=== PATIENT | female | born 1930 | race Two or more races ===

== ENCOUNTER 2017-01-11 20:24 | Inpatient (IN) | payer MEDICARE, OTHER ==
[~2017-01-11] VITALS: Ht 147.3 cm; Wt 41.0 kg
[2017-01-11 20:00] VITALS: BP 134/72; PULSE 67; PULSE 98; RESP 16; TEMP 98.1; O2SAT 98
[2017-01-11] MEDS: ASPIRIN 81 MG CHEW TAB PO SCH (20:52)
[2017-01-11] MEDS: METOPROLOL TARTRATE 25 MG TAB PO SCH (21:00)
[2017-01-11] MEDS ORDERED: SODIUM CHLORIDE FLUSH PRN IV FLUSH (21:00)
[2017-01-11] MEDS ORDERED: diphenhydrAMINE HCL 25 MG CAP PO PRN (21:00)
[2017-01-11] MEDS ORDERED: SENNOSIDES 8.6 MG TAB PO PRN (21:00)
[2017-01-11] MEDS: NITROGLYCERIN 2% OINT 1 GM PACKET TOPICAL SCH (21:00)
[2017-01-11] MEDS: ENOXAPARIN SODIUM 40 MG/0.4 ML SYRINGE SQ SCH (21:00)
[2017-01-11] MEDS ORDERED: ONDANSETRON HCL 4 MG/2 ML VIAL IV PUSH PRN (21:00)
[2017-01-11] MEDS: ATORVASTATIN 40 MG TAB PO SCH (22:29)
[2017-01-11] MEDS: SODIUM CHLORIDE FLUSH BID IV FLUSH SCH (22:30)
[2017-01-11 23:00] VITALS: BP 137/75; PULSE 68; PULSE 84; RESP 20; TEMP 98; O2SAT 96
[2017-01-12] VITALS (13 sets, daily range): BP systolic 138–149; BP diastolic 70–76; PULSE 62–78; RESP 16–20; TEMP 98–98.6; O2SAT 93–97
[2017-01-12] MEDS: NITROGLYCERIN 2% OINT 1 GM PACKET TOPICAL SCH ×4 (03:00→22:27)
[2017-01-12 06:09] LABS: AUTOMATED NEUTROPHIL # 1.8 TH/MM3 (1.8-7.7); BASOPHIL % 1.1 % (0.0-2.0); EOSINOPHIL # 0.4 TH/MM3 (0-0.4); EOSINOPHIL % 8.8 % (0.0-4.0); HEMO FLAGS DIFF FINAL; LYMPH % 29.7 % (9.0-44.0); LYMPHOCYTE # 1.2 TH/MM3 (1.0-4.8); MEAN CELL VOLUME 84.1 FL (80.0-100.0); MEAN CORPUSCULAR HEMOGLOBIN 27.5 PG (27.0-34.0); MEAN CORPUSCULAR HGB CONC 32.7 % (32.0-36.0); MONO % 14.8 % (0.0-8.0); NEUT % 45.6 % (16.0-70.0); PLATELET COUNT 234 TH/MM3 (150-450); RED CELL DISTRIBUTION WIDTH 19.9 % (11.6-17.2)
[2017-01-12 06:17] LABS: POTASSIUM 4.3 MEQ/L (3.5-5.1)
[2017-01-12] MEDS: ASPIRIN 81 MG CHEW TAB PO SCH (09:09)
[2017-01-12] MEDS: METOPROLOL TARTRATE 25 MG TAB PO SCH ×2 (09:09→22:28)
[2017-01-12] MEDS: SODIUM CHLORIDE FLUSH BID IV FLUSH SCH ×2 (09:10→22:28)
[2017-01-12] MEDS ORDERED: SOD PHOSPHATE/SOD BIPHOSPHATE (ADULT) ENEMA 133ML RECTAL PRN (10:30)
[2017-01-12] MEDS ORDERED: BISACODYL 10 MG SUPP RECTAL PRN (10:30)
--- NOTE | 2017-01-12 10:51 | RADRPT ---
EXAM DATE/TIME: 01/12/2017 10:22 [place] COMPARISON: No previous studies available for comparison. INDICATIONS : Chest pain MEDICAL HISTORY : Cardiovascular disease. SURGICAL HISTORY : Fusion, cervical. ENCOUNTER: Initial ACUITY: 1 day PAIN SCORE: 0/10 LOCATION: chest FINDINGS: There are chronic interstitial changes throughout the pulmonary parenchyma. No focal or segmental pne umonia is seen. The heart is enlarged. The thoracic aorta is ectatic. The mediastinal contours are otherwise unremark able. The bony structures are intact. CONCLUSION: 1. COPD changes. 2. Cardiomegaly. Javier Posada MD on January 12, 2017 at 10:48 Board Certified Radiologist. This report was verified electronically.
--- NOTE | 2017-01-12 11:59 | MB ---
cc: DINESH MAYO,HEATHER VIZCAINO,MILEY HENRY,HARPER Anglin MD DATE OF CONSULTATION: 01/12/2017 REASON FOR CONSULTATION: Multivessel coronary artery disease and aortic stenosis. HISTORY Ms. Wells is a very pleasant 86 year-old female with a known history of coronary artery disease who has been followed by Dr. Henry. She underwent elective coronary angiography last week by Dr. Henry at [facility] for progressive symptoms of shortness of breath and chest pain which revealed multivessel coronary artery disease in the setting of aortic stenosis. She was subsequently admitted the next day to the hospital for presenting complaints of nausea and dizziness. At that point a surgical consultation was obtained from the cardiothoracic surgeon there in terms of further therapy regarding her presenting pathology. The patient and family wished to have her care done at [place] and she was subsequently transferred here yesterday to [facility] for further management. At the present time she is pain free, hemodynamically stable with no evidence of ongoing ischemia. PAST MEDICAL HISTORY 1. Significant for hypertension. 2. Hypothyroidism. 3. Asthma. 4. Coronary artery disease as described above. 5. Aortic stenosis - by verbal report. PAST SURGICAL HISTORY: 1. Remarkable for coronary angiography as described above. 2. EGD with polypectomy. ALLERGIES PENICILLIN. FAMILY HISTORY: Significant for hypertension with no evidence of premature coronary artery disease. SOCIAL HISTORY: Denies any history of smoking, alcohol use, or illicit drug use. REVIEW OF SYSTEMS: As above. All other parameters are negative. PHYSICAL EXAMINATION: Physical emanation today she is 45.5 kg, blood pressure is 145/74 with a heart rate of 71, respiratory rate is 20 and she is afebrile. HEENT: Normocephalic, atraumatic. Pupils are reactive. Extraocular muscles intact. No cervical lymphadenopathy, carotid bruits or JVD. Cardiovascular: Regular rate and rhythm. Normal S1-S2 without gallops or rubs. There is a 2/6 diastolic murmur at the right parasternal border. Abdomen: Soft, nontender, nondistended with normoactive bowel sounds. No hepatosplenomegaly. Bilateral femoral pulses intact with softly palpable pedal pulses. No cyanosis, edema, no venous varicosities. Neurological: Intact with no focal deficits. IMPRESSION 1. Multivessel coronary disease. 2. Aortic stenosis by report - questionable. 3. Dementia 4. Asthma. 5. Hypertension. 6. Hypothyroidism. PLAN The clinical echo and angiographic findings were discussed in detail with the patient, her daughter and her son-in-law. I have reviewed the coronary angiography films from [facility] with Dr. Parth Campbell. Per the report of the echocardiogram, however, it states that there is no aortic stenosis, so we will obtain an echocardiogram at [facility] to determine the exact pathology of the aortic valve. The report states that there is mild sclerosis with trileaflet aortic valve and no Doppler evidence of stenosis, however, that is not what was reported to me verbally and related to me as well by her physicians over there. Further therapy depending upon what the echocardiogram shows. If she actually does have severe aortic stenosis in the setting of LAD and circumflex disease that I see in the coronary angiography, then I think the best approach may be staged PCI to the coronary vessels with eventual TAVR to the aortic valve. I think open surgical therapy for AVR and coronary artery bypass surgery in the setting of moderate to severe left ventricle dysfunction, dementia, as well as other medical comorbidities will carry a significant operative and perioperative risk of morbidity & mortality in her case. Further therapy to determine depending upon the findings of the above testing. Thank you for allowing me to participate in the care of your patient. Miley COLEMAN /10:33 AM /11:34 AM ERICKA
--- NOTE | 2017-01-12 12:52 | MB ---
cc: LONA SALINAS DATE OF CONSULTATION: 01/12/2017. REASON FOR CONSULTATION: Chest pain / aortic stenosis / coronary artery disease. HISTORY OF PRESENT ILLNESS: 86-year-old female with a past medical history significant for hypertension, hypothyroidism, asthma, mild dementia and coronary artery disease who was transferred from an outside hospital for evaluation of multivessel coronary artery disease and evaluation of aortic stenosis. The patient reports that for the last couple of days she has been having weakness, nausea, fainting and occasional atypical chest pains. The daughter adds that before this admission she recently was evaluated for acute on chronic heart failure at [facility] where she was evaluated by cardiology. Left heart catheterization done at that time revealed multivessel coronary artery disease and there is a question of aortic stenosis of uncertain severity. Today on interview, she denies any chest pain, shortness of breath, palpitations or lightheadedness. No orthopnea, PND or dyspnea on exertion. No fevers, chills or rigors. No night sweats, weight loss or diaphoresis. No dysuria, frequency of urination, urinary retention. No melena. No hematochezia. No hematemesis. No night sweats. No weight loss. No difficulty swallowing. Review of systems negative except for the ones mentioned in the history of present illness. PAST MEDICAL HISTORY: 1. Coronary artery disease. 2. Hypertension. 3. Hypothyroidism. 4. Asthma. ALLERGIES: PENICILLIN. PAST SURGICAL HISTORY: 1. Left heart catheterization. 2. EGD with polypectomy. FAMILY HISTORY: Noncontributory. SOCIAL HISTORY: Denies illicit drug use, smoking or alcohol abuse. MEDICATIONS: 1. Aspirin 81 milligrams p.o. daily. 2. Lipitor 20 milligrams p.o. daily. 3. Lopressor 12.5 milligrams p.o. twice a day. PHYSICAL EXAMINATION: VITAL SIGNS: Temperature 97, respiratory rate 20, heart rate 64, blood pressure 138/76, 02 saturation 100% on room air. GENERAL: She is awake, alert and oriented times three in no acute distress. NECK: No jugular venous distention. No carotid bruits. HEART: Regular rate and rhythm. No gallops or rubs. She has a 2/6 systolic ejection murmur. LUNGS: Poor inspiratory effort with no wheezes, no rhonchi, no rales. ABDOMEN: Benign. Positive bowel sounds. The abdomen is soft, nontender and nondistended. EXTREMITIES: There is no cyanosis or edema and pulses throughout. DATA: CBC: Hemoglobin 10, hematocrit 32, platelet count 234,000. Electrolytes: Sodium 139, potassium 4.3, BUN 22, creatinine 0.98. IMAGING STUDIES: Chest x-ray: COPD changes with cardiomegaly. CARDIOLOGY STUDIES: There is an echocardiogram report in her chart, no images to review, that mentions that she has a mildly decreased left ventricular systolic function with an ejection fraction estimated to be 45%. There is some diffuse hypokinesis , some mild aortic annular calcification and mild pulmonary hypertension. There is a left heart catheterization that I reviewed yesterday with Dr. Diaz that reveals mainly two-vessel coronary artery disease with a focal eccentric lesion in the left circumflex and another 12 mm ectatic lesion in the proximal left anterior descending associated with calcification. ASSESSMENT AND PLAN: 86-year-old female with the above history and findings admitted for coronary artery disease and aortic stenosis evaluation. She remains afebrile and hemodynamically stable. She is chest pain-free and denies any cardiovascular complaints at the moment. Left heart catheterization has been reviewed. She does have multivessel coronary artery disease; however, the aortic valve still has a question of the severity of it. Thus, we will need to repeat the echocardiogram during this admission to further assess the severity of the aortic stenosis, and with that information we can discuss with family and the patient the different alternatives we can provide regarding her the process. If she has severe aortic stenosis on echo, it would be reasonable to consider TAVR, if not then will treat CAD with PCI and medical therapy. Recommendations: -Continue aggressive medical management for coronary artery disease and mild IV diuresis. -Avoid electrolyte abnormalities. -Continue telemetry monitoring. -Continue all other non-cardiac home medications. -ECHO today Thank you for the opportunity to participate in the care of this patient. Further management to be determined MD MAI Payton/ANDREAS /12:04 PM /12:35 PM ERICKA
--- NOTE | 2017-01-12 13:16 | ECHRPT ---
Indication: cardiomyopathy CONCLUSIONS Normal left ventricular size. Wall thickness is normal. The left ventricular systolic function is severely reduced with an estimated ejection fraction in th e range of 30-35%. There is diffuse global hypokinesis with distinct regional wall motion abnormalities. Mild mitral valve regurgitation. Mitral annular calcification is present. Aortic valve sclerosis is present. Trace aortic valve regurgitation. There is mild tricuspid valve regurgitation. The estimated pulmonary arterial pressure is 31.4 mmHg. BP: / HR: Rhythm: MEASUREMENTS (Male / Female) Normal Values Technical Quality: 2D ECHO LV Diastolic Diameter PLAX 4.8 cm 4.2 - 5.9 / 3.9 - 5.3 cm LV Systolic Diameter PLAX 4.2 cm IVS Diastolic Thickness 0.8 cm 0.6 - 1.0 / 0.6 - 0.9 cm LVPW Diastolic Thickness 0.7 cm 0.6 - 1.0 / 0.6 - 0.9 cm LV Relative Wall Thickness 0.3 RV Internal Dim ED PLAX 2.1 cm LA Systolic Diameter LX 3.7 cm 3.0 - 4.0 / 2.7 - 3.8 cm DOPPLER AV Peak Velocity 201.5 cm/s AV Peak Gradient 16.2 mmHg AV Mean Gradient 8.0 mmHg AV Velocity Time Integral 39.5 cm LVOT Peak Velocity 91.7 cm/s LVOT Peak Gradient 3.4 mmHg LVOT Velocity Time Integral 17.8 cm Mitral E Point Velocity 44.9 cm/s Mitral A Point Velocity 98.7 cm/s Mitral E to A Ratio 0.5 TR Peak Velocity 257.0 cm/s TR Peak Gradient 26.4 mmHg Right Atrial Pressure 5.0 mmHg Pulmonary Artery Systolic Pressu 31.4 mmHg Right Ventricular Systolic Press 31.4 mmHg FINDINGS LEFT VENTRICLE Normal left ventricular size. Wall thickness is normal. The left ventricular systolic function is severely reduced with an estimated ejection fraction in th e range of 30-35%. There is diffuse global hypokinesis with distinct regional wall motion abnormalities. RIGHT VENTRICLE Normal right ventricular size and systolic function. LEFT ATRIUM The left atrial size is normal. RIGHT ATRIUM The right atrial size is normal. ATRIAL SEPTUM Normal atrial septal thickness without atrial level shunting by limited color doppler interrogation. AORTA The aortic root and proximal ascending aorta are normal in size on limited imaging. MITRAL VALVE Mild mitral valve regurgitation. Mitral annular calcification is present. AORTIC VALVE Aortic valve sclerosis is present. Trace aortic valve regurgitation. TRICUSPID VALVE There is mild tricuspid valve regurgitation. The estimated pulmonary arterial pressure is 31.4 mmHg. PULMONARY VALVE No pulmonary valve regurgitation or stenosis. VESSELS The inferior vena cava is normal in size. PERICARDIUM No pericardial effusion. Parth Sotomayor MD (Electronically Signed) Final Date:12 January 2017 13:15
[2017-01-12] MEDS: RESP: ALBUTEROL 2.5 MG/IPRATROPIUM 0.5 MG NEB (SCH) NEB (14:31)
[2017-01-12] MEDS: ENOXAPARIN SODIUM 40 MG/0.4 ML SYRINGE SQ SCH (22:27)
[2017-01-12] MEDS: DOCUSATE SODIUM 100 MG CAP PO SCH (22:27)
[2017-01-12] MEDS: SENNOSIDES 8.6 MG TAB PO SCH (22:27)
[2017-01-12] MEDS: ATORVASTATIN 40 MG TAB PO SCH (22:28)
[2017-01-13] VITALS (14 sets, daily range): BP systolic 137–138; BP diastolic 63–82; PULSE 56–89; RESP 16–18; TEMP 97.6–98.5; O2SAT 95–98
[2017-01-13] MEDS: NITROGLYCERIN 2% OINT 1 GM PACKET TOPICAL SCH (03:12)
[2017-01-13] MEDS: RESP: ALBUTEROL 2.5 MG/IPRATROPIUM 0.5 MG NEB (SCH) NEB ×3 (07:42→21:02)
[2017-01-13] MEDS ORDERED: HEPARIN-NS/PF INJ 1,000 ML ONE ×2 (08:09→09:10)
[2017-01-13] MEDS ORDERED: MIDAZOLAM HCL 2 MG/2 ML VIAL ONE ×2 (08:09→09:35)
[2017-01-13] MEDS ORDERED: HEPARIN SODIUM - IV 10,000 UNITS/10 ML VIAL ONE (08:34)
[2017-01-13] MEDS ORDERED: NITROGLYCERIN INJ 5 ML ONE (08:34)
[2017-01-13] MEDS ORDERED: POLYETHYLENE GLYCOL 17 GM PKG PO SCH (09:00)
[2017-01-13] MEDS ORDERED: CLOPIDOGREL 300 MG TAB ONE (10:37)
[2017-01-13] MEDS ORDERED: SODIUM CHLOR 0.9% 1000 ML INJ 1,000 ML IV SCH (10:48)
--- NOTE | 2017-01-13 10:50 | CATHPROC ---
Pain Doctor HIS Report Study Information Study Number Admission Scheduled Start Study Start [id number] Jan 11 2017 8:24PM 01/13/2017 Jan 13 2017 8:01AM [facility] Catheterization Admit Source Facility Department Emergency department [facility] - Bad Cloth Checker Physician and Clinical Staff Initial Parth Moreno Paraeducator Celestina Mulligan,MARIA E ParaeducatorEloisa Sorensen,MARIA E Recorder Samir, Juan Ramon,RT(R) Suellen Rucker,AGUEDA TECH2 Procedures Performed Procedure Location (Site) Vessel Name Coronary Angiograms LCA Left Coronary Coronary Angiograms RCA Right Coronary Drug Eluting Inflatio CIRC Mid CIRC Drug Eluting Inflatio LAD Prox Left Coronary Impella Fem Art (left) Femoral Art PTCA LAD Prox Left Coronary Wire insertion Fem Art (right) Femoral Art Equipment Time Car Customizer Description Size Mfg Part Number Used/Scraped COPILOT VALVE, BLEEDBACK [id number] 09:43 [employer] Used CONTROL *[id number] PERCLOSE, PRO GLIDE CLOSER 10:29 [employer] FR 6 [id number] *[id number] Used DEVICE PERCLOSE, PRO GLIDE CLOSER 08:56 [employer] FR 6 93772 *[id number] Used DEVICE PERCLOSE, PRO GLIDE CLOSER 08:56 [employer] FR 6 23419 *[id number] Used DEVICE PERCLOSE, PRO GLIDE CLOSER 08:56 [employer] FR 6 53568 *[id number] Used DEVICE STENT, 2.75 X 18MM XIENCE [id number] 10:01 [employer] 2.75 X 18 Used ALPINE *[id number] STENT, 2.75 X 18MM XIENCE [id number] 10:16 [employer] 2.75 X 18 Used ALPINE *[id number] 09:24 [employer] WIRE, DOC EXTENSION 145CM 145CM 73267 *[id number] Used [id number] 09:03 [employer] WIRE, SPARTACORE 5*300CM 300CM Used *[id number] 09:05 ABIOMED PUMPSET, IMPELLA 2.5 2.5 489106 Used TRANSDUCER, TRUWAVE [id number] 08:39 GOODWIN RABAGO * Used W/STOCKCOCK *[id number] 09:42 [employer] BALLOON, 2.5 12MM EMERGE MR 2.5 12MM Used *[id number] CARDIOVASCULAR CATHETER, CORONARY CLASSIC [id number]-[id number] 09:36 Used SYSTEMS INC. 1.25MM *[id number] CARDIOVASCULAR WIRE, VIPER ADVANCE [facility]-[id number]- 09:22 Used SYSTEMS INC. CORONARY FLP *[id number] MPIS-502-10.0- INTRODUCER SET, 08:39 [employer]OOK INC. FR 5 SC-NT-U-SST Used MICROPUNCTURE, STIFFENED *7927175 534-645T *1586281 534-645T *5297019 534-521T *[id number] 504-658X *[id number] [id number] 08:39 [employer] IND[employer]RIES PACK, CCL CUSTOM * Used *[id number] [id number] 09:27 MEDTRONIC BALLOON, 1.5 X 6MM SPRINTER 6MM Used *[id number] BALLOON, 2.75 X 15MM NC [id number] 09:59 [employer]IC 15MM Used EUPHORA *0605613 [id number] 09:47 [employer]IC STENT, 2.75 18MM VAL 2.75 18MM Used *[id number] 08:38 [employer]TR[employer]IC/AVE EBU 3.5 Z2 GUIDE CATHETER FR 6 Used *[id number] [id number] 09:43 [employer] MEDICAL 30 DALJIT INDEFLATOR Used *4706937 [id number] 08:39 [employer] MEDICAL WIRE, 3MMJ .035 180CM 180CM Used *1765161 [id number] 08:39 NAMIC MANIFOLD, 4 PORT * Used *6966295 08:39 NYCOMED OMNIPAQUE, 350 MG, 150ML 150ML [id number] Used [id number] 08:39 [employer] BLANKET,WARM AIR CCL * Used *7104174 [id number] 08:40 TERUMO MEDICAL SHEATH, FR6 TERUMO (10CM) FR 6 Used *[id number] WIRE, RUNTHROUGH NS FLOPPY 25-1011 09:17 TERUMO MEDICAL 180CM Used .014 180CM *[id number] Equipment Model, Serial, Lot Number and Expiration Data Description Model Number Serial Number Lot Number Expiration Date BALLOON, 2.5 12MM EMERGE MR [id number] 07-19-2019 PERCLOSE, PRO GLIDE CLOSER [id number] 09-04-2018 DEVICE PERCLOSE, PRO GLIDE CLOSER [id number] 09-04-2018 DEVICE PERCLOSE, PRO GLIDE CLOSER [id number] 09-04-2018 DEVICE STENT, 2.75 18MM VAL [id number] 08-21-2018 STENT, 2.75 X 18MM XIENCE [id number] 04-08-2019 ALPINE STENT, 2.75 X 18MM XIENCE [id number] 03-03-2019 ALPINE WIRE, VIPER ADVANCE CORONARY [id number] 03-06-2018 History: Allergies Allergy Reaction Penicillins Anaphylaxis History: Risk Factors Family History of Hypertension Dyslipidemia Previous MT Previous Heart Failure Premature CAD Yes Yes No No No Prior Valve Prior PCI Prior CABG Surgery No No No Cerebrovascular Peripheral Artery Chronic Lung On Dialysis Diabetes Disease Disease Disease No No No Yes No History: Other Current Smoker No Labs Hgb (g/dl) Hct (%) WBC (l/cumm) Platelets (thousands) 11.60-17.00 35.00-51.00 4.00-11.00 150.00-450.00 10.5 32 4 234 Glucose (mg/dl) BUN (mg/dl) Creatinine (mg/dl) BUN:Creatinine (1:x) 74.00-106.00 7.00-18.00 0.50-1.30 10.00-20.00 85 22 0.9 24.4 Na (meq/l) K (meq/l) 136.00-145.00 3.50-5.10 139 4.3 CPK-MB (ng/ML) 0.50-3.60 Not Drawn Medication Medication Total Dose (Bolus/Oral) Medication Total Dosage/Unit 1% XYLOCAINE 20 mL FENTANYL 150 mcg HEPARIN 6000 units PLAVIX 600 mg VERSED 4 mg Medications (Bolus/Oral) Medication Time Given Dosage/Unit Administered By Reason VERSED 01/13/2017 8:37:54 AM 1 mg Celestina Mulligan Patient arrived on 1 mg VERSED given by Celestina Mulligan RN via Peripheral IV. Ordered by Parth Sotomayor. FENTANYL 01/13/2017 8:38:13 AM 25 mcg Celestina Mulligan Patient arrived on 25 mcg FENTANYL given by Celestina Mulligan, MARIA E via Peripheral IV. Ordered by Parth Spencer. 1% XYLOCAINE 01/13/2017 8:39:59 AM 10 mL Parth Sotomayor Patient arrived on 10 mL 1% XYLOCAINE given by Parth Sotomayor in Right Groin via Subcutaneous. Ord ered by Parth Sotomayor. 1% XYLOCAINE 01/13/2017 8:53:44 AM 10 mL Parth Sotomayor Patient arrived on 10 mL 1% XYLOCAINE given by Parth Sotomayor in Left Groin via Subcutaneous. Orde red by Parth Sotomayor. VERSED 01/13/2017 8:58:47 AM 1 mg Adamy, Celestina 1 mg VERSED given in lab by Celestina Mulligan RN via Peripheral IV. Ordered by Parth Sotomayor. FENTANYL 01/13/2017 8:59:37 AM 25 mcg Adamy, Celestina 25 mcg FENTANYL given in lab by Celestina Mulligan RN via Peripheral IV. Ordered by Parth Sotomayor. HEPARIN 01/13/2017 8:59:45 AM 4000 units Celestina Mulligan 4000 units HEPARIN given in lab by Celestina Mulligan RN via Peripheral IV. Ordered by Renetta Sotomayor o. HEPARIN 01/13/2017 9:12:11 AM 2000 units Ceelstina Mulligan 2000 units HEPARIN given in lab by Celestina Mulligan RN via Peripheral IV. Ordered by Renetta Sotomayor o. VERSED 01/13/2017 9:37:12 AM 1 mg Hesher, Eloisa 1 mg VERSED given in lab by Eloisa Thomas, MARIA E via Peripheral IV. Ordered by Parth Sotomayor. FENTANYL 01/13/2017 9:38:22 AM 25 mcg Hesher, Eloisa 25 mcg FENTANYL given in lab by Eloisa Thomas RN via Peripheral IV. Ordered by Parth Sotomayor. VERSED 01/13/2017 9:59:49 AM 1 mg Adamy, Celestina 1 mg VERSED given in lab by Celestina Mulligan RN via Peripheral IV. Ordered by Parth Sotomayor. FENTANYL 01/13/2017 10:00:05 AM 25 mcg Adamy, Celestina 25 mcg FENTANYL given in lab by Celestina Mulligan RN via Peripheral IV. Ordered by Parth Sotomayor. FENTANYL 01/13/2017 10:27:10 AM 50 mcg Celestina Mulligan 50 mcg FENTANYL given in lab by Celestina Mulligan RN via Peripheral IV. Ordered by Parth Sotomayor. PLAVIX 01/13/2017 10:35:27 AM 600 mg Celestina Mulligan 600 mg PLAVIX given in lab by Celestina Mulligan RN via Oral. Ordered by Parth Sotomayor. Medication (Drip) Medication Time Given Dosage/Unit Concentration/Unit Diluent (ml) Solution IV Solutions 01/13/2017 8:13:27 AM 0 mL (IV) 500 NaCl .9 Patient arrived on IV Solutions given by Parth Sotomayor in Right Antecubital via Peripheral IV. Pu mp/Drip Flow = 20 ml/hr using NaCl .9. Ordered by Parth Sotomayor. Initial Case Assessment Cardiovascular HR Rhythm NIBP Chest Pain 65 sr 144/76 0 Edema Present Skin color Skin None Normal Warm Dry Circulatory - Right Pulses Posterior Tibial Femoral 3 3 Scale (0,1,2,3,4,d) Circulatory - Left Pulses Posterior Tibial Femoral 3 3 Scale (0,1,2,3,4,d) Neurological State Oriented to time-place- Alert Moves all extremities person Respiration - General Respiration Rate SpO2 (%) O2 (lpm) (B/min) 18 99 0 Chronological Log Time Study Chronological Log 8:01:46 Patient arrived via Bed. 8:01:48 Patient Name, D.O.B, / Armband Verified By R.N. 8:01:49 Consent signed by the physician and the patient and verified by the Bad Cloth Checker staff. 8:01:51 Pre-op and post- op instructions given; patient acknowledges understanding of instructions . 8:06:20 Reference ECG taken Vitals capture started with the following parameters, Patient=Adult, Interval=5 min, Initial Ezmcnsuf=203 mmHg, 8:06:40 Deflation Rate=5 mmHg 8:06:50 Presedation assessment performed by Bad Cloth Checker RN. 8:06:54 Patient has been NPO for More than 6Hrs. 8:06:57 Skin Breakdown-none present per patient. 8:07:51 HR=63 bpm, WSHV=104/75 mmhg, SpO2=98.0 %, Resp=0 B/min, Brumfield=2 8:12:15 HR=64 bpm, JPTN=641/76 mmhg, SpO2=98.0 %, Resp=10 B/min, Brumfield=2 8:13:17 A # 20 IV was noted in the Antecubital (right). Grade = 0 Patient arrived on IV Solutions given by Parth Sotomayor in Right Antecubital via Peripheral I V. Pump/Drip Flow = 20 8:13:27 ml/hr using NaCl .9. Ordered by Parth Sotomayor. 8:14:21 History and physical on the chart or being dictated. Assessment: Initial Case, HR=65 BPM, Rhythm=sr, HJAF=224/76 mmhg, Chest Pain=0, Edema=None, [place] r=Normal, Skin = Warm, Dry Right Pulses: Post Tib=3, Femoral=3 8:14:25 Left Pulses: Post Tib=3, Femoral=3 Neurological: State=Alert, Ox3, ARECHIGA Respiration: Resp=18 B/min, SpO2=99 %, O2=0 lpm 8:15:56 Bilateral groins prepped with 2% chlorhexidine, and draped after a 3 minute waiting time. 8:17:14 HR=65 bpm, SBFX=008/75 mmhg, WdS1=503.0 %, Resp=10 B/min, Brumfield=2 8:22:17 HR=66 bpm, NLPK=388/75 mmhg, HqK7=296.0 %, Resp=14 B/min, Brumfield=2 8:24:14 Pressure channel 1 zeroed. 8:27:18 HR=62 bpm, MGBY=056/73 mmhg, JfK5=712.0 %, Resp=12 B/min, Brumfield=2 8:30:59 MD arrived. 8:31:19 Dr. Campbell informed patient recieved Lovenox last night. He wishes to proceed with case. 8:32:17 HR=64 bpm, WTOS=491/69 mmhg, IbJ0=716.0 %, Resp=13 B/min, Brumfield=2 Time Out. Correct patient, correct procedure, correct physician, power injector not loaded with contrast with surgical 8:37:08 team present. Time Out Concurred by MD and individual staff in procedure. Not loaded at this reina e. 8:37:16 HR=61 bpm, UZUC=618/73 mmhg, KfG5=270.0 %, Resp=12 B/min, Brumfield=2 8:37:34 Presedation re-assessment performed by Bad Cloth Checker RN. 8:37:35 Case Start 8:37:37 Verbal Stimulation=2 Physical Stimulation=2 Airway=2 Respiration=2 TOTAL=8. (0=absent, 1=fournier ited, 2=present) 8:37:54 Patient arrived on 1 mg VERSED given by Celestina Mulligan, MARIA E via Peripheral IV. Ordered by Co Parth Alejandre. 8:38:13 Patient arrived on 25 mcg FENTANYL given by Celestina Mulligan, MARIA E via Peripheral IV. Ordered b y Parth Sotomayor. Patient arrived on 10 mL 1% XYLOCAINE given by Parth Sotomayor in Right Groin via Subcutaneous . Ordered by 8:39:59 Parth Sotomayor. 8:40:12 Access site was Right Femoral Artery. A SHEATH, FR6 TERUMO (10CM) FR 6 was exchanged in the Fem Art (right). This was necessary in ord er to 8:40:19 accomodate a larger catheter. Recorded Pressure: FA, HR=61, Condition=Condition 1 8:41:12 (Femoral Artery) FA 166/63/99 8:41:36 An injection in the Fem Art (right) was made through the SHEATH, FR6 TERUMO (10CM) FR 6. A JR 4.0 INFINITI CATHETER FR 5 was advanced over a wire. OMNIPAQUE, 350 MG, 150ML 150ML was use d for 8:42:10 injections. 8:42:20 HR=68 bpm, CXBA=495/66 mmhg, RlG1=169.0 %, Resp=8 B/min, Brumfield=2 Recorded Pressure: Ao, HR=64, Condition=Condition 1 8:43:04 (Aorta) Ao 156/61/98 8:43:22 The RCA was injected and visualized at various angles. OMNIPAQUE, 350 MG, 150ML 150ML used. 8:44:34 Catheter was removed A EBU 3.5 Z2 GUIDE CATHETER FR 6 was advanced over a wire. OMNIPAQUE, 350 MG, 150ML 150ML was us ed for 8:44:58 injections. 8:46:16 The LCA was injected and visualized at various angles. OMNIPAQUE, 350 MG, 150ML 150ML used. 8:47:17 HR=60 bpm, NCMN=716/63 mmhg, SpO2=99.0 %, Resp=7 B/min, Brumfield=2 8:50:45 Catheter was removed A AL 1 INFINITI CATHETER FR 6 was advanced over a wire. OMNIPAQUE, 350 MG, 150ML 150ML was used for 8:50:47 injections. 8:52:18 HR=58 bpm, AWQE=699/72 mmhg, AzN9=142.0 %, Resp=13 B/min, Brumfield=2 8:53:40 Catheter was removed Patient arrived on 10 mL 1% XYLOCAINE given by Parth Sotomayor in Left Groin via Subcutaneous. Ordered by Ike 8:53:44 Parth Castillo. 8:56:18 A SHEATH, FR8.5 AMINA 11CM FR 8 was advanced into the Fem Art (left) using the Percutaneous technique. 8:57:19 HR=62 bpm, ASOS=914/69 mmhg, XrE7=211.0 %, Resp=9 B/min, Brumfield=2 8:58:47 1 mg VERSED given in lab by Celestina Mulligan, MARIA E via Peripheral IV. Ordered by Alvaro Sotomayor. 8:59:37 25 mcg FENTANYL given in lab by Celestina Mulligan, MARIA E via Peripheral IV. Ordered by Parth Sotomayor. 8:59:45 4000 units HEPARIN given in lab by Celestina Mulligan, MARIA E via Peripheral IV. Ordered by Parth Spencer. 9:00:22 Perclose Proglide closure devices being per inserted in left fem art. 9:02:18 HR=64 bpm, QLII=598/72 mmhg, SpO2=98.0 %, Resp=15 B/min, Brumfield=2 A sheath was exchanged in the Fem Art (left). This was necessary in order to accomodate a larger catheter. Impella 9:04:54 sheath exchanged 9:07:19 HR=58 bpm, FMCI=036/63 mmhg, SpO2=99.0 %, Resp=10 B/min, Brumfield=2 9:08:14 Activated Clotting Time Drawn A AL 1 INFINITI CATHETER FR 6 was advanced over a wire. OMNIPAQUE, 350 MG, 150ML 150ML was used for 9:10:13 injections. 9:11:58 ACT (Normal Range 90-180) = 244 9:12:11 2000 units HEPARIN given in lab by Celestina Mulligan, MARIA E via Peripheral IV. Ordered by Parth Spencer. 9:12:20 HR=60 bpm, AFUC=956/58 mmhg, SpO2=99.0 %, Resp=10 B/min, Brumfield=2 9:12:50 DEfib pads placed on patient. An PUMPSET, IMPELLA 2.5 2.5 was advanced into the left ventricle . Proper placement was confir med under 9:15:09 fluoroscopy and the catheter was sutured in place. 9:17:50 HR=58 bpm, GLLO=630/71 mmhg, OaA6=360.0 %, Resp=9 B/min, Brumfield=2 A EBU 3.5 Z2 GUIDE CATHETER FR 6 was advanced over a wire. OMNIPAQUE, 350 MG, 150ML 150ML was us ed for 9:18:49 injections. 9:22:18 HR=57 bpm, PKAW=796/73 mmhg, CrZ0=198.0 %, Resp=9 B/min, Brumfield=2 9:22:41 A WIRE, RUNTHROUGH NS FLOPPY .014 180CM 180CM was inserted via Fem Art (right). 9:24:53 Interventional wire has crossed the lesion 9:27:19 HR=54 bpm, JPSK=911/71 mmhg, HpN6=177.0 %, Resp=12 B/min, Brumfield=2 A BALLOON, 1.5 X 6MM SPRINTER 6MM was inserted over WIRE, RUNTHROUGH NS FLOPPY .014 180CM 180CM via the 9:27:19 Fem Art (right). 9:28:44 Wire removed 9:29:48 A WIRE, VIPER ADVANCE CORONARY was inserted via Fem Art (right). 9:29:58 Balloon Removed. 9:32:18 HR=65 bpm, GSZT=717/83 mmhg, ZpA1=866.0 %, Resp=12 B/min, Brumfield=2 9:36:14 An CATHETER, CORONARY CLASSIC 1.25MM catheter was inserted into the LAD Prox. 9:37:12 1 mg VERSED given in lab by Eloisa Thomas, RN via Peripheral IV. Ordered by Eddie Sotomayor. 9:37:21 HR=59 bpm, KNJR=885/79 mmhg, UuU5=215.0 %, Resp=17 B/min, Brumfield=2 9:37:44 1.25mm Classic coronary in use in Prox Lad. 9:38:22 25 mcg FENTANYL given in lab by Eloisa Thomas, MARIA E via Peripheral IV. Ordered by Parth Sotomayor. 9:40:40 CSI Catheter was removed 9:42:26 HR=66 bpm, PJDT=196/76 mmhg, FaC1=964.0 %, Resp=19 B/min, Brumfield=2 9:42:35 A BALLOON, 2.5 12MM EMERGE MR 2.5 12MM was inserted over WIRE, VIPER ADVANCE CORONARY via th e LAD Prox. A BALLOON, 2.5 12MM EMERGE MR 2.5 12MM over a WIRE, VIPER ADVANCE CORONARY in the LAD Prox was inflated 9:42:45 using a 30 DALJIT INDEFLATOR at ~DALJIT~ daljit for ~SECONDS~ sec. A BALLOON, 2.5 12MM EMERGE MR 2.5 12MM over a WIRE, VIPER ADVANCE CORONARY in the LAD Prox was inflated 9:43:53 using a 30 DALJIT INDEFLATOR at 5 daljit for 30 sec. 9:46:33 Balloon Removed. 9:47:17 HR=62 bpm, QMST=391/75 mmhg, SpO2=99.0 %, Resp=15 B/min, Brumfield=2 9:48:23 Activated Clotting Time Drawn A STENT, 2.75 18MM VAL 2.75 18MM was advanced through a EBU 3.5 Z2 GUIDE CATHETER FR 6 over a WIRE, 9:49:52 VIPER ADVANCE CORONARY. 9:50:55 Stent not deployed. Stent removed and intact. 9:52:17 A BALLOON, 1.5 X 6MM SPRINTER 6MM was inserted over WIRE, VIPER ADVANCE CORONARY via the LAD Prox. 9:52:20 HR=60 bpm, KEMU=183/71 mmhg, UnI0=377.0 %, Resp=11 B/min, Brumfield=2 9:54:12 The previous wire was exchanged for a WIRE, RUNTHROUGH NS FLOPPY .014 180CM 180CM. 9:54:19 Balloon Removed. 9:55:21 ACT (Normal Range 90-180) = 397 9:57:19 HR=62 bpm, UNFK=965/73 mmhg, KdM4=475.0 %, Resp=13 B/min, Brumfield=2 A BALLOON, 2.75 X 15MM NC EUPHORA 15MM was inserted over WIRE, RUNTHROUGH NS FLOPPY .014 180CM 9:57:54 180CM via the LAD Prox. A BALLOON, 2.75 X 15MM NC EUPHORA 15MM over a WIRE, RUNTHROUGH NS FLOPPY .014 180CM 180CM in th e LAD 9:58:47 Prox was inflated using a 30 DALJIT INDEFLATOR at 14 daljit for 24 sec. A BALLOON, 2.75 X 15MM NC EUPHORA 15MM over a WIRE, RUNTHROUGH NS FLOPPY .014 180CM 180CM in th e LAD 9:59:28 Prox was inflated using a 30 DALJIT INDEFLATOR at 14 daljit for 10 sec. 9:59:49 1 mg VERSED given in lab by Celestina Mulligan RN via Peripheral IV. Ordered by Alvaro Sotomayor. 10:00:05 25 mcg FENTANYL given in lab by Celestina Mulligan, MARIA E via Peripheral IV. Ordered by Parth Qureshi. A BALLOON, 2.75 X 15MM NC EUPHORA 15MM over a WIRE, RUNTHROUGH NS FLOPPY .014 180CM 180CM in th e LAD 10:00:23 Prox was inflated using a 30 DALJIT INDEFLATOR at 15 daljit for 12 sec. 10:01:12 Balloon Removed. A STENT, 2.75 X 18MM XIENCE ALPINE 2.75 X 18 was advanced through a EBU 3.5 Z2 GUIDE CATHETER F R 6 over a 10:01:40 WIRE, RUNTHROUGH NS FLOPPY .014 180CM 180CM. A STENT, 2.75 X 18MM XIENCE ALPINE 2.75 X 18 was deployed using a 30 DALJIT INDEFLATOR at 14 atmos pheres for 10::54 16 seconds in the LAD Prox. 10:02:25 HR=65 bpm, PYPQ=675/76 mmhg, GnD5=650.0 %, Resp=9 B/min, Brumfield=2 10:04:41 Delivery device removed 10:06:50 Wire removed from LAD and rerouted down Circ. 10:07:22 HR=60 bpm, HSYO=512/68 mmhg, SpO2=99.0 %, Resp=8 B/min, Brumfield=2 10:07:31 Interventional wire has crossed the lesion 10:07:53 A WIRE, VIPER ADVANCE CORONARY was inserted via Fem Art (right). 10:08:48 Interventional wire has crossed the lesion 10:08:50 Run through Wire removed 10:10:24 An CATHETER, CORONARY CLASSIC 1.25MM catheter was inserted into the CIRC Mid. 10:12:19 CSI catheter in use in Circ. 10:12:23 HR=63 bpm, EAQR=047/69 mmhg, NoB7=674.0 %, Resp=9 B/min, Brumfield=2 10:15:20 CSI catheter was removed. A STENT, 2.75 X 18MM XIENCE ALPINE 2.75 X 18 was advanced through a EBU 3.5 Z2 GUIDE CATHETER F R 6 over a 10:16:28 WIRE, VIPER ADVANCE CORONARY. 10:17:20 HR=60 bpm, AVDL=363/71 mmhg, SpO2=99.0 %, Resp=8 B/min, Brumfield=2 A STENT, 2.75 X 18MM XIENCE ALPINE 2.75 X 18 was deployed using a 30 DALJIT INDEFLATOR at 14 atmo spheres for 10:19:25 10 seconds in the CIRC Mid. 10:19:42 Delivery device removed 10:20:49 Wire removed 10:20:55 Catheter was removed 10:22:18 Impella Device removed.3 Perclose devices deployed left fem art. 10:22:23 HR=65 bpm, BZBL=295/57 mmhg, SpO2=99.0 %, Resp=8 B/min, Brumfield=2 10:27:10 50 mcg FENTANYL given in lab by Celestina Mulligan, MARIA E via Peripheral IV. Ordered by Parth Monge. 10:28:01 HR=68 bpm, UXZA=121/72 mmhg, EvI1=340.0 %, Resp=14 B/min, Brumfield=2 10:28:28 PERCLOSE, PRO GLIDE CLOSER DEVICE FR 6 placement in the Fem Art (right) 10:29:15 Case End 10:29:17 Sterile dressing applied to sites 10:29:20 No case complications noted. 10:29:23 Cine recording checked. 10:31:23 Bedside Report will be given. 10:31:25 Implantable Device card placed in patient's chart. 10:31:27 Contrast Scanned 10:32:27 HR=68 bpm, JXPA=843/81 mmhg, CuC0=747.0 %, Resp=18 B/min, Brumfield=2 10:35:27 600 mg PLAVIX given in lab by Celestina Mulligan, MARIA E via Oral. Ordered by Parth Sotomayor. 10:37:30 HR=60 bpm, DQNC=120/74 mmhg, IdP3=758.0 %, Resp=10 B/min, Brumfield=2 10:38:52 Vitals capture stopped. 10:47:33 Patient moved to [facility] End Study - Contrast Media Used In Study Contrast Total Opened (mL) Total Used (mL) Total Wasted (mL) Omnipaque 140 140 0 End Study - Maximum Contrast Load Max Contrast Load (mL) 225.0 End Study - Radiation Exposure Fluoro Time (minutes) 34.9 End Study - Patient Disposition Complications Transferred To Telemetry Bed
[2017-01-13] MEDS ORDERED: MISC INFORMATION XX ONE (11:00)
--- NOTE | 2017-01-13 11:13 | MA ---
cc: CELESTELONA Schmitt DATE OF 1930 DATE OF PROCEDURE January 13, 2017 PROCEDURE PERFORMED 1. Left heart catheterization. 2. Selective right and left coronary angiography. 3. Impella assist device insertion. 4. Impella assist device removal. 5. CSI atherectomy to proximal LAD and mid-left circumflex artery. 6. Successful PCI/NATTY to LAD and left circumflex artery. INDICATION Unstable angina/severe LV systolic dysfunction/high-risk PCI. PROCEDURE DESCRIPTION Consent signed. The patient was brought into the [facility] in fasting state. The right and left groins were prepped and draped in sterile fashion using 1% lidocaine for local anesthesia and a micropuncture kit. A 6-Togolese sheath was inserted into the right common femoral artery. The right common femoral artery angiography was performed to confirm position of the sheath. Then selective right and left coronary angiography was performed with a JR-4 and an EBU 3.5 guide. Angiogram was taken in multiple views. Angiography confirmed two-vessel coronary artery disease in the proximal LAD which is a lesion that is a high-risk lesion, very calcified with HERBERT III flow and a 15- mm length. Then there is another lesion in the mid-left circumflex artery which is focal calcification. Given the had severe LV systolic dysfunction, we placed an Impella assist device to the left groin for acute and chronic systolic heart failure. For this 1% lidocaine and a micropuncture kit was used to access the left common femoral artery and this was performed through the micropuncture sheath. Then an 8-Togolese sheath was placed, then the vessel was pre-closed. Heparin was given for IV anticoagulation and Impella assist device was placed in the left groin. This was followed by insertion of the Impella assist device over a wire to the left ventricle, fluoroscopy guided. After positioning, the Impella was turned on with adequate hemodynamics. This was followed by the [facility] portion of the operation. For this we engaged the left main with an EBU 3.5 guide. A Viper wire was used to wire the LAD which was anchored distally. This was followed by insertion and atherectomy with a CIS device in the proximal LAD with two passes on this area. This was followed by predilation with a 2.5/12 balloon and a 2.75/12 balloon with adequate expansion of the vessel. Then we inset it under fluoroscopy a 2.75/18 drug-eluting stent which was postdilated with a stent balloon to high atmospheres. Final angiographic views revealed good stent position and expansion with HERBERT-3 flow. Then after finishing with the LAD we went to intervene in the left circumflex artery. For this the Viper wire was used to wire the left circumflex artery which was anchored distally in the OM. Then the we inserted the [facility] SI device and did two passes through the midportion of the left circumflex artery and this was followed by direct stenting with a 2.75/18 drug-eluting stent. Final angiographic views revealed good stent apposition and expansion with HERBERT-3 flow. After intervention part of the procedure was finished, we proceeded with removal of the Impella device without any complications. The left groin was Perclosed and the right groin also was Perclosed. The patient was loaded with aspirin and Plavix after the procedure. The patient tolerated the procedure well without complications. Estimated blood loss less than 50 cc. Total contrast used 150 cc. CONCLUSION 1. Successful PCI to proximal LAD and mid-left circumflex artery in the setting of unstable angina. 2. Severe LV systolic dysfunction. 3. Severely calcified coronary arteries. RECOMMENDATIONS 1. The patient will go to [facility] for post-cath care. 2. She will continue dual antiplatelet agent with aspirin and Plavix as well as aggressive medical management for coronary artery disease with beta-blockers, statins, GENEVIEVE inhibitors and long-acting nitrates as tolerated. 3. After bedrest the patient should be able to get out of bed with incentive spirometry. MD MAI Payton/BARRY /10:38 AM /10:52 AM ERICKA
[2017-01-13] MEDS ORDERED: IOHEXOL 350 MG/ML 100 ML BTL (for Cath Lab) OTHER ONE (11:26)
[2017-01-13] MEDS ORDERED: IOHEXOL 350 MG/ML 50 ML BTL (for Cath Lab) OTHER ONE (11:26)
--- NOTE | 2017-01-13 12:28 | EKG ---
Date Performed: 01/12/2017 Time Performed: 05:28:34 PTAGE: 86 years EKG: Sinus rhythm Left bundle branch block Abnormal ECG NO PREVIOUS TRACING DOCTOR: Jos Shrestha Interpretating Date/Time 01/13/2017 12:26:49
[2017-01-13] MEDS ORDERED: CLOPIDOGREL 300 MG TAB PO ONE (12:30)
--- NOTE | 2017-01-13 16:39 | PD.CAR.PN ---
CVT Progress Note Subjective/Hospital Course: 86-year-old female with a past medical history significant for hypertension, hypothyroidism, asthma, mild dementia and coronary artery disease who was transferred from an outside hospital for evaluation of multivessel coronary artery disease and evaluation of aortic stenosis. The patient reports that for the last couple of days she has been having weakness, nausea, fainting and occasional atypical chest pains. The daughter adds that before this admission she recently was evaluated for acute on chronic heart failure at [facility] where she was evaluated by cardiology. Left heart catheterization done at that time revealed multivessel coronary artery disease and there is a question of aortic stenosis of uncertain severity. There is an echocardiogram report in her chart, no images to review, that mentions that she has a mildly decreased left ventricular systolic function with an ejection fraction estimated to be 45%. There is some diffuse hypokinesis, some mild aortic annular calcification and mild pulmonary hypertension. left heart catheterization from [facility] was reviewed by Dr Diaz and Dr Campbell revealing two-vessel coronary artery disease with a focal eccentric lesion in the left circumflex and another 12 mm ectatic lesion in the proximal left anterior descending associated with calcification. repeat ECHO : Normal left ventricular size. The left ventricular systolic function is severely reduced with an estimated ejection fraction in the range of 30-35%. There is diffuse global hypokinesis with distinct regional wall motion abnormalities. Mild mitral valve regurgitation. Mitral annular calcification is present. Aortic valve sclerosis is present. Trace aortic valve regurgitation. There is mild tricuspid valve regurgitation. AORTIC VALVE Aortic valve sclerosis is present. Trace aortic valve regurgitation. Procedure: 01/13 1. Successful PCI to proximal LAD and mid-left circumflex artery in the setting of unstable angina, Severe LV systolic dysfunction, Severely calcified coronary arteries. 01/13 pt doing well l continue dual antiplatelet agent with aspirin and Plavix as well as aggressive medical management for coronary artery disease with beta-blockers, statins, GENEVIEVE inhibitors and long-acting nitrates as tolerated. After bedrest the patient should be able to get out of bed with incentive spirometry. Objective: Vital Signs Date Time Temp Pulse Resp B/P (MAP) Pulse Ox O2 Delivery O2 Flow Rate FiO2 01/13/17 13:33 96 01/13/17 03:19 98.4 56 16 138/63 (88) 96 01/13/17 03:00 59 01/13/17 02:13 96 21 01/13/17 02:00 58 01/13/17 01:00 56 01/13/17 00:47 97.6 65 16 137/82 (100) 95 01/13/17 00:00 60 01/12/17 23:00 62 01/12/17 22:00 64 01/12/17 21:00 70 01/12/17 20:30 98.1 78 16 142/70 (94) 97 01/12/17 20:00 74 01/12/17 19:00 69 Result Diagram: 01/12/1713 01/12/17512 Telemetry: NSR (1) Hypothyroidism Plan: resume home meds (2) Coronary artery disease Plan: ASA, stain BB, Plavix (3) Hyperlipemia Plan: statin (4) Hypertension Plan: controlled (5) Mild dementia (6) s/p PCI LAD/ Circ Plan: EF 35% start genevieve when BP tolerates Emilie Molina Jan 13, 2017 16:39
[2017-01-13] MEDS ORDERED: PRAV40TA2 PO (16:56)
[2017-01-13] MEDS ORDERED: LISI10TA3 PO (16:56)
[2017-01-13] MEDS ORDERED: FERR325T8 PO (16:56)
[2017-01-13] MEDS ORDERED: SYNT25TA PO (16:56)
[2017-01-13] MEDS: ACETAMINOPHEN 325 MG TAB PO PRN ×2 (17:15→22:22)
[2017-01-13] MEDS: METOPROLOL TARTRATE 25 MG TAB PO SCH (19:55)
[2017-01-13] MEDS: SENNOSIDES 8.6 MG TAB PO SCH (19:56)
[2017-01-13] MEDS: ATORVASTATIN 40 MG TAB PO SCH (19:56)
[2017-01-13] MEDS: SODIUM CHLORIDE FLUSH BID IV FLUSH SCH (19:56)
[2017-01-13] MEDS: DOCUSATE SODIUM 100 MG CAP PO SCH (19:57)
[2017-01-13] MEDS ORDERED: ATORVASTATIN 20 MG TAB PO SCH (21:00)
[2017-01-14] VITALS (14 sets, daily range): BP systolic 108–161; BP diastolic 55–70; PULSE 60–86; RESP 18–19; TEMP 97.9–98.5; O2SAT 96–99
[2017-01-14 05:47] LABS: HDL CHOLESTEROL 81.6 MG/DL (40.0-60.0); INDIRECT BILIRUBIN 0.4 MG/DL (0.0-0.8); TOTAL BILIRUBIN ADULT 0.6 MG/DL (0.2-1.0)
[2017-01-14] MEDS: ACETAMINOPHEN 325 MG TAB PO PRN ×2 (06:10→12:52)
--- NOTE | 2017-01-14 07:51 | PD.CARD.PN ---
Subjective Subjective Remarks no CV complaints no overnight events Objective Medications Current Medications Medications (Trade) Dose Ordered Sig/Kristine Route Start Time Stop Time Status Last Admin (Lopressor) 12.5 mg BID PO 01/11/17 21:00 01/13/17 19:55 (Lipitor) 40 mg HS PO 01/11/17 21:00 01/13/17 19:56 (Benadryl) 25 mg HS PRN PO 01/11/17 21:00 (Tylenol) 650 mg Q6H PRN PO 01/11/17 21:00 01/14/17 06:10 (Zofran Inj) 4 mg Q6H PRN IV PUSH 01/11/17 21:00 (Senokot) 17.2 mg BID PRN PO 01/11/17 21:00 (NS Flush) 2 ml BID IV FLUSH 01/11/17 21:00 01/13/17 19:56 (NS Flush) 2 ml UNSCH PRN IV FLUSH 01/11/17 21:00 (Duoneb Neb) 1 ampule Q6HR WHILE AWAKE NEB NEB 01/12/17 14:00 01/14/17 13:59 01/13/17 21:02 (Colace) 100 mg BID PO 01/12/17 21:00 01/13/17 19:57 (Milk Of Magnesia Liq) 30 ml DAILY PO 01/13/17 09:00 (Dulcolax Supp) 10 mg UNSCH PRN RECTAL 01/12/17 10:30 (Miralax) 17 gm DAILY PO 01/13/17 09:00 (Senokot) 8.6 mg HS PO 01/12/17 21:00 01/13/17 19:56 (Fleets Enema (Adult)) 133 ml UNSCH PRN RECTAL 01/12/17 10:30 (Aspirin Chew) 81 mg DAILY PO 01/14/17 09:00 (Plavix) 75 mg DAILY PO 01/14/17 09:00 Vital Signs / I&O Vital Signs Date Time Temp Pulse Resp B/P (MAP) Pulse Ox O2 Delivery O2 Flow Rate FiO2 01/14/17 07:45 19 01/14/17 06:00 64 01/14/17 05:00 62 01/14/17 04:02 98.2 60 18 161/68 (99) 96 01/14/17 04:02 60 01/14/17 02:00 61 01/14/17 01:03 62 01/14/17 00:00 61 01/14/17 00:00 98.5 61 18 108/55 (72) 96 01/13/17 23:00 59 01/13/17 22:00 60 01/13/17 21:03 98 01/13/17 21:00 61 01/13/17 20:00 98.5 89 18 137/74 (95) 96 01/13/17 20:00 89 01/13/17 19:00 89 01/13/17 13:33 96 I/O 01/13/17 01/13/17 01/13/17 01/14/17 01/14/17 01/14/17 07:00 15:00 23:00 07:00 15:00 23:00 Intake Total 240 ml 1240 ml 420 ml Output Total 900 ml 700 ml Balance 240 ml 340 ml -280 ml Intake Oral 240 ml 240 ml 420 ml IV Total 0 ml 1000 ml Output Urine Total 900 ml 700 ml # Voids 2 # Bowel Movements 0 0 Physical Exam GENERAL: Well-nourished, well-developed patient. SKIN: Warm and dry. HEAD: Normocephalic. EYES: No scleral icterus. No injection or drainage. NECK: Supple, trachea midline. No JVD or lymphadenopathy. CARDIOVASCULAR: Regular rate and rhythm without murmurs, gallops, or rubs. RESPIRATORY: Breath sounds equal bilaterally. No accessory muscle use. GASTROINTESTINAL: Abdomen soft, non-tender, nondistended. EXTREMITIES: No cyanosis, or edema. NEUROLOGICAL: Awake, alert, and oriented x 3. Non-focal. Laboratory Laboratory Tests Test 01/14/17 04:58 Total Bilirubin 0.6 MG/DL Direct Bilirubin 0.2 MG/DL Indirect Bilirubin 0.4 MG/DL Aspartate Amino Transf (AST/SGOT) 55 U/L Alanine Aminotransferase (ALT/SGPT) 25 U/L Alkaline Phosphatase 75 U/L Total Protein 6.4 GM/DL Albumin 3.1 GM/DL Triglycerides Level 67 MG/DL Cholesterol Level 163 MG/DL LDL Cholesterol 68 MG/DL HDL Cholesterol 81.6 MG/DL Cholesterol/HDL Ratio 1.99 RATIO Imaging Last Impressions Chest X-Ray 01/12/17 4277 Signed Impressions: Service Date/Time: Thursday, January 12, 2017 10:22 - CONCLUSION: 1. COPD changes. 2. Cardiomegaly. Javier Posada MD Assessment and Plan Problem List: (1) s/p PCI LAD/ Circ Plan: no overnight events no CV complaints ambulating without difficulty Recommendations: Cont DAPT with ASA and Plavix Cont BB, ACEi, statins Encourage ambulation and incentive spirometry stable to be d/c home today (2) Coronary artery disease ICD Codes: I25.10 - Atherosclerotic heart disease of [place] coronary artery without angina pectoris (3) Hypothyroidism ICD Codes: E03.9 - Hypothyroidism, unspecified (4) Hyperlipemia ICD Codes: E78.5 - Hyperlipidemia, unspecified (5) Hypertension ICD Codes: I10 - Essential (primary) hypertension (6) Mild dementia ICD Codes: F03.90 - Unspecified dementia without behavioral disturbance Parth Sotomayor MD Jan 14, 2017 07:51
[2017-01-14] MEDS: RESP: ALBUTEROL 2.5 MG/IPRATROPIUM 0.5 MG NEB (SCH) NEB (08:02)
[2017-01-14] MEDS ORDERED: ASPIRIN 81 MG CHEW TAB PO SCH (09:00)
[2017-01-14] MEDS ORDERED: CLOPIDOGREL 75 MG TAB PO SCH (09:00)
[2017-01-14] MEDS: MAGNESIUM HYDROXIDE SUSP 30 ML CUP PO SCH ×2 (09:00→09:14)
[2017-01-14] MEDS: DOCUSATE SODIUM 100 MG CAP PO SCH (09:14)
[2017-01-14] MEDS: METOPROLOL TARTRATE 25 MG TAB PO SCH (09:14)
[2017-01-14] MEDS: SODIUM CHLORIDE FLUSH BID IV FLUSH SCH (09:19)
[2017-01-14] MEDS ORDERED: ASPI81CH25 PO (12:01)
[2017-01-14] MEDS ORDERED: PLAV75TA29 PO (12:01)
[2017-01-14] MEDS ORDERED: DOCU1CAP39 PO (12:01)
[2017-01-14] MEDS ORDERED: METO25TA3 PO (12:17)
--- NOTE | 2017-01-14 12:18 | HHI.DS ---
Discharge Summary Admission Date Jan 11, 2017 at 20:24 Discharge Date: Jan 14, 2017 Admitting Diagnosis chest pain , CAD (1) Coronary artery disease Diagnosis: Principal ICD Codes: I25.10 - Atherosclerotic heart disease of [place] coronary artery without angina pectoris (2) Hyperlipemia Diagnosis: Principal ICD Codes: E78.5 - Hyperlipidemia, unspecified (3) Hypothyroidism Diagnosis: Principal ICD Codes: E03.9 - Hypothyroidism, unspecified (4) Hypertension Diagnosis: Principal ICD Codes: I10 - Essential (primary) hypertension (5) Mild dementia Diagnosis: Principal ICD Codes: F03.90 - Unspecified dementia without behavioral disturbance (6) s/p PCI LAD/ Circ Diagnosis: Secondary Procedures . Impella assist device insertion. . Impella assist device removal. PCI atherectomy to proximal LAD and mid-left circumflex artery. Successful PCI/NATTY to LAD and left circumflex artery. Brief History 6-year-old female with a past medical history significant for hypertension, hypothyroidism, asthma, mild dementia and coronary artery disease who was transferred from an outside hospital for evaluation of multivessel coronary artery disease and evaluation of aortic stenosis. The patient reports that for the last couple of days she has been having weakness, nausea, fainting and occasional atypical chest pains. The daughter adds that before this admission she recently was evaluated for acute on chronic heart failure at [facility] where she was evaluated by cardiology. Left heart catheterization done at that time revealed multivessel coronary artery disease and there is a question of aortic stenosis of uncertain severity. There is an echocardiogram report in her chart, no images to review, that mentions that she has a mildly decreased left ventricular systolic function with an ejection fraction estimated to be 45%. There is some diffuse hypokinesis, some mild aortic annular calcification and mild pulmonary hypertension. left heart catheterization from [facility] was reviewed by Dr Diaz and Dr Campbell revealing two-vessel coronary artery disease with a focal eccentric lesion in the left circumflex and another 12 mm ectatic lesion in the proximal left anterior descending associated with calcification. repeat ECHO : Normal left ventricular size. The left ventricular systolic function is severely reduced with an estimated ejection fraction in the range of 30-35%. There is diffuse global hypokinesis with distinct regional wall motion abnormalities. Mild mitral valve regurgitation. Mitral annular calcification is present. Aortic valve sclerosis is present. Trace aortic valve regurgitation. There is mild tricuspid valve regurgitation. AORTIC VALVE Aortic valve sclerosis is present. CBC/BMP: 01/12/17 0513 01/12/17 0513 Significant Findings Laboratory Tests Test 01/12/17 05:13 01/14/17 04:58 Red Blood Count 3.80 MIL/MM3 (4.00-5.30) Hemoglobin 10.5 GM/DL (11.6-15.3) Hematocrit 32.0 % (35.0-46.0) Red Cell Distribution Width 19.9 % (11.6-17.2) Monocytes (%) (Auto) 14.8 % (0.0-8.0) Eosinophils (%) (Auto) 8.8 % (0.0-4.0) Blood Urea Nitrogen 22 MG/DL (7-18) Estimat Glomerular Filtration Rate 54 ML/MIN (>89) Aspartate Amino Transf (AST/SGOT) 55 U/L (15-37) Albumin 3.1 GM/DL (3.4-5.0) HDL Cholesterol 81.6 MG/DL (40.0-60.0) Imaging Last Impressions Chest X-Ray 01/12/17 0953 Signed Impressions: Service Date/Time: Thursday, January 12, 2017 10:22 - CONCLUSION: 1. COPD changes. 2. Cardiomegaly. Javier Posada MD PE at Discharge GENERAL: SKIN: Warm and dry. HEAD: Normocephalic. EYES: No scleral icterus. No injection or drainage. NECK: Supple, trachea midline. No JVD or lymphadenopathy. CARDIOVASCULAR: Regular rate and rhythm without murmurs, gallops, or rubs. dressing in tact both groins, ecchymosis right groin, no hematoma RESPIRATORY: Breath sounds equal bilaterally. No accessory muscle use. GASTROINTESTINAL: Abdomen soft, non-tender, nondistended. MUSCULOSKELETAL: No cyanosis, or edema. BACK: Nontender without obvious deformity. No CVA tenderness. Hospital Course Procedure: 01/13 1. Successful PCI to proximal LAD and mid-left circumflex artery in the setting of unstable angina, Severe LV systolic dysfunction, Severely calcified coronary arteries. 01/13 pt doing well l continue dual antiplatelet agent with aspirin and Plavix as well as aggressive medical management for coronary artery disease with beta-blockers, statins, RENALDO inhibitors and long-acting nitrates as tolerated. After bedrest the patient should be able to get out of bed with incentive spirometry. 01/14. pt doing well, dressing to both groins resume Renaldo inhibitor on ASA, plavix and statin will need to follow up with Dr Campbell in 2 weeks, then f/u with PCP in 2 weeks Pt Condition on Discharge: Good Discharge Disposition: Discharge Home Discharge Instructions DIET: Follow Instructions for: Heart Healthy Diet Activities you can perform: Shower Only-No Bath Activities to avoid: Strenuous Activity, Driving Additional Activity Instructio: no lifting > 8 lbs or gallon of milk no driving x 1 one week no straining on commode Follow up Referrals: Cardiology - 2 Weeks with Parth Sotomayor MD PCP Follow-up - [address] Ramila Wilkinson New Medications: Aspirin (Aspirin Low Strength) 81 Mg Chew 81 MG PO DAILY for Blood Clot Prevention, #30 EA 3 Refills Clopidogrel (Plavix) 75 Mg Tab 75 MG PO DAILY for Blood Clot Prevention, #30 TAB 3 Refills Docusate Sodium (Dok) 100 Mg Cap 100 MG PO daily for Constipation, #14 CAP Continued Medications: Ferrous Sulfate (Ferrous Sulfate) 325 Mg (65 Mg Iron) Tablet 325 MG PO BIDPC for Nutritional Supplement, #60 TAB 0 Refills Levothyroxine (Synthroid) 25 Mcg Tab 0.25 MCG PO DAILY for Thyroid, #30 TAB 0 Refills Lisinopril (Lisinopril) 10 Mg Tab 10 MG PO DAILY, #30 TAB 0 Refills Pravastatin (Pravastatin) 40 Mg Tab 40 MG PO HS for Cholesterol Management, #30 TAB 0 Refills Emilie Molina Jan 14, 2017 12:18
== END 2017-01-14 14:47 | disposition home or self-care (01) | DRG 215 ==
LOC: HCVI 20:24 → HCPC 01-12 15:00
PROVIDERS: ADMIT Thoracic Surgery (Cardiothoracic Vascular Surgery); ATTEND Thoracic Surgery (Cardiothoracic Vascular Surgery)
PROC: 02HA3RJ Insertion of Short-term External Heart Assist System into Heart, Intraoperative, Percutaneous Approach (ICD-10-PCS; 2017-01-13)
PROC: X2C0361 Extirpation of Matter from Coronary Artery, One Artery using Orbital Atherectomy Technology, Percutaneous Approach, New Technology Group 1 (ICD-10-PCS; 2017-01-13)
PROC: 5A0221D Assistance with Cardiac Output using Impeller Pump, Continuous (ICD-10-PCS; 2017-01-13)
PROC: 4A023N7 Measurement of Cardiac Sampling and Pressure, Left Heart, Percutaneous Approach (ICD-10-PCS; 2017-01-13)
PROC: B2111ZZ Fluoroscopy of Multiple Coronary Arteries using Low Osmolar Contrast (ICD-10-PCS; 2017-01-13)
PROC: B41F1ZZ Fluoroscopy of Right Lower Extremity Arteries using Low Osmolar Contrast (ICD-10-PCS; 2017-01-13)
PROC: 027135Z Dilation of Coronary Artery, Two Arteries with Two Drug-eluting Intraluminal Devices, Percutaneous Approach (ICD-10-PCS; principal; 2017-01-13 08:00)
DX: I25.110 Atherosclerotic heart disease of native coronary artery with unstable angina pectoris (principal); I50.23 Acute on chronic systolic (congestive) heart failure; I11.0 Hypertensive heart disease with heart failure; J45.909 Unspecified asthma, uncomplicated; E03.9 Hypothyroidism, unspecified; F03.90 Unspecified dementia, unspecified severity, without behavioral disturbance, psychotic disturbance, mood disturbance, and anxiety; I08.3 Combined rheumatic disorders of mitral, aortic and tricuspid valves; E78.5 Hyperlipidemia, unspecified
CPT/HCPCS: 33990; 71010; 80048; 80061; 80076; 85002; 85025; 92933; 92934; 93005; 93306; 93454; 94640; 94664; 94667; 94668; C1714; C1725; C1760; C1769; C1874; C1887; C1893; G0269; J1644; J1650; J2250; J3010; Q9967

== ENCOUNTER → 2017-06-04 | Day surgery (SDC) | payer MEDICARE, OTHER ==
[~2017-06-04] MED LIST: ADVA45AE INH; ALBUAER3; ASPI81CH25 PO; DOCU1CAP39 PO; FERR325T18 PO; ISOS30TA3 PO; LISI10TA3 PO; METO25TA3 PO; MONT4CHW4 CHEW; PLAV75TA29 PO; PRAV40TA2 PO; SYNT25TA PO
== END | disposition home or self-care (01) ==
LOC: HDOC 11:54 → HDIC 11:55
PROVIDERS: ATTEND Internal Medicine Cardiovascular Disease
DX: I25.5 Ischemic cardiomyopathy (principal)

== ENCOUNTER 2017-06-11 11:34 | Day surgery (SDC) | payer MEDICARE, OTHER ==
[~2017-06-11] VITALS: Ht 147.3 cm; Wt 46.8 kg
[~2017-06-11 11:34] MED LIST changes: -ADVA45AE INH; -ALBUAER3; -ISOS30TA3 PO; -MONT4CHW4 CHEW
[2017-06-11] MEDS ORDERED: POVIDONE IODINE 5% (ANTISEPSIS KIT) 4 APPLICATIONS EACH NARE SCH (12:00)
[2017-06-11] MEDS ORDERED: MUPIROCIN 2% OINT 1 APPLIC/GM SYR NASAL SCH (12:00)
[2017-06-11] MEDS ORDERED: NS 1000 ML IV SCH (12:00)
[2017-06-11] MEDS ORDERED: NO Heparin, Lovenox, Coumadin at least 12 hours prior to procedure. PRN (12:00)
[2017-06-11] MEDS ORDERED: VANCOMYCIN 1000 MG/NS 250 ML IV SCH ×2 (12:00)
[2017-06-11] MEDS ORDERED: CHLORHEXIDINE GLUCONATE 2 % 1 PACK (2 CLOTHS) TOPICAL SCH (12:00)
[2017-06-11 12:49] VITALS: BP 172/88; PULSE 61; RESP 16; TEMP 97.7; O2SAT 100
[2017-06-11] MEDS ORDERED: ISOS30TA3 PO (12:58)
[2017-06-11] MEDS ORDERED: ALBUAER3 (12:58)
[2017-06-11] MEDS ORDERED: ADVA45AE INH (12:58)
[2017-06-11] MEDS ORDERED: MONT4CHW4 CHEW (12:58)
[2017-06-11 13:18] LABS: AUTOMATED NEUTROPHIL # 1.7 TH/MM3 (1.8-7.7); BASOPHIL % 1.5 % (0.0-2.0); EOSINOPHIL # 0.2 TH/MM3 (0-0.4); EOSINOPHIL % 7.1 % (0.0-4.0); HEMATOCRIT 35.8 % (35.0-46.0); HEMOGLOBIN 12.2 GM/DL (11.6-15.3); LYMPH % 27.7 % (9.0-44.0); LYMPHOCYTE # 0.9 TH/MM3 (1.0-4.8); MEAN CELL VOLUME 90.7 FL (80.0-100.0); MEAN CORPUSCULAR HEMOGLOBIN 30.8 PG (27.0-34.0); MEAN PLATELET VOLUME 8.9 FL (7.0-11.0); MONO % 13.2 % (0.0-8.0); MONOCYTE # 0.4 TH/MM3 (0-0.9); NEUT % 50.5 % (16.0-70.0); PLATELET COUNT 312 TH/MM3 (150-450); RED BLOOD COUNT 3.95 MIL/MM3 (4.00-5.30); RED CELL DISTRIBUTION WIDTH 15.7 % (11.6-17.2); WHITE BLOOD COUNT 3.3 TH/MM3 (4.0-11.0)
[2017-06-11 13:31] LABS: PROTHROMBIN TIME - PATIENT 9.9 SEC (9.8-11.6)
[2017-06-11 13:38] LABS: BICARBONATE 27.2 MEQ/L (21.0-32.0); CALCIUM 9.3 MG/DL (8.5-10.1); CREATININE 0.89 MG/DL (0.50-1.00)
[2017-06-11] MEDS ORDERED: LIDOCAINE HCL 2% 50 ML VIAL ONE (13:53)
[2017-06-11] MEDS ORDERED: traMADol HCL 50 MG TAB PO PRN (15:45)
--- NOTE | 2017-06-11 15:48 | CATHPROC ---
[facility] HIS Report Study Information Study Number Admission Scheduled Start Study Start [id number] Jun 11 2017 11:34AM 06/11/2017 Jun 11 2017 1:50PM [place] Service Cardiac Pacer/ICD Admit Source Facility Department Other [facility] - Health Data Analyst Physician and Clinical Staff Initial Chacne Alexander Sash Assembler Cata Ortiz,RT(R) TECH2 Other Anesthesia, WEB MARKETING ANALYST Recorder Francisco Javier RN, Jeremías Mcintyre,RT(R) Procedures Performed Procedure Location (Site) Vessel Name Lead Insertion Venogram Coronary Sinus Other Venogram Subclav. Vein (Lft Subclavian Vein Equipment Time Tetryl Dissolver Operator Description Size Mfg Part Number Used/Scraped [id number] 14:49 [employer] WIRE, ASAHI PROWATER 180CM 180CM Used *[id number] 15:07 BIOTRONIK DEFIBRILLATOR, ILIVIA 7 HF-T QP [id number] Used 14:32 BIOTRONIK LEAD, PLEXA PRO-MRI SD 65/18 [id number] Used 15:22 BIOTRONIK LEAD, SENTUS OTW QP S-85/49 [id number] Used 14:57 BIOTRONIK LEAD, SOLIA 60 53 PRO MRI * [id number] Used TP-1103 13:59 MEDLINE INDUSTRIES SUTURE, STRIP PLUS 1/2" * Used *[id number] 13:59 MEDLINE PACER ADHESIVE, MASTISOL 2/3CC 2/3CC 0523-48 Used 13:59 MEDLINE PACER [place], LIMB * 2530 *[id number] Used [id number] 13:59 MEDLINE PACER PACK, PACER CUSTOM * Used *[id number] 13:59 MEDLINE PACER PEN, SKIN DUAL W/ RULER * Used *[id number] 14:38 [employer] WIRE, 3MMJ .035 180CM 180CM Used *[id number] 14:00 [employer] PACER SAFE SHEATH, FR7, 13CM FR 7 [id number] Used 14:00 [employer] PACER SAFE SHEATH, FR8, 13CM FR 8 [id number] Used 14:00 [employer]ICAL PACER SAFE SHEATH, FR9, 13CM FR 9 CLS-1009 Used 14:18 Needle Sponge Count 2 22 Used 14:18 Needle Sponge Count 25 1 Used 14:18 Needle Sponge Count 5 5 Used 14:48 NYCOMED OMNIPAQUE, 350 MG, 50ML 50ML [id number] Used 14:48 NYCOMED OMNIPAQUE, 350 MG, 50ML 50ML [id number] Used [id number] *[id number] SUTURE, 3-0 VICRYL [SH] ([id number]) SUTURE, 3-0 VICRYL [SH] ([id number]) SUTURE, 4-0 MONOCRYL [PS2] (Y496G) [id number] 13:59 [employer],WARM AIR CCL * Used *[id number] [facility] PAD, ELECTROSURGICAL 13:59 * [id number] *[id number] Used SURGICAL GROUNDING ORANGE [id number] 13:59 [employer] VANDA. / * Used *47193 Equipment Model, Serial, Lot Number and Expiration Data Description Model Number Serial Number Lot Number Expiration Date LEAD, PLEXA PRO-MRI SD 6518 [id number] 03-06-2019 LEAD, SENTUS OTW QP S-85/49 091749 [id number] 08-04-2017 LEAD, SOLYARI 60 53 PRO MRI [id number] 05-07-2019 History: Allergies Allergy Reaction Penicillins Anaphylaxis Labs Hgb (g/dl) Hct (%) WBC (l/cumm) 11.60-17.00 35.00-51.00 4.00-11.00 12.2 35.8 3.3 BUN (mg/dl) Creatinine (mg/dl) BUN:Creatinine (1:x) 7.00-18.00 0.50-1.30 10.00-20.00 16 0.9 17.8 Na (meq/l) K (meq/l) 136.00-145.00 3.50-5.10 141 4 INR (PTT:PT) 0.90-1.10 1 CPK-MB (ng/ML) 0.50-3.60 Not Drawn Medication Medication Total Dose (Bolus/Oral) Medication Total Dosage/Unit 2% XYLOCAINE 20 mL Medications (Bolus/Oral) Medication Time Given Dosage/Unit Administered By Reason 2% XYLOCAINE 06/11/2017 2:24:22 PM 20 mL Chance Leo 20 mL 2% XYLOCAINE given in lab by Chance Leo in Left shoulder via Subcutaneous. Ordered by Chance Leo. Medication (Drip) Medication Time Given Dosage/Unit Concentration/Unit Diluent (ml) Solution VANCOMYCIN DRIP 06/11/2017 1:50:50 PM 1 g 1 g VANCOMYCIN DRIP given in lab by Anesthesia, WEB MARKETING ANALYST via Peripheral IV. Ordered by Chance Leo. VANCOMYCIN DRIP 06/11/2017 3:29:06 PM 1 g 1 g VANCOMYCIN DRIP given in lab by Anesthesia, WEB MARKETING ANALYST via Peripheral IV. Ordered by Chance Leo. Initial Case Assessment Cardiovascular HR Rhythm NIBP Chest Pain 62 SR 176/81 0 Edema Present Skin color Skin None Normal Warm Dry Chronological Log Time Study Chronological Log 13:44:00 Consent signed by the physician and the patient and verified by the Health Data Analyst staff. 13:44:00 Patient arrived via Bed. 13:44:30 Patient Name, D.O.B, / Armband Verified By R.N. 13:44:50 Anesthesia at bedside. Assumes care of patient. SEE RECORDS FOR ALL MEDS AND VITALS DURING PROCEDURE 13:50:50 1 g VANCOMYCIN DRIP given in lab by Anesthesia, WEB MARKETING ANALYST via Peripheral IV. Ordered by Jessica Leo. 14:00:02 Reference ECG taken 14:04:03 Patient has been NPO for More than 6Hrs. 14:04:04 Skin Breakdown- NONE PER PATIENT 14:04:57 Patient Warmer Placed on the Table. 14:04:59 Disposable Defibrillator Pads Placed On Patient. 14:05:00 Brennon Prominences Protected 14:05:00 IV Warmer Connected To Patient. 14:05:01 A # 20 IV was noted in the Forearm (left). Grade = 0 14:05:15 A # 20 IV was noted in the Antecubital (right). Grade = 0 14:08:36 History and physical on the chart or being dictated. Assessment: Initial Case, HR=62 BPM, Rhythm=SR, JBCB=123/81 mmhg, Chest Pain=0, Edema=None, Col or=Normal, 14:08:37 Skin = Warm, Dry 14:14:04 Table restraints applied according to hospital policy 14:14:10 Left Upper Chest Prepped Times Two. 14:15:40 paged 14:15:53 MD responded 14:16:08 2% CHLORHEXIDINE GLUCONATE WASH AND NASAL SWIPE DONE PRIOR TO PROCEDURE. 14:16:10 Bovie ground pad applied to: RIGHT THIGH First Sponge And Instrument Count Done by Jeremías Parish, RT(R). 14:17:14 Hypo's: 5, Sponges: 25, Bovie/scratch: 2 Sutures: 6, Blades: 2, Instruments: 26, Syveck Patches: 0 VERIFIED BY CATA Veliz Time Out. Correct patient, procedure, procedure equipment, site and side verified with physicia n present. Time 14:22:02 concurred by MD, individual staff and WEB MARKETING ANALYST. Time Out #2 - Consents verified, patient in correct position, all results are labled and displa yed, safety precautions 14:22:04 taken, antibiotics administered. Time out concurred by MD, individual staff and WEB MARKETING ANALYST in procedu re 14:22:12 Case Start 14:23:41 The Subclav. Vein (Lft was manually injected with 20 cc's of contrast. OMNIPAQUE, 350 MG, 5 0ML 50ML used. 14:24:22 20 mL 2% XYLOCAINE given in lab by Chance Leo in Left shoulder via Subcutaneous. Ordered by Chance Leo. 14:24:34 Surgical Incision Made. 14:25:34 A pocket was created at the L Upper Chest. 14:26:21 Two sponges put into the surgical pocket. 14:27:01 Vascular access was obtained in the Subclav. Vein (Lft. 14:28:59 Vascular access was obtained in the Subclav. Vein (Lft. 14:31:25 A SAFE SHEATH, FR8, 13CM FR 8 was advanced into the Subclav. Vein (Lft using the Modified S eldinger technique. 14:31:50 A LEAD, PLEXA PRO-MRI SD 65/18 was inserted and positioned in the RV. 14:34:24 Lead placement verified under fluoroscopy 14:34:32 The RV lead impedance and threshold being tested. 14:35:58 8fr SHEATH REMOVED 14:36:26 The RV lead was sutured to the fascia. 14:39:40 A SAFE SHEATH, FR9, 13CM FR 9 was advanced into the Fem Vein (right) using the Modified Lulu juan antonio technique. 14:41:10 CS CATHETER INSERTED OVER WIRE 14:44:10 WIRE REMOVED 14:46:22 The Coronary Sinus was manually injected with 20 cc's of contrast. 14:47:38 PROWATER Wire inserted 14:49:41 A LEAD, SENTUS OTW QP S-85/49 was inserted and positioned in the CS/LV. 14:50:47 The CS/LV lead impedance and threshold is being tested. 14:51:32 WIRE REMOVED 14:55:15 CS SHEATH REMOVED 14:59:05 The CS/LV lead was sutured to the fascia. 15:00:40 A SAFE SHEATH, FR7, 13CM FR 7 was advanced into the Subclav. Vein (Lft using the Modified S eldinger technique. 15:02:41 A LEAD, SOLIA 60 53 PRO MRI * was inserted and positioned in the RA. 15:04:14 The Atrial lead impedance and threshold is being tested. 15:06:58 SHEATH REMOVED 15:08:44 sponges removed from the surgical pocket. 15:09:35 The Atrial lead was sutured to the fascia. 15:11:12 A DEFIBRILLATOR, ILIVIA 7 HF-T QP was connected and placed in the pocket. Second Sponge And Instrument Count Done by Chance Leo. 15:15:47 Hypo's: 5hypo's, Sponges:25 sponges, Bovie/scratch:1 bovie/scratch1 Sutures: 7, Blades: 2 15:17:28 A TWO Joul DFT was performed. 15:19:22 The DFT was Done at 20 Joules, 35 Ohms lead impedance and 3.8 ms charge time. 15:21:36 A DEFIBRILLATOR, ILIVIA 7 HF-T QP was connected and placed in the pocket. 15:29:06 1 g VANCOMYCIN DRIP given in lab by Anesthesia, WEB MARKETING ANALYST via Peripheral IV. Ordered by Jessica Leo. 15:31:39 The pocket was closed. 15:32:37 Implant Procedure was performed. 15:32:47 A Bivent ICD Implant . (Dual) The Final Sponge And Instrument Count Done by Chance Leo. 15:33:49 Hypo's:5 hypo's, Sponges:25 sponges, Bovie/scratch:1 bovie/scratch 1 Sutures: 7, Blades:2, Instruments: 27 15:34:45 Case End 15:35:18 Steri-strips and a sterile dressing and a pressure dressing applied to site. 15:35:48 A sling was placed on the affected arm. 15:36:38 DOCU called. Spoke to Jennifer SANDERSON 15:37:32 No case complications noted. 15:37:44 Implantable Device card placed in patient's chart. 15:38:14 Bedside Report will be given. 15:39:39 Defibrillator and ground pads removed. Skin intact. 15:48:19 Patient moved to stretcher End Study - Contrast Media Used In Study Contrast Total Opened (mL) Total Used (mL) Total Wasted (mL) Omnipaque 100 30 70 End Study - Maximum Contrast Load Max Contrast Load (mL) 231.1 End Study - Radiation Exposure Fluoro Time (minutes) 9.2 End Study - Patient Disposition Complications Transferred To Telemetry Bed
[2017-06-11] MEDS ORDERED: DO NOT ADM ANY ANTICOAGULANT DRUGS PRN (16:00)
[2017-06-11] MEDS ORDERED: MORPHINE SULFATE 4 MG/ML INJ ONE (16:05)
--- NOTE | 2017-06-11 16:15 | MP ---
cc: Chance Leo MD, Vincent G DO DATE OF OPERATION: 06/11/2017 PROCEDURE: Dual-chamber biventricular automated implantable cardioverter defibrillator (AICD) implantation via the left subclavian vein. INDICATIONS: Severe ischemic cardiomyopathy, primary prevention of sudden cardiac . OPERATIVE NOTE: The patient was brought to the operating suite in a fasting state after having signed informed consent. The left upper chest was prepped and draped as per policy and anesthetized with 1% lidocaine. A transverse incision was made inferior to the left clavicle and using blunt dissection, a subcutaneous pocket was formed down to the pectoralis fascia. After administration of dye through a left arm peripheral IV, central venous access was obtained 3 times without difficulty using modified Seldinger technique. Over the most lateral guidewire, an 8-Greek sheath was placed, and through this sheath a ventricular active fixation lead was introduced and its tip positioned in the right ventricular apex where good current of injury, stimulation threshold (0.6 volts) and sensitivity (8.8 millivolts) were demonstrated. This lead was secured into place using 2-0 silk ties onto the pectoralis fascia. Over the medial guidewire, a 9-Greek sheath was placed, and through this sheath a coronary sinus guiding catheter was introduced. We were able to locate the coronary sinus ostium without difficulty. Using a 0.014 [place] guidewire, a lateral branch was selected and a coronary sinus lead introduced with its tip positioned in this region. In this area, good stimulation threshold (1.0 volts) and sensitivity (12.7 millivolts) were demonstrated. This lead was secured into placed using 2-0 silk ties down to the pectoralis fascia. Over the remaining guidewire, a 7-Greek sheath was placed, and through this sheath an atrial active fixation lead was introduced and its tip positioned in the right atrial appendage where a good current of injury, stimulation threshold (0.7 volts) and sensitivity (3.1 millivolts) were demonstrated. This lead was secured into place using 2-0 silk ties down to the pectoralis fascia. The leads were then connected to the AICD generator, which is a Biotronik Ilivia device. The leads and the generator were placed into the subcutaneous pocket, which was partially closed using 3-0 Vicryl interrupted stitches to close the deepest subcutaneous layer. Testing of the device was then performed. Ventricular fibrillation was induced. The patient was successfully rescued with a 20 joule shock after a charge time of 3.8 seconds at a shock impedance of 43 ohms. The pocket was further closed using another layer of 3-0 Vicryl interrupted stitches to close the subcutaneous tissue and then 4-0 Monocryl running stitch to close the subcuticular tissue. Overlapping Steri-Strips and a dressing were applied. There were no apparent immediate complications. A portable chest x-ray is pending at the time of this dictation. CONCLUSIONS: 1. Successful dual-chamber biventricular automated implantable cardioverter defibrillator implantation via the left subclavian vein using a Y[employer] Ilivia AICD generator. 2. Status post automated implantable cardioverter defibrillator defibrillation threshold testing. MD ALEX Beckman/GRACE , 03:36 PM , 04:14 PM ERICKA
[2017-06-11] MEDS ORDERED: PILL SPLITTER OTHER PRN (17:00)
[2017-06-11] MEDS: HYDROmorphone HCL PF 2 MG/ML VIAL IV PRN ×3 (17:00→20:22)
--- NOTE | 2017-06-11 18:25 | RADRPT ---
EXAM DATE/TIME: 06/11/2017 17:37 [place] COMPARISON: CHEST SINGLE AP, January 12, 2017, 10:22. INDICATIONS : Status post pacemaker placement. MEDICAL HISTORY : Cardiovascular disease. SURGICAL HISTORY : None. ENCOUNTER: Subsequent ACUITY: 1 day PAIN SCORE: Non-responsive. LOCATION: chest FINDINGS: A single view of the chest demonstrates the lungs to be symmetrically aerated without evidence of mas s, infiltrate or effusion. No evidence of pneumothorax. The cardiomediastinal contours are unremark able. Osseous structures are intact. Cardiac pacer leads in place, both projected over the right ve ntricle the CONCLUSION: No evidence of pneumothorax status post pacemaker placement. Richmond Reyes MD on June 11, 2017 at 18:23 Board Certified Radiologist. This report was verified electronically.
[2017-06-11 18:47] VITALS: BP 144/86; PULSE 82; RESP 16; TEMP 97.5; O2SAT 100
[2017-06-11] MEDS: FERROUS SULFATE 325 MG (65 MG ELEMENTAL IRON) TAB PO SCH (18:58)
[2017-06-11 20:00] VITALS: BP 147/79; PULSE 84; PULSE 86; RESP 18; TEMP 98.2; O2SAT 99
[2017-06-11] MEDS: ONDANSETRON HCL 4 MG/2 ML VIAL IV PUSH PRN (20:11)
[2017-06-11] MEDS: METOPROLOL TARTRATE 25 MG TAB PO SCH (20:11)
[2017-06-11] MEDS: PRAVASTATIN SOD 40 MG TAB PO SCH (20:12)
[2017-06-11] MEDS: DOCUSATE SODIUM 100 MG CAP PO SCH (20:12)
[2017-06-11] MEDS ORDERED: PT:ADVAIR HFA INH SCH (21:00)
[2017-06-11] MEDS ORDERED: NON-FORMULARY DRUG (Fluticasone-Salmeterol 12 GM Inh (Advair Hfa 12 GM Inh) 2 PUFF) INH SCH ×2 (21:00)
[2017-06-11] MEDS: MONTELUKAST SODIUM 4 MG CHEWABLE TAB CHEW SCH (21:22)
[2017-06-11 22:00] VITALS: PULSE 86
[2017-06-11 23:00] VITALS: PULSE 86
[2017-06-12] VITALS (26 sets, daily range): BP systolic 135–170; BP diastolic 73–88; PULSE 60–98; RESP 16–18; TEMP 98.2–98.6; O2SAT 94–100
[2017-06-12] MEDS: HYDROmorphone HCL PF 2 MG/ML VIAL IV PRN (00:16)
[2017-06-12] MEDS ORDERED: VANCOMYCIN INJ 1,000 MG in SODIUM CHLOR 0.9% 250 ML INJ 250 ML IV ONE (03:45)
[2017-06-12] MEDS: LEVOTHYROXINE SODIUM 25 MCG TAB PO SCH (04:22)
[2017-06-12] MEDS: ONDANSETRON HCL 4 MG/2 ML VIAL IV PUSH PRN (05:12)
[2017-06-12] MEDS: LISINOPRIL 10 MG TAB PO SCH (10:29)
[2017-06-12] MEDS: DOCUSATE SODIUM 100 MG CAP PO SCH ×2 (10:30→20:15)
[2017-06-12] MEDS: METOPROLOL TARTRATE 25 MG TAB PO SCH ×2 (10:30→20:15)
[2017-06-12] MEDS: ISOSORBIDE MONONITRATE 30 MG CR TAB (IMDUR) PO SCH (10:30)
[2017-06-12] MEDS: FERROUS SULFATE 325 MG (65 MG ELEMENTAL IRON) TAB PO SCH ×2 (10:30→17:44)
[2017-06-12] MEDS: CLOPIDOGREL 75 MG TAB PO SCH (11:58)
--- NOTE | 2017-06-12 13:08 | PD.CONS ---
HPI Service [place] [facility] Consult Requested By Dr. Leo. Reason for Consult Medical management Primary Care Physician Ramila Wilkinson MD Diagnoses: History of Present Illness This is a 86-year-old female with past medical history of coronary artery disease status post arthrectomy and NATTY, severe ischemic cardiomyopathy, hyperlipidemia, hypothyroidism, and asthma who presented for AICD placement to prevent sudden cardiac . Patient seen after the procedure. She stated that she felt sore at the site but otherwise she had no complaints. She denies any chest pain, shortness of breathing, palpitation, lightheadedness dizziness. She is very anxious to go home. Her nurse was at the bedside during the interview he stated that patient will have repositioning of a lead today. Otherwise all other review of system review negative. Past Family Social History Allergies: Coded Allergies: Penicillins (Verified Allergy, Severe, Anaphylaxis, 01/11/17) Past Medical History Coronary artery disease, hypertension, hyperlipidemia, hypothyroidism, asthma, severe ischemic cardiomyopathy Past Surgical History In January 2017 patient had PCI arthrectomy of the proximal LAD and mid left circumflex artery also NATTY to LAD and left circumflex artery. EGD with polypectomy. Reported Medications Reported Meds & Active Scripts Active Metoprolol Tartrate 25 Mg Tab 12.5 Mg PO BID Dok (Docusate Sodium) 100 Mg Cap 100 Mg PO DAILY Plavix (Clopidogrel Bisulfate) 75 Mg Tab 75 Mg PO DAILY Reported Montelukast (Montelukast Sodium) 4 Mg Chew 4 Mg CHEW HS Isosorbide Mononitrate ER (Isosorbide Mononitrate) 30 Mg Clare 30 Mg PO DAILY Proair Hfa (Albuterol Sulfate) 90 Mcg Hfa.aer.ad Advair Hfa 12 GM Inh (Fluticasone-Salmeterol 12 GM Inh) 45-21 Mcg/Act Aer 2 Puff INH BID Lisinopril 10 Mg Tab 10 Mg PO DAILY Ferrous Sulfate 325 Mg (65 Mg Iron) Tablet 325 Mg PO BIDPC Pravastatin 40 Mg Tab 40 Mg PO HS Synthroid (Levothyroxine Sodium) 25 Mcg Tab 0.25 Mcg PO DAILY Active Ordered Medications Current Medications Miscellaneous Information NO Heparin, Loven... UNSCH PRN .XX Pre Pacemaker/ICD ; Start 06/11/17 at 12:00; Stop 06/15/17 at 11:59 Sodium Chloride 1,000 ml @ 30 mls/hr Q24H IV Last administered on 06/12/17at 12: 30; Start 06/11/17 at 12:00 Vancomycin HCl 1000 mg/Sodium Chloride 250 ml @ 250 mls/hr MULTI OPERATION MACHINE OPERATOR IV Last administered on 06/11/17at 13:50; Start 06/11/17 at 12:00; Stop 06/14/17 at 11:59 Povidone Iodine (Betadine 5% Antisepsis Kit) 2 applic MULTI OPERATION MACHINE OPERATOR EACH NARE ; Start 06/11/17 at 12:00; Stop 06/14/17 at 11:59 Mupirocin (Bactroban Nasal 2% Oint) 1 applic MULTI OPERATION MACHINE OPERATOR NASAL ; Start 06/11/17 at 12:00; Stop 06/14/17 at 11:59 Chlorhexidine Gluconate (Chlorhexidine 2% Cloth) 3 pack MULTI OPERATION MACHINE OPERATOR TOPICAL ; Start 06/11/17 at 12:00; Stop 06/14/17 at 11:59 Fentanyl Citrate (fentaNYL INJ) 100 mcg STK-MED ONCE .ROUTE ; Start 06/11/17 at 13:46; Stop 06/11/17 at 13:47; Status DC Lidocaine HCl (Xylocaine 2% Inj) 50 ml STK-MED ONCE .ROUTE ; Start 06/11/17 at 13 :53; Stop 06/11/17 at 13:54; Status DC Clopidogrel Bisulfate (Plavix) 75 mg DAILY PO Last administered on 06/12/17at 11: 58; Start 06/12/17 at 09:00 Docusate Sodium (Colace) 100 mg BID PO Last administered on 06/11/17at 20:12; Start 06/11/17 at 21:00 Ferrous Sulfate (Ferrous Sulfate) 325 mg BIDPC PO ; Start 06/11/17 at 18:00 Isosorbide Mononitrate (Imdur) 30 mg DAILY PO Last administered on 06/12/17at 10: 30; Start 06/12/17 at 09:00 Levothyroxine Sodium (Synthroid) 0.25 mcg DAILY@0600 PO Last administered on 06/12/17at 04:22; Start 06/12/17 at 06:00 Lisinopril (Prinivil) 10 mg DAILY PO Last administered on 06/12/17at 10:29; Start 06/12/17 at 09:00 Metoprolol Tartrate (Lopressor) 12.5 mg BID PO Last administered on 06/12/17at 10 :30; Start 06/11/17 at 21:00 Montelukast Sodium (Singulair Chew) 4 mg HS CHEW Last administered on 06/11/17at 21:22; Start 06/11/17 at 21:00 Pravastatin Sodium (Pravachol) 40 mg HS PO Last administered on 06/11/17at 20:12 ; Start 06/11/17 at 21:00 Non-Formulary Medication 2 puff BID INH ; Start 06/11/17 at 21:00; Status UNV Vancomycin HCl 1000 mg/Sodium Chloride 250 ml @ 250 mls/hr ONCE ONCE IV Last administered on 06/12/17at 04:03; Start 06/12/17 at 03:45; Stop 06/12/17 at 04:44; Status DC Tramadol HCl (Ultram) 50 mg Q6HR PRN PO PAIN SCALE 4 TO 10 Last administered on 06/12/17at 06:03; Start 06/11/17 at 15:45 Morphine Sulfate (Morphine Inj) 4 mg STK-MED ONCE .ROUTE Last administered on at 16:05; Start 06/11/17 at 16:05; Stop 06/11/17 at 16:06; Status DC Miscellaneous Information ALL NURSING DEPARTME... UNSCH PRN .XX SEE LABEL COMMENTS; Start 06/11/17 at 16:00; Stop 06/12/17 at 15:59 Hydromorphone HCl (Dilaudid Pf Inj) 0.5 mg Q10M PRN IV SEE LABEL COMMENTS Last administered on 06/12/17at 00:16; Start 06/11/17 at 17:00; Stop 06/12/17 at 00:16; Status DC Miscellaneous (Pill Splitter) 1 ea UNSCH PRN OTHER SEE LABEL COMMENTS; Start at 17:00 Non-Formulary Medication 2 puff BID INH ; Start 06/11/17 at 21:00; Stop 06/11/17 at 21:00; Status DC Patient Own Medication PT OWN MED: ADV... BID INH ; Start 06/11/17 at 21:00; Status Future Hold Ondansetron HCl (Zofran Inj) 4 mg Q4H PRN IV PUSH NAUSEA Last administered on at 05:12; Start 06/11/17 at 20:00 Family History Reviewed past family history noncontributory. Social History Denies tobacco, alcohol, illicit drug use. Physical Exam Vital Signs Vital Signs Date Time Temp Pulse Resp B/P (MAP) Pulse Ox O2 Delivery O2 Flow Rate FiO2 06/12/17 12:34 65 06/12/17 12:04 98.4 61 18 140/80 (100) 99 06/12/17 11:00 80 06/12/17 10:00 68 06/12/17 09:00 74 06/12/17 08:12 100 Nasal Cannula 2.00 06/12/17 08:12 98.4 75 16 159/79 (105) 100 06/12/17 08:00 74 06/12/17 07:22 80 06/12/17 06:00 92 06/12/17 05:00 78 06/12/17 04:00 Room Air 06/12/17 04:00 75 06/12/17 04:00 98.2 79 18 135/73 (93) 100 06/12/17 03:00 80 06/12/17 02:00 78 06/12/17 01:00 78 06/12/17 00:00 74 06/12/17 00:00 98.3 79 18 137/80 (99) 100 06/12/17 00:00 Room Air 06/11/17 23:00 86 06/11/17 22:00 86 06/11/17 20:00 86 06/11/17 20:00 Room Air 06/11/17 20:00 98.2 84 18 147/79 (101) 99 06/11/17 19:03 20 06/11/17 18:47 97.5 82 16 144/86 (105) 100 06/11/17 15:55 98 Room Air Physical Exam GENERAL: This is a well-nourished, well-developed patient, in no apparent distress. SKIN: Bandages in place on chest. HEAD: Atraumatic. Normocephalic. No temporal or scalp tenderness. EYES: Pupils equal round and reactive. Extraocular motions intact. No scleral icterus. No injection or drainage. ENT: Nose without bleeding, purulent drainage or septal hematoma. Throat without erythema, tonsillar hypertrophy or exudate. Uvula midline. Airway patent. NECK: Trachea midline. No JVD or lymphadenopathy. Supple, nontender, no meningeal signs. CARDIOVASCULAR: Regular rate and rhythm without murmurs, gallops, or rubs. RESPIRATORY: Clear to auscultation. Breath sounds equal bilaterally. No wheezes , rales, or rhonchi. GASTROINTESTINAL: Abdomen soft, non-tender, nondistended. No hepato-splenomegaly , or palpable masses. No guarding. MUSCULOSKELETAL: Extremities without clubbing, cyanosis, or edema. No joint tenderness, effusion, or edema noted. No calf tenderness. Negative Homans sign bilaterally. Left arm in sling. NEUROLOGICAL: Awake and alert. Cranial nerves II through XII intact. Motor and sensory grossly within normal limits. Five out of 5 muscle strength in all muscle groups. Normal speech. Result Diagram: 06/11/17 1230 06/11/17 1230 Imaging Last Impressions Chest X-Ray 06/11/17 1543 Signed Impressions: Service Date/Time: Sunday, June 11, 2017 17:37 - CONCLUSION: No evidence of pneumothorax status post pacemaker placement. Richmond Reyes MD Assessment and Plan Assessment and Plan This is a 86-year-old female with severe ischemic cardiomyopathy here for AICD placement to prevent sudden cardiac Severe ischemic cardiomyopathy -Status post AICD placement on 06/11/2017. Patient will need a lead reposition today. -Being managed by Dr. Tovar. -Continue with home medication. Coronary artery disease status post stent placement, hypertension, hyperlipidemia, asthma, hypothyroidism, GERD -Home medication already resumed. DVT prophylaxis -Held secondary to procedure. Discussed Condition With Patient and her nurse. Juliana Pond MD Jun 12, 2017 13:08
[2017-06-12] MEDS: VANCOMYCIN HCL 1000 MG VIAL ONE ×2 (13:23→13:33)
[2017-06-12] MEDS: SODIUM CHLOR 0.9% 250 ML INJ 250 ML ONE ×2 (13:24→13:33)
[2017-06-12] MEDS ORDERED: LIDOCAINE HCL 2% 50 ML VIAL ONE (13:29)
--- NOTE | 2017-06-12 15:15 | CATHPROC ---
Patient Name: KAVEH NEGRON Study #: [id number] Initial MD: Chance Leo Date of : 1930 Study Date: 06/12/2017 Cardiac Catheterization Report 06/12/2017 3:15:16 PM Financial #: [id number] 1 of 9 Patient Name: KAVEH NEGRON Study #: [id number] Initial MD: Chance Leo Date of : 1930 Study Date: 06/12/2017 Entire Case Report Patient Information Patient Name KAVEH NEGRON Date of 1930 Age 86 years Financial # [id number] Gender F AlternateID Lab Number 6 Room Number 248 Height (in) 58.0 Height (cm) 147.3 BSA 1.39 Weight (lbs) 105.2 Weight (kg) 47.8 Patient Address/Phone Number Home Address [facility] Home Phone Number [facility] [phone] Study Information Study Number Admission Scheduled Start Study Start [id number] Jun 11 2017 11:34AM 06/12/2017 Jun 12 2017 12:46PM [facility] Elect[facility]iology Study Admit Source Facility Department Other [facility] - Assistant District Attorney Physician and Clinical Staff Initial Chance Alexander Diesel Inspector Eloisa Prajapati,RT(R) Other Anesthesia, BERRY GROWER Recorder Venita Valencia,RN Scrub Jeremías Parish,RT(R) Procedures Performed Procedure Location (Site) Vessel Name Lead Insertion Venogram Coronary Sinus Other Wire insertion Coronary Sinus Other Wire insertion Subclav. Vein (Lft Subclavian Vein 06/12/2017 3:15:16 PM Financial #: [id number] 2 of 9 Patient Name: KAVEH NEGRON Study #: [id number] Initial MD: Chance Leo Date of : 1930 Study Date: 06/12/2017 Equipment Time School Based Therapist Description Size Mfg Part Number Used/Scraped [id number] 14:15 [employer] WIRE, ASAHI PROWATER 180CM 180CM Used *[id number] 14:12 [employer] WIRE, IRON MAN 190CM 190CM Used *[id number] LEAD, SENTUS PRO-MRI OTW QP 14:32 BIOTRONIK * [id number] Used [id number] 13:36 MEDLINE INDUSTRIES SUTURE, STRIP PLUS 1/2" * Used *[id number] 13:36 MEDLINE PACER ADHESIVE, MASTISOL 2/3CC 2/3CC 0523-48 Used 13:36 MEDLINE PACER [place], LIMB * 2530 *[id number] Used [id number] 13:36 MEDLINE PACER PACK, PACER CUSTOM * Used *[id number] 13:36 MEDLINE PACER PEN, SKIN DUAL W/ RULER * Used *[id number] 14:23 [employer] WIRE, 3MMJ .035 180CM 180CM Used *[id number] 14:23 [employer] PACER SAFE SHEATH, FR9, 13CM FR 9 [id number] Used 13:37 Needle Sponge Count 2 2 Used 13:37 Needle Sponge Count 2 22 Used 13:37 Needle Sponge Count 20 200 Used 14:59 Needle Sponge Count 3 3 Used 14:27 [employer]COMED OMNIPAQUE, 300 MG, 50ML 50ML [id number] Used [id number] *[id number] SUTURE, 3-0 VICRYL [SH] ([id number]) SUTURE, 3-0 VICRYL [SH] ([id number]) SUTURE, 4-0 MONOCRYL [PS2] (Y496G) [id number] 13:36 [employer],WARM AIR CCL * Used *[id number] [facility] PAD, ELECTROSURGICAL 13:36 * E7507 *[id number] Used SURGICAL GROUNDING ORANGE 9666-5427 13:36 [employer]. / * Used *54649 Equipment Model, Serial, Lot Number and Expiration Data Description Model Number Serial Number Lot Number Expiration Date LEAD, SENTUS PRO-MRI OTW QP [id number] 03-06-2019 L-49 06/12/2017 3:15:16 PM Financial #: [id number] 3 of 9 Patient Name: KAVEH NEGRON Study #: [id number] Initial MD: Chance Leo Date of : 1930 Study Date: 06/12/2017 Insurance Information Insurance Payor Medicare Third Constitution Party Third Constitution Party Number MEDICARE A B MCRAB History: Allergies Allergy Reaction Penicillins Anaphylaxis Labs Hgb (g/dl) Hct (%) RBC (MIL/MM3) WBC (l/cumm) Platelets (thousands) 11.60-17.00 35.00-51.00 4.00-5.90 4.00-11.00 150.00-450.00 12.0 35 3.9 3.3 312 Glucose (mg/dl) BUN (mg/dl) Creatinine (mg/dl) BUN:Creatinine (1:x) 74.00-106.00 7.00-18.00 0.50-1.30 10.00-20.00 77 16 0.8 20 Na (meq/l) K (meq/l) 136.00-145.00 3.50-5.10 141 4 INR (PTT:PT) 0.90-1.10 1 Medication Medication Total Dose (Bolus/Oral) Medication Total Dosage/Unit 2% XYLOCAINE 50 mL Medications (Bolus/Oral) Medication Time Given Dosage/Unit Administered By Reason 2% XYLOCAINE 06/12/2017 1:54:01 PM 50 mL Anesthesia, BERRY GROWER 50 mL 2% XYLOCAINE given in lab by Anesthesia, BERRY GROWER via Subcutaneous. Ordered by Chance Leo. Medication (Drip) Medication Time Given Dosage/Unit Concentration/Unit Diluent (ml) Solution VANCOMYCIN DRIP 06/12/2017 1:33:20 PM 1 g 1 g VANCOMYCIN DRIP given in lab by Anesthesia, BERRY GROWER in Right Antecubital via Peripheral IV. Ordered by Chance Leo. Reason: As per physicians verbal order. 06/12/2017 3:15:16 PM Financial #: [id number] 4 of 9 Patient Name: KAVEH NEGRON Study #: [id number] Initial MD: Chance Leo Date of : 1930 Study Date: 06/12/2017 Initial Case Assessment Cardiovascular HR Rhythm NIBP Chest Pain 71 sr 140/65 0 Edema Present Skin color Skin None Normal Warm Dry Circulatory - Right Pulses Radial 1 Scale (0,1,2,3,4,d) Circulatory - Left Pulses Radial 1 Scale (0,1,2,3,4,d) Circulatory - Lower Extremities Color Lower Right Color Lower Left Normal Normal Neurological State Alert Moves all extremities Respiration - General Respiration Rate SpO2 (%) O2 (lpm) (B/min) 18 100 8 06/12/2017 3:15:16 PM Financial #: [id number] 5 of 9 Patient Name: KAVEH NEGRON Study #: [id number] Initial MD: Chance Leo Date of : 1930 Study Date: 06/12/2017 Final Case Assessment Cardiovascular HR Rhythm NIBP Chest Pain 69 vp lab 129/64 0 Edema Present Skin color Skin None Normal Warm Dry Circulatory - Right Pulses Radial 1 Scale (0,1,2,3,4,d) Circulatory - Left Pulses Radial 1 Scale (0,1,2,3,4,d) Circulatory - Lower Extremities Color Lower Right Color Lower Left Normal Normal Neurological State Lethargic Moves all extremities Respiration - General Respiration Rate SpO2 (%) O2 (lpm) (B/min) 16 100 6 Chronological Log Time Study Chronological Log 13:10:50 Patient arrived via Bed. 13:10:54 Anesthesia at bedside. Assumes care of patient. [facility] 13:11:00 Patient Name, D.O.B, / Armband Verified By R.N. 13:11:01 Consent signed by the physician and the patient and verified by the Assistant District Attorney staff. 13:11:02 Pre-op and post- op instructions given; patient acknowledges understanding of instructions. 13:11:03 Verbal Stimulation=2 Physical Stimulation=2 Airway=2 Respiration=2 TOTAL=8. (0=absent, 1=li mited, 2=present) 13:11:21 Patient has been NPO for More than 6Hrs. 13:11:23 Skin Breakdown- 13:11:24 Patient Warmer Placed on the Table. 06/12/2017 3:15:16 PM Financial #: [id number] 6 of 9 Patient Name: KAVEH NEGRON Study #: [id number] Initial MD: Chance Leo Date of : 1930 Study Date: 06/12/2017 13:11:25 Disposable Defibrillator Pads Placed On Patient. 13:11:26 Brennon Prominences Protected 13:11:28 A # 20 IV was noted in the Antecubital (left). Grade = 0 0.9ns kvo 13:11:28 A # 20 IV was noted in the Antecubital (right). Grade = 0 13:11:29 History and physical on the chart. 1 g VANCOMYCIN DRIP given in lab by Anesthesia, BERRY GROWER in Right Antecubital via Peripheral IV. Or dered by Ahmet 13:33:20 Chance. Reason: As per physicians verbal order. Assessment: Initial Case, HR=71 BPM, Rhythm=sr, HHKE=636/65 mmhg, Chest Pain=0, Edema=None, Col or=Normal, Skin = Warm, Dry Right Pulses: Radial=1 Left Pulses: Radial=1 13:35:42 Lower Right Extremities: Color=Normal Lower Left Extremities: Color=Normal Neurological: State=Alert, ARECHIGA Respiration: Resp=18 B/min, IwO0=482 %, O2=8 lpm 13:36:47 Table restraints applied according to hospital policy 13:36:53 Left Upper Chest Prepped Times Two. First Sponge And Instrument Count Done by Jeremías Parish, RT(R). 13:37:03 Hypo's: 2, Sponges: 20, Bovie/scratch: 2 Sutures: 5, Blades: 1, Instruments: 26, Syveck Patches: ~SYVECK PATCH~ 13:41:09 MD paged 13:42:56 MD responded 13:50:28 MD arrived. 13:51:55 Reference ECG taken Time Out. Correct patient, procedure, procedure equipment, site and side verified with physicia n present. Time 13:53:00 concurred by MD, individual staff and BERRY GROWER. Time Out #2 - Consents verified, patient in correct position, all results are labled and displa yed, safety precautions 13:53:36 taken, antibiotics administered. Time out concurred by MD, individual staff and BERRY GROWER in procedu re 13:53:50 Case Start 13:54:01 50 mL 2% XYLOCAINE given in lab by Anesthesia, BERRY GROWER via Subcutaneous. Ordered by Sharee Leo. 13:54:59 Surgical Incision Made. 13:56:10 A pocket was created at the L Upper Chest. 13:58:22 A device was explanted. 14:12:00 A WIRE, IRON MAN 190CM 190CM was inserted via Subclav. Vein (Lft.) to cs lead 14:14:46 The previous wire was exchanged for a WIRE, ASAHI PROWATER 180CM 180CM. 14:18:39 Prowater out. 14:18:44 CS lead out 14:22:18 A WIRE, 3MMJ .035 180CM 180CM was inserted via Subclav. Vein (Lft. 14:22:27 Vascular access was obtained in the Subclav. Vein (Lft. 14:23:30 A SAFE SHEATH, FR9, 13CM FR 9 was advanced into the Subclav. Vein (Lft using the Modified S eldinger technique. 14:26:56 The Coronary Sinus was manually injected with 7 cc's of contrast. OMNIPAQUE, 300 MG, 50ML 5 0ML used. 14:28:30 A WIRE, ASAHI PROWATER 180CM 180CM was inserted via Coronary Sinus. 14:31:55 A LEAD, SENTUS PRO-MRI OTW QP L-85/49 * was inserted and positioned in the CS/LV. 06/12/2017 3:15:16 PM Financial #: [id number] Patient Name: KAVEH NEGRON Study #: [id number] Initial MD: Chance Leo Date of : 1930 Study Date: 06/12/2017 14:35:16 Lead placement verified under fluoroscopy 14:35:19 The CS/LV lead impedance and threshold is being tested. 14:43:15 Prowater out 14:46:22 The CS/LV lead was sutured to the fascia. Second Sponge And Instrument Count Done by Jeremías Parish RT(R). 14:58:24 Hypo's: 3, Sponges: 20, Bovie/scratch: 2 Sutures: 5, Blades: 1, Instruments: 26, Syveck Patches: ~SYVECK PATCH~ 15:10:14 The pocket was closed. Final Sponge And Instrument Count Done by Jeremías Parish RT(R). 15:11:22 Hypo's: 3, Sponges: 20, Bovie/scratch: 2 Sutures: 5, Blades: 1, Instruments: 26, Syveck Patches: ~SYVECK PATCH~ 15:11:43 Steri-strips and a sterile dressing applied to site. 15:11:48 Case End Assessment: Final Case, HR=69 BPM, Rhythm=vp lab, OSGE=990/64 mmhg, Chest Pain=0, Edema=None, [place] r=Normal, Skin = Warm, Dry Right Pulses: Radial=1 Left Pulses: Radial=1 15:12:01 Lower Right Extremities: Color=Normal Lower Left Extremities: Color=Normal Neurological: State=Lethargic, ARECHIGA Respiration: Resp=16 B/min, UsX6=734 %, O2=6 lpm 15:14:04 CICU called. Spoke to Pt's nurse 15:14:15 Bedside Report will be given. 15:14:16 Implantable Device card placed in patient's chart. 15:14:19 Defibrillator and ground pads removed. Skin intact. 15:20:53 A sling was placed on the affected arm. 15:24:24 Patient moved to stretcher End Study - Contrast Media Used In Study Contrast Total Opened (mL) Total Used (mL) Total Wasted (mL) Omnipaque 50 10 40 End Study - Maximum Contrast Load Max Contrast Load (mL) 298.9 End Study - Radiation Exposure Fluoro Time (minutes) 16.0 06/12/2017 3:15:16 PM Financial #: [id number] 8 of 9 Patient Name: KAVEH NEGRON Study #: [id number] Initial MD: Chance Leo Date of : 1930 Study Date: 06/12/2017 End Study - Patient Disposition Complications Transferred To Interventional Outcome No Telemetry Bed successful 06/12/2017 3:15:16 PM Financial #: [id number]
--- NOTE | 2017-06-12 15:22 | MP ---
cc: Chance Leo MD DATE OF OPERATION: 06/11/2017 PROCEDURE: Explantation of recently placed coronary sinus lead, placement of a new coronary sinus lead via the left subclavian vein. OPERATIVE NOTE: The patient was brought to the operating suite in the fasting state after having signed informed consent. Fluoroscopy shows the coronary sinus lead placed yesterday retracted, but still in the coronary sinus branch into which it was placed. However, all attempts to try to advance the lead further down the coronary sinus branch were unsuccessful. We finally lost access to the coronary sinus with the lead. The lead was removed and pressure held at the venotomy site. Central venous access was obtained via the left subclavian vein without difficulty using modified Seldinger technique. A 9 Kosovan sheath was placed and through this sheath a coronary sinus guiding catheter was introduced. We located the coronary sinus ostium without difficulty. A [employer] guidewire was used to gain access into a lateral branch. A new coronary sinus lead with an L-shaped tip was introduced and its positioned as far distally as possible. R-waves measured 21.1 millivolts with a stimulation threshold of 1.4 volts. The coronary sinus lead was reconnected to the Biot[employer]ik AICD generator. The generator and the leads were placed back into the subcutaneous pocket which was closed using 3-0 Vicryl interrupted stitches in 2 layers to close the subcutaneous tissue and then 4-0 Monocryl running stitch to close the subcuticular tissue. Overlapping steri-strips and a dressing were applied. There were no apparent immediate complications. The portable chest x-ray is pending at the time of this dictation. CONCLUSIONS: 1. Status post explantation of recently placed coronary sinus lead. 2. Placement of a new coronary sinus lead via the left subclavian vein. Chance Leo MD GHKeshia/SHANNON , 03:14 PM , 03:21 PM
--- NOTE | 2017-06-12 16:07 | RADRPT ---
EXAM DATE/TIME: 06/12/2017 15:44 [place] COMPARISON: CHEST SINGLE AP, June 11, 2017, 17:37. INDICATIONS : Evaluate for pneumothorax post pacemaker insertion MEDICAL HISTORY : Cardiovascular disease. SURGICAL HISTORY : None. ENCOUNTER: Subsequent ACUITY: 2 days PAIN SCORE: 0/10 LOCATION: chest FINDINGS: A single view of the chest demonstrates the lungs to be symmetrically aerated without evidence of mas s, infiltrate or effusion. The cardiomediastinal contours are unremarkable. Osseous structures are intact. Left pacemaker in place. No evidence of pneumothorax. No significant changes compared to the prior study. CONCLUSION: No evidence of pneumothorax. Stable examination the chest. Chris Rosenbaum MD on June 12, 2017 at 16:05 Board Certified Radiologist. This report was verified electronically.
[2017-06-12] MEDS: MONTELUKAST SODIUM 4 MG CHEWABLE TAB CHEW SCH (20:15)
[2017-06-12] MEDS: PRAVASTATIN SOD 40 MG TAB PO SCH (20:15)
[2017-06-12] MEDS: traMADol HCL 50 MG TAB PO PRN (20:15)
--- NOTE | 2017-06-12 21:48 | EKG ---
Date Performed: 06/11/2017 Time Performed: 12:56:16 PTAGE: 86 years EKG: Sinus rhythm Left axis deviation Left bundle branch block Abnormal ECG PREVIOUS TRACING : 01/12/2017 05.28 No significant change from previous tracing noted. DOCTOR: Chance Leo Interpretating Date/Time 06/12/2017 21:46:08
[2017-06-13] VITALS (12 sets, daily range): BP systolic 118–163; BP diastolic 60–82; PULSE 78–124; RESP 20; TEMP 97.5–98.2; O2SAT 95–97
[2017-06-13] MEDS ORDERED: VANCOMYCIN INJ 1,000 MG in SODIUM CHLOR 0.9% 250 ML INJ 250 ML IV ONE (03:30)
[2017-06-13] MEDS: LEVOTHYROXINE SODIUM 25 MCG TAB PO SCH (05:14)
--- NOTE | 2017-06-13 08:24 | PD.CARD.PN ---
Subjective Subjective Remarks Denies dyspnea, CP, incisional pain, dizziness. Slept well. Objective Medications Item Value Date Time Clopidogrel 75 mg 06/12/17 0900 Bisulfate DAILY/PO 06/12/17 1158 (Plavix) Isosorbide 30 mg 06/12/17 0900 Mononitrate DAILY/PO 06/12/17 1030 (Imdur) Lisinopril 10 mg 06/12/17 0900 (Prinivil) DAILY/PO 06/12/17 1029 Metoprolol 12.5 mg 06/11/17 2100 Tartrate BID/PO 06/12/172014 (Lopressor) Pravastatin Sodium 40 mg 06/11/17 2100 (Pravachol) HS/PO 06/12/172014 Current Medications Medications (Trade) Dose Ordered Sig/Kristine Route Start Time Stop Time Status Last Admin Miscellaneous Information NO Heparin, Loven... UNSCH PRN .XX 06/11/17 12:00 06/15/17 11:59 Sodium Chloride 1,000 ml @ 30 mls/hr Q24H IV 06/11/17 12:00 06/12/17 12:30 (Betadine 5% Antisepsis Kit) 2 applic CUSTOM SEAMSTRESS EACH NARE 06/11/17 12:00 06/14/17 11:59 (Bactroban Nasal 2% Oint) 1 applic CUSTOM SEAMSTRESS NASAL 06/11/17 12:00 06/14/17 11:59 (Chlorhexidine 2% Cloth) 3 pack CUSTOM SEAMSTRESS TOPICAL 06/11/17 12:00 06/14/17 11:59 (Plavix) 75 mg DAILY PO 06/12/17 09:00 06/12/17 11:58 (Colace) 100 mg BID PO 06/11/17 21:00 06/11/17 20:12 (Ferrous Sulfate) 325 mg BIDPC PO 06/11/17 18:00 06/12/17 17:44 (Imdur) 30 mg DAILY PO 06/12/17 09:00 06/12/17 10:30 (Synthroid) 0.25 mcg DAILY@0600 PO 06/12/17 06:00 06/13/17 05:14 (Prinivil) 10 mg DAILY PO 06/12/17 09:00 06/12/17 10:29 (Lopressor) 12.5 mg BID PO 06/11/17:00 06/12/17 20:15 (Singulair Chew) 4 mg HS CHEW 06/11/17 21:00 06/12/17 20:15 (Pravachol) 40 mg HS PO 06/11/17 21:00 06/12/17 20:15 (Pill Splitter) 1 ea UNSCH PRN OTHER 06/11/17 17:00 Patient Own Medication PT OWN MED: ADV... BID INH 06/11/17 21:00 Future Hold (Zofran Inj) 4 mg Q4H PRN IV PUSH 06/11/17 20:00 06/12/17 05:12 (Ultram) 50 mg Q6HR PRN PO 06/12/17 15:30 06/12/17 20:15 Vital Signs / I&O Vital Signs Date Time Temp Pulse Resp B/P (MAP) Pulse Ox O2 Delivery O2 Flow Rate FiO2 06/13/17 07:15 80 06/13/17 07:15 97 Room Air 06/13/17 07:15 98.2 80 20 118/78 (91) 97 06/13/17 06:12 82 06/13/17 05:07 79 06/13/17 04:28 84 06/13/17 04:22 98.1 78 118/60 (79) 95 06/13/17 03:08 81 06/13/17 02:00 80 06/13/17 01:00 84 06/13/17 00:00 97.5 92 163/82 (109) 97 06/13/17 00:00 124 06/12/17 23:00 88 06/12/17 22:00 90 06/12/17 21:00 98 06/12/17 20:00 98.3 96 170/88 (115) 94 06/12/17 20:00 94 06/12/17 20:00 Nasal Cannula 2.00 06/12/17 19:00 97 06/12/17 18:17 89 06/12/17 17:00 82 06/12/17 16:00 70 06/12/17 15:45 98.6 71 16 150/77 (101) 96 06/12/17 15:43 67 06/12/17 13:00 68 06/12/17 12:34 65 06/12/17 12:04 98.4 61 18 140/80 (100) 99 06/12/17 11:00 80 06/12/17 10:00 68 06/12/17 09:00 74 I/O 06/12/17 06/12/17 06/12/17 06/13/17 06/13/17 06/13/17 07:00 15:00 23:00 07:00 15:00 23:00 Intake Total 450 ml 250 ml 440 ml 480 ml Output Total 400 ml 250 ml Balance 450 ml 250 ml 40 ml 230 ml Intake Oral 200 ml 240 ml 480 ml IV Total 250 ml 250 ml 200 ml Output Urine Total 400 ml 250 ml # Voids 2 Physical Exam GENERAL: Well developed, thin. No acute distress. HEENT: Jugular venous pressure is normal. CHEST: Lungs clear to auscultation bilaterally. Unlabored respiratory effort. CARDIAC: Regular rate and rhythm without S3, S4, or murmur. ABDOMEN: Soft, nontender, no hepatosplenomegaly. Bowel sounds present. EXTREMITIES: No clubbing, cyanosis, or edema. ICD site clean, dry, intact, no hematoma. Mild tenderness. Imaging Last 24 hours Impressions Chest X-Ray 06/12/17 1518 Signed Impressions: Service Date/Time: June 15:44 - CONCLUSION: No evidence of pneumothorax. Stable examination the chest. Chris Rosenbaum MD Assessment and Plan Problem List: (1) S/P implantation of automatic cardioverter/defibrillator (AICD) ICD Codes: Z95.810 - Presence of automatic (implantable) cardiac defibrillator Status: Acute Plan: Stable s/p placement of biventricular ICD 06/11/17, placement of new coronary sinus lead yesterday. Re-interrogation of device this morning shows stable, good pacing/defibrillatory parameters. ICD site OK. Post op chest x- ray without pneumothorax. To discharge today on same home medication, including metoprolol, Lisinopril. To add Levaquin 500 mg qd for 7 days. One week f/u. (2) Coronary artery disease ICD Codes: I25.10 - Atherosclerotic heart disease of [place] coronary artery without angina pectoris Status: Chronic Plan: Stable. No angina symptoms. Continue Plavix, aspirin. (3) Hypertension ICD Codes: I10 - Essential (primary) hypertension Status: Chronic Plan: Fluctuating BP's, normal this morning. Monitor as outpatient. Code Status full code Discussed Condition With patient Problem Qualifiers (1) Coronary artery disease: Qualified Codes: I25.10 - Atherosclerotic heart disease of [place] coronary artery without angina pectoris (2) Hypertension: Qualified Codes: I10 - Essential (primary) hypertension Chance Leo MD Jun 13, 2017 08:24
[2017-06-13] MEDS ORDERED: LEVA500T33 PO (08:28)
[2017-06-13] MEDS ORDERED: ASPI81TA23 PO (08:28)
[2017-06-13] MEDS: ISOSORBIDE MONONITRATE 30 MG CR TAB (IMDUR) PO SCH (08:34)
[2017-06-13] MEDS: FERROUS SULFATE 325 MG (65 MG ELEMENTAL IRON) TAB PO SCH (08:34)
[2017-06-13] MEDS: METOPROLOL TARTRATE 25 MG TAB PO SCH (08:34)
[2017-06-13] MEDS: CLOPIDOGREL 75 MG TAB PO SCH (08:34)
[2017-06-13] MEDS: LISINOPRIL 10 MG TAB PO SCH (08:34)
[2017-06-13] MEDS: DOCUSATE SODIUM 100 MG CAP PO SCH (08:34)
[2017-06-13] MEDS: traMADol HCL 50 MG TAB PO PRN (08:35)
[2017-06-13] MEDS ORDERED: ASPIRIN EC 81 MG TABEC PO SCH (09:00)
--- NOTE | 2017-06-13 09:17 | HHI.PR ---
Subjective Remarks Follow-up for AICD placement Patient no complaints. Her son is at the bedside during the interview. Only complaint from nurse was last night patient was confused. She is not confused at the moment. She does have difficulty with her memory. Otherwise she answer questions appropriately. She said that she is wants to go home now. Objective Vitals Vital Signs Date Time Temp Pulse Resp B/P (MAP) Pulse Ox O2 Delivery O2 Flow Rate FiO2 06/13/17 07:15 80 06/13/17 07:15 97 Room Air 06/13/17 07:15 98.2 80 20 118/78 (91) 97 06/13/17 06:12 82 06/13/17 05:07 79 06/13/17 04:28 84 06/13/17 04:22 98.1 78 118/60 (79) 95 06/13/17 03:08 81 06/13/17 02:00 80 06/13/17 01:00 84 06/13/17 00:00 97.5 92 163/82 (109) 97 06/13/17 00:00 124 06/12/17 23:00 88 06/12/17 22:00 90 06/12/17 21:00 98 06/12/17 20:00 98.3 96 170/88 (115) 94 06/12/17 20:00 94 06/12/17 20:00 Nasal Cannula 2.00 06/12/17 19:00 97 06/12/17 18:17 89 06/12/17 17:00 82 06/12/17 16:00 70 06/12/17 15:45 98.6 71 16 150/77 (101) 96 06/12/17 15:43 67 06/12/17 13:00 68 06/12/17 12:34 65 06/12/17 12:04 98.4 61 18 140/80 (100) 99 06/12/17 11:00 80 06/12/17 10:00 68 I/O 06/12/17 06/12/17 06/12/17 06/13/17 06/13/17 06/13/17 07:00 15:00 23:00 07:00 15:00 23:00 Intake Total 450 ml 250 ml 440 ml 480 ml Output Total 400 ml 250 ml Balance 450 ml 250 ml 40 ml 230 ml Intake Oral 200 ml 240 ml 480 ml IV Total 250 ml 250 ml 200 ml Output Urine Total 400 ml 250 ml # Voids 2 Result Diagram: 06/11/17 1230 06/11/17 1230 Objective Remarks GENERAL: in NAD SKIN: Bandages in place on chest. HEAD: Normocephalic. EYES: No scleral icterus. No injection or drainage. NECK: Supple, trachea midline. No JVD or lymphadenopathy. CARDIOVASCULAR: Regular rate and rhythm without murmurs, gallops, or rubs. RESPIRATORY: Breath sounds equal bilaterally. No accessory muscle use. GASTROINTESTINAL: Abdomen soft, non-tender, nondistended. Medications and IVs Current Medications Miscellaneous Information NO Heparin, Loven... UNSCH PRN .XX Pre Pacemaker/ICD ; Start 06/11/17 at 12:00; Stop 06/13/17 at 11:53; Status DC Sodium Chloride 1,000 ml @ 30 mls/hr Q24H IV Last administered on 06/12/17at 12: 30; Start 06/11/17 at 12:00; Stop 06/13/17 at 11:53; Status DC Vancomycin HCl 1000 mg/Sodium Chloride 250 ml @ 250 mls/hr MANUAL WRITER IV Last administered on 06/11/17at 13:50; Start 06/11/17 at 12:00; Stop 06/12/17 at 16:08; Status DC Povidone Iodine (Betadine 5% Antisepsis Kit) 2 applic MANUAL WRITER EACH NARE ; Start 06/11/17 at 12:00; Stop 06/13/17 at 11:53; Status DC Mupirocin (Bactroban Nasal 2% Oint) 1 applic MANUAL WRITER NASAL ; Start 06/11/17 at 12:00; Stop 06/13/17 at 11:53; Status DC Chlorhexidine Gluconate (Chlorhexidine 2% Cloth) 3 pack MANUAL WRITER TOPICAL ; Start 06/11/17 at 12:00; Stop 06/13/17 at 11:53; Status DC Fentanyl Citrate (fentaNYL INJ) 100 mcg STK-MED ONCE .ROUTE ; Start 06/11/17 at 13:46; Stop 06/11/17 at 13:47; Status DC Lidocaine HCl (Xylocaine 2% Inj) 50 ml STK-MED ONCE .ROUTE ; Start 06/11/17 at 13 :53; Stop 06/11/17 at 13:54; Status DC Clopidogrel Bisulfate (Plavix) 75 mg DAILY PO Last administered on 06/13/17 08: 34; Start 06/12/17 at 09:00; Stop 06/13/17 at 11:53; Status DC Docusate Sodium (Colace) 100 mg BID PO Last administered on 06/13/17at 08:34; Start 06/11/17 at 21:00; Stop 06/13/17 at 11:53; Status DC Ferrous Sulfate (Ferrous Sulfate) 325 mg BIDPC PO Last administered on at 08:34; Start 06/11/17 at 18:00; Stop 06/13/17 at 11:53; Status DC Isosorbide Mononitrate (Imdur) 30 mg DAILY PO Last administered on 06/13/17 08: 34; Start 06/12/17 at 09:00; Stop 06/13/17 at 11:53; Status DC Levothyroxine Sodium (Synthroid) 0.25 mcg DAILY@0600 PO Last administered on 06/13/17at 05:14; Start 06/12/17 at 06:00; Stop 06/13/17 at 11:53; Status DC Lisinopril (Prinivil) 10 mg DAILY PO Last administered on 06/13/17 08:34; Start 06/12/17 at 09:00; Stop 06/13/17 at 11:53; Status DC Metoprolol Tartrate (Lopressor) 12.5 mg BID PO Last administered on 06/13/17 08 :34; Start 06/11/17 at 21:00; Stop 06/13/17 at 11:53; Status DC Montelukast Sodium (Singulair Chew) 4 mg HS CHEW Last administered on 06/12/17 20:15; Start 06/11/17 at 21:00; Stop 06/13/17 at 11:53; Status DC Pravastatin Sodium (Pravachol) 40 mg HS PO Last administered on 06/12/17at 20:15 ; Start 06/11/17 at 21:00; Stop 06/13/17 at 11:53; Status DC Non-Formulary Medication 2 puff BID INH ; Start 06/11/17 at 21:00; Status UNV Vancomycin HCl 1000 mg/Sodium Chloride 250 ml @ 250 mls/hr ONCE ONCE IV Last administered on 06/12/17at 04:03; Start 06/12/17 at 03:45; Stop 06/12/17 at 04:44; Status DC Tramadol HCl (Ultram) 50 mg Q6HR PRN PO PAIN SCALE 4 TO 10 Last administered on 06/12/17at 06:03; Start 06/11/17 at 15:45; Stop 06/12/17 at 16:09; Status DC Morphine Sulfate (Morphine Inj) 4 mg STK-MED ONCE .ROUTE Last administered on at 16:05; Start 06/11/17 at 16:05; Stop 06/11/17 at 16:06; Status DC Miscellaneous Information ALL NURSING DEPARTME... UNSCH PRN .XX SEE LABEL COMMENTS; Start 06/11/17 at 16:00; Stop 06/12/17 at 15:59; Status DC Hydromorphone HCl (Dilaudid Pf Inj) 0.5 mg Q10M PRN IV SEE LABEL COMMENTS Last administered on 06/12/17at 00:16; Start 06/11/17 at 17:00; Stop 06/12/17 at 00:16; Status DC Miscellaneous (Pill Splitter) 1 ea UNSCH PRN OTHER SEE LABEL COMMENTS; Start at 17:00; Stop 06/13/17 at 11:53; Status DC Non-Formulary Medication 2 puff BID INH ; Start 06/11/17 at 21:00; Stop 06/11/17 at 21:00; Status DC Patient Own Medication PT OWN MED: ADV... BID INH ; Start 06/11/17 at 21:00; Stop 06/13/17 at 11:53; Status DC Ondansetron HCl (Zofran Inj) 4 mg Q4H PRN IV PUSH NAUSEA Last administered on at 05:12; Start 06/11/17 at 20:00; Stop 06/13/17 at 11:53; Status DC Vancomycin HCl (Vancomycin Inj) 1,000 mg STK-MED ONCE .ROUTE Last administered on 06/12/17at 13:33; Start 06/12/17 at 13:23; Stop 06/12/17 at 13:24; Status DC Sodium Chloride 250 ml @ As Directed STK-MED ONCE .ROUTE Last administered on 06/12/17 13:33; Start 06/12/17 at 13:24; Stop 06/12/17 at 13:25; Status DC Lidocaine HCl (Xylocaine 2% Inj) 50 ml STK-MED ONCE .ROUTE Last administered on 06/12/17at 13:29; Start 06/12/17 at 13:29; Stop 06/12/17 at 13:30; Status DC Vancomycin HCl 1000 mg/Sodium Chloride 250 ml @ 0 mls/hr ONCE ONCE IV Last administered on 06/13/17at 05:14; Start 06/13/17 at 03:30; Stop 06/13/17 at 03:31; Status DC Tramadol HCl (Ultram) 50 mg Q6HR PRN PO PAIN SCALE 4 TO 10 Last administered on 06/13/17 08:35; Start 06/12/17 at 15:30; Stop 06/13/17 at 11:53; Status DC Aspirin (Ecotrin Ec) 81 mg DAILY PO Last administered on 06/13/17 08:35; Start 06/13/17 at 09:00; Stop 06/13/17 at 11:53; Status DC A/P Assessment and Plan This is a 86-year-old female with severe ischemic cardiomyopathy here for AICD placement to prevent sudden cardiac Severe ischemic cardiomyopathy -Status post AICD placement on 06/11/2017. Patient will need a lead reposition today. -Being managed by Dr. Tovar. -Continue with home medication. Brief moment of confusion at night -This may be secondary to anesthesia or an underlying dementia. She is not confused at the moment and is at her baseline. She does have a memory problem which can be worked up as outpatient. Coronary artery disease status post stent placement, hypertension, hyperlipidemia, asthma, hypothyroidism, GERD -Continue with home medication. DVT prophylaxis -Held secondary to procedure. Discharge Planning Patient is medically clear for discharge. Juliana Pond MD Jun 13, 2017 09:17
== END 2017-06-13 11:52 | disposition home or self-care (01) ==
LOC: HDIC 11:34 → HDOC 11:34 → HCIS 18:26 → HDIC 18:26 → HDOC 06-13 11:52
PROVIDERS: ATTEND Internal Medicine Cardiovascular Disease
DX: I11.0 Hypertensive heart disease with heart failure (principal); I50.9 Heart failure, unspecified; I25.10 Atherosclerotic heart disease of native coronary artery without angina pectoris; I25.5 Ischemic cardiomyopathy; I44.7 Left bundle-branch block, unspecified; E78.5 Hyperlipidemia, unspecified; J45.909 Unspecified asthma, uncomplicated; E03.9 Hypothyroidism, unspecified
CPT/HCPCS: 00530; 33225; 33249; 71045; 80048; 85025; 85610; 85730; 93005; 93641; C1769; C1882; C1895; C1898; C1900; J1170; J2270; J2405; J3010; J3370; J7030; J7050

== ENCOUNTER 2017-08-19 20:13 | Inpatient (IN) | payer MEDICARE, OTHER ==
[2017-08-19] MEDS: FUROSEMIDE 20 MG/2 ML VIAL IV PUSH SCH (18:00)
[~2017-08-19 20:13] MED LIST changes: +ADVA45AE INH; +ALBUAER3; +AMLO5TAB2 PO; -ASPI81CH25 PO; +ASPI81TA23 PO; +BISACODYL 10 MG SUPP RECTAL PRN; +HEPARIN SODIUM - SQ 10,000 UNITS/ML VIAL SQ SCH; +ISOS30TA3 PO; +LACTULOSE SYRUP 20 GM/30 ML CUP PO PRN; +LEVA500T33 PO; +MAGNESIUM HYDROXIDE SUSP 30 ML CUP PO PRN; +MONT4CHW4 CHEW; +NALOXONE HCL 0.4 MG/ML AMP IV PUSH PRN; +ONDANSETRON ODT 4 MG TAB PO PRN; +SENNOSIDES 8.6 MG TAB PO PRN; +SODIUM CHLORIDE 0.9% FLUSH 10 ML FLUSH IV FLUSH PRN
[2017-08-19 20:25] VITALS: BP 147/96; PULSE 89; RESP 18; TEMP 97.8; O2SAT 98
[2017-08-19 20:46] VITALS: PULSE 88
[2017-08-19 21:00] VITALS: PULSE 86
[2017-08-19] MEDS: SODIUM CHLORIDE 0.9% FLUSH 10 ML FLUSH IV FLUSH SCH (21:00)
[2017-08-19 22:00] VITALS: PULSE 84
[2017-08-19] MEDS: HEPARIN SODIUM - SQ 10,000 UNITS/ML VIAL SQ SCH (22:13)
[2017-08-19] MEDS: DOCUSATE SODIUM 50 MG/SENNA 8.6 MG TAB PO SCH (22:13)
[2017-08-19 22:41] LABS: TROPONIN I 0.51 NG/ML (0.02-0.05)
[2017-08-19 23:00] VITALS: PULSE 77
[2017-08-19] MEDS ORDERED: RESP: ALBUTEROL 2.5 MG/IPRATROPIUM 0.5 MG NEB (PRN) NEB (23:00)
--- NOTE | 2017-08-19 23:06 | HHI.HP ---
[facility] Service [facility] Primary Care Physician Unknown Admission Diagnosis decompensated CHF/ elevated troponin. Diagnoses: (1) decompensated chf Diagnosis: Principal (2) Elevated troponin Diagnosis: Principal Chief Complaint: sob Travel History International Travel<30 Days: No Contact w/Intl Traveler <30 Da: No Traveled to Known Affected Are: No History of Present Illness patient is a 86 y/o female with history of CAD, COPD, hypertension. hypothyroidism who presented to ER with sob. she's not a good historian but she says that her sob started about ten days ago. she's had some on and off dry cough. she denies any chest pain, PND or orthopnea. she doesn't report any recent weight gain.she had cardiac cath and PCI last February. she was pain free at the time of my evaluation. Review of Systems Constitutional: DENIES: Fever, Weight loss, Chills, Night Sweats Eyes: DENIES: Blurred vision, Diplopia, Vision loss, Double Vision Ears, nose, mouth, throat: DENIES: Tinnitus, Vertigo, Throat pain, Epistaxis Respiratory: COMPLAINS OF: Shortness of breath Cardiovascular: COMPLAINS OF: Dyspnea on Exertion Gastrointestinal: DENIES: Abdominal pain, Black stools, Bloody stools, Constipation, Diarrhea, Nausea, Vomiting, Difficulty Swallowing, Anorexia Genitourinary: DENIES: Urinary frequency, Urgency, Hematuria, Dysuria Musculoskeletal: DENIES: Joint pain, Muscle aches, Stiffness, Joint Swelling Integumentary: DENIES: Rash Neurologic: DENIES: Abnormal gait, Headache, Localized weakness, Paresthesias, Seizures, Speech Problems, Tremor, Poor Balance Psychiatric: DENIES: Anxiety, Confusion, Mood changes, Depression, Hallucinations, Agitation, Suicidal Ideation, Homicidal Ideation, Delusions Past Family Social History Past Medical History CAD/ COPD/hypertension/ dyslipidemia. Past Surgical History cardiac cath/PCI/ pacemaker placement. Reported Medications Aspirin EC (Aspirin) 81 Mg Tabdr 81 Mg PO DAILY 30 Days Metoprolol Tartrate 25 Mg Tab 12.5 Mg PO BID Dok (Docusate Sodium) 100 Mg Cap 100 Mg PO DAILY Plavix (Clopidogrel Bisulfate) 75 Mg Tab 75 Mg PO DAILY Reported Amlodipine (Amlodipine Besylate) 5 Mg Tab 5 Mg PO DAILY Montelukast (Montelukast Sodium) 4 Mg Chew 4 Mg CHEW HS Isosorbide Mononitrate ER (Isosorbide Mononitrate) 30 Mg Clare 30 Mg PO DAILY Proair Hfa (Albuterol Sulfate) 90 Mcg Hfa.aer.ad Advair Hfa 12 GM Inh (Fluticasone-Salmeterol 12 GM Inh) 45-21 Mcg/Act Aer 2 Puff INH BID Lisinopril 10 Mg Tab 10 Mg PO DAILY Ferrous Sulfate 325 Mg (65 Mg Iron) Tablet 325 Mg PO BIDPC Pravastatin 40 Mg Tab 40 Mg PO HS Synthroid (Levothyroxine Sodium) 25 Mcg Tab 0.25 Mcg PO DAILY Allergies: Coded Allergies: Penicillins (Verified Allergy, Severe, Anaphylaxis, 08/19/17) Active Ordered Medications Inpatient Medications Acetaminophen (Tylenol) 650 mg Q4H PRN PO TEMP > 100.4; Start 08/19/17 at 17:15 Bisacodyl (Dulcolax Supp) 10 mg DAILY PRN RECTAL SEVERE CONSITIPATION; Start at 17:15 Furosemide (Lasix Inj) 20 mg BID@09,18 IV PUSH ; Start 08/19/17 at 18:00 Heparin Sodium (Porcine) (Heparin Inj) 5,000 units Q8H SQ Last administered on 08/19/17at 22:13; Start 08/19/17 at 22:00 Lactulose (Lactulose Liq) 30 ml DAILY PRN PO SEVERE CONSITIPATION; Start at 17:15 Magnesium Hydroxide (Milk Of Magnesia Liq) 30 ml Q12H PRN PO Mild constipation ; Start 08/19/17 at 17:15 Naloxone HCl (Narcan Inj) 0.4 mg UNSCH PRN IV PUSH SEE LABEL COMMENTS; Start at 17:15 Ondansetron HCl (Zofran Odt) 4 mg Q6H PRN PO NAUSEA OR VOMITING; Start at 18:00 Potassium Chloride (KCl) 20 meq DAILY PO ; Start 08/20/17 at 09:00 Senna/Docusate Sodium (Charisse-Colace) 1 tab BID PO Last administered on at 22:13; Start 08/19/17 at 21:00 Sennosides (Senokot) 17.2 mg Q12H PRN PO Moderate constipation; Start 08/19/17 at 17:15 Sodium Chloride (NS Flush) 2 ml BID IV FLUSH Last administered on 08/19/17at 21: 00; Start 08/19/17 at 21:00 Social History lives with her . no smoking or drinking. Physical Exam Vital Signs Vital Signs Date Time Temp Pulse Resp B/P (MAP) Pulse Ox O2 Delivery O2 Flow Rate FiO2 08/19/17 20:25 97.8 89 18 147/96 (113 98 Physical Exam GENERAL: elderly female, in no apparent distress. SKIN: No rashes, ecchymoses or lesions. Cool and dry. HEAD: Atraumatic. Normocephalic. No temporal or scalp tenderness. EYES: Pupils equal round and reactive. Extraocular motions intact. No scleral icterus. No injection or drainage. ENT: Nose without bleeding, purulent drainage or septal hematoma. Throat without erythema, tonsillar hypertrophy or exudate. Uvula midline. Airway patent. NECK: Trachea midline. No JVD or lymphadenopathy. Supple, nontender, no meningeal signs. CARDIOVASCULAR: Regular rate and rhythm without murmurs, gallops, or rubs. RESPIRATORY:basal crackles. GASTROINTESTINAL: Abdomen soft, non-tender, nondistended. No hepato-splenomegaly , or palpable masses. No guarding. MUSCULOSKELETAL: Extremities without clubbing, cyanosis, or edema. No joint tenderness, effusion, or edema noted. No calf tenderness. Negative Homans sign bilaterally. NEUROLOGICAL: Awake and alert. Cranial nerves II through XII intact. Motor and sensory grossly within normal limits. Five out of 5 muscle strength in all muscle groups. Normal speech. Laboratory Laboratory Tests Test 08/19/17 21:53 Total Creatine Kinase 63 Troponin I 0.51 Imaging EKG; pacer rhythm Caprini VTE Risk Assessment Caprini VTE Risk Assessment: Mod/High Risk (score >= 2) Caprini Risk Assessment Model Point Value = 1 Point Value = 2 Point Value = 3 Point Value = 5 Age 41-60 Minor surgery BMI > 25 kg/m2 Swollen legs Varicose veins or History of unexplained or recurrent spontaneous Oral contraceptives or hormone replacement Sepsis (< 1 month) Serious lung disease, including pneumonia (< 1 month) Abnormal pulmonary function Acute myocardial infarction Congestive heart failure (< 1 month) History of inflammatory bowel disease Medical patient at bed rest Age 61-74 Arthroscopic surgery Major open surgery (> 45 min) Laparoscopic surgery (> 45 min) Malignancy Confined to bed (> 72 hours) Immobilizing plaster cast Central venous access Age >= 75 History of VTE Family history of VTE Factor V Leiden Prothrombin [id number] Lupus anticoagulant Anticardiolipin antibodies Elevated serum homocysteine Heparin-induced thrombocytopenia Other congenital or acquired thrombophilia Stroke (< 1 month) Elective arthroplasty Hip, pelvis, or leg fracture Acute spinal cord injury (< 1 month) Prophylaxis Regimen Total Risk Factor Score Risk Level Prophylaxis Regimen 0-1 Low Early ambulation 2 Moderate Order ONE of the following: *Sequential Compression Device (SCD) *Heparin 5000 units SQ BID 3-4 Higher Order ONE of the following medications: *Heparin 5000 units SQ TID *Enoxaparin/Lovenox 40 mg SQ daily (WT < 150 kg, CrCl > 30 mL/min) *Enoxaparin/Lovenox 30 mg SQ daily (WT < 150 kg, CrCl > 10-29 mL/min) *Enoxaparin/Lovenox 30 mg SQ BID (WT < 150 kg, CrCl > 30 mL/min) AND/OR *Sequential Compression Device (SCD) 5 or more Highest Order ONE of the following medications: *Heparin 5000 units SQ TID (Preferred with Epidurals) *Enoxaparin/Lovenox 40 mg SQ daily (WT < 150 kg, CrCl > 30 mL/min) *Enoxaparin/Lovenox 30 mg SQ daily (WT < 150 kg, CrCl > 10-29 mL/min) *Enoxaparin/Lovenox 30 mg SQ BID (WT < 150 kg, CrCl > 30 mL/min) AND *Sequential Compression Device (SCD) Assessment and Plan Assessment and Plan A/P - acute on chronic systolic CHF continue with IV diuretics- monitor I/O and renal function -elevated troponin with history of CAD / PCI last February resume aspirin, plavix,BB, imdur and statin- will trend the cardiac enzymes- cardiology consulted -COPD resume advair- neb treatment as needed. -hypertension; resume home meds- hold lisinopril due to mildly elevated creatinine -hypothyroidism; resume synthroid -anemia- chronic- continue ferrous sulfate- will monitor -DVT prophylaxis with subq Heparin Discussed Condition With the patient and RN. Physician Certification 2 Midnight Certification Type: Admission for Inpatient Services Order for Inpatient Services The services are ordered in accordance with Medicare regulations or non- Medicare payer requirements, as applicable. In the case of services not specified as inpatient-only, they are appropriately provided as inpatient services in accordance with the 2-midnight benchmark. Estimated LOS (days): 2 days is the estimated time the patient will need to remain in the hospital, assuming treatment plan goals are met and no additional complications. Post-Hospital Plan: Not yet determined Doris Thomas MD August 19, 2017 23:06
[2017-08-19] MEDS ORDERED: PILL SPLITTER OTHER PRN (23:15)
[2017-08-19 23:28] VITALS: BP 149/91; PULSE 88; RESP 18; TEMP 97.5; O2SAT 98
[2017-08-20] VITALS (30 sets, daily range): BP systolic 115–153; BP diastolic 71–96; PULSE 72–100; RESP 16–18; TEMP 97.4–97.8; O2SAT 95–99
[2017-08-20] MEDS: LEVOTHYROXINE SODIUM 25 MCG TAB PO SCH (05:52)
[2017-08-20] MEDS: HEPARIN SODIUM - SQ 10,000 UNITS/ML VIAL SQ SCH ×3 (05:52→21:44)
[2017-08-20] MEDS ORDERED: LEVOTHYROXINE SODIUM 25 MCG TAB PO SCH (06:00)
[2017-08-20 06:33] LABS: AUTOMATED NEUTROPHIL # 2.5 TH/MM3 (1.8-7.7); BASOPHIL # 0.1 TH/MM3 (0-0.2); BASOPHIL % 1.4 % (0.0-2.0); EOSINOPHIL # 0.1 TH/MM3 (0-0.4); HEMATOCRIT 31.2 % (35.0-46.0); HEMOGLOBIN 10.4 GM/DL (11.6-15.3); LYMPH % 21.7 % (9.0-44.0); LYMPHOCYTE # 0.9 TH/MM3 (1.0-4.8); MEAN CELL VOLUME 95.6 FL (80.0-100.0); MEAN CORPUSCULAR HGB CONC 33.5 % (32.0-36.0); MEAN PLATELET VOLUME 8.9 FL (7.0-11.0); MONO % 12.8 % (0.0-8.0); MONOCYTE # 0.5 TH/MM3 (0-0.9); NEUT % 62.1 % (16.0-70.0); PLATELET COUNT 231 TH/MM3 (150-450); RED BLOOD COUNT 3.26 MIL/MM3 (4.00-5.30)
[2017-08-20 06:59] LABS: BICARBONATE 18.2 MEQ/L (21.0-32.0); CALCIUM 8.6 MG/DL (8.5-10.1); CREATININE 1.14 MG/DL (0.50-1.00)
[2017-08-20 07:03] LABS: TROPONIN I 0.52 NG/ML (0.02-0.05)
[2017-08-20] MEDS ORDERED: [UNRECOGNIZED DRUG - OTHER] INH SCH (09:00)
[2017-08-20] MEDS: DOCUSATE SODIUM 50 MG/SENNA 8.6 MG TAB PO SCH ×2 (09:00→21:44)
[2017-08-20] MEDS ORDERED: NON-FORMULARY DRUG (Fluticasone-Salmeterol 12 GM Inh (Advair Hfa 12 GM Inh) 2 PUFF) INH SCH (09:00)
[2017-08-20] MEDS: POTASSIUM CHLORIDE 20 MEQ CONTROLLED RELEASE TAB PO SCH (09:00)
[2017-08-20] MEDS: SODIUM CHLORIDE 0.9% FLUSH 10 ML FLUSH IV FLUSH SCH ×2 (09:24→21:44)
[2017-08-20] MEDS: ASPIRIN EC 81 MG TABEC PO SCH (09:25)
[2017-08-20] MEDS: ISOSORBIDE MONONITRATE 30 MG CR TAB (IMDUR) PO SCH (09:25)
[2017-08-20] MEDS: amLODIPine BESYLATE 5 MG TAB PO SCH (09:25)
[2017-08-20] MEDS: FUROSEMIDE 20 MG/2 ML VIAL IV PUSH SCH ×2 (09:26→18:24)
[2017-08-20] MEDS: CLOPIDOGREL 75 MG TAB PO SCH (09:26)
[2017-08-20] MEDS: FERROUS SULFATE 325 MG (65 MG ELEMENTAL IRON) TAB PO SCH ×2 (09:26→18:24)
[2017-08-20] MEDS: METOPROLOL TARTRATE 25 MG TAB PO SCH ×2 (09:26→21:44)
[2017-08-20] MEDS ORDERED: FUROSEMIDE 20 MG/2 ML VIAL IV PUSH ONE (11:00)
--- NOTE | 2017-08-20 11:41 | MB ---
cc: Kwame Villalba DO DATE: 08/20/2017 REASON FOR CONSULTATION: Elevated troponin, shortness of breath. HISTORY OF PRESENT ILLNESS: Afia Wells is a pleasant 86-year-old female, whom I see in the office and presented to [facility] on 08/19/2017 due to shortness of breath. Apparently, her shortness of breath started around 10 days ago and has been getting somewhat worse. She has had trouble lying flat as she gets more short of breath. She has a nonproductive cough with her shortness of breath. She does not believe that she is taking in more salt than she should. She denies any chest pain during the episodes. PAST MEDICAL HISTORY: 1. Coronary artery disease. 2. Chronic obstructive pulmonary disease. 3. Hypertension. 4. Dyslipidemia. 5. Ischemic cardiomyopathy with an ejection fraction of 30-35%. PAST SURGICAL HISTORY: 1. Biotronik Ilivia Bi-V ICD placed (06/11/2017). 2. Cardiac catheterization (01/13/2017) with CSI atherectomy of the LAD and drug-eluting stent (2.75 x 18), CSI left circumflex and drug-eluting stent (2.75 x 18). ALLERGIES: PENICILLIN. MEDICATIONS: 1. Albuterol rescue inhaler as needed. 2. Iron 325 mg b.i.d. 3. Plavix 75 mg daily. 4. Pravastatin 40 mg every night. 5. Imdur 30 mg daily. 6. Metoprolol tartrate 12.5 mg b.i.d. 7. Norvasc 5 mg daily. 8. Lisinopril 10 mg daily. 9. Aspirin 81 mg daily. 10. Advair 2 puffs b.i.d. 11. Singulair 4 mg every night. 12. Synthroid 0.25 mcg daily. FAMILY HISTORY: Denies premature coronary artery disease or sudden cardiac within the family. SOCIAL HISTORY: Denies tobacco, alcohol or drug abuse. REVIEW OF SYSTEMS: Fourteen systems were reviewed including osteopathic pertinent positives and negatives as above, otherwise negative. PHYSICAL EXAMINATION: VITAL SIGNS: Temperature 97.8, heart rate 90, blood pressure 148/96, respirations 16, pulse oximetry 99% on room air. GENERAL: The patient appears well in no acute distress. Alert, awake and oriented x 3. HEENT: Extraocular muscles intact. Mucous membranes moist. NECK: Supple with mild JVD at 45 degrees. Carotid bruits are brisk in nature. HEART: Regular rate and rhythm. Positive first and second heart sounds with a 1/6 crescendo/decrescendo murmur to the right sternal border. LUNGS: Decreased breath sounds at the bilateral bases with rales noted. ABDOMEN: Soft, nontender, nondistended. No organomegaly noted. EXTREMITIES: Show trace edema bilaterally. NEUROLOGIC: No focal deficits. SKIN: Warm, dry and intact. OSTEOPATHIC: No kyphoscoliosis, lordosis or paraspinal tender points. LABORATORY DATA: Hemoglobin 10.4, hematocrit 31.2, platelets 231. Potassium 4.2, creatinine 1.5 decreasing to 1.14. Troponin 0.43 increasing to 0.52. BMP 4610. Electrocardiogram (08/20/2017 at 0228) biventricular pacing. IMPRESSIONS: 1. Shortness of breath, which appears to be acute exacerbation of her systolic heart failure. 2. Ischemic cardiomyopathy, status post biventricular ICD (06/11/2017). 3. Coronary artery disease with a history of PCI as above (01/13/2017). 4. Elevated troponin, most likely type 2 in nature due to heart failure. RECOMMENDATIONS: 1. Ms. Wells presented with shortness of breath and no chest pain and this is most likely due to her acute exacerbation of her systolic heart failure. 2. In looking over her previous weight, her weight appears to be up at least a couple of kilograms since her previous hospitalization and this most likely represents water weight. She also appears clinically to be in heart failure. 3. We will plan on diuresing her and giving her an extra Lasix dose IV this morning. 4. I believe her troponin is most likely type 2 in nature due to the overall stress of her acute heart failure. I did discuss with her consideration of ischemic evaluation as she did undergo complex PCI in 01/2017. We will plan on keeping her n.p.o. after midnight and possible stress test in the morning. 5. I did try to reach out to her daughter to discuss the case further, but there was no answer, so I will attempt to reach her later today. 6. She should continue on aspirin and Plavix therapy for her previous PCI. 7. Further recommendations will be made based on the hospital course. Thank you for allowing me to see Afia Wells. If there are any questions, please do not hesitate to call. Kwame Villalba DO VGP/SHANNON , 11:00 AM , 11:41 AM
--- NOTE | 2017-08-20 18:24 | HHI.PR ---
Subjective Remarks Patient resting in bed complained of discomfort and pain all over especially in the back, dry throat denied fever but does have cough with short of breath I discussed with the patient and her who eventually both adamant that they have been using lots of salt in the food Objective Vitals Vital Signs Date Time Temp Pulse Resp B/P (MAP) Pulse Ox O2 Delivery O2 Flow Rate FiO2 08/20/17 18:00 86 08/20/17 17:00 86 08/20/17 16:00 94 08/20/17 15:00 81 08/20/17 15:00 97.8 82 16 134/93 (107) 98 08/20/17 14:00 86 08/20/17 13:00 78 08/20/17 12:00 88 08/20/17 11:47 97.6 92 18 138/94 (109) 97 08/20/17 11:06 95 21 08/20/17 11:00 99 08/20/17 10:00 100 08/20/17 09:00 98 08/20/17 08:00 90 08/20/17 07:55 97.8 90 16 148/96 (113) 99 08/20/17 07:00 84 08/20/17 06:00 80 08/20/17 05:00 92 08/20/17 04:34 21 08/20/17 04:00 90 08/20/17 03:31 97.6 87 16 153/94 (113) 97 08/20/17 03:00 78 08/20/17 02:00 72 08/20/17 01:00 74 08/20/17 00:00 84 08/19/17 23:28 97.5 88 18 149/91 (110) 98 08/19/17 23:00 77 08/19/17 22:00 84 08/19/17 21:00 86 08/19/17 20:46 88 08/19/17 20:25 97.8 89 18 147/96 (113) 98 I/O 08/19/17 08/19/17 08/19/17 08/20/17 08/20/17 08/20/17 06:59 14:59 22:59 06:59 14:59 22:59 Intake Total 360 ml 720 ml Output Total 800 ml 300 ml Balance -440 ml 420 ml Intake Oral 360 ml 720 ml Output Urine Total 800 ml 300 ml # Voids 3 Result Diagram: 08/20/17 0506 08/20/17 0506 Objective Remarks GENERAL: Well nourished/well developed patient in no apparent distress CARDIOVASCULAR: Regular rate and rhythm 2 out of 6 systolic murmur RESPIRATORY: Bibasilar crackles. GASTROINTESTINAL: Abdomen soft, non-tender, nondistended. Normal active bowel sounds MUSCULOSKELETAL: Extremities without clubbing, cyanosis, trace edema NEURO: Alert & Oriented x4 to person, place, time, and situation. Moves all ext x4 A/P Problem List: (1) decompensated chf (2) Elevated troponin ICD Code: R74.8 - Abnormal levels of other serum enzymes Assessment and Plan 08/20 continue current care with diuresing monitor BMP and BNP, I spent over 20 minutes consulting patient with the help of her about the importance of avoiding salt totally in diet A/P - acute on chronic systolic CHF continue with IV diuretics- monitor I/O and renal function -elevated troponin with history of CAD / PCI last February resume aspirin, plavix,BB, imdur and statin- will trend the cardiac enzymes- cardiology consulted -COPD resume advair- neb treatment as needed. -hypertension; resume home meds- hold lisinopril due to mildly elevated creatinine -hypothyroidism; resume synthroid -anemia- chronic- continue ferrous sulfate- will monitor -DVT prophylaxis with subq Heparin Debbie Capps MD August 20, 2017 18:24
[2017-08-20] MEDS: PRAVASTATIN SOD 40 MG TAB PO SCH (21:44)
--- NOTE | 2017-08-20 22:21 | EKG ---
Date Performed: 08/20/2017 Time Performed: 02:28:36 PTAGE: 86 years EKG: Ventricular pacing Pacemaker rhythm - no further analysis Abnormal ECG PREVIOUS TRACING : 08/19/2017 20.39 Since the previous tracing, no significant change noted DOCTOR: Shimon Vega Interpretating Date/Time 08/20/2017 22:19:43
--- NOTE | 2017-08-20 22:26 | EKG ---
Date Performed: 08/19/2017 Time Performed: 20:39:10 PTAGE: 86 years EKG: Ventricular pacing Pacemaker rhythm - no further analysis Abnormal ECG PREVIOUS TRACING : 06/11/2017 12.56 Since the previous tracing, no significant change noted DOCTOR: Shimon Vega Interpretating Date/Time 08/20/2017 22:25:15
[2017-08-21] VITALS (20 sets, daily range): BP systolic 113–139; BP diastolic 69–82; PULSE 72–102; RESP 16–18; TEMP 97.7–98; O2SAT 95–98
[2017-08-21] MEDS: LEVOTHYROXINE SODIUM 25 MCG TAB PO SCH (05:13)
[2017-08-21] MEDS: HEPARIN SODIUM - SQ 10,000 UNITS/ML VIAL SQ SCH ×3 (05:13→20:40)
[2017-08-21] MEDS: SODIUM CHLORIDE 0.9% FLUSH 10 ML FLUSH IV FLUSH SCH ×2 (08:56→20:41)
[2017-08-21] MEDS: POTASSIUM CHLORIDE 20 MEQ CONTROLLED RELEASE TAB PO SCH (08:57)
[2017-08-21] MEDS: CLOPIDOGREL 75 MG TAB PO SCH (08:57)
[2017-08-21] MEDS: amLODIPine BESYLATE 5 MG TAB PO SCH (08:57)
[2017-08-21] MEDS: FERROUS SULFATE 325 MG (65 MG ELEMENTAL IRON) TAB PO SCH ×2 (08:58→18:10)
[2017-08-21] MEDS: METOPROLOL TARTRATE 25 MG TAB PO SCH ×2 (08:58→20:40)
[2017-08-21] MEDS: ASPIRIN EC 81 MG TABEC PO SCH (08:58)
[2017-08-21] MEDS: FUROSEMIDE 20 MG/2 ML VIAL IV PUSH SCH ×2 (08:58→18:10)
[2017-08-21] MEDS: ISOSORBIDE MONONITRATE 30 MG CR TAB (IMDUR) PO SCH (08:58)
[2017-08-21] MEDS: DOCUSATE SODIUM 50 MG/SENNA 8.6 MG TAB PO SCH ×2 (08:58→20:40)
--- NOTE | 2017-08-21 12:32 | PD.CARD.PN ---
Subjective Subjective Remarks No events overnight Feeling better overall Objective Medications Current Medications Medications (Trade) Dose Ordered Sig/Kristine Route Start Time Stop Time Status Last Admin (NS Flush) 2 ml UNSCH PRN IV FLUSH 08/19/17 17:15 (NS Flush) 2 ml BID IV FLUSH 08/19/17 21:00 08/21/17 08:56 (Tylenol) 650 mg Q4H PRN PO 08/19/17 17:15 (Zofran Odt) 4 mg Q6H PRN PO 08/19/17 18:00 (Narcan Inj) 0.4 mg UNSCH PRN IV PUSH 08/19/17 17:15 (Charisse-Colace) 1 tab BID PO 08/19/17 21:00 08/21/17 08:58 (Milk Of Magnesia Liq) 30 ml Q12H PRN PO 08/19/17 17:15 (Senokot) 17.2 mg Q12H PRN PO 08/19/17 17:15 (Dulcolax Supp) 10 mg DAILY PRN RECTAL 08/19/17 17:15 (Lactulose Liq) 30 ml DAILY PRN PO 08/19/17 17:15 (Lasix Inj) 20 mg BID@18 IV PUSH 08/19/17 18:00 08/21/17 08:58 (KCl) 20 meq DAILY PO 08/20/17 09:00 08/21/17 08:57 (Heparin Inj) 5,000 units Q8H SQ 08/19/17 22:00 08/21/17 05:13 (Plavix) 75 mg DAILY PO 08/20/17 09:00 08/21/17 08:57 (Ferrous Sulfate) 325 mg BIDPC PO 08/20/17 09:00 08/21/17 08:58 (Pravachol) 40 mg HS PO 08/20/17 21:00 08/20/17 21:44 (Norvasc) 5 mg DAILY PO 08/20/17 09:00 08/21/17 08:57 (Ecotrin Ec) 81 mg DAILY PO 08/20/17 09:00 08/21/17 08:58 (Imdur) 30 mg DAILY PO 08/20/17 09:00 08/21/17 08:58 (Lopressor) 12.5 mg BID PO 08/20/17 09:00 08/21/17 08:58 (Pill Splitter) 1 ea UNSCH PRN OTHER 08/19/17 23:15 (Duoneb Neb) 1 ampule Q4HR NEB PRN NEB 08/19/17 23:00 08/20/17 11:05 Patient Own Medication PT OWN MED: ADVAIR ... BID INH 08/20/17 09:00 Future Hold (Synthroid) 25 mcg DAILY@0600 PO 08/20/17 06:00 08/21/17 05:13 Vital Signs / I&O Vital Signs Date Time Temp Pulse Resp B/P (MAP) Pulse Ox O2 Delivery O2 Flow Rate FiO2 08/21/17 11:00 98.0 78 16 121/81 (94) 98 08/21/17 07:15 97.8 82 16 139/82 (101) 95 08/21/17 07:00 102 08/21/17 06:15 90 08/21/17 05:00 72 08/21/17 04:00 78 08/21/17 03:05 97.7 80 16 123/82 (96) 97 08/21/17 03:00 75 08/21/17 02:00 86 08/21/17 01:00 78 08/21/17 00:00 82 08/20/17 23:31 97.8 81 16 115/71 (86) 99 08/20/17 23:00 72 08/20/17 22:00 100 08/20/17 21:00 92 08/20/17 20:00 82 08/20/17 19:05 97.4 89 18 122/81 (95) 99 08/20/17 19:00 93 08/20/17 18:00 86 08/20/17 17:00 86 08/20/17 16:00 94 08/20/17 15:00 81 08/20/17 15:00 97.8 82 16 134/93 (107) 98 08/20/17 14:00 86 08/20/17 13:00 78 I/O 08/20/17 08/20/17 08/20/17 08/21/17 08/21/17 08/21/17 07:00 15:00 23:00 07:00 15:00 23:00 Intake Total 360 ml 720 ml 240 ml Output Total 800 ml 300 ml 400 ml Balance -440 ml 420 ml -160 ml Intake Oral 360 ml 720 ml 240 ml Output Urine Total 800 ml 300 ml 400 ml # Voids 3 2 Physical Exam GENERAL: NAD, AAOx3 SKIN: Warm and dry. HEAD: Atraumatic. Normocephalic. EYES: Pupils equal and round. No scleral icterus. No injection or drainage. ENT: No nasal bleeding or discharge. Mucous membranes pink and moist. NECK: Trachea midline. Minimal JVD CARDIOVASCULAR: Regular rate and rhythm. RESPIRATORY: No accessory muscle use. Decreased breath sounds GASTROINTESTINAL: Abdomen soft, non-tender, nondistended. Hepatic and splenic margins not palpable. MUSCULOSKELETAL: Extremities without clubbing, cyanosis, or edema. No obvious deformities. NEUROLOGICAL: Awake and alert. No obvious cranial nerve deficits. Motor grossly within normal limits. Five out of 5 muscle strength in the arms and legs. Normal speech. PSYCHIATRIC: Appropriate mood and affect; insight and judgment normal. Assessment and Plan Problem List: (1) decompensated chf (2) Elevated troponin ICD Codes: R74.8 - Abnormal levels of other serum enzymes (3) Hypertension ICD Codes: I10 - Essential (primary) hypertension Status: Chronic (4) Coronary artery disease ICD Codes: I25.10 - Atherosclerotic heart disease of [place] coronary artery without angina pectoris Status: Chronic (5) S/P implantation of automatic cardioverter/defibrillator (AICD) ICD Codes: Z95.810 - Presence of automatic (implantable) cardiac defibrillator Status: Acute Assessment and Plan 1) Acute CHF Better compensated Still needs diuresed Weight somewhat down 2) Minimally elevated trop Most likely Type 2 Plan for stress test today due to high risk PCI previously 3) CAD ASA/Plavix 4) If stress test positive in moderate or large area, then cath tomorrow If stress test negative, then will assess CHF status and possible discharge tomorrow Kwame Villalba DO August 21, 2017 12:32
[2017-08-21] MEDS ORDERED: REGADENOSON INJ 0.4 MG/5 ML SYR ONE (13:46)
--- NOTE | 2017-08-21 15:17 | RADRPT ---
EXAM DATE/TIME: 08/21/2017 13:42 [facility] COMPARISON: No previous studies available for comparison. INDICATIONS : Elevated troponins with ischemic cardiomyopathy. Coronary artery disease. Congestive heart failure. DOSE: 25.8 mCi Tc99m Myoview at stress. 8.4 mCi Tc99m Myoview at rest. 0.4 mg Lexiscan STRESS SYMPTOMS: None. EJECTION FRACTION: 20% MEDICAL HISTORY : Hypertension. Chronic obstructive pulmonary disease. SURGICAL HISTORY : Pacemaker. Defibrillator. ENCOUNTER: Initial ACUITY: 1 day PAIN SCALE: 0/10 LOCATION: chest TECHNIQUE: The patient underwent pharmacologic stress with infusion of prescribed dose. Continuous ECG tracing was monitored during stress. Gated SPECT imaging was performed after stress and conventional SPECT i maging was performed at rest. The examination was performed on a SPECT/CT scanner, both attenuation and non-corrected datasets were reviewed. FINDINGS: DISTRIBUTION: The maximum perfused segment at stress is in the inferior wall. PERFUSION STUDY: There appears to be essentially absent perfusion involving the anterior apical wall on the right and stress images with no significant redistribution. There is some diminished uptake along the septal wa ll which appears to be fixed. GATED STUDY: Severe global hypokinesis. The apical wall appears to be akinetic. CONCLUSION: 1. No definite ischemic myocardial changes are demonstrated. 2. Prominent fixed defect involving the anteroapical wall suggestive of an old transmural infarction. 3. Severe global hypokinesis of the left ventricle. The apex is akinetic. RISK CATEGORY: Low to intermediate Chris Rosenbaum MD on August 21, 2017 at 15:13 Board Certified Radiologist. This report was verified electronically.
[2017-08-21] MEDS: ACETAMINOPHEN 325 MG TAB PO PRN ×2 (15:51→20:41)
--- NOTE | 2017-08-21 18:18 | HHI.PR ---
Subjective Remarks Resting in bed comfortably today Going for a stress test later Objective Vitals Vital Signs Date Time Temp Pulse Resp B/P (MAP) Pulse Ox O2 Delivery O2 Flow Rate FiO2 08/21/17 17:00 18 08/21/17 16:00 92 08/21/17 15:30 102 08/21/17 15:15 98.0 95 18 136/76 (96) 95 08/21/17 11:00 82 08/21/17 11:00 98.0 78 16 121/81 (94) 98 08/21/17 10:00 84 08/21/17 09:00 86 08/21/17 08:00 94 08/21/17 07:15 97.8 82 16 139/82 (101) 95 08/21/17 07:00 102 08/21/17 06:15 90 08/21/17 05:00 72 08/21/17 04:00 78 08/21/17 03:05 97.7 80 16 123/82 (96) 97 08/21/17 03:00 75 08/21/17 02:00 86 08/21/17 01:00 78 08/21/17 00:00 82 08/20/17 23:31 97.8 81 16 115/71 (86) 99 08/20/17 23:00 72 08/20/17 22:00 100 08/20/17 21:00 92 08/20/17 20:00 82 08/20/17 19:05 97.4 89 18 122/81 (95) 99 08/20/17 19:00 93 I/O 08/20/17 08/20/17 08/20/17 08/21/17 08/21/17 08/21/17 07:00 15:00 23:00 07:00 15:00 23:00 Intake Total 360 ml 720 ml 240 ml 600 ml Output Total 800 ml 300 ml 400 ml 1600 ml Balance -440 ml 420 ml -160 ml -1000 ml Intake Oral 360 ml 720 ml 240 ml 600 ml Output Urine Total 800 ml 300 ml 400 ml 1600 ml # Voids 3 2 Result Diagram: 08/20/17 0506 08/20/17 0506 Objective Remarks GENERAL: Well nourished/well developed patient in no apparent distress CARDIOVASCULAR: Regular rate and rhythm 2 out of 6 systolic murmur RESPIRATORY: Bibasilar crackles. GASTROINTESTINAL: Abdomen soft, non-tender, nondistended. Normal active bowel sounds MUSCULOSKELETAL: Extremities without clubbing, cyanosis, trace edema NEURO: Alert & Oriented x4 to person, place, time, and situation. Moves all ext x4 A/P Problem List: (1) decompensated chf (2) Elevated troponin ICD Code: R74.8 - Abnormal levels of other serum enzymes Assessment and Plan 08/20 continue current care with diuresing monitor BMP and BNP, I spent over 20 minutes consulting patient with the help of her about the importance of avoiding salt totally in diet 08/21: Going for stress test later ordered by cardiology, continue diuresing, appreciate cardiology follow-up, continue monitoring clinical improvement, BMP and BNP A/P - acute on chronic systolic CHF continue with IV diuretics- monitor I/O and renal function -elevated troponin with history of CAD / PCI last February resume aspirin, plavix,BB, imdur and statin- will trend the cardiac enzymes- cardiology consulted -COPD resume advair- neb treatment as needed. -hypertension; resume home meds- hold lisinopril due to mildly elevated creatinine -hypothyroidism; resume synthroid -anemia- chronic- continue ferrous sulfate- will monitor -DVT prophylaxis with subq Heparin Debbie Capps MD August 21, 2017 18:18
[2017-08-21] MEDS: PRAVASTATIN SOD 40 MG TAB PO SCH (20:41)
[2017-08-22] VITALS (22 sets, daily range): BP systolic 100–130; BP diastolic 64–77; PULSE 72–88; RESP 16–18; TEMP 97.6–98.1; O2SAT 95–98
[2017-08-22] MEDS: HEPARIN SODIUM - SQ 10,000 UNITS/ML VIAL SQ SCH ×3 (06:00→21:26)
[2017-08-22] MEDS: LEVOTHYROXINE SODIUM 25 MCG TAB PO SCH (06:00)
[2017-08-22 07:19] LABS: AUTOMATED NEUTROPHIL # 1.4 TH/MM3 (1.8-7.7); BASOPHIL # 0.1 TH/MM3 (0-0.2); EOSINOPHIL # 0.4 TH/MM3 (0-0.4); EOSINOPHIL % 10.4 % (0.0-4.0); HEMATOCRIT 32.8 % (35.0-46.0); HEMOGLOBIN 10.9 GM/DL (11.6-15.3); LYMPH % 27.6 % (9.0-44.0); LYMPHOCYTE # 0.9 TH/MM3 (1.0-4.8); MEAN CELL VOLUME 95.9 FL (80.0-100.0); MEAN CORPUSCULAR HEMOGLOBIN 31.8 PG (27.0-34.0); MEAN CORPUSCULAR HGB CONC 33.1 % (32.0-36.0); MEAN PLATELET VOLUME 8.6 FL (7.0-11.0); MONO % 17.5 % (0.0-8.0); MONOCYTE # 0.6 TH/MM3 (0-0.9); NEUT % 42.5 % (16.0-70.0); PLATELET COUNT 239 TH/MM3 (150-450); RED BLOOD COUNT 3.42 MIL/MM3 (4.00-5.30); RED CELL DISTRIBUTION WIDTH 15.1 % (11.6-17.2); WHITE BLOOD COUNT 3.4 TH/MM3 (4.0-11.0)
[2017-08-22 07:47] LABS: BICARBONATE 24.9 MEQ/L (21.0-32.0); CALCIUM 8.4 MG/DL (8.5-10.1); CREATININE 1.02 MG/DL (0.50-1.00); MAGNESIUM 1.9 MG/DL (1.5-2.5); PHOSPHORUS 3.9 MG/DL (2.5-4.9)
[2017-08-22] MEDS: ISOSORBIDE MONONITRATE 30 MG CR TAB (IMDUR) PO SCH (08:17)
[2017-08-22] MEDS: ASPIRIN EC 81 MG TABEC PO SCH (08:17)
[2017-08-22] MEDS: METOPROLOL TARTRATE 25 MG TAB PO SCH ×2 (08:17→21:25)
[2017-08-22] MEDS: CLOPIDOGREL 75 MG TAB PO SCH (08:17)
[2017-08-22] MEDS: FERROUS SULFATE 325 MG (65 MG ELEMENTAL IRON) TAB PO SCH ×2 (08:18→16:53)
[2017-08-22] MEDS: amLODIPine BESYLATE 5 MG TAB PO SCH (08:18)
[2017-08-22] MEDS: POTASSIUM CHLORIDE 20 MEQ CONTROLLED RELEASE TAB PO SCH (08:18)
[2017-08-22] MEDS: FUROSEMIDE 20 MG/2 ML VIAL IV PUSH SCH (08:18)
[2017-08-22] MEDS: SODIUM CHLORIDE 0.9% FLUSH 10 ML FLUSH IV FLUSH SCH ×2 (08:18→21:25)
[2017-08-22] MEDS: DOCUSATE SODIUM 50 MG/SENNA 8.6 MG TAB PO SCH ×2 (08:18→21:25)
--- NOTE | 2017-08-22 12:07 | HHI.PR ---
Subjective Remarks Patient stated she is feeling better Discussed with the daughter, again advised patient and educated about no salt diet Objective Vitals Vital Signs Date Time Temp Pulse Resp B/P (MAP) Pulse Ox O2 Delivery O2 Flow Rate FiO2 08/22/17 12:01 97.6 76 16 100/69 (79) 98 08/22/17 11:45 76 08/22/17 08:15 98.1 79 16 120/74 (89) 98 08/22/17 08:00 84 08/22/17 04:00 98.1 75 16 127/75 (92) 96 08/22/17 04:00 84 08/22/17 00:00 76 08/22/17 00:00 97.7 84 16 101/64 (76) 95 08/21/17 20:00 97.9 81 16 113/69 (84) 96 08/21/17 20:00 87 08/21/17 18:00 84 08/21/17 17:00 18 08/21/17 17:00 84 08/21/17 16:00 92 08/21/17 15:30 102 08/21/17 15:15 98.0 95 18 136/76 (96) 95 I/O 08/21/17 08/21/17 08/21/17 08/22/17 08/22/17 08/22/17 07:00 15:00 23:00 07:00 15:00 23:00 Intake Total 240 ml 600 ml 480 ml Output Total 400 ml 1600 ml 700 ml Balance -160 ml -1000 ml -220 ml Intake Oral 240 ml 600 ml 480 ml Output Urine Total 400 ml 1600 ml 700 ml # Voids 2 # Bowel Movements 0 Result Diagram: 08/22/17 0614 08/22/17 0614 Objective Remarks GENERAL: Well nourished/well developed patient in no apparent distress CARDIOVASCULAR: Regular rate and rhythm 2 out of 6 systolic murmur RESPIRATORY: Bibasilar crackles. GASTROINTESTINAL: Abdomen soft, non-tender, nondistended. Normal active bowel sounds MUSCULOSKELETAL: Extremities without clubbing, cyanosis, trace edema NEURO: Alert & Oriented x4 to person, place, time, and situation. Moves all ext x4 A/P Problem List: (1) decompensated chf (2) Elevated troponin ICD Code: R74.8 - Abnormal levels of other serum enzymes Assessment and Plan 08/20 continue current care with diuresing monitor BMP and BNP, I spent over 20 minutes consulting patient with the help of her about the importance of avoiding salt totally in diet 08/21: Going for stress test later ordered by cardiology, continue diuresing, appreciate cardiology follow-up, continue monitoring clinical improvement, BMP and BNP 08/22: Continue diuresing, stress test negative, discussed with patient and daughter, I increased Lasix to 40 twice daily IV, monitor weight and ANMOL A/P - acute on chronic systolic CHF continue with IV diuretics- monitor I/O and renal function -elevated troponin with history of CAD / PCI last February resume aspirin, plavix,BB, imdur and statin- will trend the cardiac enzymes- cardiology consulted -COPD resume advair- neb treatment as needed. -hypertension; resume home meds- hold lisinopril due to mildly elevated creatinine -hypothyroidism; resume synthroid -anemia- chronic- continue ferrous sulfate- will monitor -DVT prophylaxis with subq Heparin Debbie Capps MD August 22, 2017 12:07
[2017-08-22] MEDS: FUROSEMIDE 40 MG/4 ML VIAL IV PUSH SCH (16:53)
--- NOTE | 2017-08-22 18:43 | PD.CARD.PN ---
Subjective Subjective Remarks No events overnight Feeling better overall, breathing better Objective Medications Current Medications Medications (Trade) Dose Ordered Sig/Kristine Route Start Time Stop Time Status Last Admin (NS Flush) 2 ml UNSCH PRN IV FLUSH 08/19/17 17:15 (NS Flush) 2 ml BID IV FLUSH 08/19/17 21:00 08/22/17 08:18 (Tylenol) 650 mg Q4H PRN PO 08/19/17 17:15 08/21/17 20:41 (Zofran Odt) 4 mg Q6H PRN PO 08/19/17 18:00 (Narcan Inj) 0.4 mg UNSCH PRN IV PUSH 08/19/17 17:15 (Charisse-Colace) 1 tab BID PO 08/19/17 21:00 08/22/17 08:18 (Milk Of Magnesia Liq) 30 ml Q12H PRN PO 08/19/17 17:15 (Senokot) 17.2 mg Q12H PRN PO 08/19/17 17:15 (Dulcolax Supp) 10 mg DAILY PRN RECTAL 08/19/17 17:15 (Lactulose Liq) 30 ml DAILY PRN PO 08/19/17 17:15 (KCl) 20 meq DAILY PO 08/20/17 09:00 08/22/17 08:18 (Heparin Inj) 5,000 units Q8H SQ 08/19/17 22:00 08/22/17 13:04 (Plavix) 75 mg DAILY PO 08/20/17 09:00 08/22/17 08:17 (Ferrous Sulfate) 325 mg BIDPC PO 08/20/17 09:00 08/22/17 16:53 (Pravachol) 40 mg HS PO 08/20/17 21:00 08/21/17 20:41 (Norvasc) 5 mg DAILY PO 08/20/17 09:00 08/22/17 08:18 (Ecotrin Ec) 81 mg DAILY PO 08/20/17 09:00 08/22/17 08:17 (Imdur) 30 mg DAILY PO 08/20/17 09:00 08/22/17 08:17 (Lopressor) 12.5 mg BID PO 08/20/17 09:00 08/22/17 08:17 (Pill Splitter) 1 ea UNSCH PRN OTHER 5/15/18 23:15 (Duoneb Neb) 1 ampule Q4HR NEB PRN NEB 08/19/17 23:00 08/20/17 11:05 Patient Own Medication PT OWN MED: ADVAIR ... BID INH 08/20/17 09:00 Future Hold (Synthroid) 25 mcg DAILY@0600 PO 08/20/17 06:00 08/22/17 06:00 (Lasix Inj) 40 mg BID@0900,1800 IV PUSH 08/22/17 18:00 08/22/17 16:53 Vital Signs / I&O Vital Signs Date Time Temp Pulse Resp B/P (MAP) Pulse Ox O2 Delivery O2 Flow Rate FiO2 08/22/17 17:04 98 21 08/22/17 16:17 97.9 84 16 117/72 (87) 98 08/22/17 16:00 79 08/22/17 15:00 82 08/22/17 14:00 88 08/22/17 13:00 84 08/22/17 12:01 97.6 76 16 100/69 (79) 98 08/22/17 12:00 72 08/22/17 11:45 76 08/22/17 11:00 82 08/22/17 10:00 82 08/22/17 09:00 78 08/22/17 08:15 98.1 79 16 120/74 (89) 98 08/22/17 08:00 84 08/22/17 07:00 78 08/22/17 04:00 98.1 75 16 127/75 (92) 96 08/22/17 04:00 84 08/22/17 00:00 76 08/22/17 00:00 97.7 84 16 101/64 (76) 95 08/21/17 20:00 97.9 81 16 113/69 (84) 96 08/21/17 20:00 87 I/O 08/21/17 08/21/17 08/21/17 08/22/17 08/22/17 08/22/17 07:00 15:00 23:00 07:00 15:00 23:00 Intake Total 240 ml 600 ml 480 ml 600 ml Output Total 400 ml 1600 ml 700 ml 1400 ml Balance -160 ml -1000 ml -220 ml -800 ml Intake Oral 240 ml 600 ml 480 ml 600 ml Output Urine Total 400 ml 1600 ml 700 ml 1400 ml # Voids 2 4 # Bowel Movements 0 1 Physical Exam GENERAL: NAD, AAOx3 SKIN: Warm and dry. HEAD: Atraumatic. Normocephalic. EYES: Pupils equal and round. No scleral icterus. No injection or drainage. ENT: No nasal bleeding or discharge. Mucous membranes pink and moist. NECK: Trachea midline. Minimal JVD CARDIOVASCULAR: Regular rate and rhythm. RESPIRATORY: No accessory muscle use. Clear to auscultation GASTROINTESTINAL: Abdomen soft, non-tender, nondistended. Hepatic and splenic margins not palpable. MUSCULOSKELETAL: Extremities without clubbing, cyanosis, or edema. No obvious deformities. NEUROLOGICAL: Awake and alert. No obvious cranial nerve deficits. Motor grossly within normal limits. Five out of 5 muscle strength in the arms and legs. Normal speech. PSYCHIATRIC: Appropriate mood and affect; insight and judgment normal. Laboratory Laboratory Tests Test 08/22/17 06:14 White Blood Count 3.4 TH/MM3 Red Blood Count 3.42 MIL/MM3 Hemoglobin 10.9 GM/DL Hematocrit 32.8 % Mean Corpuscular Volume 95.9 FL Mean Corpuscular Hemoglobin 31.8 PG Mean Corpuscular Hemoglobin Concent 33.1 % Red Cell Distribution Width 15.1 % Platelet Count 239 TH/MM3 Mean Platelet Volume 8.6 FL Neutrophils (%) (Auto) 42.5 % Lymphocytes (%) (Auto) 27.6 % Monocytes (%) (Auto) 17.5 % Eosinophils (%) (Auto) 10.4 % Basophils (%) (Auto) 2.0 % Neutrophils # (Auto) 1.4 TH/MM3 Lymphocytes # (Auto) 0.9 TH/MM3 Monocytes # (Auto) 0.6 TH/MM3 Eosinophils # (Auto) 0.4 TH/MM3 Basophils # (Auto) 0.1 TH/MM3 CBC Comment DIFF FINAL Differential Comment Blood Urea Nitrogen 16 MG/DL Creatinine 1.02 MG/DL Random Glucose 80 MG/DL Calcium Level 8.4 MG/DL Phosphorus Level 3.9 MG/DL Magnesium Level 1.9 MG/DL Sodium Level 143 MEQ/L Potassium Level 4.1 MEQ/L Chloride Level 108 MEQ/L Carbon Dioxide Level 24.9 MEQ/L Anion Gap 10 MEQ/L Estimat Glomerular Filtration Rate 51 ML/MIN B-Type Natriuretic Peptide 3745 PG/ML Assessment and Plan Problem List: (1) decompensated chf (2) Elevated troponin ICD Codes: R74.8 - Abnormal levels of other serum enzymes (3) Hypertension ICD Codes: I10 - Essential (primary) hypertension Status: Chronic (4) Coronary artery disease ICD Codes: I25.10 - Atherosclerotic heart disease of [place] coronary artery without angina pectoris Status: Chronic (5) S/P implantation of automatic cardioverter/defibrillator (AICD) ICD Codes: Z95.810 - Presence of automatic (implantable) cardiac defibrillator Status: Acute Assessment and Plan 1) Acute CHF Appear compensated Con't to watch weight at home Low salt diet, will try Mrs. Dash 2) Minimally elevated trop Stress negative for ischemia 3) CAD ASA/Plavix 4) Discharge planning Kwame Villalba DO August 22, 2017 18:43
[2017-08-22] MEDS: PRAVASTATIN SOD 40 MG TAB PO SCH (21:25)
[2017-08-23] VITALS (25 sets, daily range): BP systolic 110–128; BP diastolic 68–81; PULSE 76–102; RESP 16–20; TEMP 97.8–98.2; O2SAT 95–99
[2017-08-23] MEDS: HEPARIN SODIUM - SQ 10,000 UNITS/ML VIAL SQ SCH ×3 (06:07→20:29)
[2017-08-23] MEDS: LEVOTHYROXINE SODIUM 25 MCG TAB PO SCH (06:07)
[2017-08-23] MEDS: ISOSORBIDE MONONITRATE 30 MG CR TAB (IMDUR) PO SCH (08:40)
[2017-08-23] MEDS: METOPROLOL TARTRATE 25 MG TAB PO SCH ×2 (08:40→20:30)
[2017-08-23] MEDS: POTASSIUM CHLORIDE 20 MEQ CONTROLLED RELEASE TAB PO SCH (08:41)
[2017-08-23] MEDS: FERROUS SULFATE 325 MG (65 MG ELEMENTAL IRON) TAB PO SCH ×2 (08:42→18:01)
[2017-08-23] MEDS: CLOPIDOGREL 75 MG TAB PO SCH (08:42)
[2017-08-23] MEDS: amLODIPine BESYLATE 5 MG TAB PO SCH (08:42)
[2017-08-23] MEDS: DOCUSATE SODIUM 50 MG/SENNA 8.6 MG TAB PO SCH ×2 (08:42→20:29)
[2017-08-23] MEDS: SODIUM CHLORIDE 0.9% FLUSH 10 ML FLUSH IV FLUSH SCH ×2 (08:43→20:35)
[2017-08-23] MEDS: ASPIRIN EC 81 MG TABEC PO SCH (08:43)
[2017-08-23] MEDS: FUROSEMIDE 40 MG/4 ML VIAL IV PUSH SCH ×2 (08:45→18:02)
--- NOTE | 2017-08-23 11:24 | PD.CARD.PN ---
Subjective Subjective Remarks No events overnight Feeling better overall, breathing better Objective Medications Current Medications Medications (Trade) Dose Ordered Sig/Kristine Route Start Time Stop Time Status Last Admin (NS Flush) 2 ml UNSCH PRN IV FLUSH 08/19/17 17:15 (NS Flush) 2 ml BID IV FLUSH 08/19/17 21:00 08/23/17 08:43 (Tylenol) 650 mg Q4H PRN PO 08/19/17 17:15 08/21/17 20:41 (Zofran Odt) 4 mg Q6H PRN PO 08/19/17 18:00 (Narcan Inj) 0.4 mg UNSCH PRN IV PUSH 08/19/17 17:15 (Charisse-Colace) 1 tab BID PO 08/19/17 21:00 08/23/17 08:42 (Milk Of Magnesia Liq) 30 ml Q12H PRN PO 08/19/17 17:15 (Senokot) 17.2 mg Q12H PRN PO 08/19/17 17:15 (Dulcolax Supp) 10 mg DAILY PRN RECTAL 08/19/17 17:15 (Lactulose Liq) 30 ml DAILY PRN PO 08/19/17 17:15 (KCl) 20 meq DAILY PO 08/20/17 09:00 08/23/17 08:41 (Heparin Inj) 5,000 units Q8H SQ 08/19/17 22:00 08/23/17 06:07 (Plavix) 75 mg DAILY PO 08/20/17 09:00 08/23/17 08:42 (Ferrous Sulfate) 325 mg BIDPC PO 08/20/17 09:00 08/23/17 08:42 (Pravachol) 40 mg HS PO 08/20/17 21:00 08/22/17 21:25 (Norvasc) 5 mg DAILY PO 08/20/17 09:00 08/23/17 08:42 (Ecotrin Ec) 81 mg DAILY PO 08/20/17 09:00 08/23/17 08:43 (Imdur) 30 mg DAILY PO 08/20/17 09:00 08/23/17 08:40 (Lopressor) 12.5 mg BID PO 08/20/17 09:00 08/23/17 08:40 (Pill Splitter) 1 ea UNSCH PRN OTHER 5/15/18 23:15 (Duoneb Neb) 1 ampule Q4HR NEB PRN NEB 08/19/17 23:00 08/20/17 11:05 Patient Own Medication PT OWN MED: ADVAIR ... BID INH 08/20/17 09:00 Future Hold (Synthroid) 25 mcg DAILY@0600 PO 08/20/17 06:00 08/23/17 06:07 (Lasix Inj) 40 mg BID@0900,1800 IV PUSH 08/22/17 18:00 08/23/17 08:45 Vital Signs / I&O Vital Signs Date Time Temp Pulse Resp B/P (MAP) Pulse Ox O2 Delivery O2 Flow Rate FiO2 08/23/17 11:00 83 08/23/17 11:00 98.0 83 18 128/76 (93) 97 08/23/17 10:00 88 08/23/17 09:00 85 08/23/17 08:00 86 08/23/17 07:00 98.0 98 20 122/81 (95) 99 08/23/17 07:00 98 08/23/17 07:00 Room Air 08/23/17 05:40 81 08/23/17 05:00 86 08/23/17 04:00 Room Air 08/23/17 04:00 76 08/23/17 04:00 98.2 84 18 121/76 (91) 97 08/23/17 03:00 80 08/23/17 02:00 80 08/23/17 01:00 78 08/23/17 00:00 84 08/23/17 00:00 Room Air 08/23/17 00:00 97.8 82 18 122/68 (86) 97 08/22/17 23:00 82 08/22/17 22:00 86 08/22/17 21:00 84 08/22/17 20:00 81 08/22/17 20:00 Room Air 08/22/17 20:00 97.9 83 18 130/77 (94) 98 08/22/17 19:00 88 08/22/17 17:04 98 21 08/22/17 16:17 97.9 84 16 117/72 (87) 98 08/22/17 16:00 79 08/22/17 15:00 82 08/22/17 14:00 88 08/22/17 13:00 84 08/22/17 12:01 97.6 76 16 100/69 (79) 98 08/22/17 12:00 72 08/22/17 11:45 76 I/O 08/22/17 08/22/17 08/22/17 08/23/17 08/23/17 08/23/17 07:00 15:00 23:00 07:00 15:00 23:00 Intake Total 480 ml 600 ml 240 ml Output Total 700 ml 1400 ml 900 ml Balance -220 ml -800 ml -660 ml Intake Oral 480 ml 600 ml 240 ml Output Urine Total 700 ml 1400 ml 900 ml # Voids 4 # Bowel Movements 0 1 Physical Exam GENERAL: NAD, AAOx3 SKIN: Warm and dry. HEAD: Atraumatic. Normocephalic. EYES: Pupils equal and round. No scleral icterus. No injection or drainage. ENT: No nasal bleeding or discharge. Mucous membranes pink and moist. NECK: Trachea midline. No JVD CARDIOVASCULAR: Regular rate and rhythm. RESPIRATORY: No accessory muscle use. Clear to auscultation GASTROINTESTINAL: Abdomen soft, non-tender, nondistended. Hepatic and splenic margins not palpable. MUSCULOSKELETAL: Extremities without clubbing, cyanosis, or edema. No obvious deformities. NEUROLOGICAL: Awake and alert. No obvious cranial nerve deficits. Motor grossly within normal limits. Five out of 5 muscle strength in the arms and legs. Normal speech. PSYCHIATRIC: Appropriate mood and affect; insight and judgment normal. Assessment and Plan Problem List: (1) decompensated chf (2) Elevated troponin ICD Codes: R74.8 - Abnormal levels of other serum enzymes (3) Hypertension ICD Codes: I10 - Essential (primary) hypertension Status: Chronic (4) Coronary artery disease ICD Codes: I25.10 - Atherosclerotic heart disease of [place] coronary artery without angina pectoris Status: Chronic (5) S/P implantation of automatic cardioverter/defibrillator (AICD) ICD Codes: Z95.810 - Presence of automatic (implantable) cardiac defibrillator Status: Acute Assessment and Plan 1) Acute CHF Appears compensated Con't to watch weight at home Low salt diet, will try Mrs. Shipman Apparently she's been loading her food with salt at her assisted living 2) Minimally elevated trop Stress negative for ischemia 3) CAD ASA/Plavix 4) Cardiovascularly stable for discharge Send home on Lasix PO 40mg daily Discussed with daughter and patient about watching her weights to know her fluid status Kwame Villalba DO August 23, 2017 11:24
--- NOTE | 2017-08-23 15:28 | HHI.PR ---
Subjective Remarks Doing well and diuresing well Put out 2300 cc last shift Breathing better today We will continue another day of diuresing hopefully discharge tomorrow Objective Vitals Vital Signs Date Time Temp Pulse Resp B/P (MAP) Pulse Ox O2 Delivery O2 Flow Rate FiO2 08/23/17 13:00 86 08/23/17 12:00 92 08/23/17 11:00 83 08/23/17 11:00 98.0 83 18 128/76 (93) 97 08/23/17 10:00 88 08/23/17 09:00 85 08/23/17 08:00 86 08/23/17 07:00 98.0 98 20 122/81 (95) 99 08/23/17 07:00 98 08/23/17 07:00 Room Air 08/23/17 05:40 81 08/23/17 05:00 86 08/23/17 04:00 Room Air 08/23/17 04:00 76 08/23/17 04:00 98.2 84 18 121/76 (91) 97 08/23/17 03:00 80 08/23/17 02:00 80 08/23/17 01:00 78 08/23/17 00:00 84 08/23/17 00:00 Room Air 08/23/17 00:00 97.8 82 18 122/68 (86) 97 08/22/17 23:00 82 08/22/17 22:00 86 08/22/17 21:00 84 08/22/17 20:00 81 08/22/17 20:00 Room Air 08/22/17 20:00 97.9 83 18 130/77 (94) 98 08/22/17 19:00 88 08/22/17 17:04 98 21 08/22/17 16:17 97.9 84 16 117/72 (87) 98 08/22/17 16:00 79 I/O 08/22/17 08/22/17 08/22/17 08/23/17 08/23/17 08/23/17 07:00 15:00 23:00 07:00 15:00 23:00 Intake Total 480 ml 600 ml 240 ml Output Total 700 ml 1400 ml 900 ml Balance -220 ml -800 ml -660 ml Intake Oral 480 ml 600 ml 240 ml Output Urine Total 700 ml 1400 ml 900 ml # Voids 4 # Bowel Movements 0 1 Result Diagram: 08/22/17 0614 08/22/17 0614 Objective Remarks GENERAL: Well nourished/well developed patient in no apparent distress CARDIOVASCULAR: Regular rate and rhythm 2 out of 6 systolic murmur RESPIRATORY: Bibasilar crackles. GASTROINTESTINAL: Abdomen soft, non-tender, nondistended. Normal active bowel sounds MUSCULOSKELETAL: Extremities without clubbing, cyanosis, trace edema NEURO: Alert & Oriented x4 to person, place, time, and situation. Moves all ext x4 A/P Problem List: (1) decompensated chf (2) Elevated troponin ICD Code: R74.8 - Abnormal levels of other serum enzymes Assessment and Plan 08/20 continue current care with diuresing monitor BMP and BNP, I spent over 20 minutes consulting patient with the help of her about the importance of avoiding salt totally in diet 08/21: Going for stress test later ordered by cardiology, continue diuresing, appreciate cardiology follow-up, continue monitoring clinical improvement, BMP and BNP 08/22: Continue diuresing, stress test negative, discussed with patient and daughter, I increased Lasix to 40 twice daily IV, monitor weight and ANMOL 08/23: Continue diuresing for another day stress test negative, patient put out 2300 cc last shift, repeat BMP and BNP in a.m. A/P - acute on chronic systolic CHF continue with IV diuretics- monitor I/O and renal function -elevated troponin with history of CAD / PCI last February resume aspirin, plavix,BB, imdur and statin- will trend the cardiac enzymes- cardiology consulted -COPD resume advair- neb treatment as needed. -hypertension; resume home meds- hold lisinopril due to mildly elevated creatinine -hypothyroidism; resume synthroid -anemia- chronic- continue ferrous sulfate- will monitor -DVT prophylaxis with subq Heparin Discharge Planning Within 1-2 days if continue to improve on diuresis Debbie Capps MD August 23, 2017 15:28
[2017-08-23] MEDS: PRAVASTATIN SOD 40 MG TAB PO SCH (20:28)
[2017-08-24] VITALS (15 sets, daily range): BP systolic 90–111; BP diastolic 64–68; PULSE 72–89; RESP 14–16; TEMP 98.1–98.6; O2SAT 95–98
[2017-08-24] MEDS: LEVOTHYROXINE SODIUM 25 MCG TAB PO SCH (05:23)
[2017-08-24] MEDS: HEPARIN SODIUM - SQ 10,000 UNITS/ML VIAL SQ SCH (05:25)
[2017-08-24 08:31] LABS: BICARBONATE 25.3 MEQ/L (21.0-32.0); CALCIUM 9.2 MG/DL (8.5-10.1); CREATININE 1.45 MG/DL (0.50-1.00); MAGNESIUM 1.9 MG/DL (1.5-2.5)
[2017-08-24 08:32] LABS: PHOSPHORUS 4.6 MG/DL (2.5-4.9)
[2017-08-24] MEDS: amLODIPine BESYLATE 5 MG TAB PO SCH (09:17)
[2017-08-24] MEDS: FERROUS SULFATE 325 MG (65 MG ELEMENTAL IRON) TAB PO SCH (09:17)
[2017-08-24] MEDS: ASPIRIN EC 81 MG TABEC PO SCH (09:17)
[2017-08-24] MEDS: CLOPIDOGREL 75 MG TAB PO SCH (09:18)
[2017-08-24] MEDS: POTASSIUM CHLORIDE 20 MEQ CONTROLLED RELEASE TAB PO SCH (09:18)
[2017-08-24] MEDS: DOCUSATE SODIUM 50 MG/SENNA 8.6 MG TAB PO SCH (09:18)
[2017-08-24] MEDS: METOPROLOL TARTRATE 25 MG TAB PO SCH (09:19)
[2017-08-24] MEDS: ISOSORBIDE MONONITRATE 30 MG CR TAB (IMDUR) PO SCH (09:19)
[2017-08-24] MEDS: SODIUM CHLORIDE 0.9% FLUSH 10 ML FLUSH IV FLUSH SCH (09:19)
[2017-08-24] MEDS: FUROSEMIDE 40 MG/4 ML VIAL IV PUSH SCH (09:28)
[2017-08-24] MEDS ORDERED: FURO1TAB60 PO (11:05)
--- NOTE | 2017-08-24 11:21 | HHI.FF ---
Face to Face Verification Diagnosis: (1) decompensated chf (2) DIONICIO (acute kidney injury) (3) Elevated troponin (4) Hypertension (5) Coronary artery disease Physical Therapy Order: Evaluate and Treat Occupational Therapy Order: Evaluate and Treat Home Health Nursing Order: Medical education CHF education Nursing assessment with vital signs I have seen patient Afia Wells on 08/24/17. My clinical findings support the need for the requested home health care services because: Med compliance is questionable Limited ability to care for self I certify that my clinical findings support that this patient is homebound because: Unsafe to leave home unassisted Poor cardiac reserve Debbie Capps MD August 24, 2017 11:21
--- NOTE | 2017-08-24 11:57 | PD.CARD.PN ---
Subjective Subjective Remarks No events overnight Feeling better overall, breathing better Objective Medications Current Medications Medications (Trade) Dose Ordered Sig/Kristine Route Start Time Stop Time Status Last Admin (NS Flush) 2 ml UNSCH PRN IV FLUSH 08/19/17 17:15 (NS Flush) 2 ml BID IV FLUSH 08/19/17 21:00 08/24/17 09:19 (Tylenol) 650 mg Q4H PRN PO 08/19/17 17:15 08/21/17 20:41 (Zofran Odt) 4 mg Q6H PRN PO 08/19/17 18:00 (Narcan Inj) 0.4 mg UNSCH PRN IV PUSH 08/19/17 17:15 (Charisse-Colace) 1 tab BID PO 08/19/17 21:00 08/24/17 09:18 (Milk Of Magnesia Liq) 30 ml Q12H PRN PO 08/19/17 17:15 (Senokot) 17.2 mg Q12H PRN PO 08/19/17 17:15 (Dulcolax Supp) 10 mg DAILY PRN RECTAL 08/19/17 17:15 (Lactulose Liq) 30 ml DAILY PRN PO 08/19/17 17:15 (KCl) 20 meq DAILY PO 08/20/17 09:00 08/24/17 09:18 (Heparin Inj) 5,000 units Q8H SQ 08/19/17 22:00 08/24/17 05:25 (Plavix) 75 mg DAILY PO 08/20/17 09:00 08/24/17 09:18 (Ferrous Sulfate) 325 mg BIDPC PO 08/20/17 09:00 08/24/17 09:17 (Pravachol) 40 mg HS PO 08/20/17 21:00 08/23/17 20:28 (Norvasc) 5 mg DAILY PO 08/20/17 09:00 08/24/17 09:17 (Ecotrin Ec) 81 mg DAILY PO 08/20/17 09:00 08/24/17 09:17 (Imdur) 30 mg DAILY PO 08/20/17 09:00 08/24/17 09:19 (Lopressor) 12.5 mg BID PO 08/20/17 09:00 08/24/17 09:19 (Pill Splitter) 1 ea UNSCH PRN OTHER 5/15/18 23:15 (Duoneb Neb) 1 ampule Q4HR NEB PRN NEB 08/19/17 23:00 08/20/17 11:05 Patient Own Medication PT OWN MED: ADVAIR ... BID INH 08/20/17 09:00 Future Hold (Synthroid) 25 mcg DAILY@0600 PO 08/20/17 06:00 08/24/17 05:23 Vital Signs / I&O Vital Signs Date Time Temp Pulse Resp B/P (MAP) Pulse Ox O2 Delivery O2 Flow Rate FiO2 08/24/17 10:00 89 08/24/17 09:00 85 08/24/17 08:00 83 08/24/17 08:00 98 Room Air 08/24/17 08:00 98.6 83 14 111/68 (82) 98 08/24/17 07:00 84 08/24/17 06:00 87 08/24/17 05:00 82 08/24/17 04:00 76 08/24/17 03:40 98.1 83 15 110/68 (82) 96 08/24/17 03:00 84 08/24/17 03:00 83 08/24/17 02:00 76 08/24/17 01:00 78 08/24/17 00:00 78 08/23/17 23:01 98.2 93 120/76 (91) 96 08/23/17 23:00 81 08/23/17 23:00 102 08/23/17 22:00 80 08/23/17 21:00 80 08/23/17 20:00 95 Room Air 08/23/17 20:00 86 08/23/17 20:00 98.0 85 16 110/68 (82) 95 08/23/17 19:00 83 08/23/17 18:00 92 08/23/17 17:00 89 08/23/17 16:00 84 08/23/17 15:00 86 08/23/17 15:00 97.9 86 20 121/80 (94) 97 08/23/17 14:00 83 08/23/17 13:00 86 08/23/17 12:00 92 I/O 08/23/17 08/23/17 08/23/17 08/24/17 08/24/17 08/24/17 07:00 15:00 23:00 07:00 15:00 23:00 Intake Total 240 ml 600 ml 480 ml Output Total 900 ml 600 ml 800 ml Balance -660 ml 0 ml -320 ml Intake Oral 240 ml 600 ml 480 ml Output Urine Total 900 ml 600 ml 800 ml # Voids 3 # Bowel Movements 1 1 Physical Exam GENERAL: NAD, AAOx3 SKIN: Warm and dry. HEAD: Atraumatic. Normocephalic. EYES: Pupils equal and round. No scleral icterus. No injection or drainage. ENT: No nasal bleeding or discharge. Mucous membranes pink and moist. NECK: Trachea midline. No JVD CARDIOVASCULAR: Regular rate and rhythm. RESPIRATORY: No accessory muscle use. Clear to auscultation GASTROINTESTINAL: Abdomen soft, non-tender, nondistended. Hepatic and splenic margins not palpable. MUSCULOSKELETAL: Extremities without clubbing, cyanosis, or edema. No obvious deformities. NEUROLOGICAL: Awake and alert. No obvious cranial nerve deficits. Motor grossly within normal limits. Five out of 5 muscle strength in the arms and legs. Normal speech. PSYCHIATRIC: Appropriate mood and affect; insight and judgment normal. Laboratory Laboratory Tests Test 08/23/17 17:52 08/24/17 06:03 B-Type Natriuretic Peptide 2026 PG/ML 1239 PG/ML Blood Urea Nitrogen 26 MG/DL Creatinine 1.45 MG/DL Random Glucose 79 MG/DL Calcium Level 9.2 MG/DL Phosphorus Level 4.6 MG/DL Magnesium Level 1.9 MG/DL Sodium Level 138 MEQ/L Potassium Level 4.2 MEQ/L Chloride Level 102 MEQ/L Carbon Dioxide Level 25.3 MEQ/L Anion Gap 11 MEQ/L Estimat Glomerular Filtration Rate 34 ML/MIN Assessment and Plan Problem List: (1) decompensated chf (2) Elevated troponin ICD Codes: R74.8 - Abnormal levels of other serum enzymes (3) Hypertension ICD Codes: I10 - Essential (primary) hypertension Status: Chronic (4) Coronary artery disease ICD Codes: I25.10 - Atherosclerotic heart disease of [place] coronary artery without angina pectoris Status: Chronic (5) S/P implantation of automatic cardioverter/defibrillator (AICD) ICD Codes: Z95.810 - Presence of automatic (implantable) cardiac defibrillator Status: Acute Assessment and Plan 1) Acute CHF Appears compensated Over diuresed, plan to skip Lasix tomorrow Con't to watch weight at home Low salt diet, will try Mrs. Shipman Apparently she's been loading her food with salt at her assisted living 2) Minimally elevated trop Stress negative for ischemia 3) CAD ASA/Plavix 4) Cardiovascularly stable for discharge Send home on Lasix PO 40mg daily Discussed with daughter and patient about watching her weights to know her fluid status Kwame Villalba DO August 24, 2017 11:57
--- NOTE | 2017-08-24 18:09 | HHI.DS ---
Discharge Summary Admission Date August 19, 2017 at 20:23 Discharge Date: August 24, 2017 Admitting Diagnosis decompensated CHF/ elevated troponin. (1) decompensated chf Diagnosis: Principal (2) Elevated troponin ICD Code: R74.8 - Abnormal levels of other serum enzymes Diagnosis: Principal (3) Hypertension ICD Code: I10 - Essential (primary) hypertension Status: Chronic (4) DIONICIO (acute kidney injury) ICD Code: N17.9 - Acute kidney failure, unspecified (5) Coronary artery disease ICD Code: I25.10 - Atherosclerotic heart disease of [place] coronary artery without angina pectoris Status: Chronic (6) s/p PCI LAD/ Circ Procedures None Brief History - From Admission patient is a 86 y/o female with history of CAD, COPD, hypertension. hypothyroidism who presented to ER with sob. she's not a good historian but she says that her sob started about ten days ago. she's had some on and off dry cough. she denies any chest pain, PND or orthopnea. she doesn't report any recent weight gain.she had cardiac cath and PCI last February. she was pain free at the time of my evaluation. CBC/BMP: 08/22/17 0614 08/24/17 0603 Significant Findings Laboratory Tests Test 08/22/17 06:14 08/23/17 17:52 08/24/17 06:03 White Blood Count 3.4 TH/MM3 (4.0-11.0) Red Blood Count 3.42 MIL/MM3 (4.00-5.30) Hemoglobin 10.9 GM/DL (11.6-15.3) Hematocrit 32.8 % (35.0-46.0) Monocytes (%) (Auto) 17.5 % (0.0-8.0) Eosinophils (%) (Auto) 10.4 % (0.0-4.0) Neutrophils # (Auto) 1.4 TH/MM3 (1.8-7.7) Lymphocytes # (Auto) 0.9 TH/MM3 (1.0-4.8) Creatinine 1.02 MG/DL (0.50-1.00) 1.45 MG/DL (0.50-1.00) Calcium Level 8.4 MG/DL (8.5-10.1) Chloride Level 108 MEQ/L (98-107) Estimat Glomerular Filtration Rate 51 ML/MIN (>89) 34 ML/MIN (>89) B-Type Natriuretic Peptide 3745 PG/ML (0-100) 2026 PG/ML (0-100) 1239 PG/ML (0-100) Blood Urea Nitrogen 26 MG/DL (7-18) PE at Discharge GENERAL: Well nourished/well developed patient in no apparent distress CARDIOVASCULAR: Regular rate and rhythm 2 out of 6 systolic murmur RESPIRATORY: Bibasilar crackles. GASTROINTESTINAL: Abdomen soft, non-tender, nondistended. Normal active bowel sounds MUSCULOSKELETAL: Extremities without clubbing, cyanosis, trace edema NEURO: Alert & Oriented x4 to person, place, time, and situation. Moves all ext x4 Hospital Course 86 years old female admitted with decompensated acute congestive heart failure which is acute on chronic systolic elevated troponin and COPD, patient placed on IV diuretic, CHF education, monitor ANMOL and renal function, cardiology consulted, we held her lisinopril due to increased creatinine, patient has a history of coronary artery disease and PCI last February. Patient diuresed well, on day of discharge creatinine started to slightly increased I advised patient to skip Lasix tomorrow and resume it on Friday, extensive CHF and low-salt diet education provided by me. We will repeat BMP in 2-3 days and forward to PCP and cardiology. [id number] encounter performed with the patient on discharge day, as well as physical exam, summary of hospitalization course and postdischarge plan has been D/W the patient. D/W nurse D/W case picker. Discharge medications reviewed and printed and signed, post discharge follow up visit with PCP and other specialist as well as Brief hospital course and discharge summary has been placed. Pt Condition on Discharge: Fair Discharge Disposition: Disch w/ Home Health Serv Discharge Time: > 30 minutes Discharge Instructions DIET: Follow Instructions for: Heart Healthy Diet, Diabetic Diet Activities you can perform: See Additionl Instruction Other Activity Instructions: per PT Follow up Referrals: Cardiology - 1 Week with Kwame Villalba DO New Orders: BASIC METABOLIC PROF - 2-3 Days New Medications: Furosemide (Lasix) 40 Mg Tab 40 MG PO DAILY for chf, #30 TAB 0 Refills Continued Medications: Albuterol Sulfate (Proair Hfa) 90 Mcg Hfa.aer.ad Amlodipine (Amlodipine) 5 Mg Tab 5 MG PO DAILY for Blood Pressure Management, #30 TAB [address] (Aspirin EC) 81 Mg Tabdr 81 MG PO DAILY for CLOT PREVENTION for 30 Days, #30 TAB 11 Refills Clopidogrel (Plavix) 75 Mg Tab 75 MG PO DAILY for Blood Clot Prevention, #30 TAB 3 Refills Docusate Sodium (Dok) 100 Mg Cap 100 MG PO daily for Constipation, #14 CAP Ferrous Sulfate (Ferrous Sulfate) 325 Mg (65 Mg Iron) Tablet 325 MG PO BIDPC for Nutritional Supplement, #60 TAB 0 Refills Fluticasone-Salmeterol 12 GM Inh (Advair Hfa 12 GM Inh) 45-21 Mcg/Act Aer 2 PUFF INH BID, #1 INHALER 0 Refills Isosorbide Mononitrate ER (Isosorbide Mononitrate ER) 30 Mg Clare 30 MG PO DAILY for Prevent Chest Pain, #30 TAB 0 Refills Levothyroxine (Synthroid) 25 Mcg Tab 0.25 MCG PO DAILY for Thyroid, #30 TAB 0 Refills Metoprolol Tartrate (Metoprolol Tartrate) 25 Mg Tab 12.5 MG PO BID for Blood Pressure Management, #60 TAB 3 Refills Montelukast (Montelukast) 4 Mg Chew 4 MG CHEW HS, #30 TAB 0 Refills Pravastatin (Pravastatin) 40 Mg Tab 40 MG PO HS for Cholesterol Management, #30 TAB 0 Refills Debbie Capps MD August 24, 2017 18:08
== END 2017-08-24 15:00 | disposition home health service (06) | DRG 292 ==
LOC: NEDDLT 20:13 → HCIS 20:23
PROVIDERS: ADMIT Hospitalist; ATTEND Hospitalist
DX: I11.0 Hypertensive heart disease with heart failure (principal); N17.9 Acute kidney failure, unspecified; I50.23 Acute on chronic systolic (congestive) heart failure; J44.9 Chronic obstructive pulmonary disease, unspecified; D64.9 Anemia, unspecified; I25.10 Atherosclerotic heart disease of native coronary artery without angina pectoris; E03.9 Hypothyroidism, unspecified; E78.5 Hyperlipidemia, unspecified; Z95.5 Presence of coronary angioplasty implant and graft; Z95.0 Presence of cardiac pacemaker; Z79.82 Long term (current) use of aspirin; Z79.02 Long term (current) use of antithrombotics/antiplatelets; Z88.0 Allergy status to penicillin
CPT/HCPCS: 71045; 78452; 80048; 80053; 81001; 82550; 83735; 83880; 84100; 84484; 85025; 85610; 85730; 93005; 93017; 94664; 96372; 96374; A9502; J1630; J1644; J1940; J2785

== ENCOUNTER 2017-09-03 07:12 | Inpatient (IN) | payer MEDICARE, OTHER ==
[~2017-09-03] VITALS: Ht 157.5 cm; Wt 44.5 kg
[2017-09-03] VITALS (10 sets, daily range): BP systolic 98–112; BP diastolic 57–66; PULSE 80–87; RESP 17–20; TEMP 97.7–98.1; O2SAT 97–100
[~2017-09-03 07:12] MED LIST changes: -BISACODYL 10 MG SUPP RECTAL PRN; +FURO1TAB60 PO; -HEPARIN SODIUM - SQ 10,000 UNITS/ML VIAL SQ SCH; -LACTULOSE SYRUP 20 GM/30 ML CUP PO PRN; -LEVA500T33 PO; -MAGNESIUM HYDROXIDE SUSP 30 ML CUP PO PRN; -NALOXONE HCL 0.4 MG/ML AMP IV PUSH PRN; -ONDANSETRON ODT 4 MG TAB PO PRN; -SENNOSIDES 8.6 MG TAB PO PRN; -SODIUM CHLORIDE 0.9% FLUSH 10 ML FLUSH IV FLUSH PRN
[2017-09-03] MEDS ORDERED: SODIUM CHLORIDE 0.9% FLUSH 10 ML FLUSH IV FLUSH PRN ×2 (07:30→11:30)
--- NOTE | 2017-09-03 07:47 | PD ---
HPI Chief Complaint: GI Complaint Time Seen by Provider: 07:21 Travel History International Travel<30 days: No Contact w/Intl Traveler<30days: No Traveled to known affect area: No History of Present Illness HPI Patient is a 86 year old female with history of CAD, COPD, hypertension, hypothyroidism, diverticular disease who presents to the ER for evaluation of rectal bleeding. Patient reports that she noticed dark red blood early yesterday evening. Reports that she had "alot of clots" in her rectum. Patient does take a baby aspirin as well as plavix. Reports that she has had rectal bleeding in the past - reports "no one every told me why I had rectal bleeding. " Patient does endorse that she has been having some abdominal pain, reports that abdominal pain is located to her left lower abdomen. Patient with no chest pain or shortness of breath, patient denies any weakness. Patient with no other complaints at this time. Patient does not know who her GI doctor is. PFSH Past Medical History Arthritis: Yes (mild) Asthma: Yes Anxiety: Yes Depression: Yes Heart Rhythm Problems: No Cancer: No Cardiovascular Problems: Yes High Cholesterol: Yes Chest Pain: No Congestive Heart Failure: Yes COPD: No Cerebrovascular Accident: Yes (TIA (2012)) Dementia: Yes Diabetes: No Endocrine: Yes Gastrointestinal Disorders: Yes GERD: No Genitourinary: No Headaches: Yes Hiatal Hernia: Yes Hypertension: Yes Immune Disorder: No Implanted Vascular Access Dvce: Yes Musculoskeletal: Yes Neurologic: Yes Reproductive: No Respiratory: Yes Migraines: No Seizures: No Sleep Apnea: No Thyroid Disease: Yes (HYPO) Ulcer: No ?: Not Past Surgical History Abdominal Surgery: No AICD: Yes Arteriovenous Shunt: No Cardiac Surgery: Yes (AICD/pacer, stent (2018)) Ear Surgery: No Endocrine Surgery: No Eye Surgery: No Genitourinary Surgery: No Gynecologic Surgery: No Insulin Pump: No Joint Replacement: No Neurologic Surgery: No Oral Surgery: No Pacemaker: Yes Thoracic Surgery: No Other Surgery: Yes (AICD/pacer, neck) Social History Alcohol Use: No Tobacco Use: No Substance Use: No Allergies-Medications (Allergen,Severity, Reaction): Coded Allergies: Penicillins (Verified Allergy, Severe, Anaphylaxis, 09/03/17) Reported Meds & Prescriptions Reported Meds & Active Scripts Active Lasix (Furosemide) 40 Mg Tab 40 Mg PO DAILY Aspirin EC (Aspirin) 81 Mg Tabdr 81 Mg PO DAILY 30 Days Metoprolol Tartrate 25 Mg Tab 12.5 Mg PO BID Dok (Docusate Sodium) 100 Mg Cap 100 Mg PO DAILY Plavix (Clopidogrel Bisulfate) 75 Mg Tab 75 Mg PO DAILY Reported Amlodipine (Amlodipine Besylate) 5 Mg Tab 5 Mg PO DAILY Montelukast (Montelukast Sodium) 4 Mg Chew 4 Mg CHEW HS Isosorbide Mononitrate ER (Isosorbide Mononitrate) 30 Mg Clare 30 Mg PO DAILY Proair Hfa (Albuterol Sulfate) 90 Mcg Hfa.aer.ad Advair Hfa 12 GM Inh (Fluticasone-Salmeterol 12 GM Inh) 45-21 Mcg/Act Aer 2 Puff INH BID Lisinopril 10 Mg Tab 10 Mg PO DAILY Ferrous Sulfate 325 Mg (65 Mg Iron) Tablet 325 Mg PO BIDPC Pravastatin 40 Mg Tab 40 Mg PO HS Synthroid (Levothyroxine Sodium) 25 Mcg Tab 0.25 Mcg PO DAILY Review of Systems General / Constitutional: No: Fever Eyes: No: Visual changes HENT: No: Headaches Cardiovascular: No: Chest Pain or Discomfort Respiratory: No: Shortness of Breath Gastrointestinal: Positive: Abdominal Pain, Hematochezia, No: Nausea, Vomiting Genitourinary: No: Dysuria Musculoskeletal: No: Pain Skin: No Rash Neurologic: No: Weakness Psychiatric: No: Depression Endocrine: No: Polydipsia Hematologic/Lymphatic: No: Easy Bruising Physical Exam Narrative GENERAL: Moderate distress SKIN: Focused skin assessment warm/dry. HEAD: Atraumatic. Normocephalic. EYES: Pupils equal and round. No scleral icterus. No injection or drainage. ENT: No nasal bleeding or discharge. Mucous membranes pink and moist. NECK: Trachea midline. No JVD. CARDIOVASCULAR: Regular rate and rhythm. No murmur appreciated. RESPIRATORY: No accessory muscle use. Clear to auscultation. Breath sounds equal bilaterally. GASTROINTESTINAL: Abdomen soft, patient with tenderness to left lower quadrant with no rebound or guarding, nondistended. Hepatic and splenic margins not palpable. Rectal exam: ruchi melana MUSCULOSKELETAL: No obvious deformities. No clubbing. No cyanosis. No edema. NEUROLOGICAL: Awake and alert. No obvious cranial nerve deficits. Motor grossly within normal limits. Normal speech. PSYCHIATRIC: Appropriate mood and affect; insight and judgment normal. Data Data Last Documented VS Vital Signs Date Time Temp Pulse Resp B/P (MAP) Pulse Ox O2 Delivery O2 Flow Rate FiO2 09/03/17 07:58 83 18 103/57 (72) 100 Room Air 09/03/17 07:16 98.1 Orders Orders Complete Blood Count With Diff (09/03/17 07:28) Comprehensive Metabolic Panel (09/03/17 07:28) Lipase (09/03/17 07:28) Prothrombin Time / Inr (Pt) (09/03/17 07:28) Act Partial Throm Time (Ptt) (09/03/17 07:28) Urinalysis - C+S If Indicated (09/03/17 07:28) Ct Abd/Pel W/O Iv Contrast (09/03/17 07:28) Iv Access Insert/Monitor (09/03/17 07:28) Ecg Monitoring (09/03/17 07:28) Oximetry (09/03/17 07:28) NPO (09/03/17 07:28) Sodium Chloride 0.9% Flush (Ns Flush) (09/03/17 07:30) Type And Screen (09/03/17 07:28) Labs Laboratory Tests Test 09/03/17 07:15 09/03/17 07:45 White Blood Count 3.8 TH/MM3 Red Blood Count 2.73 MIL/MM3 Hemoglobin 8.7 GM/DL Hematocrit 26.2 % Mean Corpuscular Volume 95.9 FL Mean Corpuscular Hemoglobin 31.8 PG Mean Corpuscular Hemoglobin Concent 33.1 % Red Cell Distribution Width 14.4 % Platelet Count 210 TH/MM3 Mean Platelet Volume 8.7 FL Neutrophils (%) (Auto) 58.5 % Lymphocytes (%) (Auto) 14.8 % Monocytes (%) (Auto) 15.4 % Eosinophils (%) (Auto) 9.2 % Basophils (%) (Auto) 2.1 % Neutrophils # (Auto) 2.2 TH/MM3 Lymphocytes # (Auto) 0.6 TH/MM3 Monocytes # (Auto) 0.6 TH/MM3 Eosinophils # (Auto) 0.4 TH/MM3 Basophils # (Auto) 0.1 TH/MM3 CBC Comment DIFF FINAL Differential Comment Prothrombin Time 10.0 SEC Prothromb Time International Ratio 1.0 RATIO Activated Partial Thromboplast Time 23.1 SEC Blood Urea Nitrogen 41 MG/DL Creatinine 1.28 MG/DL Random Glucose 85 MG/DL Total Protein 6.0 GM/DL Albumin 2.9 GM/DL Calcium Level 8.2 MG/DL Alkaline Phosphatase 75 U/L Aspartate Amino Transf (AST/SGOT) 19 U/L Alanine Aminotransferase (ALT/SGPT) 14 U/L Total Bilirubin 0.2 MG/DL Sodium Level 142 MEQ/L Potassium Level 5.2 MEQ/L Chloride Level 109 MEQ/L Carbon Dioxide Level 22.8 MEQ/L Anion Gap 10 MEQ/L Estimat Glomerular Filtration Rate 40 ML/MIN Lipase 567 U/L Urine Color LIGHT-YELLOW Urine Turbidity CLEAR Urine pH 6.0 Urine Specific [place] 1.008 Urine Protein NEG mg/dL Urine Glucose (UA) NEG mg/dL Urine Ketones NEG mg/dL Urine Occult Blood NEG Urine Nitrite NEG Urine Bilirubin NEG Urine Urobilinogen LESS THAN 2.0 MG/DL Urine Leukocyte Esterase NEG Urine Squamous Epithelial Cells 1 /hpf Urine Transitional Epithelial Cells <1 /hpf Microscopic Urinalysis Comment CATH-CULT NOT IND MDM Medical Decision Making Medical Screen Exam Complete: Yes Emergency Medical Condition: Yes Medical Record Reviewed: Yes Interpretation(s) Vital Signs Date Time Temp Pulse Resp B/P (MAP) Pulse Ox O2 Delivery O2 Flow Rate FiO2 09/03/17 07:21 20 09/03/17 07:16 98.1 85 20 107/61 (76) 98 Differential Diagnosis diverticulitis, colitis, gastroenteritis, anemia, electrolyte abnormality, mesenteric ischemia Narrative Course 86 year old female who presents to the ER with complaints of melena. Vital Signs Date Time Temp Pulse Resp B/P (MAP) Pulse Ox O2 Delivery O2 Flow Rate FiO2 09/03/17 07:21 20 09/03/17 07:16 98.1 85 20 107/61 (76) 98 VSS Patient with ruchi melena on exam, patient has been typed and screened, she does have tenderness to left lower abdomen - ct of abdomen and pelvis ordered without contrast. During the course of the patients emergency department visit, the patients history, examination, and differential diagnosis were reviewed with the patient. The patient was placed on a oil and gas drafter with oximetry and frequent blood pressure monitoring. The patient had an IV access obtained and blood work sent for analysis. The patients laboratory studies were reviewed and remarkable for CBC & BMP Diagram 09/03/17 07:15 Total Protein 6.0 L, Albumin 2.9 L, Calcium Level 8.2 L, Alkaline Phosphatase 75 , Aspartate Amino Transf (AST/SGOT) 19, Alanine Aminotransferase (ALT/SGPT) 14, Total Bilirubin 0.2 Radiology studies were reviewed and remarkable for Last Impressions Abdomen/Pelvis CT 09/03/17 4166 Signed Impressions: CONCLUSION: 1. Multifocal diverticuli sigmoid colon without diverticulitis, likely source of the bleeding 2. Perirectal tissues appear intact 3. Cardiomegaly with trace pericardial effusion and pacer 4. Large bilateral renal cysts. Patient's hemoglobin is 8.7, hemoglobin from August 22, 2017 was 10.9, this is a significant drop in hemoglobin, patient has been typed and screened. Patient CT the abdomen and pelvis shows multiple sigmoid diverticuli which is likely the source of her bleeding, there is no diverticulitis. Patient will require admission to the hospital at this time. Case reviewed with Dr. Ferguson who accepts pt to service Diagnosis Primary Impression: GI bleeding Qualified Codes: K92.1 - Melena Admitting Information Admitting Physician Requests: Admit Celestina Griffith DO September 03, 2017 07:47
[2017-09-03 08:23] LABS: AUTOMATED NEUTROPHIL # 2.2 TH/MM3 (1.8-7.7); BASOPHIL # 0.1 TH/MM3 (0-0.2); BASOPHIL % 2.1 % (0.0-2.0); EOSINOPHIL # 0.4 TH/MM3 (0-0.4); EOSINOPHIL % 9.2 % (0.0-4.0); HEMATOCRIT 26.2 % (35.0-46.0); HEMOGLOBIN 8.7 GM/DL (11.6-15.3); LYMPH % 14.8 % (9.0-44.0); LYMPHOCYTE # 0.6 TH/MM3 (1.0-4.8); MEAN CELL VOLUME 95.9 FL (80.0-100.0); MEAN CORPUSCULAR HEMOGLOBIN 31.8 PG (27.0-34.0); MEAN CORPUSCULAR HGB CONC 33.1 % (32.0-36.0); MEAN PLATELET VOLUME 8.7 FL (7.0-11.0); MONO % 15.4 % (0.0-8.0); MONOCYTE # 0.6 TH/MM3 (0-0.9); NEUT % 58.5 % (16.0-70.0); PLATELET COUNT 210 TH/MM3 (150-450); RED BLOOD COUNT 2.73 MIL/MM3 (4.00-5.30); RED CELL DISTRIBUTION WIDTH 14.4 % (11.6-17.2); WHITE BLOOD COUNT 3.8 TH/MM3 (4.0-11.0)
[2017-09-03 08:27] LABS: BILIRUBIN, URINE NEG (NEG); BLOOD, URINE NEG (NEG); GLUCOSE,URINE NEG (NEG); KETONE, URINE NEG (NEG); NITRITE,URINE NEG (NEG); SQUAMOUS EPITHELIAL CELL URINE 1 /hpf (0-5); TRANSITIONAL EPI CELLS, URINE <1 /hpf; URINE COLOR LIGHT-YELLOW (YELLW/STRAW); URINE LEUKOCYTE ESTERASE NEG (NEG)
--- NOTE | 2017-09-03 08:38 | RADRPT ---
EXAM DATE: 09/03/2017 8:24 AM EDT AGE/SEX: 86 years / Female INDICATIONS: Abdominal pain and rectal bleeding for one day. CLINICAL DATA: This is the patient's initial encounter. Patient reports that signs and symptoms have been present for 1 day and indicates a pain score of 1/10. MEDICAL/SURGICAL HISTORY: Hiatal hernia. Gastroesophageal reflux disease. Hypertension. Dive rticulosis, coronary artery disease, COPD, congestive heart failure, Defibrillator. Pacemaker. Cor onary artery stent. RADIATION DOSE: 4.51 CTDI (mGy) COMPARISON: No prior [facility] exams available for comparison. TECHNIQUE: Multiple contiguous axial images were obtained through the abdomen. Images were obtained using multiple row detector helical technique. Using dose reduction techniques, radiation dose was ke pt as low as reasonably achievable to obtain optimal diagnostic quality images. FINDINGS: The lower lungs are clear. Artifact present from pacer. Cardiomegaly with a small pericardial effusio n. Liver and gallbladder unremarkable Spleen and pancreas appear normal Large 7.2 cm left renal cyst. Multiple cyst right kidney measuring 6 cm. Extensive vascular calcifications are evident. There are no inflammatory changes evident There is no free air In the pelvis there are diverticuli in the sigmoid colon without obvious diverticulitis or abscess. T he perirectal tissues appear normal. Review of bone windows reveals only degenerative changes in the lower lumbar spine. CONCLUSION: 1. Multifocal diverticuli sigmoid colon without diverticulitis, likely source of the bleeding 2. Perirectal tissues appear intact 3. Cardiomegaly with trace pericardial effusion and pacer 4. Large bilateral renal cysts. Electronically signed by: Gael Posada MD 09/03/2017 8:36 AM EDT
[2017-09-03 08:44] LABS: ALBUMIN 2.9 GM/DL (3.4-5.0); AST (GOT) 19 U/L (15-37); BICARBONATE 22.8 MEQ/L (21.0-32.0); BLOOD UREA NITROGEN 41 MG/DL (7-18); CALCIUM 8.2 MG/DL (8.5-10.1); CHLORIDE 109 MEQ/L (98-107); CREATININE 1.28 MG/DL (0.50-1.00); GLOMERULAR FILTRATION RATE 40 ML/MIN (>89); GLUCOSE,RANDOM 85 MG/DL (74-106); SODIUM (NA) 142 MEQ/L (136-145)
[2017-09-03 08:48] LABS: ALKALINE PHOSPHATASE 75 U/L (45-117); ALT (GPT) 14 U/L (10-53); TOTAL BILIRUBIN ADULT 0.2 MG/DL (0.2-1.0)
[2017-09-03] MEDS ORDERED: NALOXONE HCL 0.4 MG/ML AMP IV PUSH PRN (11:30)
[2017-09-03] MEDS ORDERED: ONDANSETRON ODT 4 MG TAB PO PRN (11:30)
[2017-09-03 12:13] LABS: HEMATOCRIT 25.3 % (35.0-46.0); HEMOGLOBIN 8.5 GM/DL (11.6-15.3)
[2017-09-03] MEDS: SODIUM CHLOR 0.45% 1000 ML INJ 1,000 ML IV SCH (12:19)
--- NOTE | 2017-09-03 13:56 | PD.CONS ---
HPI History of Present Illness This is a 86 year old F with PMH significant for CHF with defibrillator, ischemic cardiomyopathy, CAD S/P cardiac stent x 2, COPD, HTN, hypothyroidism, anemia, multiple GI bleeds possibly secondary to diverticular bleeding, gastric ulcer who presented to the ER earlier today with complaints of rectal bleeding. Pt reports bleeding began yesterday morning and she has had approximately six episodes. Per at bedside, the first episode was black and subsequent episodes have been red blood. Pt had a similar episode of rectal bleeding a month ago but states it resolved on its own and she did not seek medical care at that time. Pt reports history of GI bleeding in the past and was told it was probably secondary to her diverticulosis. Last episode at [facility]. Pt reports EGD at that time revealed gastric ulcer and colonoscopy had findings of polyps. She denies any associated abdominal pain. Complaining of intermittent nausea and vomiting but states this is chronic for her and dependent on foods she eats. Also has acid reflux, takes Omeprazole daily with some relief. Denies any recent unintentional weight loss. Denies family history significant for colon cancer. Denies NSAIDs and smoking. Reports alcohol use, vague about how much, according to daughter at bedside has a glass of wine multiple times a week to sleep but patient states less than one a week. Of note, on Plavix and ASA. (Ely Lawson) PFSH Past Medical History CHF with defibrillator Ischemic cardiomyopathy CAD S/P cardiac stent x 2 COPD HTN Hypothyroidism Anemia- takes iron supplements Multiple GI bleeds possibly secondary to diverticular bleeding Gastric ulcer Diverticulosis Past Surgical History Defibrillator Cardiac stent x 2 Colonoscopy EGD (Ely Lawson) Coded Allergies: Penicillins (Verified Allergy, Severe, Anaphylaxis, 09/03/17) Social History ETOH- vague about how much Denies nicotine use (Ely Lawson) Review of Systems Gastrointestinal: COMPLAINS OF: Black stools, Bloody stools, Diarrhea, Nausea, Vomiting, Heartburn, DENIES: Abdominal pain, Constipation, Difficulty Swallowing , Odynophagia, Swelling of Abdomen, Hematemesis (Ely Lawson) GI Exam Vitals I&O Vital Signs Date Time Temp Pulse Resp B/P (MAP) Pulse Ox O2 Delivery O2 Flow Rate FiO2 09/03/17 12:19 81 18 105/61 (76) 98 Room Air 09/03/17 11:01 80 20 112/63 (79) 99 Room Air 09/03/17 09:41 86 18 98/57 (71) 98 Room Air 09/03/17 07:58 83 18 103/57 (72) 100 Room Air 09/03/17 07:21 20 09/03/17 07:16 98.1 85 20 107/61 (76) 98 Imaging Last Impressions Abdomen/Pelvis CT 09/03/17 0728 Signed Impressions: CONCLUSION: 1. Multifocal diverticuli sigmoid colon without diverticulitis, likely source of the bleeding 2. Perirectal tissues appear intact 3. Cardiomegaly with trace pericardial effusion and pacer 4. Large bilateral renal cysts. Laboratory Test 09/03/17 07:15 09/03/17 07:45 09/03/17 11:40 White Blood Count 3.8 TH/MM3 Red Blood Count 2.73 MIL/MM3 Hemoglobin 8.7 GM/DL 8.5 GM/DL Hematocrit 26.2 % 25.3 % Mean Corpuscular Volume 95.9 FL Mean Corpuscular Hemoglobin 31.8 PG Mean Corpuscular Hemoglobin Concent 33.1 % Red Cell Distribution Width 14.4 % Platelet Count 210 TH/MM3 Mean Platelet Volume 8.7 FL Neutrophils (%) (Auto) 58.5 % Lymphocytes (%) (Auto) 14.8 % Monocytes (%) (Auto) 15.4 % Eosinophils (%) (Auto) 9.2 % Basophils (%) (Auto) 2.1 % Neutrophils # (Auto) 2.2 TH/MM3 Lymphocytes # (Auto) 0.6 TH/MM3 Monocytes # (Auto) 0.6 TH/MM3 Eosinophils # (Auto) 0.4 TH/MM3 Basophils # (Auto) 0.1 TH/MM3 CBC Comment DIFF FINAL Differential Comment Prothrombin Time 10.0 SEC Prothromb Time International Ratio 1.0 RATIO Activated Partial Thromboplast Time 23.1 SEC Blood Urea Nitrogen 41 MG/DL Creatinine 1.28 MG/DL Random Glucose 85 MG/DL Total Protein 6.0 GM/DL Albumin 2.9 GM/DL Calcium Level 8.2 MG/DL Alkaline Phosphatase 75 U/L Aspartate Amino Transf (AST/SGOT) 19 U/L Alanine Aminotransferase (ALT/SGPT) 14 U/L Total Bilirubin 0.2 MG/DL Sodium Level 142 MEQ/L Potassium Level 5.2 MEQ/L Chloride Level 109 MEQ/L Carbon Dioxide Level 22.8 MEQ/L Anion Gap 10 MEQ/L Estimat Glomerular Filtration Rate 40 ML/MIN Lipase 567 U/L Urine Color LIGHT-YELLOW Urine Turbidity CLEAR Urine pH 6.0 Urine Specific [place] 1.008 Urine Protein NEG mg/dL Urine Glucose (UA) NEG mg/dL Urine Ketones NEG mg/dL Urine Occult Blood NEG Urine Nitrite NEG Urine Bilirubin NEG Urine Urobilinogen LESS THAN 2.0 MG/DL Urine Leukocyte Esterase NEG Urine Squamous Epithelial Cells 1 /hpf Urine Transitional Epithelial Cells <1 /hpf Microscopic Urinalysis Comment CATH-CULT NOT IND Physical Examination HEENT: Normocephalic; atraumatic CHEST: Even/unlabored CARDIAC: RRR ABDOMEN: Soft, nondistended, nontender; bowel sounds active EXTREMITIES: No clubbing, cyanosis, or edema. SKIN: Normal; no rash; no jaundice. [employer]: Alert and oriented times three. (Ely Lawson) Assessment and Plan Plan Assessment: - BRBPR Initially reports of black stool and then started to have red blood per rectum, began yesterday morning, approx 6 episodes. History of GIB in the past, has been told probably secondary to diverticulosis. Last EGD and colonoscopy approx a year ago at [facility], reports gastric ulcer, diverticulosis and polyps. H/H currently 8.5/25.3 - history of CHARLI but hgb was 10.9 on 08/22 during previous hospitalization Complaining of: chronic intermittent nausea and vomiting states dependent of diet, acid reflux and heartburn takes Omeprazole daily. Denies: Abdominal pain, unintentional weight loss, family history significant for colon cancer (+) ETOH- vague about how much Denies smoking On Plavix and ASA CT abdomen and pelvis WO IV contrast (09/03) --> Multifocal diverticuli sigmoid colon without diverticulitis, likely source of the bleeding. Perirectal tissues appear intact. Cardiomegaly with trace pericardial effusion and pacer Large bilateral renal cysts. Plan: EGD and colonoscopy tomorrow Obtain consent Clear liquids today GoLytely prep NPO after MN Serial H/H Protonix C Diff stool Hold Plavix Further recommendations based on results of above Pt has been seen and examined by myself and Dr. Finney and this note is written on his behalf (Ely Lawson) Physician Comments Seen and examined with JAROD, transfuse as needed. Hold Plavix for now. IV protonix, egd/colonoscopy planned. Discussed with pt. and family. Thank you (Lorrie Finney MD) Ely Lawson September 03, 2017 13:56 Lorrie Finney MD September 03, 2017 16:41
[2017-09-03] MEDS: PANTOPRAZOLE SODIUM 40 MG VIAL IV PUSH SCH (14:23)
[2017-09-03 14:26] LABS: HEMATOCRIT 23.9 % (35.0-46.0); HEMOGLOBIN 8.2 GM/DL (11.6-15.3); MEAN CELL VOLUME 95.9 FL (80.0-100.0); MEAN CORPUSCULAR HGB CONC 34.4 % (32.0-36.0); MEAN PLATELET VOLUME 8.3 FL (7.0-11.0); PLATELET COUNT 209 TH/MM3 (150-450); RED CELL DISTRIBUTION WIDTH 14.3 % (11.6-17.2); WHITE BLOOD COUNT 3.8 TH/MM3 (4.0-11.0)
[2017-09-03] MEDS ORDERED: PEG (High)/E-LYTE SOLN 4000 ML BTL PO ONE (16:00)
--- NOTE | 2017-09-03 18:39 | HHI.HP ---
HPI Service [facility] Primary Care Physician Unknown Admission Diagnosis GI Bleed Diagnoses: Chief Complaint: Rectal bleeding Travel History International Travel<30 Days: No Contact w/Intl Traveler <30 Da: No Traveled to Known Affected Are: No History of Present Illness This is an 86-year-old female with history of CAD, COPD, hypertension, hypothyroidism and diverticular disease who presented to the ER for evaluation of rectal bleeding. The patient at the moment of my interview states that she does not remember why she came to the hospital, although she could tell me that she felt sick and then she was brought to the hospital. As per ED documentation the patient told them that she noticed dark red blood early yesterday evening. Reported as a lot of clots in her rectum. The patient takes baby aspirin and Plavix as well at home. As per ED report the patient has had rectal bleeding in the past but she does not know why she has a rectal bleeding. The patient denies currently abdominal pain, nausea vomiting. The patient states that she feels very hungry and would like to eat. Patient denies chest pain or shortness of breath. Review of Systems As per HPI, other systems reviewed by me and negative. Past Family Social History Past Medical History CHF with defibrillator Ischemic cardiomyopathy CAD S/P cardiac stent x 2 COPD HTN Hypothyroidism Anemia- takes iron supplements Multiple GI bleeds possibly secondary to diverticular bleeding Gastric ulcer Diverticulosis Past Surgical History Defibrillator Cardiac stent x 2 Colonoscopy EGD Reported Medications Reported Meds & Active Scripts Active Lasix (Furosemide) 40 Mg Tab 40 Mg PO DAILY Aspirin EC (Aspirin) 81 Mg Tabdr 81 Mg PO DAILY 30 Days Metoprolol Tartrate 25 Mg Tab 12.5 Mg PO BID Dok (Docusate Sodium) 100 Mg Cap 100 Mg PO DAILY Plavix (Clopidogrel Bisulfate) 75 Mg Tab 75 Mg PO DAILY Reported Amlodipine (Amlodipine Besylate) 5 Mg Tab 5 Mg PO DAILY Montelukast (Montelukast Sodium) 4 Mg Chew 4 Mg CHEW HS Isosorbide Mononitrate ER (Isosorbide Mononitrate) 30 Mg Clare 30 Mg PO DAILY Proair Hfa (Albuterol Sulfate) 90 Mcg Hfa.aer.ad Advair Hfa 12 GM Inh (Fluticasone-Salmeterol 12 GM Inh) 45-21 Mcg/Act Aer 2 Puff INH BID Lisinopril 10 Mg Tab 10 Mg PO DAILY Ferrous Sulfate 325 Mg (65 Mg Iron) Tablet 325 Mg PO BIDPC Pravastatin 40 Mg Tab 40 Mg PO HS Synthroid (Levothyroxine Sodium) 25 Mcg Tab 0.25 Mcg PO DAILY Allergies: Coded Allergies: Penicillins (Verified Allergy, Severe, Anaphylaxis, 09/03/17) Active Ordered Medications Current Medications Medications (Trade) Dose Ordered Sig/Kristine Route Start Time Stop Time Status Last Admin Sodium Chloride 1,000 ml @ 75 mls/hr [id number] IV 09/03/17 11:25 09/03/17 12:19 (NS Flush) 2 ml UNSCH PRN IV FLUSH 09/03/17 11:30 (NS Flush) 2 ml BID IV FLUSH 09/03/17 21:00 (Tylenol) 650 mg Q4H PRN PO 09/03/17 11:30 (Zofran Odt) 4 mg Q6H PRN PO 09/03/17 11:30 (Narcan Inj) 0.4 mg UNSCH PRN IV PUSH 09/03/17 11:30 (Protonix Inj) 40 mg Q12H IV PUSH 09/03/17 14:00 09/03/17 14:23 Family History Patient states her father had asthma. Mother had diabetes mellitus. Social History The patient states that she rarely drinks alcohol. Denies smoking. The patient is and lives with her . Physical Exam Vital Signs Vital Signs Date Time Temp Pulse Resp B/P (MAP) Pulse Ox O2 Delivery O2 Flow Rate FiO2 09/03/17 16:11 97.9 82 17 112/66 (81) 97 09/03/17 15:48 78 18 112/61 (78) 98 09/03/17 12:19 81 18 105/61 (76) 98 Room Air 09/03/17 11:01 80 20 112/63 (79) 99 Room Air 09/03/17 09:41 86 18 98/57 (71) 98 Room Air 09/03/17 07:58 83 18 103/57 (72) 100 Room Air 09/03/17 07:21 20 09/03/17 07:16 98.1 85 20 107/61 (67) 98 Physical Exam GENERAL: This is a thin, well-developed patient, in no apparent distress. SKIN: No rashes, ecchymoses or lesions. Cool and dry. HEAD: Atraumatic. Normocephalic. No temporal or scalp tenderness. EYES: Pupils equal round and reactive. Extraocular motions intact. No scleral icterus. No injection or drainage. ENT: Nose without bleeding, purulent drainage or septal hematoma. Throat without erythema, tonsillar hypertrophy or exudate. Uvula midline. Airway patent. NECK: Trachea midline. No JVD or lymphadenopathy. Supple, nontender, no meningeal signs. CARDIOVASCULAR: There is a systolic and diastolic murmur with an S3. RESPIRATORY: Clear to auscultation. Breath sounds equal bilaterally. No wheezes , rales, or rhonchi. GASTROINTESTINAL: Abdomen soft, non-tender, nondistended. No hepato-splenomegaly , or palpable masses. No guarding. MUSCULOSKELETAL: Extremities without clubbing, cyanosis, or edema. No joint tenderness, effusion, or edema noted. No calf tenderness. Negative Homans sign bilaterally. NEUROLOGICAL: Awake and alert. Cranial nerves II through XII intact. Motor and sensory grossly within normal limits. Five out of 5 muscle strength in all muscle groups. Normal speech. Laboratory Laboratory Tests Test 09/03/17 07:15 09/03/17 07:45 09/03/17 11:40 09/03/17 14:11 White Blood Count 3.8 3.8 Red Blood Count 2.73 2.50 Hemoglobin 8.7 8.5 8.2 Hematocrit 26.2 25.3 23.9 Mean Corpuscular Volume 95.9 95.9 Mean Corpuscular Hemoglobin 31.8 33.0 Mean Corpuscular Hemoglobin Concent 33.1 34.4 Red Cell Distribution Width 14.4 14.3 Platelet Count 210 209 Mean Platelet Volume 8.7 8.3 Neutrophils (%) (Auto) 58.5 Lymphocytes (%) (Auto) 14.8 Monocytes (%) (Auto) 15.4 Eosinophils (%) (Auto) 9.2 Basophils (%) (Auto) 2.1 Neutrophils # (Auto) 2.2 Lymphocytes # (Auto) 0.6 Monocytes # (Auto) 0.6 Eosinophils # (Auto) 0.4 Basophils # (Auto) 0.1 CBC Comment DIFF FINAL Differential Comment Prothrombin Time 10.0 Prothromb Time International Ratio 1.0 Activated Partial Thromboplast Time 23.1 Blood Urea Nitrogen 41 Creatinine 1.28 Random Glucose 85 Total Protein 6.0 Albumin 2.9 Calcium Level 8.2 Alkaline Phosphatase 75 Aspartate Amino Transf (AST/SGOT) 19 Alanine Aminotransferase (ALT/SGPT) 14 Total Bilirubin 0.2 Sodium Level 142 Potassium Level 5.2 Chloride Level 109 Carbon Dioxide Level 22.8 Anion Gap 10 Estimat Glomerular Filtration Rate 40 Lipase 567 Urine Color LIGHT-YELLOW Urine Turbidity CLEAR Urine pH 6.0 Urine Specific [place] 1.008 Urine Protein NEG Urine Glucose (UA) NEG Urine Ketones NEG Urine Occult Blood NEG Urine Nitrite NEG Urine Bilirubin NEG Urine Urobilinogen LESS THAN 2.0 Urine Leukocyte Esterase NEG Urine Squamous Epithelial Cells 1 Urine Transitional Epithelial Cells <1 Microscopic Urinalysis Comment CATH-CULT NOT IND Result Diagram: 09/03/17 1411 09/03/17 0715 Imaging Last Impressions Abdomen/Pelvis CT 09/03/17 0728 Signed Impressions: CONCLUSION: 1. Multifocal diverticuli sigmoid colon without diverticulitis, likely source of the bleeding 2. Perirectal tissues appear intact 3. Cardiomegaly with trace pericardial effusion and pacer 4. Large bilateral renal cysts. Caprini VTE Risk Assessment Caprini VTE Risk Assessment: Mod/High Risk (score >= 2) VTE Pharm Contraindication: Active bleeding Caprini Risk Assessment Model Point Value = 1 Point Value = 2 Point Value = 3 Point Value = 5 Age 41-60 Minor surgery BMI > 25 kg/m2 Swollen legs Varicose veins or History of unexplained or recurrent spontaneous Oral contraceptives or hormone replacement Sepsis (< 1 month) Serious lung disease, including pneumonia (< 1 month) Abnormal pulmonary function Acute myocardial infarction Congestive heart failure (< 1 month) History of inflammatory bowel disease Medical patient at bed rest Age 61-74 Arthroscopic surgery Major open surgery (> 45 min) Laparoscopic surgery (> 45 min) Malignancy Confined to bed (> 72 hours) Immobilizing plaster cast Central venous access Age >= 75 History of VTE Family history of VTE Factor V Leiden Prothrombin [id number] Lupus anticoagulant Anticardiolipin antibodies Elevated serum homocysteine Heparin-induced thrombocytopenia Other congenital or acquired thrombophilia Stroke (< 1 month) Elective arthroplasty Hip, pelvis, or leg fracture Acute spinal cord injury (< 1 month) Prophylaxis Regimen Total Risk Factor Score Risk Level Prophylaxis Regimen 0-1 Low Early ambulation 2 Moderate Order ONE of the following: *Sequential Compression Device (SCD) *Heparin 5000 units SQ BID 3-4 Higher Order ONE of the following medications: *Heparin 5000 units SQ TID *Enoxaparin/Lovenox 40 mg SQ daily (WT < 150 kg, CrCl > 30 mL/min) *Enoxaparin/Lovenox 30 mg SQ daily (WT < 150 kg, CrCl > 10-29 mL/min) *Enoxaparin/Lovenox 30 mg SQ BID (WT < 150 kg, CrCl > 30 mL/min) AND/OR *Sequential Compression Device (SCD) 5 or more Highest Order ONE of the following medications: *Heparin 5000 units SQ TID (Preferred with Epidurals) *Enoxaparin/Lovenox 40 mg SQ daily (WT < 150 kg, CrCl > 30 mL/min) *Enoxaparin/Lovenox 30 mg SQ daily (WT < 150 kg, CrCl > 10-29 mL/min) *Enoxaparin/Lovenox 30 mg SQ BID (WT < 150 kg, CrCl > 30 mL/min) AND *Sequential Compression Device (SCD) Assessment and Plan Problem List: (1) GI bleeding ICD Code: K92.2 - Gastrointestinal hemorrhage, unspecified Status: Acute Plan: Admit to the medical floor. The patient presented with melena. Consult GI. Start Protonix drip. Clear liquid diet. (2) DIONICIO (acute kidney injury) ICD Code: N17.9 - Acute kidney failure, unspecified Plan: Creatinine elevated at 1.28. Suspect acute kidney injury is due to prerenal azotemia secondary to dehydration due to GI bleeding. I will place on gentle IV fluids and monitor BUN and creatinine, monitor strict I's and O's. Avoid nephrotoxins. We will hold diuretics. (3) Hypertension ICD Code: I10 - Essential (primary) hypertension Status: Chronic Plan: Blood pressure seems to be stable. Given active GI bleeding I will hold all antihypertensive medications. I will place the patient on clonidine as needed. (4) Coronary artery disease ICD Code: I25.10 - Atherosclerotic heart disease of [place] coronary artery without angina pectoris Status: Chronic Plan: Seems to be stable. Hold aspirin and Plavix. (5) Mild dementia ICD Code: F03.90 - Unspecified dementia without behavioral disturbance Status: Chronic Plan: Patient is not on any medications for dementia. (6) Hypothyroidism ICD Code: E03.9 - Hypothyroidism, unspecified Plan: Continue levothyroxine. (7) Hyperlipemia ICD Code: E78.5 - Hyperlipidemia, unspecified Plan: Continue statin. (8) s/p PCI LAD/ Circ Status: Chronic Plan: As above, hold aspirin and Plavix due to active GI bleeding. Assessment and Plan GI prophylaxis Code Status Full code Discussed Condition With Discussed with ED physician, RN. Physician Certification 2 Midnight Certification Type: Admission for Inpatient Services Order for Inpatient Services The services are ordered in accordance with Medicare regulations or non- Medicare payer requirements, as applicable. In the case of services not specified as inpatient-only, they are appropriately provided as inpatient services in accordance with the 2-midnight benchmark. Estimated LOS (days): 2 days is the estimated time the patient will need to remain in the hospital, assuming treatment plan goals are met and no additional complications. Post-Hospital Plan: Not yet determined Problem Qualifiers (1) GI bleeding: Qualified Codes: K92.1 - Melena (2) Hypertension: Qualified Codes: I10 - Essential (primary) hypertension (3) Coronary artery disease: Qualified Codes: I25.10 - Atherosclerotic heart disease of [place] coronary artery without angina pectoris (4) Hyperlipemia: Qualified Codes: E78.5 - Hyperlipidemia, unspecified Imer Carlson MD September 03, 2017 18:39
[2017-09-03] MEDS ORDERED: MAGNESIUM CITRATE SOLN 300 ML BTL PO ONE ×2 (20:15→22:00)
[2017-09-03 20:35] LABS: HEMATOCRIT 22.4 % (35.0-46.0); HEMOGLOBIN 7.4 GM/DL (11.6-15.3)
[2017-09-03] MEDS: SODIUM CHLORIDE 0.9% FLUSH 10 ML FLUSH IV FLUSH SCH (21:00)
[2017-09-03] MEDS: MONTELUKAST SODIUM 4 MG CHEWABLE TAB CHEW SCH (21:47)
[2017-09-03] MEDS: PRAVASTATIN SOD 40 MG TAB PO SCH (21:47)
[2017-09-03] MEDS: BUDESONIDE-FORMOTEROL 80/4.5 MCG INHALER INH SCH (21:47)
[2017-09-04] VITALS (10 sets, daily range): BP systolic 103–131; BP diastolic 59–81; PULSE 85–133; RESP 16–18; TEMP 97.5–98.7; O2SAT 94–99
[2017-09-04] MEDS ORDERED: LACTATED RINGER'S 1000 ML IV PRN (01:15)
[2017-09-04] MEDS ORDERED: CHLORHEXIDINE GLUCONATE 2 % 1 PACK (2 CLOTHS) TOPICAL PRN (01:15)
[2017-09-04] MEDS ORDERED: SODIUM CHLORID 0.9% 500 ML IV PRN (01:15)
[2017-09-04] MEDS ORDERED: POVIDONE IODINE 5% (ANTISEPSIS KIT) 4 APPLICATIONS EACH NARE PRN (01:15)
[2017-09-04] MEDS: SODIUM CHLOR 0.45% 1000 ML INJ 1,000 ML IV SCH (01:49)
[2017-09-04] MEDS: PANTOPRAZOLE SODIUM 40 MG VIAL IV PUSH SCH ×2 (02:00→14:00)
[2017-09-04 03:46] LABS: HEMATOCRIT 22.3 % (35.0-46.0); HEMOGLOBIN 7.5 GM/DL (11.6-15.3)
[2017-09-04] MEDS: LEVOTHYROXINE SODIUM 25 MCG TAB PO SCH (05:21)
--- NOTE | 2017-09-04 10:33 | HHI.PR ---
Subjective Remarks No overnight events, no further bleeding. Denies abdominal pain, nausea or vomiting. Has not eaten since this morning. Hemoglobin dropped from 8.7 serially down to 7.5. Denies shortness of breath but feels tired Objective Vitals Vital Signs Date Time Temp Pulse Resp B/P (MAP) Pulse Ox O2 Delivery O2 Flow Rate FiO2 09/04/17 08:02 98.0 85 18 120/59 (79) 98 09/04/17 05:20 97.7 96 16 103/59 (74) 98 09/04/17 03:55 90 09/04/17 00:00 Room Air 09/04/17 00:00 97.5 88 18 115/65 (82) 97 09/03/17 23:35 87 09/03/17 20:00 Room Air 09/03/17 20:00 97.7 84 18 112/58 (76) 98 09/03/17 19:56 82 09/03/17 16:11 97.9 82 17 112/66 (81) 97 09/03/17 15:48 78 18 112/61 (78) 98 09/03/17 12:19 81 18 105/61 (76) 98 Room Air 09/03/17 11:01 80 20 112/63 (79) 99 Room Air I/O 09/03/17 09/03/17 09/03/17 09/04/17 09/04/17 09/04/17 07:00 15:00 23:00 07:00 15:00 23:00 Intake Total 1000 ml Balance 1000 ml Intake Oral 0 ml IV Total 1000 ml # Voids 5 # Bowel Movements 5 Result Diagram: 09/04/17 0237 09/03/17 0715 Objective Remarks Not in distress, appears weak. PERRL, pale conjunctivae Clear to auscultation and symmetric bilaterally, normal respiratory effort. Normal bowel sounds, soft, non-tender, nondistended, no guarding. Extremities without clubbing, cyanosis, or edema. AAO x3, no cranial nerve deficits, moves all 4 extremities, no focal neurologic deficits Normal mood, appropriate affect No rash of generalized distribution. Skin is warm and dry. A/P Problem List: (1) GI bleeding ICD Code: K92.2 - Gastrointestinal hemorrhage, unspecified Status: Acute (2) DIONICIO (acute kidney injury) ICD Code: N17.9 - Acute kidney failure, unspecified (3) Hypertension ICD Code: I10 - Essential (primary) hypertension Status: Chronic (4) Coronary artery disease ICD Code: I25.10 - Atherosclerotic heart disease of [place] coronary artery without angina pectoris Status: Chronic (5) Mild dementia ICD Code: F03.90 - Unspecified dementia without behavioral disturbance Status: Chronic (6) Hypothyroidism ICD Code: E03.9 - Hypothyroidism, unspecified (7) Hyperlipemia ICD Code: E78.5 - Hyperlipidemia, unspecified (8) s/p PCI LAD/ Circ Status: Chronic Assessment and Plan This is an 86-year-old female presenting with melena Acute GI bleeding, likely upper-patient presented with melena, continue Protonix drip, for EGD and colonoscopy today. Hemoglobin dropped yearly from 8.7-7.5. It was 12 in July, transfuse 2 units of packed red blood cells. Clear liquid diet after endoscopy and colonoscopy. Acute renal failure-creatinine 1.28, likely prerenal because of GI bleeding, continue IVF, transfuse 2 units, hold diuretics, recheck BMP tomorrow Hypertension-antihypertensives on hold because of GI bleeding, monitor, clonidine as needed Coronary artery disease-stable, hold aspirin and Plavix because of GI bleeding Mild dementia-restart home medications Hypothyroidism-continue levothyroxine DVT prophylaxis: Pharmacological prophylaxis contraindicated because of GI bleeding Discussed with patient's daughter Angelia. Problem Qualifiers (1) GI bleeding: Qualified Codes: K92.1 - Melena (2) Hypertension: Qualified Codes: I10 - Essential (primary) hypertension (3) Coronary artery disease: Qualified Codes: I25.10 - Atherosclerotic heart disease of [place] coronary artery without angina pectoris (4) Hyperlipemia: Qualified Codes: E78.5 - Hyperlipidemia, unspecified Lorri Walton MD September 04, 2017 10:33
[2017-09-04 11:04] LABS: HEMOGLOBIN 8.4 GM/DL (11.6-15.3)
[2017-09-04] MEDS ORDERED: PHENYLEPH/NS 1000 MCG/10 ML SYR IV ONE (12:00)
[2017-09-04] MEDS ORDERED: LIDOCAINE HCL 1% PF 5 ML SYRINGE OTHER ONE (12:00)
[2017-09-04] MEDS ORDERED: PROPOFOL 200 MG/20 ML AMP IV ONE (12:00)
[2017-09-04] MEDS ORDERED: SODIUM CHLOR 0.9% 250 ML INJ 250 ML IV ONE (12:15)
[2017-09-04] MEDS: BUDESONIDE-FORMOTEROL 80/4.5 MCG INHALER INH SCH ×2 (12:45→22:58)
[2017-09-04] MEDS: SODIUM CHLORIDE 0.9% FLUSH 10 ML FLUSH IV FLUSH SCH ×2 (12:45→22:57)
[2017-09-04] MEDS: SODIUM CHLOR 0.9% 1000 ML INJ 1,000 ML IV SCH (13:20)
--- NOTE | 2017-09-04 14:31 | GIPROC ---
[facility] [address] [facility]. [facility], [address] EGD PROCEDURE REPORT EXAM DATE: 09/04/2017 PATIENT NAME: Afia Wells MR #: [id number] BIRTHDATE: 1930 ATTENDING: Lorrie Finney MD ORDER #: [id number] EDITOR MAGAZINE: Madelyn Griffiths STATUS: inpatient INDICATIONS: The patient is a 86 yr old female here for an EGD due to hematochezia PROCEDURE PERFORMED: EGD, diagnostic MEDICATIONS: None and Per Anesthesia. TOPICAL ANESTHETIC: CONSENT: The patient understands the risks and benefits of the procedure and understands that these risks include, but are not limited to: sedation, allergic reaction, infection, perforation and/or bleeding. Alternative means of evaluation and treatment include, among others: physical exam, x-rays, and/or surgical intervention. The patient elects to proceed with this endoscopic procedure. medical equipment was checked for proper function. Hand hygiene and appropriate measures for infection prevention was taken. After the risks, benefits and alternatives of the procedure were thoroughly explained, Informed consent was verified, confirmed and timeout was successfully executed by the treatment team. The patient was anesthetized with topical anesthesia and the EC-[id number] (Pedi C) endoscope was introduced through the mouth and advanced to the second portion of the duodenum. Retroflexed views revealed a hiatal hernia The gastroscope was then slowly withdrawn and removed. ESOPHAGUS: The mucosa of the esophagus appeared normal. STOMACH: There was mild gastritis in the gastric antrum. DUODENUM: Moderate duodenal inflammation was found in the bulb and second portion of the duodenum. ADVERSE EVENTS: There were no complications. IMPRESSIONS: 1. The esophagus appeared normal 2. There was mild gastritis in the gastric antrum 3. Duodenal inflammation was found in the bulb and second portion of the duodenum 4. Retroflexed views revealed a hiatal hernia RECOMMENDATIONS: 1. Anti-reflux regimen 2. Continue PPI 3. Avoid NSAIDS PATIENT CONDITION: stable DISPOSITION: Inpatient REPEAT EXAM: Return 3 years EGD Lorrie Finney MD eSigned: Lorrie Finney MD 09/04/2017 2:30 PM cc: PATIENT NAME: Afia Wells MR#: [id number]
--- NOTE | 2017-09-04 14:41 | GIPROC ---
[facility] [address] [facility]. [facility], [address] COLONOSCOPY PROCEDURE REPORT EXAM DATE: 09/04/2017 PATIENT NAME: Afia Wells MR #: [id number] BIRTHDATE: 1930 ENDOSCOPIST: Lorrie Finney MD ORDER #: [id number] AFFILIATE MARKETING SPECIALIST: Madelyn Griffiths STATUS: inpatient INDICATIONS: The patient is a 86 yr old female here for a colonoscopy due to hematochezia PROCEDURE PERFORMED: Colonoscopy, diagnostic MEDICATIONS: None and Per Anesthesia. PREP QUALITY: inadequate PREP TYPE:GoLytely ESTIMATED BLOOD LOSS: None CONSENT: The patient understands the risks and benefits of the procedure and understands that these risks include, but are not limited to: sedation, allergic reaction, infection, perforation and/or bleeding. Alternative means of evaluation and treatment include, among others: physical exam, x-rays, and/or surgical intervention. The patient elects to proceed with this endoscopic procedure. medical equipment was checked for proper function. Hand hygiene and appropriate measures for infection prevention was taken. After the risks, benefits and alternatives of the procedure were thoroughly explained, Informed consent was verified, confirmed and timeout was successfully executed by the treatment team. A digital exam revealed external hemorrhoids The Pentax [id number] endoscope was introduced through the anus and advanced to the cecum, which was identified by both the appendix and ileocecal valve. The instrument was then slowly withdrawn as the colon was fully examined. COLON FINDINGS: Severe diverticulosis was noted in the sigmoid colon. No bleeding was noted from the diverticulosis. Very poor prep throughout, no colitis seen. Retroflexed views revealed internal hemorrhoids and Retroflexed views revealed small internal hemorrhoids The scope was then completely withdrawn from the patient and the procedure terminated. PROCEDURE WITHDRAWAL TIME:10minutes ADVERSE EVENTS: There were no complications. IMPRESSIONS: 1. Severe diverticulosis was noted in the sigmoid colon 2. Very poor prep throughout, no colitis seen 3. Retroflexed views revealed internal hemorrhoids 4. Retroflexed views revealed small internal hemorrhoids 5. Revealed external hemorrhoids RECOMMENDATIONS: 1. Benefiber 2 tsp daily 2. Continue surveillance 3. Yearly hemoccult 4. High fiber diet 5. No seeds, nuts and popcorn in diet RECALL: Return 1 month Colonoscopy Lorrie Finney MD eSigned: Lorrie Finney MD 09/04/2017 2:41 PM cc:
--- NOTE | 2017-09-04 14:53 | EKG ---
Date Performed: 09/03/2017 Time Performed: 21:09:39 PTAGE: 86 years EKG: SINUS TACHYCARDIA WITH OCCASIONAL SUPRAVENTRICULAR PREMATURE COMPLEXES MARKED LEFT AXIS DEV IATION LEFT BUNDLE BRANCH BLOCK Prolonged QT interval ABNORMAL ECG PREVIOUS TRACING : 08/20/2017 02.28 DOCTOR: Conor Ojeda Interpretating Date/Time 09/04/2017 14:48:32
[2017-09-04 18:34] LABS: HEMATOCRIT 27.3 % (35.0-46.0); MEAN CELL VOLUME 95.5 FL (80.0-100.0); MEAN CORPUSCULAR HEMOGLOBIN 31.4 PG (27.0-34.0); MEAN CORPUSCULAR HGB CONC 32.9 % (32.0-36.0); MEAN PLATELET VOLUME 8.8 FL (7.0-11.0); PLATELET COUNT 279 TH/MM3 (150-450); RED BLOOD COUNT 2.86 MIL/MM3 (4.00-5.30); RED CELL DISTRIBUTION WIDTH 14.5 % (11.6-17.2); WHITE BLOOD COUNT 4.7 TH/MM3 (4.0-11.0)
[2017-09-04 18:44] LABS: BICARBONATE 21.4 MEQ/L (21.0-32.0); CALCIUM 8.7 MG/DL (8.5-10.1); CREATININE 1.13 MG/DL (0.50-1.00)
[2017-09-04] MEDS ORDERED: ALPRAZolam 0.25 MG TAB PO SCH (22:00)
[2017-09-04] MEDS: metroNIDAZOLE 500 MG TAB PO SCH (22:56)
[2017-09-04] MEDS: ACETAMINOPHEN 325 MG TAB PO PRN (22:56)
[2017-09-04] MEDS: MONTELUKAST SODIUM 4 MG CHEWABLE TAB CHEW SCH (22:57)
[2017-09-04] MEDS: PRAVASTATIN SOD 40 MG TAB PO SCH (22:57)
[2017-09-04] MEDS: ALPRAZolam 0.25 MG TAB PO PRN (22:57)
[2017-09-05] VITALS (10 sets, daily range): BP systolic 92–113; BP diastolic 51–78; PULSE 90–115; RESP 17–18; TEMP 97.2–98.5; O2SAT 97–100
[2017-09-05] MEDS: SODIUM CHLOR 0.9% 1000 ML INJ 1,000 ML IV SCH ×2 (01:20→08:56)
[2017-09-05] MEDS: PANTOPRAZOLE SODIUM 40 MG VIAL IV PUSH SCH ×2 (02:46→12:51)
[2017-09-05] MEDS: LEVOTHYROXINE SODIUM 25 MCG TAB PO SCH (05:43)
[2017-09-05] MEDS: metroNIDAZOLE 500 MG TAB PO SCH ×3 (05:43→20:20)
[2017-09-05 07:27] LABS: AUTOMATED NEUTROPHIL # 5.6 TH/MM3 (1.8-7.7); BASOPHIL # 0.1 TH/MM3 (0-0.2); BASOPHIL % 0.9 % (0.0-2.0); EOSINOPHIL # 0.3 TH/MM3 (0-0.4); EOSINOPHIL % 3.8 % (0.0-4.0); HEMOGLOBIN 7.4 GM/DL (11.6-15.3); LYMPH % 10.5 % (9.0-44.0); LYMPHOCYTE # 0.8 TH/MM3 (1.0-4.8); MEAN CELL VOLUME 95.1 FL (80.0-100.0); MEAN CORPUSCULAR HEMOGLOBIN 31.9 PG (27.0-34.0); MEAN CORPUSCULAR HGB CONC 33.6 % (32.0-36.0); MEAN PLATELET VOLUME 8.5 FL (7.0-11.0); MONO % 11.6 % (0.0-8.0); MONOCYTE # 0.9 TH/MM3 (0-0.9); NEUT % 73.2 % (16.0-70.0); PLATELET COUNT 204 TH/MM3 (150-450); RED BLOOD COUNT 2.31 MIL/MM3 (4.00-5.30); RED CELL DISTRIBUTION WIDTH 14.1 % (11.6-17.2); WHITE BLOOD COUNT 7.7 TH/MM3 (4.0-11.0)
[2017-09-05 08:39] LABS: CALCIUM 7.8 MG/DL (8.5-10.1); CREATININE 1.01 MG/DL (0.50-1.00)
[2017-09-05] MEDS: SODIUM CHLORIDE 0.9% FLUSH 10 ML FLUSH IV FLUSH SCH ×2 (08:56→20:21)
[2017-09-05] MEDS: BUDESONIDE-FORMOTEROL 80/4.5 MCG INHALER INH SCH ×2 (08:56→20:21)
--- NOTE | 2017-09-05 11:57 | HHI.GIFU ---
Subjective Remarks Pt resting in bed Family at bedside RN at bedside starting IV for blood transfusion She denies any BM since colonoscopy Denies abdominal pain (Ely Lawson) Objective Vitals I&O Vital Signs Date Time Temp Pulse Resp B/P (MAP) Pulse Ox O2 Delivery O2 Flow Rate FiO2 09/05/17 11:41 21 09/05/17 10:49 97.6 110 18 112/69 98 09/05/17 10:21 97.5 101 18 105/56 99 09/05/17 08:00 Room Air 09/05/17 08:00 97.4 90 18 94/51 (65) 97 09/05/17 04:00 97.8 94 17 92/54 (67) 100 09/05/17 00:00 98.0 115 17 112/59 (76) 99 09/04/17 20:00 98.7 113 18 120/81 (94) 94 09/04/17 20:00 Room Air 09/04/17 19:02 97 21 09/04/17 16:02 98.0 118 16 131/71 (91) 97 09/04/17 15:00 85 22 124/53 (76) 100 09/04/17 14:41 80 20 105/50 (68) 98 09/04/17 12:02 97.9 87 17 117/62 (80) 99 I/O 09/04/17 09/04/17 09/04/17 09/05/17 09/05/17 09/05/17 07:00 15:00 23:00 07:00 15:00 23:00 Intake Total 1000 ml 200 ml 890 ml 450 ml 10 ml Output Total 1200 ml 450 ml Balance 1000 ml 200 ml -310 ml 0 ml 10 ml Intake Oral 0 ml 840 ml 450 ml IV Total 1000 ml 200 ml 50 ml Blood Product IV Normal Saline Flush 10 ml Output Urine Total 1200 ml 450 ml # Voids 5 5 # Bowel Movements 5 1 1 Laboratory Laboratory Tests Test 09/04/17 17:45 09/05/17 06:48 White Blood Count 4.7 7.7 Red Blood Count 2.86 2.31 Hemoglobin 9.0 7.4 Hematocrit 27.3 22.0 Mean Corpuscular Volume 95.5 95.1 Mean Corpuscular Hemoglobin 31.4 31.9 Mean Corpuscular Hemoglobin Concent 32.9 33.6 Red Cell Distribution Width 14.5 14.1 Platelet Count 279 204 Mean Platelet Volume 8.8 8.5 Blood Urea Nitrogen 25 22 Creatinine 1.13 1.01 Random Glucose 101 94 Calcium Level 8.7 7.8 Sodium Level 144 143 Potassium Level 4.5 4.4 Chloride Level 111 112 Carbon Dioxide Level 21.4 21.0 Anion Gap 12 10 Estimat Glomerular Filtration Rate 46 52 Lipase 253 Neutrophils (%) (Auto) 73.2 Lymphocytes (%) (Auto) 10.5 Monocytes (%) (Auto) 11.6 Eosinophils (%) (Auto) 3.8 Basophils (%) (Auto) 0.9 Neutrophils # (Auto) 5.6 Lymphocytes # (Auto) 0.8 Monocytes # (Auto) 0.9 Eosinophils # (Auto) 0.3 Basophils # (Auto) 0.1 CBC Comment DIFF FINAL Differential Comment Imaging Last Impressions Abdomen/Pelvis CT 09/03/17 9274 Signed Impressions: CONCLUSION: 1. Multifocal diverticuli sigmoid colon without diverticulitis, likely source of the bleeding 2. Perirectal tissues appear intact 3. Cardiomegaly with trace pericardial effusion and pacer 4. Large bilateral renal cysts. Physical Exam HEENT: Normocephalic; atraumatic CHEST: Even/unlabored CARDIAC: RRR ABDOMEN: Soft, nondistended, nontender; bowel sounds active EXTREMITIES: No clubbing, cyanosis, or edema. SKIN: Normal; no rash; no jaundice. EPIDEMIOLOGY INTERN: Alert, answers questions appropriately (Ely Lawson) Assessment and Plan Plan Assessment: - BRBPR Initially reports of black stool and then started to have red blood per rectum, began yesterday morning, approx 6 episodes. History of GIB in the past, has been told probably secondary to diverticulosis. Last EGD and colonoscopy approx a year ago at [facility], reports gastric ulcer, diverticulosis and polyps. H/H currently 8.5/25.3 - history of CHARLI but hgb was 10.9 on 08/22 during previous hospitalization Complaining of: chronic intermittent nausea and vomiting states dependent of diet, acid reflux and heartburn takes Omeprazole daily. Denies: Abdominal pain, unintentional weight loss, family history significant for colon cancer (+) ETOH- vague about how much Denies smoking On Plavix and ASA CT abdomen and pelvis WO IV contrast (09/03) --> Multifocal diverticuli sigmoid colon without diverticulitis, likely source of the bleeding. Perirectal tissues appear intact. Cardiomegaly with trace pericardial effusion and pacer Large bilateral renal cysts. - C diff toxin positive- Epid negative- pts recently treated for C. Diff , she does not think she has personal history of this. EGD--> The esophagus appeared normal. There was mild gastritis in the gastric antrum. Duodenal inflammation was found in the bulb and second portion of the duodenum. Hiatal hernia Colonoscopy --> Severe diverticulosis was noted in the sigmoid colon Very poor prep throughout, no colitis seen. Internal hemorrhoids and external hemorrhoids (09/05) Hgb improving since admission with no blood transfusion, dropped back to baseline on admission at 7.4 today. 2 U PRBCs ordered. Pt denies BM since colonoscopy yesterday. Plan: Vanco and Flagyl EGD biopsy pending Protonix Monitor H/H Notify GI if active bleeding Consider CT angio with embolization for possible diverticular bleed Hold Plavix Further recommendations based on clinical course Pt has been seen and examined by myself and Dr. Green and this note is written on his behalf (Ely Lawson) Physician Comments Agree with above assessment and plan. Monitor for active bleeding. Will follow up with you. (Joann Green MD) Ely Lawson Sep 05, 2017 11:57 Joann Green MD Sep 05, 2017 15:05
[2017-09-05] MEDS: VANCOMYCIN 500 MG VIAL (FOR ORAL USE ONLY) PO SCH ×3 (12:51→20:20)
--- NOTE | 2017-09-05 17:06 | HHI.PR ---
Subjective Remarks 86-year-old female with history of dementia who presented with GI bleeding. She is somewhat confused today about why her put her in the hospital without consulting the family, but she is suffering with dementia and I believe she has her story wrong. She cannot recall that she had a colonoscopy yesterday. Objective Vitals Vital Signs Date Time Temp Pulse Resp B/P (MAP) Pulse Ox O2 Delivery O2 Flow Rate FiO2 09/05/17 15:46 98.1 106 18 107/72 98 09/05/17 15:21 97.2 102 18 106/61 98 09/05/17 12:00 98.4 103 18 105/65 (78) 98 09/05/17 11:41 21 09/05/17 10:49 97.6 110 18 112/69 98 09/05/17 10:21 97.5 101 18 105/56 99 09/05/17 08:00 Room Air 09/05/17 08:00 113 09/05/17 08:00 97.4 90 18 94/51 (65) 97 09/05/17 04:00 97.8 94 17 92/54 (67) 100 09/05/17 00:00 98.0 115 17 112/59 (76) 99 09/04/17 20:00 98.7 113 18 120/81 (94) 94 09/04/17 20:00 Room Air 09/04/17 19:02 97 21 I/O 09/04/17 09/04/17 09/04/17 09/05/17 09/05/17 09/05/17 06:59 14:59 22:59 06:59 14:59 22:59 Intake Total 1000 ml 200 ml 890 ml 450 ml 410 ml Output Total 1200 ml 450 ml Balance 1000 ml 200 ml -310 ml 0 ml 410 ml Intake Oral 0 ml 840 ml 450 ml IV Total 1000 ml 200 ml 50 ml Packed Cells 400 ml Blood Product IV Normal Saline Flush 10 ml Output Urine Total 1200 ml 450 ml # Voids 5 5 # Bowel Movements 5 1 1 Result Diagram: 09/05/17 0648 09/05/17 0648 Objective Remarks GENERAL: Well-nourished, well-developed patient. Thin, dementia. SKIN: Warm and dry. HEAD: Normocephalic. EYES: No scleral icterus. No injection or drainage. NECK: Supple, trachea midline. No JVD or lymphadenopathy. CARDIOVASCULAR: Regular rate and rhythm without murmurs, gallops, or rubs. RESPIRATORY: Breath sounds equal bilaterally. No accessory muscle use. GASTROINTESTINAL: Abdomen soft, non-tender, nondistended. EXTREMITIES: No cyanosis, or edema. NEUROLOGICAL: Awake, alert, and oriented x 1. Non-focal. Dementia. A/P Problem List: (1) GI bleeding ICD Code: K92.2 - Gastrointestinal hemorrhage, unspecified Status: Acute (2) DIONICIO (acute kidney injury) ICD Code: N17.9 - Acute kidney failure, unspecified (3) Hypertension ICD Code: I10 - Essential (primary) hypertension Status: Chronic (4) Coronary artery disease ICD Code: I25.10 - Atherosclerotic heart disease of [place] coronary artery without angina pectoris Status: Chronic (5) Mild dementia ICD Code: F03.90 - Unspecified dementia without behavioral disturbance Status: Chronic (6) Hypothyroidism ICD Code: E03.9 - Hypothyroidism, unspecified (7) Hyperlipemia ICD Code: E78.5 - Hyperlipidemia, unspecified (8) s/p PCI LAD/ Circ Status: Chronic Assessment and Plan 86-year-old female who presented with melena GI bleed, anemia Patient received 2 units of packed red blood cells which brought her from 7.4 to 9.0, blood dropped again to 7.4 requiring transfusion of 2 additional units EGD shows mild gastritis with duodenal inflammation Colonoscopy shows diverticulosis without evidence for gastritis (poor prep) Recheck CBC in a.m. to follow hemoglobin level h/o HTN Continue home meds Clonidine prn Moderate dementia Home meds resumed Hypothyroidism Continue Synthroid at home dose DVT prophylaxis SCDs (no anticoagulants due to recurrent GI bleed) Problem Qualifiers (1) GI bleeding: Qualified Codes: K92.1 - Melena (2) Hypertension: Qualified Codes: I10 - Essential (primary) hypertension (3) Coronary artery disease: Qualified Codes: I25.10 - Atherosclerotic heart disease of [place] coronary artery without angina pectoris (4) Hyperlipemia: Qualified Codes: E78.5 - Hyperlipidemia, unspecified Demar Reyes MD Sep 05, 2017 17:06
[2017-09-05] MEDS: PRAVASTATIN SOD 40 MG TAB PO SCH (20:20)
[2017-09-05] MEDS: MONTELUKAST SODIUM 4 MG CHEWABLE TAB CHEW SCH (20:20)
[2017-09-06] VITALS (8 sets, daily range): BP systolic 118–136; BP diastolic 72–91; PULSE 86–107; RESP 16–18; TEMP 97.3–97.9; O2SAT 97–99
[2017-09-06] MEDS: PANTOPRAZOLE SODIUM 40 MG VIAL IV PUSH SCH ×2 (02:00→13:04)
[2017-09-06] MEDS: SODIUM CHLOR 0.9% 1000 ML INJ 1,000 ML IV SCH ×2 (03:14→17:13)
[2017-09-06] MEDS: metroNIDAZOLE 500 MG TAB PO SCH ×3 (06:18→21:57)
[2017-09-06] MEDS: ACETAMINOPHEN 325 MG TAB PO PRN ×2 (06:18→21:58)
[2017-09-06] MEDS: LEVOTHYROXINE SODIUM 25 MCG TAB PO SCH (06:18)
[2017-09-06 06:51] LABS: AUTOMATED NEUTROPHIL # 5.2 TH/MM3 (1.8-7.7); BASOPHIL # 0.1 TH/MM3 (0-0.2); BASOPHIL % 1.2 % (0.0-2.0); EOSINOPHIL # 0.2 TH/MM3 (0-0.4); HEMOGLOBIN 10.6 GM/DL (11.6-15.3); LYMPH % 12.6 % (9.0-44.0); LYMPHOCYTE # 0.9 TH/MM3 (1.0-4.8); MEAN CELL VOLUME 91.9 FL (80.0-100.0); MEAN CORPUSCULAR HEMOGLOBIN 31.5 PG (27.0-34.0); MEAN CORPUSCULAR HGB CONC 34.2 % (32.0-36.0); MEAN PLATELET VOLUME 8.7 FL (7.0-11.0); MONO % 12.3 % (0.0-8.0); MONOCYTE # 0.9 TH/MM3 (0-0.9); NEUT % 70.9 % (16.0-70.0); PLATELET COUNT 198 TH/MM3 (150-450); RED BLOOD COUNT 3.38 MIL/MM3 (4.00-5.30); RED CELL DISTRIBUTION WIDTH 15.5 % (11.6-17.2); WHITE BLOOD COUNT 7.3 TH/MM3 (4.0-11.0)
[2017-09-06 07:10] LABS: BICARBONATE 19.3 MEQ/L (21.0-32.0); CALCIUM 7.9 MG/DL (8.5-10.1); CREATININE 1.15 MG/DL (0.50-1.00)
[2017-09-06] MEDS: SODIUM CHLORIDE 0.9% FLUSH 10 ML FLUSH IV FLUSH SCH ×2 (07:52→21:00)
[2017-09-06] MEDS: BUDESONIDE-FORMOTEROL 80/4.5 MCG INHALER INH SCH ×2 (07:57→21:58)
[2017-09-06] MEDS: VANCOMYCIN 500 MG VIAL (FOR ORAL USE ONLY) PO SCH ×4 (08:03→21:58)
--- NOTE | 2017-09-06 12:16 | HHI.GIFU ---
Subjective Remarks Pt resting in bed, in no apparent distress Discussed with RN, pt has had no BM today or over night Pt denies any GI complaints at this time Discussed with Dr. Reyes, possible DC today if repeat H/H in afternoon is stable (Ely Lawson) Objective Vitals I&O Vital Signs Date Time Temp Pulse Resp B/P (MAP) Pulse Ox O2 Delivery O2 Flow Rate FiO2 09/06/17 08:00 86 09/06/17 08:00 97.3 107 16 136/91 (106) 97 09/06/17 07:30 Room Air 09/06/17 04:00 97.6 100 18 136/87 (103) 98 09/06/17 04:00 95 09/06/17 00:00 101 09/06/17 00:00 97.3 100 18 132/87 (102) 97 09/05/17 20:00 Room Air 09/05/17 20:00 98.5 104 18 113/78 (90) 98 09/05/17 20:00 105 09/05/17 17:31 21 09/05/17 16:00 98.0 104 18 112/69 (83) 97 09/05/17 15:46 98.1 106 18 107/72 98 09/05/17 15:21 97.2 102 18 106/61 98 I/O 09/05/17 09/05/17 09/05/17 09/06/17 09/06/17 09/06/17 07:00 15:00 23:00 07:00 15:00 23:00 Intake Total 450 ml 410 ml 880 ml 1640 ml Output Total 450 ml 600 ml Balance 0 ml 410 ml 880 ml 1040 ml Intake Oral 450 ml 480 ml 640 ml IV Total 1000 ml Packed Cells 400 ml 400 ml Blood Product IV Normal Saline Flush 10 ml Output Urine Total 450 ml 600 ml # Voids 2 # Bowel Movements 1 Laboratory Laboratory Tests Test 09/06/17 06:08 White Blood Count 7.3 Red Blood Count 3.38 Hemoglobin 10.6 Hematocrit 31.0 Mean Corpuscular Volume 91.9 Mean Corpuscular Hemoglobin 31.5 Mean Corpuscular Hemoglobin Concent 34.2 Red Cell Distribution Width 15.5 Platelet Count 198 Mean Platelet Volume 8.7 Neutrophils (%) (Auto) 70.9 Lymphocytes (%) (Auto) 12.6 Monocytes (%) (Auto) 12.3 Eosinophils (%) (Auto) 3.0 Basophils (%) (Auto) 1.2 Neutrophils # (Auto) 5.2 Lymphocytes # (Auto) 0.9 Monocytes # (Auto) 0.9 Eosinophils # (Auto) 0.2 Basophils # (Auto) 0.1 CBC Comment DIFF FINAL Differential Comment Blood Urea Nitrogen 17 Creatinine 1.15 Random Glucose 108 Calcium Level 7.9 Sodium Level 145 Potassium Level 4.3 Chloride Level 115 Carbon Dioxide Level 19.3 Anion Gap 11 Estimat Glomerular Filtration Rate 45 Imaging Last Impressions Abdomen/Pelvis CT 09/03/17 0770 Signed Impressions: CONCLUSION: 1. Multifocal diverticuli sigmoid colon without diverticulitis, likely source of the bleeding 2. Perirectal tissues appear intact 3. Cardiomegaly with trace pericardial effusion and pacer 4. Large bilateral renal cysts. Physical Exam HEENT: Normocephalic; atraumatic CHEST: Even/unlabored CARDIAC: RRR ABDOMEN: Soft, nondistended, nontender; bowel sounds active EXTREMITIES: No clubbing, cyanosis, or edema. SKIN: Normal; no rash; no jaundice. CLINICAL OB: Alert, answers questions appropriately (Ely Lawson) Assessment and Plan Plan Assessment: - BRBPR Initially reports of black stool and then started to have red blood per rectum, began yesterday morning, approx 6 episodes. History of GIB in the past, has been told probably secondary to diverticulosis. Last EGD and colonoscopy approx a year ago at [facility], reports gastric ulcer, diverticulosis and polyps. H/H currently 8.5/25.3 - history of CHARLI but hgb was 10.9 on 08/22 during previous hospitalization Complaining of: chronic intermittent nausea and vomiting states dependent of diet, acid reflux and heartburn takes Omeprazole daily. Denies: Abdominal pain, unintentional weight loss, family history significant for colon cancer (+) ETOH- vague about how much Denies smoking On Plavix and ASA CT abdomen and pelvis WO IV contrast (09/03) --> Multifocal diverticuli sigmoid colon without diverticulitis, likely source of the bleeding. Perirectal tissues appear intact. Cardiomegaly with trace pericardial effusion and pacer Large bilateral renal cysts. - C diff toxin positive- Epid negative- pts recently treated for C. Diff , she does not think she has personal history of this. EGD--> The esophagus appeared normal. There was mild gastritis in the gastric antrum. Duodenal inflammation was found in the bulb and second portion of the duodenum. Hiatal hernia Colonoscopy --> Severe diverticulosis was noted in the sigmoid colon Very poor prep throughout, no colitis seen. Internal hemorrhoids and external hemorrhoids (09/05) Hgb improving since admission with no blood transfusion, dropped back to baseline on admission at 7.4 today. 2 U PRBCs ordered. Pt denies BM since colonoscopy yesterday. (09/06) Pt with no BMs today or overnight, Hgb improved S/P 2 U PRBCs. No continued reports of bleeding, our service will sign off. Continue treatment for C. Diff x 10 days total. Plan: Vanco and Flagyl EGD biopsy pending Protonix GI will sign off, please reconsult as needed Have pt follow up with GI after DC Pt has been seen and examined by myself and Dr. Green and this note is written on his behalf (Ely Lawson) Physician Comments As above, no active bleeding for the last 48 hours, please notify us if abnormalities seen in the pathology. Will follow up with you as needed. (Joann Green MD) Ely Lawson Sep 06, 2017 12:15 Joann Green MD Sep 06, 2017 16:53
--- NOTE | 2017-09-06 17:41 | HHI.PR ---
Subjective Remarks 86-year-old female with dementia who came in with GI bleeding. She required transfusions while she was here. Most recent transfusion was yesterday hemoglobin appears stable today. Patient expresses no complaints today. Objective Vitals Vital Signs Date Time Temp Pulse Resp B/P (MAP) Pulse Ox O2 Delivery O2 Flow Rate FiO2 09/06/17 16:00 100 09/06/17 12:00 95 09/06/17 12:00 97.6 97 16 125/80 (95) 99 09/06/17 08:00 86 09/06/17 08:00 97.3 107 16 136/91 (106) 97 09/06/17 07:30 Room Air 09/06/17 04:00 97.6 100 18 136/87 (103) 98 09/06/17 04:00 95 09/06/17 00:00 101 09/06/17 00:00 97.3 100 18 132/87 (102) 97 09/05/17 20:00 Room Air 09/05/17 20:00 98.5 104 18 113/78 (90) 98 09/05/17 20:00 105 I/O 09/05/17 09/05/17 09/05/17 09/06/17 09/06/17 09/06/17 07:00 15:00 23:00 07:00 15:00 23:00 Intake Total 450 ml 410 ml 880 ml 1640 ml Output Total 450 ml 600 ml Balance 0 ml 410 ml 880 ml 1040 ml Intake Oral 450 ml 480 ml 640 ml IV Total 1000 ml Packed Cells 400 ml 400 ml Blood Product IV Normal Saline Flush 10 ml Output Urine Total 450 ml 600 ml # Voids 2 # Bowel Movements 1 Result Diagram: 09/06/17 0608 09/06/17 0608 Objective Remarks GENERAL: Well-nourished, well-developed patient. Thin, dementia. SKIN: Warm and dry. HEAD: Normocephalic. EYES: No scleral icterus. No injection or drainage. NECK: Supple, trachea midline. No JVD or lymphadenopathy. CARDIOVASCULAR: Regular rate and rhythm without murmurs, gallops, or rubs. RESPIRATORY: Breath sounds equal bilaterally. No accessory muscle use. GASTROINTESTINAL: Abdomen soft, non-tender, nondistended. EXTREMITIES: No cyanosis, or edema. NEUROLOGICAL: Awake, alert, and oriented x 1. Non-focal. Dementia. A/P Problem List: (1) GI bleeding ICD Code: K92.2 - Gastrointestinal hemorrhage, unspecified Status: Acute (2) DIONICIO (acute kidney injury) ICD Code: N17.9 - Acute kidney failure, unspecified (3) Hypertension ICD Code: I10 - Essential (primary) hypertension Status: Chronic (4) Coronary artery disease ICD Code: I25.10 - Atherosclerotic heart disease of [place] coronary artery without angina pectoris Status: Chronic (5) Mild dementia ICD Code: F03.90 - Unspecified dementia without behavioral disturbance Status: Chronic (6) Hypothyroidism ICD Code: E03.9 - Hypothyroidism, unspecified (7) Hyperlipemia ICD Code: E78.5 - Hyperlipidemia, unspecified (8) s/p PCI LAD/ Circ Status: Chronic Assessment and Plan 86-year-old female who presented with melena GI bleed, anemia Patient received 2 units of packed red blood cells which brought her from 7.4 to 9.0, blood dropped again to 7.4 requiring transfusion of 2 additional units Hemoglobin level this morning is 10.6 EGD shows mild gastritis with duodenal inflammation Colonoscopy shows diverticulosis without evidence for gastritis (poor prep) If hemoglobin remains stable she is ready for discharge, GI signed off today Follow H&H in the a.m. h/o HTN Continue home meds Clonidine prn Moderate dementia Continue home meds Hypothyroidism Continue Synthroid at home dose DVT prophylaxis SCDs (no anticoagulants due to recurrent GI bleed) Discharge planning Patient has been cleared for discharge from GI standpoint if hemoglobin remains stable in the a.m. Uncertain if patient is going home or to [facility] Problem Qualifiers (1) GI bleeding: Qualified Codes: K92.1 - Melena (2) Hypertension: Qualified Codes: I10 - Essential (primary) hypertension (3) Coronary artery disease: Qualified Codes: I25.10 - Atherosclerotic heart disease of [place] coronary artery without angina pectoris (4) Hyperlipemia: Qualified Codes: E78.5 - Hyperlipidemia, unspecified Demar Reyes MD Sep 06, 2017 17:41
[2017-09-06] MEDS: PRAVASTATIN SOD 40 MG TAB PO SCH (21:57)
[2017-09-06] MEDS: MONTELUKAST SODIUM 4 MG CHEWABLE TAB CHEW SCH (21:57)
[2017-09-06] MEDS: ALPRAZolam 0.25 MG TAB PO PRN (21:57)
[2017-09-07] VITALS (9 sets, daily range): BP systolic 131–138; BP diastolic 80–95; PULSE 84–119; RESP 18; TEMP 97.2–97.7; O2SAT 94–98
[2017-09-07] MEDS: PANTOPRAZOLE SODIUM 40 MG VIAL IV PUSH SCH ×2 (03:12→13:16)
[2017-09-07] MEDS: SODIUM CHLOR 0.9% 1000 ML INJ 1,000 ML IV SCH (03:12)
[2017-09-07] MEDS: LEVOTHYROXINE SODIUM 25 MCG TAB PO SCH (06:34)
[2017-09-07] MEDS: metroNIDAZOLE 500 MG TAB PO SCH ×3 (06:34→21:08)
[2017-09-07 07:42] LABS: HEMATOCRIT 25.9 % (35.0-46.0); HEMOGLOBIN 8.9 GM/DL (11.6-15.3)
[2017-09-07] MEDS: VANCOMYCIN 500 MG VIAL (FOR ORAL USE ONLY) PO SCH ×4 (08:28→21:08)
[2017-09-07] MEDS: SODIUM CHLORIDE 0.9% FLUSH 10 ML FLUSH IV FLUSH SCH ×2 (08:28→21:08)
[2017-09-07] MEDS: BUDESONIDE-FORMOTEROL 80/4.5 MCG INHALER INH SCH ×2 (08:29→21:08)
--- NOTE | 2017-09-07 12:25 | HHI.PR ---
Subjective Remarks This is an 86-year-old female with history of CAD, COPD, hypertension, hypothyroidism and diverticular disease who presented to the ER for evaluation of rectal bleeding. The patient at the moment of my interview states that she does not remember why she came to the hospital, although she could tell me that she felt sick and then she was brought to the hospital. As per ED documentation the patient told them that she noticed dark red blood early yesterday evening. Reported as a lot of clots in her rectum. The patient takes baby aspirin and Plavix as well at home. As per ED report the patient has had rectal bleeding in the past but she does not know why she has a rectal bleeding. The patient denies currently abdominal pain, nausea vomiting. The patient states that she feels very hungry and would like to eat. Patient denies chest pain or shortness of breath. 5-31 No overnight events, no further bleeding. Denies abdominal pain, nausea or vomiting. Has not eaten since this morning. Hemoglobin dropped from 8.7 serially down to 7.5. Denies shortness of breath but feels tired HAD EGD AND COLONOSCOPY WITH GI 6-1 86-year-old female with history of dementia who presented with GI bleeding. She is somewhat confused today about why her put her in the hospital without consulting the family, but she is suffering with dementia and I believe she has her story wrong. She cannot recall that she had a colonoscopy yesterday. 6-2 86-year-old female with dementia who came in with GI bleeding. She required transfusions while she was here. Most recent transfusion was yesterday hemoglobin appears stable today. Patient expresses no complaints today. 6-3 REMAINS CONFUSED HEMOGLOBIN DROPPED HAS COUGH STOP FLUIDS AM LABS DW RN AND PT Objective Vitals Vital Signs Date Time Temp Pulse Resp B/P (MAP) Pulse Ox O2 Delivery O2 Flow Rate FiO2 09/07/17 10:07 Room Air 09/07/17 08:00 93 09/07/17 08:00 97.7 93 18 133/86 (102) 97 09/07/17 04:00 Room Air 09/07/17 04:00 97.3 95 18 132/86 (101) 94 09/07/17 03:27 84 09/07/17 00:00 Room Air 09/07/17 00:00 97.3 90 18 138/81 (100) 97 09/06/17 23:44 90 09/06/17 20:00 97.5 100 18 132/72 (92) 99 09/06/17 20:00 Room Air 09/06/17 19:46 105 09/06/17 16:00 100 09/06/17 16:00 97.9 99 16 118/75 (89) 98 I/O 09/06/17 09/06/17 09/06/17 09/07/17 09/07/17 09/07/17 07:00 15:00 23:00 07:00 15:00 23:00 Intake Total 1640 ml 480 ml 460 ml Output Total 600 ml 800 ml Balance 1040 ml 480 ml -340 ml Intake Oral 640 ml 480 ml 460 ml IV Total 1000 ml Output Urine Total 600 ml 800 ml # Voids 4 # Bowel Movements 1 Result Diagram: 09/07/17 0700 09/06/17 0608 Other Results Laboratory Tests Test 09/04/17 17:45 09/05/17 06:48 09/06/17 06:08 09/07/17 07:00 White Blood Count 4.7 TH/MM3 7.7 TH/MM3 7.3 TH/MM3 Red Blood Count 2.86 MIL/MM3 2.31 MIL/MM3 3.38 MIL/MM3 Hemoglobin 9.0 GM/DL 7.4 GM/DL 10.6 GM/DL 8.9 GM/DL Hematocrit 27.3 % 22.0 % 31.0 % 25.9 % Mean Corpuscular Volume 95.5 FL 95.1 FL 91.9 FL Mean Corpuscular Hemoglobin 31.4 PG 31.9 PG 31.5 PG Mean Corpuscular Hemoglobin Concent 32.9 % 33.6 % 34.2 % Red Cell Distribution Width 14.5 % 14.1 % 15.5 % Platelet Count 279 TH/MM3 204 TH/MM3 198 TH/MM3 Mean Platelet Volume 8.8 FL 8.5 FL 8.7 FL Blood Urea Nitrogen 25 MG/DL 22 MG/DL 17 MG/DL Creatinine 1.13 MG/DL 1.01 MG/DL 1.15 MG/DL Random Glucose 101 MG/DL 94 MG/DL 108 MG/DL Calcium Level 8.7 MG/DL 7.8 MG/DL 7.9 MG/DL Sodium Level 144 MEQ/L 143 MEQ/L 145 MEQ/L Potassium Level 4.5 MEQ/L 4.4 MEQ/L 4.3 MEQ/L Chloride Level 111 MEQ/L 112 MEQ/L 115 MEQ/L Carbon Dioxide Level 21.4 MEQ/L 21.0 MEQ/L 19.3 MEQ/L Anion Gap 12 MEQ/L 10 MEQ/L 11 MEQ/L Estimat Glomerular Filtration Rate 46 ML/MIN 52 ML/MIN 45 ML/MIN Lipase 253 U/L Neutrophils (%) (Auto) 73.2 % 70.9 % Lymphocytes (%) (Auto) 10.5 % 12.6 % Monocytes (%) (Auto) 11.6 % 12.3 % Eosinophils (%) (Auto) 3.8 % 3.0 % Basophils (%) (Auto) 0.9 % 1.2 % Neutrophils # (Auto) 5.6 TH/MM3 5.2 TH/MM3 Lymphocytes # (Auto) 0.8 TH/MM3 0.9 TH/MM3 Monocytes # (Auto) 0.9 TH/MM3 0.9 TH/MM3 Eosinophils # (Auto) 0.3 TH/MM3 0.2 TH/MM3 Basophils # (Auto) 0.1 TH/MM3 0.1 TH/MM3 CBC Comment DIFF FINAL DIFF FINAL Differential Comment Imaging Last Impressions Abdomen/Pelvis CT 09/03/17 0786 Signed Impressions: CONCLUSION: 1. Multifocal diverticuli sigmoid colon without diverticulitis, likely source of the bleeding 2. Perirectal tissues appear intact 3. Cardiomegaly with trace pericardial effusion and pacer 4. Large bilateral renal cysts. Objective Remarks GENERAL: Alert and oriented 1 person talkative and cooperative but confused SKIN: Warm and dry. HEAD: Atraumatic. Normocephalic. EYES: Pupils equal and round. No scleral icterus. No injection or drainage. Extraocular muscles intact ENT: No nasal bleeding or discharge. Mucous membranes pink and moist. Tongue is midline NECK: Trachea midline. No JVD. Supple CARDIOVASCULAR: Regular rate and rhythm. S1-S2 no S3 or S4 RESPIRATORY: No accessory muscle use. Clear to auscultation. Breath sounds equal bilaterally. Decreased breath sounds bilaterally GASTROINTESTINAL: Abdomen soft, non-tender, nondistended. Hepatic and splenic margins not palpable. MUSCULOSKELETAL: Extremities without clubbing, cyanosis, or edema. No obvious deformities. NEUROLOGICAL: Awake and alert. No obvious cranial nerve deficits. Motor grossly within normal limits. 4 out of 5 muscle strength in the arms and legs. Normal speech. PSYCHIATRIC: INAppropriate mood and affect; insight and judgment ABnormal. Procedures EGD AND COLONOSCOPY ON 09-04 COLONOSCOPY PROCEDURE REPORT EXAM DATE: 09/04/2017 PATIENT NAME: Afia Wells MR #: [id number] BIRTHDATE: 1930 ENDOSCOPIST: Lorrie Finney MD ORDER #: [id number] ARTS ADMINISTRATOR: Madelyn Griffiths STATUS: inpatient INDICATIONS: The patient is a 86 yr old female here for a colonoscopy due to hematochezia PROCEDURE PERFORMED: Colonoscopy, diagnostic MEDICATIONS: None and Per Anesthesia. PREP QUALITY: inadequate PREP TYPE:GoLytely ESTIMATED BLOOD LOSS: None CONSENT: The patient understands the risks and benefits of the procedure and understands that these risks include, but are not limited to: sedation, allergic reaction, infection, perforation and/or bleeding. Alternative means of evaluation and treatment include, among others: physical exam, x-rays, and/or surgical intervention. The patient elects to proceed with this endoscopic procedure. medical equipment was checked for proper function. Hand hygiene and appropriate measures for infection prevention was taken. After the risks, benefits and alternatives of the procedure were thoroughly explained, Informed consent was verified, confirmed and timeout was successfully executed by the treatment team. A digital exam revealed external hemorrhoids The Pentax [id number] endoscope was introduced through the anus and advanced to the cecum, which was identified by both the appendix and ileocecal valve. The instrument was then slowly withdrawn as the colon was fully examined. COLON FINDINGS: Severe diverticulosis was noted in the sigmoid colon. No bleeding was noted from the diverticulosis. Very poor prep throughout, no colitis seen. Retroflexed views revealed internal hemorrhoids and Retroflexed views revealed small internal hemorrhoids The scope was then completely withdrawn from the patient and the procedure terminated. PROCEDURE WITHDRAWAL TIME:10minutes ADVERSE EVENTS: There were no complications. IMPRESSIONS: 1. Severe diverticulosis was noted in the sigmoid colon 2. Very poor prep throughout, no colitis seen 3. Retroflexed views revealed internal hemorrhoids 4. Retroflexed views revealed small internal hemorrhoids 5. Revealed external hemorrhoids RECOMMENDATIONS: 1. Benefiber 2 tsp daily 2. Continue surveillance 3. Yearly hemoccult 4. High fiber diet 5. No seeds, nuts and popcorn in diet RECALL: Return 1 month Colonoscopy ---EGD PROCEDURE REPORT EXAM DATE: 09/04/2017 PATIENT NAME: Afia Welsl MR #: [id number] BIRTHDATE: 1930 ATTENDING: Lorrie Finney MD ORDER #: [id number] ARTS ADMINISTRATOR: Madelyn Griffiths STATUS: inpatient INDICATIONS: The patient is a 86 yr old female here for an EGD due to hematochezia PROCEDURE PERFORMED: EGD, diagnostic MEDICATIONS: None and Per Anesthesia. TOPICAL ANESTHETIC: CONSENT: The patient understands the risks and benefits of the procedure and understands that these risks include, but are not limited to: sedation, allergic reaction, infection, perforation and/or bleeding. Alternative means of evaluation and treatment include, among others: physical exam, x-rays, and/or surgical intervention. The patient elects to proceed with this endoscopic procedure. medical equipment was checked for proper function. Hand hygiene and appropriate measures for infection prevention was taken. After the risks, benefits and alternatives of the procedure were thoroughly explained, Informed consent was verified, confirmed and timeout was successfully executed by the treatment team. The patient was anesthetized with topical anesthesia and the [id number] (Pedi C) endoscope was introduced through the mouth and advanced to the second portion of the duodenum. Retroflexed views revealed a hiatal hernia The gastroscope was then slowly withdrawn and removed. ESOPHAGUS: The mucosa of the esophagus appeared normal. STOMACH: There was mild gastritis in the gastric antrum. DUODENUM: Moderate duodenal inflammation was found in the bulb and second portion of the duodenum. ADVERSE EVENTS: There were no complications. IMPRESSIONS: 1. The esophagus appeared normal 2. There was mild gastritis in the gastric antrum 3. Duodenal inflammation was found in the bulb and second portion of the duodenum 4. Retroflexed views revealed a hiatal hernia RECOMMENDATIONS: 1. Anti-reflux regimen 2. Continue PPI 3. Avoid NSAIDS PATIENT CONDITION: stable DISPOSITION: Inpatient REPEAT EXAM: Return 3 years EGD Medications and IVs Current Medications Sodium Chloride (NS Flush) 2 ml UNSCH PRN IV FLUSH FLUSH AFTER USING IV ACCESS ; Start 09/03/17 at 07:30; Stop 09/03/17 at 12:00; Status DC Sodium Chloride 1,000 ml @ 75 mls/hr [id number] IV Last administered on 01:49; Start 09/03/17 at 11:25; Stop 09/04/17 at 12:17; Status DC Sodium Chloride (NS Flush) 2 ml UNSCH PRN IV FLUSH FLUSH AFTER USING IV ACCESS ; Start 09/03/17 at 11:30 Sodium Chloride (NS Flush) 2 ml BID IV FLUSH Last administered on 09/04/17at 22: 57; Start 09/03/17 at 21:00 Acetaminophen (Tylenol) 650 mg Q4H PRN PO TEMP > 100.4, pain 1 TO 10 Last administered on 09/06/17 21:58; Start 09/03/17 at 11:30 Ondansetron HCl (Zofran Odt) 4 mg Q6H PRN PO NAUSEA OR VOMITING; Start at 11:30 Naloxone HCl (Narcan Inj) 0.4 mg UNSCH PRN IV PUSH SEE LABEL COMMENTS; Start at 11:30 Polyethylene Glycol/ Electrolytes (Colyte Liq) 4,000 ml ONCE ONCE PO Last administered on 09/03/17at 16:07; Start 09/03/17 at 16:00; Stop 09/03/17 at 16:01 ; Status DC Pantoprazole Sodium (Protonix Inj) 40 mg Q12H IV PUSH Last administered on 03:12; Start 09/03/17 at 14:00 Levothyroxine Sodium (Synthroid) 25 mcg DAILY@0600 PO Last administered on 06:34; Start 09/04/17 at 06:00 Montelukast Sodium (Singulair Chew) 4 mg HS CHEW Last administered on 09/06/17 21:57; Start 09/03/17 at 21:00 Pravastatin Sodium (Pravachol) 40 mg HS PO Last administered on 09/06/17 21:57 ; Start 09/03/17 at 21:00 Budesonide/ Formoterol Fumarate (Symbicort 80-4.5 Mcg Inh) 1 puff BID INH Last administered on 09/07/17 08:29; Start 09/03/17 at 21:00 Magnesium Citrate (Citroma Liq) 300 ml ONCE ONCE PO Last administered on at 20:15; Start 09/03/17 at 20:15; Stop 09/03/17 at 20:16; Status DC Magnesium Citrate (Citroma Liq) 300 ml ONCE ONCE PO Last administered on at 21:47; Start 09/03/17 at 22:00; Stop 09/03/17 at 22:01; Status DC Lactated Ringer's 1,000 ml @ 30 mls/hr Q24H PRN IV SEE LABEL COMMENTS; Start at 01:15; Stop 09/07/17 at 01:14; Status DC Sodium Chloride 500 ml @ 30 mls/hr [id number] PRN IV SEE LABEL COMMENTS; Start at 01:15; Stop 09/07/17 at 01:14; Status DC Povidone Iodine (Betadine 5% Antisepsis Kit) 1 applic PAID INTERN PRN EACH NARE SEE LABEL COMMENTS; Start 09/04/17 at 01:15; Stop 09/07/17 at 01:14; Status DC Chlorhexidine Gluconate (Chlorhexidine 2% Cloth) 3 pack PAID INTERN PRN TOPICAL SEE LABEL COMMENTS; Start 09/04/17 at 01:15; Stop 09/07/17 at 01:14; Status DC Sodium Chloride 250 ml @ 15 mls/hr ONCE ONCE IV Last administered on at 12:44; Start 09/04/17 at 12:15; Stop 09/05/17 at 04:54; Status DC Sodium Chloride 1,000 ml @ 84 mls/hr [id number] IV Last administered on 09/07/17at 03:12; Start 09/04/17 at 12:30 Metronidazole (Flagyl) 500 mg Q8HR PO Last administered on 09/07/17at 06:34; Start 09/04/17 at 14:45; Stop 09/08/17 at 21:59 Alprazolam (Xanax) 0.25 mg Q8HR PO ; Start 09/04/17 at 22:00; Stop 09/04/17 at 22:00; Status DC Alprazolam (Xanax) 0.25 mg HS PRN PO agitation Last administered on 09/06/17at 21 :57; Start 09/04/17 at 17:00 Vancomycin HCl (VANCOMYCIN for oral use only) 125 mg QID PO Last administered on 09/07/17at 08:28; Start 09/05/17 at 13:00 A/P Problem List: (1) GI bleeding ICD Code: K92.2 - Gastrointestinal hemorrhage, unspecified Status: Acute (2) DIONICIO (acute kidney injury) ICD Code: N17.9 - Acute kidney failure, unspecified (3) Hypertension ICD Code: I10 - Essential (primary) hypertension Status: Chronic (4) Coronary artery disease ICD Code: I25.10 - Atherosclerotic heart disease of [place] coronary artery without angina pectoris Status: Chronic (5) Mild dementia ICD Code: F03.90 - Unspecified dementia without behavioral disturbance Status: Chronic (6) Hypothyroidism ICD Code: E03.9 - Hypothyroidism, unspecified (7) Hyperlipemia ICD Code: E78.5 - Hyperlipidemia, unspecified (8) s/p PCI LAD/ Circ Status: Chronic Assessment and Plan 86-year-old female who presented with melena GI bleed, anemia Patient received 2 units of packed red blood cells which brought her from 7.4 to 9.0, blood dropped again to 7.4 requiring transfusion of 2 additional units Hemoglobin level this morning is 10.6 EGD shows mild gastritis with duodenal inflammation Colonoscopy shows diverticulosis without evidence for gastritis (poor prep) If hemoglobin remains stable she is ready for discharge, GI signed off today Follow H&H in the a.m. h/o HTN Continue home meds Clonidine prn Moderate dementia Continue home meds Hypothyroidism Continue Synthroid at home dose DVT prophylaxis SCDs (no anticoagulants due to recurrent GI bleed) Discharge planning Patient has been cleared for discharge from GI standpoint if hemoglobin remains stable in the a.m. Uncertain if patient is going home or to [facility] DW RN AND PT Discharge Planning Discharge planning Patient has been cleared for discharge from GI standpoint if hemoglobin remains stable in the a.m. Uncertain if patient is going home or to [facility] Problem Qualifiers (1) GI bleeding: Qualified Codes: K92.1 - Melena (2) Hypertension: Qualified Codes: I10 - Essential (primary) hypertension (3) Coronary artery disease: Qualified Codes: I25.10 - Atherosclerotic heart disease of [place] coronary artery without angina pectoris (4) Hyperlipemia: Qualified Codes: E78.5 - Hyperlipidemia, unspecified Gael Jolley DO Sep 07, 2017 12:25
[2017-09-07] MEDS: ACETAMINOPHEN 325 MG TAB PO PRN (13:14)
[2017-09-07] MEDS: ALPRAZolam 0.25 MG TAB PO PRN (21:08)
[2017-09-07] MEDS: MONTELUKAST SODIUM 4 MG CHEWABLE TAB CHEW SCH (21:08)
[2017-09-07] MEDS: PRAVASTATIN SOD 40 MG TAB PO SCH (21:08)
[2017-09-08] VITALS: BP 120/72; PULSE 88; RESP 18; TEMP 97.4; O2SAT 97
[2017-09-08] MEDS: PANTOPRAZOLE SODIUM 40 MG VIAL IV PUSH SCH ×2 (01:16→14:11)
[2017-09-08 04:00] VITALS: BP 133/84; PULSE 90; RESP 18; TEMP 97.3; O2SAT 96
[2017-09-08 04:31] VITALS: PULSE 101
[2017-09-08] MEDS: metroNIDAZOLE 500 MG TAB PO SCH ×2 (06:24→14:11)
[2017-09-08] MEDS: LEVOTHYROXINE SODIUM 25 MCG TAB PO SCH (06:24)
[2017-09-08 08:00] VITALS: BP 141/90; PULSE 96; RESP 18; TEMP 97.5; O2SAT 98
[2017-09-08] MEDS: VANCOMYCIN 500 MG VIAL (FOR ORAL USE ONLY) PO SCH ×2 (09:26→14:07)
[2017-09-08] MEDS: BUDESONIDE-FORMOTEROL 80/4.5 MCG INHALER INH SCH (09:27)
[2017-09-08] MEDS: SODIUM CHLORIDE 0.9% FLUSH 10 ML FLUSH IV FLUSH SCH (09:27)
[2017-09-08 09:31] LABS: BASOPHIL # 0.1 TH/MM3 (0-0.2); BASOPHIL % 1.8 % (0.0-2.0); EOSINOPHIL # 0.3 TH/MM3 (0-0.4); EOSINOPHIL % 4.4 % (0.0-4.0); HEMATOCRIT 32.4 % (35.0-46.0); HEMOGLOBIN 10.8 GM/DL (11.6-15.3); LYMPHOCYTE # 0.8 TH/MM3 (1.0-4.8); MEAN CELL VOLUME 93.9 FL (80.0-100.0); MEAN CORPUSCULAR HEMOGLOBIN 31.2 PG (27.0-34.0); MEAN CORPUSCULAR HGB CONC 33.2 % (32.0-36.0); MONO % 11.8 % (0.0-8.0); MONOCYTE # 0.7 TH/MM3 (0-0.9); PLATELET COUNT 250 TH/MM3 (150-450); RED BLOOD COUNT 3.45 MIL/MM3 (4.00-5.30); RED CELL DISTRIBUTION WIDTH 15.6 % (11.6-17.2); WHITE BLOOD COUNT 5.9 TH/MM3 (4.0-11.0)
[2017-09-08 09:57] LABS: AST (GOT) 25 U/L (15-37); BICARBONATE 17.2 MEQ/L (21.0-32.0); BLOOD UREA NITROGEN 17 MG/DL (7-18); CALCIUM 8.3 MG/DL (8.5-10.1); CHLORIDE 114 MEQ/L (98-107); CREATININE 1.32 MG/DL (0.50-1.00); GLOMERULAR FILTRATION RATE 38 ML/MIN (>89); GLUCOSE,RANDOM 103 MG/DL (74-106); MAGNESIUM 2.5 MG/DL (1.5-2.5); SODIUM (NA) 142 MEQ/L (136-145)
[2017-09-08 10:09] LABS: ALKALINE PHOSPHATASE 80 U/L (45-117); ALT (GPT) 16 U/L (10-53); FREE T4 1.51 NG/DL (0.76-1.46); PHOSPHORUS 2.2 MG/DL (2.5-4.9); TOTAL BILIRUBIN ADULT 0.5 MG/DL (0.2-1.0); TOTAL PROTEIN 6.1 GM/DL (6.4-8.2)
[2017-09-08 12:00] VITALS: BP 128/83; PULSE 103; RESP 18; TEMP 97.2; O2SAT 98
[2017-09-08 12:08] VITALS: PULSE 100
--- NOTE | 2017-09-08 13:50 | HHI.PR ---
Subjective Remarks This is an 86-year-old female with history of CAD, COPD, hypertension, hypothyroidism and diverticular disease who presented to the ER for evaluation of rectal bleeding. The patient at the moment of my interview states that she does not remember why she came to the hospital, although she could tell me that she felt sick and then she was brought to the hospital. As per ED documentation the patient told them that she noticed dark red blood early yesterday evening. Reported as a lot of clots in her rectum. The patient takes baby aspirin and Plavix as well at home. As per ED report the patient has had rectal bleeding in the past but she does not know why she has a rectal bleeding. The patient denies currently abdominal pain, nausea vomiting. The patient states that she feels very hungry and would like to eat. Patient denies chest pain or shortness of breath. 5-31 No overnight events, no further bleeding. Denies abdominal pain, nausea or vomiting. Has not eaten since this morning. Hemoglobin dropped from 8.7 serially down to 7.5. Denies shortness of breath but feels tired HAD EGD AND COLONOSCOPY WITH GI 6-1 86-year-old female with history of dementia who presented with GI bleeding. She is somewhat confused today about why her put her in the hospital without consulting the family, but she is suffering with dementia and I believe she has her story wrong. She cannot recall that she had a colonoscopy yesterday. 6-2 86-year-old female with dementia who came in with GI bleeding. She required transfusions while she was here. Most recent transfusion was yesterday hemoglobin appears stable today. Patient expresses no complaints today. 6-3 REMAINS CONFUSED HEMOGLOBIN DROPPED HAS COUGH STOP FLUIDS AM LABS DW RN AND PT 6-4 LESS CONFUSED WANTS TO GO HOME TODAY DW RN AND PT Objective Vitals Vital Signs Date Time Temp Pulse Resp B/P (MAP) Pulse Ox O2 Delivery O2 Flow Rate FiO2 09/08/17 12:00 97.2 103 18 128/83 (98) 98 09/08/17 08:00 97.5 96 18 141/90 (107) 98 09/08/17 04:31 101 09/08/17 04:00 Room Air 09/08/17 04:00 97.3 90 18 133/84 (100) 96 09/08/17 00:00 97.4 88 18 120/72 (88) 97 09/08/17 00:00 Room Air 09/07/17 23:50 101 09/07/17 20:06 101 09/07/17 20:00 Room Air 09/07/17 20:00 97.2 108 18 135/95 (108) 98 09/07/17 16:00 96 09/07/17 16:00 97.4 99 18 134/80 (98) 98 I/O 09/07/17 09/07/17 09/07/17 09/08/17 09/08/17 09/08/17 07:00 15:00 23:00 07:00 15:00 23:00 Intake Total 460 ml 480 ml 120 ml Output Total 800 ml Balance -340 ml 480 ml 120 ml Intake Oral 460 ml 480 ml 120 ml Output Urine Total 800 ml # Voids 2 1 # Bowel Movements 0 1 Result Diagram: 09/08/17 0836 09/08/17 0836 Other Results Laboratory Tests Test 09/06/17 06:08 09/07/17 07:00 09/08/17 08:36 White Blood Count 7.3 TH/MM3 5.9 TH/MM3 Red Blood Count 3.38 MIL/MM3 3.45 MIL/MM3 Hemoglobin 10.6 GM/DL 8.9 GM/DL 10.8 GM/DL Hematocrit 31.0 % 25.9 % 32.4 % Mean Corpuscular Volume 91.9 FL 93.9 FL Mean Corpuscular Hemoglobin 31.5 PG 31.2 PG Mean Corpuscular Hemoglobin Concent 34.2 % 33.2 % Red Cell Distribution Width 15.5 % 15.6 % Platelet Count 198 TH/MM3 250 TH/MM3 Mean Platelet Volume 8.7 FL 9.0 FL Neutrophils (%) (Auto) 70.9 % 68.0 % Lymphocytes (%) (Auto) 12.6 % 14.0 % Monocytes (%) (Auto) 12.3 % 11.8 % Eosinophils (%) (Auto) 3.0 % 4.4 % Basophils (%) (Auto) 1.2 % 1.8 % Neutrophils # (Auto) 5.2 TH/MM3 4.0 TH/MM3 Lymphocytes # (Auto) 0.9 TH/MM3 0.8 TH/MM3 Monocytes # (Auto) 0.9 TH/MM3 0.7 TH/MM3 Eosinophils # (Auto) 0.2 TH/MM3 0.3 TH/MM3 Basophils # (Auto) 0.1 TH/MM3 0.1 TH/MM3 CBC Comment DIFF FINAL DIFF FINAL Differential Comment Blood Urea Nitrogen 17 MG/DL 17 MG/DL Creatinine 1.15 MG/DL 1.32 MG/DL Random Glucose 108 MG/DL 103 MG/DL Calcium Level 7.9 MG/DL 8.3 MG/DL Sodium Level 145 MEQ/L 142 MEQ/L Potassium Level 4.3 MEQ/L 3.9 MEQ/L Chloride Level 115 MEQ/L 114 MEQ/L Carbon Dioxide Level 19.3 MEQ/L 17.2 MEQ/L Anion Gap 11 MEQ/L 11 MEQ/L Estimat Glomerular Filtration Rate 45 ML/MIN 38 ML/MIN Total Protein 6.1 GM/DL Albumin 3.0 GM/DL Phosphorus Level 2.2 MG/DL Magnesium Level 2.5 MG/DL Alkaline Phosphatase 80 U/L Aspartate Amino Transf (AST/SGOT) 25 U/L Alanine Aminotransferase (ALT/SGPT) 16 U/L Total Bilirubin 0.5 MG/DL Free Thyroxine 1.51 NG/DL Thyroid Stimulating Hormone 3rd Gen 5.730 uIU/ML Imaging Last Impressions Abdomen/Pelvis CT 09/03/17 8930 Signed Impressions: CONCLUSION: 1. Multifocal diverticuli sigmoid colon without diverticulitis, likely source of the bleeding 2. Perirectal tissues appear intact 3. Cardiomegaly with trace pericardial effusion and pacer 4. Large bilateral renal cysts. Objective Remarks GENERAL: Alert and oriented 1 person talkative and cooperative but confused SKIN: Warm and dry. HEAD: Atraumatic. Normocephalic. EYES: Pupils equal and round. No scleral icterus. No injection or drainage. Extraocular muscles intact ENT: No nasal bleeding or discharge. Mucous membranes pink and moist. Tongue is midline NECK: Trachea midline. No JVD. Supple CARDIOVASCULAR: Regular rate and rhythm. S1-S2 no S3 or S4 RESPIRATORY: No accessory muscle use. Clear to auscultation. Breath sounds equal bilaterally. Decreased breath sounds bilaterally GASTROINTESTINAL: Abdomen soft, non-tender, nondistended. Hepatic and splenic margins not palpable. MUSCULOSKELETAL: Extremities without clubbing, cyanosis, or edema. No obvious deformities. NEUROLOGICAL: Awake and alert. No obvious cranial nerve deficits. Motor grossly within normal limits. 4 out of 5 muscle strength in the arms and legs. Normal speech. PSYCHIATRIC: INAppropriate mood and affect; insight and judgment ABnormal. Procedures EGD AND COLONOSCOPY ON 09-04 COLONOSCOPY PROCEDURE REPORT EXAM DATE: 09/04/2017 PATIENT NAME: Afia Wells MR #: [id number] BIRTHDATE: 1930 ENDOSCOPIST: Lorrie Finney MD ORDER #: [id number] E BUSINESS CONSULTANT: Madelyn Griffiths STATUS: inpatient INDICATIONS: The patient is a 86 yr old female here for a colonoscopy due to hematochezia PROCEDURE PERFORMED: Colonoscopy, diagnostic MEDICATIONS: None and Per Anesthesia. PREP QUALITY: inadequate PREP TYPE:GoLytely ESTIMATED BLOOD LOSS: None CONSENT: The patient understands the risks and benefits of the procedure and understands that these risks include, but are not limited to: sedation, allergic reaction, infection, perforation and/or bleeding. Alternative means of evaluation and treatment include, among others: physical exam, x-rays, and/or surgical intervention. The patient elects to proceed with this endoscopic procedure. medical equipment was checked for proper function. Hand hygiene and appropriate measures for infection prevention was taken. After the risks, benefits and alternatives of the procedure were thoroughly explained, Informed consent was verified, confirmed and timeout was successfully executed by the treatment team. A digital exam revealed external hemorrhoids The Pentax [id number] endoscope was introduced through the anus and advanced to the cecum, which was identified by both the appendix and ileocecal valve. The instrument was then slowly withdrawn as the colon was fully examined. COLON FINDINGS: Severe diverticulosis was noted in the sigmoid colon. No bleeding was noted from the diverticulosis. Very poor prep throughout, no colitis seen. Retroflexed views revealed internal hemorrhoids and Retroflexed views revealed small internal hemorrhoids The scope was then completely withdrawn from the patient and the procedure terminated. PROCEDURE WITHDRAWAL TIME:10minutes ADVERSE EVENTS: There were no complications. IMPRESSIONS: 1. Severe diverticulosis was noted in the sigmoid colon 2. Very poor prep throughout, no colitis seen 3. Retroflexed views revealed internal hemorrhoids 4. Retroflexed views revealed small internal hemorrhoids 5. Revealed external hemorrhoids RECOMMENDATIONS: 1. Benefiber 2 tsp daily 2. Continue surveillance 3. Yearly hemoccult 4. High fiber diet 5. No seeds, nuts and popcorn in diet RECALL: Return 1 month Colonoscopy ---EGD PROCEDURE REPORT EXAM DATE: 09/04/2017 PATIENT NAME: Afia Wells MR #: [id number] BIRTHDATE: 1930 ATTENDING: Lorrie Finney MD ORDER #: [id number] E BUSINESS CONSULTANT: Madelyn Griffiths STATUS: inpatient INDICATIONS: The patient is a 86 yr old female here for an EGD due to hematochezia PROCEDURE PERFORMED: EGD, diagnostic MEDICATIONS: None and Per Anesthesia. TOPICAL ANESTHETIC: CONSENT: The patient understands the risks and benefits of the procedure and understands that these risks include, but are not limited to: sedation, allergic reaction, infection, perforation and/or bleeding. Alternative means of evaluation and treatment include, among others: physical exam, x-rays, and/or surgical intervention. The patient elects to proceed with this endoscopic procedure. medical equipment was checked for proper function. Hand hygiene and appropriate measures for infection prevention was taken. After the risks, benefits and alternatives of the procedure were thoroughly explained, Informed consent was verified, confirmed and timeout was successfully executed by the treatment team. The patient was anesthetized with topical anesthesia and the [id number] (Pedi C) endoscope was introduced through the mouth and advanced to the second portion of the duodenum. Retroflexed views revealed a hiatal hernia The gastroscope was then slowly withdrawn and removed. ESOPHAGUS: The mucosa of the esophagus appeared normal. STOMACH: There was mild gastritis in the gastric antrum. DUODENUM: Moderate duodenal inflammation was found in the bulb and second portion of the duodenum. ADVERSE EVENTS: There were no complications. IMPRESSIONS: 1. The esophagus appeared normal 2. There was mild gastritis in the gastric antrum 3. Duodenal inflammation was found in the bulb and second portion of the duodenum 4. Retroflexed views revealed a hiatal hernia RECOMMENDATIONS: 1. Anti-reflux regimen 2. Continue PPI 3. Avoid NSAIDS PATIENT CONDITION: stable DISPOSITION: Inpatient REPEAT EXAM: Return 3 years EGD Medications and IVs Current Medications Sodium Chloride (NS Flush) 2 ml UNSCH PRN IV FLUSH FLUSH AFTER USING IV ACCESS ; Start 09/03/17 at 07:30; Stop 09/03/17 at 12:00; Status DC Sodium Chloride 1,000 ml @ 75 mls/hr [id number] IV Last administered on 01:49; Start 09/03/17 at 11:25; Stop 09/04/17 at 12:17; Status DC Sodium Chloride (NS Flush) 2 ml UNSCH PRN IV FLUSH FLUSH AFTER USING IV ACCESS ; Start 09/03/17 at 11:30 Sodium Chloride (NS Flush) 2 ml BID IV FLUSH Last administered on 09/08/17 09: 27; Start 09/03/17 at 21:00 Acetaminophen (Tylenol) 650 mg Q4H PRN PO TEMP > 100.4, pain 1 TO 10 Last administered on 09/07/17 13:14; Start 09/03/17 at 11:30 Ondansetron HCl (Zofran Odt) 4 mg Q6H PRN PO NAUSEA OR VOMITING; Start at 11:30 Naloxone HCl (Narcan Inj) 0.4 mg UNSCH PRN IV PUSH SEE LABEL COMMENTS; Start at 11:30 Polyethylene Glycol/ Electrolytes (Colyte Liq) 4,000 ml ONCE ONCE PO Last administered on 09/03/17 16:07; Start 09/03/17 at 16:00; Stop 09/03/17 at 16:01 ; Status DC Pantoprazole Sodium (Protonix Inj) 40 mg Q12H IV PUSH Last administered on 01:16; Start 09/03/17 at 14:00 Levothyroxine Sodium (Synthroid) 25 mcg DAILY@0600 PO Last administered on 06:24; Start 09/04/17 at 06:00 Montelukast Sodium (Singulair Chew) 4 mg HS CHEW Last administered on 09/07/17 21:08; Start 09/03/17 at 21:00 Pravastatin Sodium (Pravachol) 40 mg HS PO Last administered on 09/07/17 21:08 ; Start 09/03/17 at 21:00 Budesonide/ Formoterol Fumarate (Symbicort 80-4.5 Mcg Inh) 1 puff BID INH Last administered on 09/08/17 09:27; Start 09/03/17 at 21:00 Magnesium Citrate (Citroma Liq) 300 ml ONCE ONCE PO Last administered on 20:15; Start 09/03/17 at 20:15; Stop 09/03/17 at 20:16; Status DC Magnesium Citrate (Citroma Liq) 300 ml ONCE ONCE PO Last administered on at 21:47; Start 09/03/17 at 22:00; Stop 09/03/17 at 22:01; Status DC Lactated Ringer's 1,000 ml @ 30 mls/hr Q24H PRN IV SEE LABEL COMMENTS; Start at 01:15; Stop 09/07/17 at 01:14; Status DC Sodium Chloride 500 ml @ 30 mls/hr [id number] PRN IV SEE LABEL COMMENTS; Start at 01:15; Stop 09/07/17 at 01:14; Status DC Povidone Iodine (Betadine 5% Antisepsis Kit) 1 applic SPECK DYER PRN EACH NARE SEE LABEL COMMENTS; Start 09/04/17 at 01:15; Stop 09/07/17 at 01:14; Status DC Chlorhexidine Gluconate (Chlorhexidine 2% Cloth) 3 pack SPECK DYER PRN TOPICAL SEE LABEL COMMENTS; Start 09/04/17 at 01:15; Stop 09/07/17 at 01:14; Status DC Sodium Chloride 250 ml @ 15 mls/hr ONCE ONCE IV Last administered on at 12:44; Start 09/04/17 at 12:15; Stop 09/05/17 at 04:54; Status DC Sodium Chloride 1,000 ml @ 84 mls/hr [id number] IV Last administered on 09/07/17at 03:12; Start 09/04/17 at 12:30; Stop 09/07/17 at 12:25; Status DC Metronidazole (Flagyl) 500 mg Q8HR PO Last administered on 09/08/17at 06:24; Start 09/04/17 at 14:45; Stop 09/08/17 at 21:59 Alprazolam (Xanax) 0.25 mg Q8HR PO ; Start 09/04/17 at 22:00; Stop 09/04/17 at 22:00; Status DC Alprazolam (Xanax) 0.25 mg HS PRN PO agitation Last administered on 09/07/17at 21 :08; Start 09/04/17 at 17:00 Vancomycin HCl (VANCOMYCIN for oral use only) 125 mg QID PO Last administered on 09/08/17at 09:26; Start 09/05/17 at 13:00 Lidocaine HCl (Xylocaine-Mpf 1% Inj) 5 ml STK-MED ONCE OTHER ; Start 09/04/17 at 12:00; Stop 09/08/17 at 12:27; Status DC Phenylephrine HCl (Neosynephrine/ NS 1000 Mcg/10ml Syr) 1,000 mcg STK-MED ONCE IV ; Start 09/04/17 at 12:00; Stop 09/08/17 at 12:27; Status DC Propofol (Diprivan 200 Mg/20 ml Inj) 200 mg STK-MED ONCE IV ; Start 09/04/17 at 12:00; Stop 09/08/17 at 12:27; Status DC A/P Problem List: (1) GI bleeding ICD Code: K92.2 - Gastrointestinal hemorrhage, unspecified Status: Acute (2) DIONICIO (acute kidney injury) ICD Code: N17.9 - Acute kidney failure, unspecified (3) Hypertension ICD Code: I10 - Essential (primary) hypertension Status: Chronic (4) Coronary artery disease ICD Code: I25.10 - Atherosclerotic heart disease of [place] coronary artery without angina pectoris Status: Chronic (5) Mild dementia ICD Code: F03.90 - Unspecified dementia without behavioral disturbance Status: Chronic (6) Hypothyroidism ICD Code: E03.9 - Hypothyroidism, unspecified (7) Hyperlipemia ICD Code: E78.5 - Hyperlipidemia, unspecified (8) s/p PCI LAD/ Circ Status: Chronic Assessment and Plan 86-year-old female who presented with melena GI bleed, anemia Patient received 2 units of packed red blood cells which brought her from 7.4 to 9.0, blood dropped again to 7.4 requiring transfusion of 2 additional units Hemoglobin level this morning is 10.6 EGD shows mild gastritis with duodenal inflammation Colonoscopy shows diverticulosis without evidence for gastritis (poor prep) If hemoglobin remains stable she is ready for discharge, GI signed off today Follow H&H in the a.m. h/o HTN Continue home meds Clonidine prn Moderate dementia Continue home meds Hypothyroidism Continue Synthroid at home dose DVT prophylaxis SCDs (no anticoagulants due to recurrent GI bleed) Discharge planning Patient has been cleared for discharge from GI standpoint if hemoglobin remains stable in the a.m. Uncertain if patient is going home or to [facility] DW RN AND PT DC TO J[facility]?/ HOME Discharge Planning DC TO home or to [facility] Problem Qualifiers (1) GI bleeding: Qualified Codes: K92.1 - Melena (2) Hypertension: Qualified Codes: I10 - Essential (primary) hypertension (3) Coronary artery disease: Qualified Codes: I25.10 - Atherosclerotic heart disease of [place] coronary artery without angina pectoris (4) Hyperlipemia: Qualified Codes: E78.5 - Hyperlipidemia, unspecified Gael Jolley DO Sep 08, 2017 13:49
[2017-09-08] MEDS ORDERED: FURO1TAB60 PO (14:00)
[2017-09-08] MEDS ORDERED: ASPI81TA23 PO (14:00)
[2017-09-08] MEDS ORDERED: FERR325T18 PO (14:00)
[2017-09-08] MEDS ORDERED: METO25TA3 PO (14:00)
[2017-09-08] MEDS ORDERED: LISI10TA3 PO (14:00)
[2017-09-08] MEDS ORDERED: MONT4CHW4 CHEW (14:00)
[2017-09-08] MEDS ORDERED: ALPR.25 PO (14:00)
[2017-09-08] MEDS ORDERED: AMLO5TAB2 PO (14:00)
[2017-09-08] MEDS ORDERED: SYNT25TA PO (14:00)
[2017-09-08] MEDS ORDERED: ISOS30TA3 PO (14:00)
[2017-09-08] MEDS ORDERED: DOCU1CAP39 PO (14:00)
[2017-09-08] MEDS ORDERED: ALBUAER3 INH (14:00)
[2017-09-08] MEDS ORDERED: METR-1 PO (14:00)
[2017-09-08] MEDS ORDERED: PRAV40TA2 PO (14:00)
[2017-09-08] MEDS ORDERED: Budeson-Formot 80-4.5 Mcg Inh INH (14:00)
[2017-09-08] MEDS ORDERED: VANC1CAP6 PO (14:00)
[2017-09-08] MEDS ORDERED: PROT40TA PO (14:00)
[2017-09-08] MEDS ORDERED: PLAV75TA29 PO (14:00)
--- NOTE | 2017-09-08 14:29 | HHI.FF ---
Face to Face Verification Diagnosis: (1) S/P implantation of automatic cardioverter/defibrillator (AICD) (2) s/p PCI LAD/ Circ (3) Mild dementia (4) DIONICIO (acute kidney injury) (5) Hypertension (6) Hypothyroidism (7) Hyperlipemia (8) Coronary artery disease (9) GI bleeding (10) decompensated chf Physical Therapy Order: Evaluate and Treat, Improve ambulation, Strength and gait training Occupational Therapy Order: Evaluate and Treat, Improve ADL, Gross motor coordination, Fine motor coordination Home Health Nursing Order: Medical education Signs/symptoms of disease process CHF education Nursing assessment with vital signs I have seen patient Afia Wells on 09/08/17. My clinical findings support the need for the requested home health care services because: Ltd mobility - disease progression Deconditioned w/ increased weakness Med compliance is questionable I certify that my clinical findings support that this patient is homebound because: Impaired cognitive ability/safety Unsteady gait/balance Gael Jolley DO Sep 08, 2017 14:29
--- NOTE | 2017-09-08 14:32 | HHI.DS ---
Discharge Summary Admission Date September 03, 2017 at 09:28 Discharge Date: Sep 08, 2017 Admitting Diagnosis GI Bleed (1) GI bleeding ICD Code: K92.2 - Gastrointestinal hemorrhage, unspecified Diagnosis: Principal Status: Acute (2) DIONICIO (acute kidney injury) ICD Code: N17.9 - Acute kidney failure, unspecified Diagnosis: Principal (3) Hypertension ICD Code: I10 - Essential (primary) hypertension Diagnosis: Secondary Status: Chronic (4) Coronary artery disease ICD Code: I25.10 - Atherosclerotic heart disease of [place] coronary artery without angina pectoris Diagnosis: Principal Status: Chronic (5) Mild dementia ICD Code: F03.90 - Unspecified dementia without behavioral disturbance Diagnosis: Secondary Status: Chronic (6) Hypothyroidism ICD Code: E03.9 - Hypothyroidism, unspecified Diagnosis: Secondary (7) Hyperlipemia ICD Code: E78.5 - Hyperlipidemia, unspecified Diagnosis: Secondary (8) s/p PCI LAD/ Circ Diagnosis: Secondary Status: Chronic Procedures EGD AND COLONOSCOPY ON 09-04 COLONOSCOPY PROCEDURE REPORT EXAM DATE: 09/04/2017 PATIENT NAME: Afia Wells MR #: [id number] BIRTHDATE: 1930 ENDOSCOPIST: Lorrie Finney MD ORDER #: [id number] DISPENSARY TECHNICIAN: Madelyn Griffiths STATUS: inpatient INDICATIONS: The patient is a 86 yr old female here for a colonoscopy due to hematochezia PROCEDURE PERFORMED: Colonoscopy, diagnostic MEDICATIONS: None and Per Anesthesia. PREP QUALITY: inadequate PREP TYPE:GoLytely ESTIMATED BLOOD LOSS: None CONSENT: The patient understands the risks and benefits of the procedure and understands that these risks include, but are not limited to: sedation, allergic reaction, infection, perforation and/or bleeding. Alternative means of evaluation and treatment include, among others: physical exam, x-rays, and/or surgical intervention. The patient elects to proceed with this endoscopic procedure. medical equipment was checked for proper function. Hand hygiene and appropriate measures for infection prevention was taken. After the risks, benefits and alternatives of the procedure were thoroughly explained, Informed consent was verified, confirmed and timeout was successfully executed by the treatment team. A digital exam revealed external hemorrhoids The Pentax [id number] endoscope was introduced through the anus and advanced to the cecum, which was identified by both the appendix and ileocecal valve. The instrument was then slowly withdrawn as the colon was fully examined. COLON FINDINGS: Severe diverticulosis was noted in the sigmoid colon. No bleeding was noted from the diverticulosis. Very poor prep throughout, no colitis seen. Retroflexed views revealed internal hemorrhoids and Retroflexed views revealed small internal hemorrhoids The scope was then completely withdrawn from the patient and the procedure terminated. PROCEDURE WITHDRAWAL TIME:10minutes ADVERSE EVENTS: There were no complications. IMPRESSIONS: 1. Severe diverticulosis was noted in the sigmoid colon 2. Very poor prep throughout, no colitis seen 3. Retroflexed views revealed internal hemorrhoids 4. Retroflexed views revealed small internal hemorrhoids 5. Revealed external hemorrhoids RECOMMENDATIONS: 1. Benefiber 2 tsp daily 2. Continue surveillance 3. Yearly hemoccult 4. High fiber diet 5. No seeds, nuts and popcorn in diet RECALL: Return 1 month Colonoscopy ---EGD PROCEDURE REPORT EXAM DATE: 09/04/2017 PATIENT NAME: Afia Wells MR #: [id number] BIRTHDATE: 1930 ATTENDING: Lorrie Finney MD ORDER #: [id number] DISPENSARY TECHNICIAN: Madelyn Griffiths STATUS: inpatient INDICATIONS: The patient is a 86 yr old female here for an EGD due to hematochezia PROCEDURE PERFORMED: EGD, diagnostic MEDICATIONS: None and Per Anesthesia. TOPICAL ANESTHETIC: CONSENT: The patient understands the risks and benefits of the procedure and understands that these risks include, but are not limited to: sedation, allergic reaction, infection, perforation and/or bleeding. Alternative means of evaluation and treatment include, among others: physical exam, x-rays, and/or surgical intervention. The patient elects to proceed with this endoscopic procedure. medical equipment was checked for proper function. Hand hygiene and appropriate measures for infection prevention was taken. After the risks, benefits and alternatives of the procedure were thoroughly explained, Informed consent was verified, confirmed and timeout was successfully executed by the treatment team. The patient was anesthetized with topical anesthesia and the [id number] (Pedi C) endoscope was introduced through the mouth and advanced to the second portion of the duodenum. Retroflexed views revealed a hiatal hernia The gastroscope was then slowly withdrawn and removed. ESOPHAGUS: The mucosa of the esophagus appeared normal. STOMACH: There was mild gastritis in the gastric antrum. DUODENUM: Moderate duodenal inflammation was found in the bulb and second portion of the duodenum. ADVERSE EVENTS: There were no complications. IMPRESSIONS: 1. The esophagus appeared normal 2. There was mild gastritis in the gastric antrum 3. Duodenal inflammation was found in the bulb and second portion of the duodenum 4. Retroflexed views revealed a hiatal hernia RECOMMENDATIONS: 1. Anti-reflux regimen 2. Continue PPI 3. Avoid NSAIDS PATIENT CONDITION: stable DISPOSITION: Inpatient REPEAT EXAM: Return 3 years EGD Brief History - From Admission This is an 86-year-old female with history of CAD, COPD, hypertension, hypothyroidism and diverticular disease who presented to the ER for evaluation of rectal bleeding. The patient at the moment of my interview states that she does not remember why she came to the hospital, although she could tell me that she felt sick and then she was brought to the hospital. As per ED documentation the patient told them that she noticed dark red blood early yesterday evening. Reported as a lot of clots in her rectum. The patient takes baby aspirin and Plavix as well at home. As per ED report the patient has had rectal bleeding in the past but she does not know why she has a rectal bleeding. The patient denies currently abdominal pain, nausea vomiting. The patient states that she feels very hungry and would like to eat. Patient denies chest pain or shortness of breath. CBC/BMP: 09/08/17 0836 09/08/17 0836 Significant Findings Laboratory Tests Test 09/06/17 06:08 09/07/17 07:00 09/08/17 08:36 Red Blood Count 3.38 MIL/MM3 (4.00-5.30) 3.45 MIL/MM3 (4.00-5.30) Hemoglobin 10.6 GM/DL (11.6-15.3) 8.9 GM/DL (11.6-15.3) 10.8 GM/DL (11.6-15.3) Hematocrit 31.0 % (35.0-46.0) 25.9 % (35.0-46.0) 32.4 % (35.0-46.0) Neutrophils (%) (Auto) 70.9 % (16.0-70.0) Monocytes (%) (Auto) 12.3 % (0.0-8.0) 11.8 % (0.0-8.0) Lymphocytes # (Auto) 0.9 TH/MM3 (1.0-4.8) 0.8 TH/MM3 (1.0-4.8) Creatinine 1.15 MG/DL (0.50-1.00) 1.32 MG/DL (0.50-1.00) Random Glucose 108 MG/DL (74-106) Calcium Level 7.9 MG/DL (8.5-10.1) 8.3 MG/DL (8.5-10.1) Chloride Level 115 MEQ/L (98-107) 114 MEQ/L (98-107) Carbon Dioxide Level 19.3 MEQ/L (21.0-32.0) 17.2 MEQ/L (21.0-32.0) Estimat Glomerular Filtration Rate 45 ML/MIN (>89) 38 ML/MIN (>89) Eosinophils (%) (Auto) 4.4 % (0.0-4.0) Total Protein 6.1 GM/DL (6.4-8.2) Albumin 3.0 GM/DL (3.4-5.0) Phosphorus Level 2.2 MG/DL (2.5-4.9) Free Thyroxine 1.51 NG/DL (0.76-1.46) Thyroid Stimulating Hormone 3rd Gen 5.730 uIU/ML (0.358-3.740) Imaging Last Impressions Abdomen/Pelvis CT 09/03/17 1405 Signed Impressions: CONCLUSION: 1. Multifocal diverticuli sigmoid colon without diverticulitis, likely source of the bleeding 2. Perirectal tissues appear intact 3. Cardiomegaly with trace pericardial effusion and pacer 4. Large bilateral renal cysts. PE at Discharge GENERAL: Alert and oriented 1 person talkative and cooperative but confused SKIN: Warm and dry. HEAD: Atraumatic. Normocephalic. EYES: Pupils equal and round. No scleral icterus. No injection or drainage. Extraocular muscles intact ENT: No nasal bleeding or discharge. Mucous membranes pink and moist. Tongue is midline NECK: Trachea midline. No JVD. Supple CARDIOVASCULAR: Regular rate and rhythm. S1-S2 no S3 or S4 RESPIRATORY: No accessory muscle use. Clear to auscultation. Breath sounds equal bilaterally. Decreased breath sounds bilaterally GASTROINTESTINAL: Abdomen soft, non-tender, nondistended. Hepatic and splenic margins not palpable. MUSCULOSKELETAL: Extremities without clubbing, cyanosis, or edema. No obvious deformities. NEUROLOGICAL: Awake and alert. No obvious cranial nerve deficits. Motor grossly within normal limits. 4 out of 5 muscle strength in the arms and legs. Normal speech. PSYCHIATRIC: INAppropriate mood and affect; insight and judgment ABnormal. Hospital Course This is an 86-year-old female with history of CAD, COPD, hypertension, hypothyroidism and diverticular disease who presented to the ER for evaluation of rectal bleeding. The patient at the moment of my interview states that she does not remember why she came to the hospital, although she could tell me that she felt sick and then she was brought to the hospital. As per ED documentation the patient told them that she noticed dark red blood early yesterday evening. Reported as a lot of clots in her rectum. The patient takes baby aspirin and Plavix as well at home. As per ED report the patient has had rectal bleeding in the past but she does not know why she has a rectal bleeding. The patient denies currently abdominal pain, nausea vomiting. The patient states that she feels very hungry and would like to eat. Patient denies chest pain or shortness of breath. 5-31 No overnight events, no further bleeding. Denies abdominal pain, nausea or vomiting. Has not eaten since this morning. Hemoglobin dropped from 8.7 serially down to 7.5. Denies shortness of breath but feels tired HAD EGD AND COLONOSCOPY WITH GI 6-1 86-year-old female with history of dementia who presented with GI bleeding. She is somewhat confused today about why her put her in the hospital without consulting the family, but she is suffering with dementia and I believe she has her story wrong. She cannot recall that she had a colonoscopy yesterday. 6-2 86-year-old female with dementia who came in with GI bleeding. She required transfusions while she was here. Most recent transfusion was yesterday hemoglobin appears stable today. Patient expresses no complaints today. 6-3 REMAINS CONFUSED HEMOGLOBIN DROPPED HAS COUGH STOP FLUIDS AM LABS DW RN AND PT 6-4 LESS CONFUSED WANTS TO GO HOME TODAY DW RN AND PT Pt Condition on Discharge: Good Discharge Disposition: [facility] with [facility] Discharge Time: > 30 minutes Discharge Instructions DIET: Follow Instructions for: Heart Healthy Diet, Diabetic Diet Speech Therapy-Diet Recommends: Regular Activities you can perform: Weight Bearing as Sofia Follow up Referrals: Gastroenterology - 2 Weeks with Lorrie Finney MD PCP Follow-up - 2-3 Days New Medications: Pantoprazole (Protonix) 40 Mg Tab 40 MG PO BID for Reflux, #60 TAB 0 Refills Vancomycin (Vancocin) 125 Mg Cap 125 MG PO QID for Infection for 14 Days, #56 CAP 0 Refills Alprazolam (Xanax) 0.25 Mg Tab 0.25 MG PO HS PRN for agitation, #30 TAB Metronidazole (Flagyl) 500 Mg Tab 500 MG PO Q8HR for Infection, #42 TAB [Budeson-Formot 80-4.5 Mcg Inh] () 60 PUFF AERO 1 PUFF INH BID for Breathing Treatment, #1 INH Changed Medications: Albuterol Sulfate (Proair Hfa) 90 Mcg Hfa.aer.ad 2 PUFF INH Q6HR PRN for SHORTNESS OF BREATH, #1 INH (Medication details modified ) Continued Medications: Aspirin DR (Aspirin EC) 81 Mg Tabdr 81 MG PO DAILY for CLOT PREVENTION for 30 Days, #30 TAB 11 Refills (This prescription has been renewed) Docusate Sodium (Dok) 100 Mg Cap 100 MG PO daily for Constipation, #14 CAP (This prescription has been renewed) Ferrous Sulfate (Ferrous Sulfate) 325 Mg (65 Mg Iron) Tablet 325 MG PO BIDPC for Nutritional Supplement, #60 TAB 0 Refills (This prescription has been renewed) Furosemide (Lasix) 40 Mg Tab 40 MG PO DAILY for chf, #30 TAB 0 Refills (This prescription has been renewed) Isosorbide Mononitrate ER (Isosorbide Mononitrate ER) 30 Mg Clare 30 MG PO DAILY for Prevent Chest Pain, #30 TAB 0 Refills (This prescription has been renewed) Levothyroxine (Synthroid) 25 Mcg Tab 0.25 MCG PO DAILY for Thyroid, #30 TAB 0 Refills (This prescription has been renewed) Metoprolol Tartrate (Metoprolol Tartrate) 25 Mg Tab 12.5 MG PO BID for Blood Pressure Management, #60 TAB 3 Refills (This prescription has been renewed) Montelukast (Montelukast) 4 Mg Chew 4 MG CHEW HS for Allergies, #30 TAB 0 Refills (This prescription has been renewed) Pravastatin (Pravastatin) 40 Mg Tab 40 MG PO HS for Cholesterol Management, #30 TAB 0 Refills (This prescription has been renewed) Discontinued Medications: Fluticasone-Salmeterol 12 GM Inh (Advair Hfa 12 GM Inh) 45-21 Mcg/Act Aer 2 PUFF INH BID, #1 INHALER 0 Refills Gael Jolley DO Sep 08, 2017 14:32
[2017-09-08 16:32] LABS: HEMOGLOBIN A1C 5.2 % (4.3-6.0)
== END 2017-09-08 17:02 | DRG 378 ==
LOC: NEPC 07:12 → NEDA 09:28 → N04A 16:03
PROVIDERS: ADMIT Hospitalist; ATTEND Hospitalist
PROC: 0DJD8ZZ Inspection of Lower Intestinal Tract, Via Natural or Artificial Opening Endoscopic (ICD-10-PCS; principal; 2017-09-05)
PROC: 0DJ08ZZ Inspection of Upper Intestinal Tract, Via Natural or Artificial Opening Endoscopic (ICD-10-PCS; 2017-09-05)
PROC: 30233N1 Transfusion of Nonautologous Red Blood Cells into Peripheral Vein, Percutaneous Approach (ICD-10-PCS; 2017-09-05)
DX: K92.1 Melena (principal); N17.9 Acute kidney failure, unspecified; A04.72 Enterocolitis due to Clostridium difficile, not specified as recurrent; F03.90 Unspecified dementia, unspecified severity, without behavioral disturbance, psychotic disturbance, mood disturbance, and anxiety; K57.30 Diverticulosis of large intestine without perforation or abscess without bleeding; I11.0 Hypertensive heart disease with heart failure; I50.9 Heart failure, unspecified; J44.9 Chronic obstructive pulmonary disease, unspecified; K29.70 Gastritis, unspecified, without bleeding; I25.10 Atherosclerotic heart disease of native coronary artery without angina pectoris; E03.9 Hypothyroidism, unspecified; I25.5 Ischemic cardiomyopathy; E86.0 Dehydration; K29.80 Duodenitis without bleeding; D64.9 Anemia, unspecified; K64.8 Other hemorrhoids; K64.4 Residual hemorrhoidal skin tags; E07.9 Disorder of thyroid, unspecified; K21.9 Gastro-esophageal reflux disease without esophagitis; E78.5 Hyperlipidemia, unspecified; E78.00 Pure hypercholesterolemia, unspecified; M19.90 Unspecified osteoarthritis, unspecified site; N28.1 Cyst of kidney, acquired; K44.9 Diaphragmatic hernia without obstruction or gangrene; Z86.73 Personal history of transient ischemic attack (TIA), and cerebral infarction without residual deficits; Z95.810 Presence of automatic (implantable) cardiac defibrillator; Z95.5 Presence of coronary angioplasty implant and graft; Z79.02 Long term (current) use of antithrombotics/antiplatelets; Z79.82 Long term (current) use of aspirin; Z86.010 Personal history of colon polyps
CPT/HCPCS: 36430; 74176; 76937; 80048; 80053; 81001; 83036; 83690; 83735; 84100; 84439; 84443; 85014; 85018; 85025; 85027; 85610; 85730; 86850; 86900; 86901; 86920; 87493; 93005; C9113; J2370; J7030; J7050; P9016

== ENCOUNTER 2017-09-14 18:52 | Emergency (ER) | payer MEDICARE, OTHER ==
[~2017-09-14] VITALS: Ht 147.3 cm; Wt 45.0 kg
[~2017-09-14 18:52] MED LIST changes: -ADVA45AE INH; -ALBUAER3; +ALBUAER3 INH; +ALPR.25 PO; -AMLO5TAB2 PO; +Budeson-Formot 80-4.5 Mcg Inh INH; -LISI10TA3 PO; +METR-1 PO; -PLAV75TA29 PO; +PROT40TA PO; +VANC1CAP6 PO
[2017-09-14 18:59] VITALS: BP 124/74; PULSE 100; RESP 18; TEMP 97.3; O2SAT 99
--- NOTE | 2017-09-14 19:24 | PD ---
HPI Chief Complaint: Respiratory Symptoms Time Seen by Provider: 19:07 Travel History International Travel<30 days: No Contact w/Intl Traveler<30days: No Traveled to known affect area: No History of Present Illness HPI Patient is an 86-year-old female with history of CAD, COPD, hypertension, hypothyroidism, diverticular disease -she was recently admitted to the hospital for GI bleed, presents the emergency room with complaints of cough, congestion and wheezing for the past week. Patient reports that she has not been feeling well for the past week, reports that she has had a productive cough, reports that she has laryngitis, reports concerns for possible pneumonia as her is currently admitted at another hospital for treatment of pneumonia. Patient denies any fever or chills, denies any chest pain, patient does report shortness of breath. Patient reports that she was recently treated for URI and finished a Z-Massimo yesterday. PFSH Past Medical History Arthritis: Yes (mild) Asthma: Yes Anxiety: Yes Depression: Yes Heart Rhythm Problems: No Cancer: No Cardiovascular Problems: Yes High Cholesterol: Yes Chest Pain: No Congestive Heart Failure: Yes COPD: No Cerebrovascular Accident: Yes (TIA (2012)) Dementia: Yes Diabetes: No Diminished Hearing: No Endocrine: Yes Gastrointestinal Disorders: Yes GERD: No Genitourinary: No Headaches: Yes Hiatal Hernia: Yes Hypertension: Yes Immune Disorder: No Implanted Vascular Access Dvce: Yes Musculoskeletal: Yes Neurologic: Yes (dementia) Psychiatric: Yes Reproductive: No Respiratory: Yes Migraines: No Seizures: No Sleep Apnea: No Thyroid Disease: Yes (HYPO) Ulcer: No Tetanus Vaccination: Unknown Influenza Vaccination: Yes ?: Not LMP: menapause Past Surgical History Abdominal Surgery: No AICD: Yes Arteriovenous Shunt: No Cardiac Surgery: Yes (AICD/pacer, stent (2018)) Ear Surgery: No Endocrine Surgery: No Eye Surgery: No Genitourinary Surgery: No Gynecologic Surgery: No Insulin Pump: No Joint Replacement: No Neurologic Surgery: No Oral Surgery: No Pacemaker: Yes Thoracic Surgery: No Other Surgery: Yes (AICD/pacer, neck) Social History Alcohol Use: No Tobacco Use: No Substance Use: No Allergies-Medications (Allergen,Severity, Reaction): Coded Allergies: Penicillins (Verified Allergy, Severe, Anaphylaxis, 09/14/17) Reported Meds & Prescriptions Reported Meds & Active Scripts Active Proair Hfa 8.5 GM Inh (Albuterol Sulfate) 90 Mcg/Act Aer 2 Puff INH Q4-6H PRN 108 mcg/actuation Prednisone 20 Mg Tab 20 Mg PO BID 5 Days Vancocin (Vancomycin HCl) 125 Mg Cap 125 Mg PO QID 14 Days Xanax (Alprazolam) 0.25 Mg Tab 0.25 Mg PO HS PRN [Budeson-Formot 80-4.5 Mcg Inh] 60 PUFF Aero 1 Puff INH BID Protonix (Pantoprazole Sodium) 40 Mg Tab 40 Mg PO BID Flagyl (Metronidazole) 500 Mg Tab 500 Mg PO Q8HR Lasix (Furosemide) 40 Mg Tab 40 Mg PO DAILY Aspirin EC (Aspirin) 81 Mg Tabdr 81 Mg PO DAILY 30 Days Montelukast (Montelukast Sodium) 4 Mg Chew 4 Mg CHEW HS Isosorbide Mononitrate ER (Isosorbide Mononitrate) 30 Mg Clare 30 Mg PO DAILY Proair Hfa (Albuterol Sulfate) 90 Mcg Hfa.aer.ad 2 Puff INH Q6HR PRN Metoprolol Tartrate 25 Mg Tab 12.5 Mg PO BID Dok (Docusate Sodium) 100 Mg Cap 100 Mg PO DAILY Ferrous Sulfate 325 Mg (65 Mg Iron) Tablet 325 Mg PO BIDPC Pravastatin 40 Mg Tab 40 Mg PO HS Synthroid (Levothyroxine Sodium) 25 Mcg Tab 0.25 Mcg PO DAILY Review of Systems General / Constitutional: No: Fever, Chills Eyes: No: Visual changes HENT: No: Headaches Cardiovascular: No: Chest Pain or Discomfort Respiratory: Positive: Cough, Shortness of Breath, Wheezing Gastrointestinal: No: Abdominal Pain Genitourinary: No: Urgency, Frequency, Dysuria Musculoskeletal: No: Pain Skin: No Rash Neurologic: No: Weakness Psychiatric: No: Depression Endocrine: No: Polydipsia Hematologic/Lymphatic: No: Easy Bruising Physical Exam Narrative GENERAL: Mild distress SKIN: Focused skin assessment warm/dry. HEAD: Atraumatic. Normocephalic. EYES: Pupils equal and round. No scleral icterus. No injection or drainage. ENT: No nasal bleeding or discharge. Mucous membranes pink and moist. NECK: Trachea midline. No JVD. CARDIOVASCULAR: Regular rate and rhythm. No murmur appreciated. RESPIRATORY: No accessory muscle use. Wheezing on exam with rales at lung bases. Breath sounds equal bilaterally. GASTROINTESTINAL: Abdomen soft, non-tender, nondistended. Hepatic and splenic margins not palpable. MUSCULOSKELETAL: No obvious deformities. No clubbing. No cyanosis. No edema. NEUROLOGICAL: Awake and alert. No obvious cranial nerve deficits. Motor grossly within normal limits. Normal speech. PSYCHIATRIC: Appropriate mood and affect; insight and judgment normal. Data Data Last Documented VS Vital Signs Date Time Temp Pulse Resp B/P (MAP) Pulse Ox O2 Delivery O2 Flow Rate FiO2 09/14/17 20:05 Room Air 09/14/17 18:59 97.3 100 18 124/74 (91) 99 Orders Orders Electrocardiogram (09/14/17 19:16) Complete Blood Count With Diff (09/14/17 19:16) Comprehensive Metabolic Panel (09/14/17:16) Influenzae A/B Antigen (09/14/17 19:16) Blood Culture (09/14/17 19:16) Chest, Single Ap (09/14/17:16) Ecg Monitoring (09/14/17 19:16) Iv Access Insert/Monitor (09/14/17 19:16) Oximetry (09/14/17 19:16) Albuterol-Ipratropium Neb (Duoneb Neb) (09/14/17 19:30) Methylprednisolone So Succ Inj (Solumedr (09/14/17 19:30) B-Type Natriuretic Peptide (09/14/17 19:16) Furosemide Inj (Lasix Inj) (09/15/17 09:00) Labs Laboratory Tests Test 09/14/17 19:55 White Blood Count 6.7 TH/MM3 Red Blood Count 3.74 MIL/MM3 Hemoglobin 11.6 GM/DL Hematocrit 35.4 % Mean Corpuscular Volume 94.6 FL Mean Corpuscular Hemoglobin 31.1 PG Mean Corpuscular Hemoglobin Concent 32.9 % Red Cell Distribution Width 15.7 % Platelet Count 280 TH/MM3 Mean Platelet Volume 8.9 FL Neutrophils (%) (Auto) 61.3 % Lymphocytes (%) (Auto) 15.6 % Monocytes (%) (Auto) 18.1 % Eosinophils (%) (Auto) 4.3 % Basophils (%) (Auto) 0.7 % Neutrophils # (Auto) 4.1 TH/MM3 Lymphocytes # (Auto) 1.0 TH/MM3 Monocytes # (Auto) 1.2 TH/MM3 Eosinophils # (Auto) 0.3 TH/MM3 Basophils # (Auto) 0.0 TH/MM3 CBC Comment DIFF FINAL Differential Comment Blood Urea Nitrogen 29 MG/DL Creatinine 1.64 MG/DL Random Glucose 122 MG/DL Total Protein 6.1 GM/DL Albumin 2.8 GM/DL Calcium Level 8.3 MG/DL Alkaline Phosphatase 152 U/L Aspartate Amino Transf (AST/SGOT) 56 U/L Alanine Aminotransferase (ALT/SGPT) 42 U/L Total Bilirubin 0.3 MG/DL Sodium Level 138 MEQ/L Potassium Level 3.7 MEQ/L Chloride Level 108 MEQ/L Carbon Dioxide Level 15.3 MEQ/L Anion Gap 15 MEQ/L Estimat Glomerular Filtration Rate 30 ML/MIN B-Type Natriuretic Peptide GREATER THAN 5000 PG/ML MDM Medical Decision Making Medical Screen Exam Complete: Yes Emergency Medical Condition: Yes Medical Record Reviewed: Yes Interpretation(s) Vital Signs Date Time Temp Pulse Resp B/P (MAP) Pulse Ox O2 Delivery O2 Flow Rate FiO2 09/14/17 18:59 97.3 100 18 124/74 (91) 99 Differential Diagnosis asthma exacerbation, CHF, pneumonia, viral syndrome, influenza Narrative Course Patient is an 86-year-old female who presents the emergency room with complaints of cough, congestion, wheezing for the past 5 days. Patient's has been recently hospitalized for pneumonia, patient concerned that she may have developed pneumonia herself. Vital Signs Date Time Temp Pulse Resp B/P (MAP) Pulse Ox O2 Delivery O2 Flow Rate FiO2 09/14/17 18:59 97.3 100 18 124/74 (91) 99 Vital signs are stable at this time, patient has been pancultured, IV steroids as well as nebulizer treatments were ordered as patient has have wheezing on exam. During the course of the patients emergency department visit, the patients history, examination, and differential diagnosis were reviewed with the patient. The patient was placed on a cardiac cath lab manager with oximetry and frequent blood pressure monitoring. The patient had an IV access obtained and blood work sent for analysis. The patients laboratory studies were reviewed and remarkable for CBC & BMP Diagram 09/14/17 19:55 Total Protein 6.1 L, Albumin 2.8 L, Calcium Level 8.3 L, Alkaline Phosphatase 152 H, Aspartate Amino Transf (AST/SGOT) 56 H, Alanine Aminotransferase (ALT/ SGPT) 42, Total Bilirubin 0.3 cr 1.64 which is elevated from baseline BNP greater than 5000 Radiology studies were reviewed and remarkable for Last Impressions Chest X-Ray 09/14/171915 Signed Impressions: CONCLUSION: Cardiomegaly with mild basilar airspace disease and small effusions. Patient most likely with CHF exacerbation with acute bronchitis. Patient will be given an IV dose of Lasix 60 mg, she has been given steroids as well as neb treatments and is feeling much better this time. I will not start patient on antibiotics as patient is currently being treated for c.diff on vanco and flagyl and recently completed a zpack. Patient is safe to be discharged to home with outpatient follow-up. Signs and symptoms of when to return to the emergency room was reviewed with patient in detail. Diagnosis Primary Impression: Acute exacerbation of CHF (congestive heart failure) Qualified Codes: I50.9 - Heart failure, unspecified Additional Impressions: Bronchitis Renal insufficiency Patient Instructions: General Instructions Additional Instructions: Please provide patient with a copy of their lab work and studies at discharge* * Please follow up with your primary care doctor in 2-3 days Return to the ER if symptoms worsen or progress Return to the ER as needed Med/Other Pt SpecificInfo: Prescription(s) given Scripts Promethazine-Codeine Liq (Promethazine-Codeine Liq) 6.25-10 Mg/5 Ml Syrp 5 ML PO Q6H Y for COUGH AND/OR COLD SYMPTOMS for 7 Days, #140 ML 0 Refills Prov: Celestina Griffith DO 09/14/17 Benzonatate (Tessalon Perles) 100 Mg Cap 200 MG PO TID Y for COUGH, #30 CAP 0 Refills Prov: Celestina Griffith DO 09/14/17 Albuterol 8.5 GM Inh (Proair Hfa 8.5 GM Inh) 90 Mcg/Act Aer 2 PUFF INH Q4-6H Y for SHORTNESS OF BREATH, #1 INHALER 0 Refills 108 mcg/actuation Prov: Celestina Griffith DO 09/14/17 Prednisone (Prednisone) 20 Mg Tab 20 MG PO BID for 5 Days, #10 TAB 0 Refills Prov: Celestina Griffith DO 09/14/17 Disposition: 01 DISCHARGE HOME Condition: Stable Celestina Griffith DO Sep 14, 2017 19:24
[2017-09-14] MEDS: RESP: ALBUTEROL 2.5 MG/IPRATROPIUM 0.5 MG NEB (SCH) INH (19:27)
[2017-09-14] MEDS ORDERED: methylPREDNISolone SOD SUCC 125 MG/2 ML VIAL IV PUSH ONE (19:30)
--- NOTE | 2017-09-14 19:34 | RADRPT ---
EXAM DATE: 09/14/2017 7:28 PM EDT AGE/SEX: 86 years / Female INDICATIONS: Shortness of breath and cough. CLINICAL DATA: This is the patient's initial encounter. Patient reports that signs and symptoms have been present for 1 week and indicates a pain score of 0/10. MEDICAL/SURGICAL HISTORY: Asthma. Congestive heart failure. Pacemaker. Cardiac stent. COMPARISON: [facility], CHEST SINGLE AP, 08/19/2017. . FINDINGS: Pacer leads overlie right atrium and right ventricle and coronary sinus. Heart size enlarged. Mild ba silar airspace disease and small pleural effusions. Findings are similar to August 2017. No pneumothorax . CONCLUSION: Cardiomegaly with mild basilar airspace disease and small effusions. Electronically signed by: Narciso Campbell MD 09/14/2017 7:33 PM EDT
[2017-09-14 20:25] LABS: AUTOMATED NEUTROPHIL # 4.1 TH/MM3 (1.8-7.7); BASOPHIL % 0.7 % (0.0-2.0); EOSINOPHIL # 0.3 TH/MM3 (0-0.4); EOSINOPHIL % 4.3 % (0.0-4.0); HEMATOCRIT 35.4 % (35.0-46.0); HEMOGLOBIN 11.6 GM/DL (11.6-15.3); LYMPH % 15.6 % (9.0-44.0); MEAN CELL VOLUME 94.6 FL (80.0-100.0); MEAN CORPUSCULAR HEMOGLOBIN 31.1 PG (27.0-34.0); MEAN CORPUSCULAR HGB CONC 32.9 % (32.0-36.0); MEAN PLATELET VOLUME 8.9 FL (7.0-11.0); MONO % 18.1 % (0.0-8.0); MONOCYTE # 1.2 TH/MM3 (0-0.9); NEUT % 61.3 % (16.0-70.0); PLATELET COUNT 280 TH/MM3 (150-450); RED BLOOD COUNT 3.74 MIL/MM3 (4.00-5.30); RED CELL DISTRIBUTION WIDTH 15.7 % (11.6-17.2); WHITE BLOOD COUNT 6.7 TH/MM3 (4.0-11.0)
[2017-09-14 20:46] LABS: ALKALINE PHOSPHATASE 152 U/L (45-117); TOTAL BILIRUBIN ADULT 0.3 MG/DL (0.2-1.0); TOTAL PROTEIN 6.1 GM/DL (6.4-8.2)
[2017-09-14 20:48] LABS: ALBUMIN 2.8 GM/DL (3.4-5.0); ALT (GPT) 42 U/L (10-53); AST (GOT) 56 U/L (15-37); BICARBONATE 15.3 MEQ/L (21.0-32.0); BLOOD UREA NITROGEN 29 MG/DL (7-18); CALCIUM 8.3 MG/DL (8.5-10.1); CHLORIDE 108 MEQ/L (98-107); CREATININE 1.64 MG/DL (0.50-1.00); GLOMERULAR FILTRATION RATE 30 ML/MIN (>89); GLUCOSE,RANDOM 122 MG/DL (74-106); SODIUM (NA) 138 MEQ/L (136-145)
[2017-09-14] MEDS ORDERED: ALBUAER3 INH (21:14)
[2017-09-14] MEDS ORDERED: PRED20 PO (21:14)
[2017-09-14] MEDS ORDERED: PROM6.256 PO (21:19)
[2017-09-14] MEDS ORDERED: BENZ100 PO (21:19)
[2017-09-14] MEDS ORDERED: FUROSEMIDE 40 MG/4 ML VIAL IV PUSH ONE (21:30)
[2017-09-15] MEDS ORDERED: FUROSEMIDE 40 MG/4 ML VIAL IV PUSH SCH (09:00)
--- NOTE | 2017-09-15 14:52 | EKG ---
Date Performed: 09/14/2017 Time Performed: 18:29:59 PTAGE: 86 years EKG: Sinus rhythm WITH FREQUENT SUPRAVENTRICULAR PREMATURE COMPLEXES INTRAVENTRICULAR CONDUCTION DELAY ABNORMAL ECG Si nce the PREVIOUS TRACING , no significant change noted PREVIOUS TRACIN09/03/2017 21.09 DOCTOR: Conor Ojeda Interpretating Date/Time 09/15/2017 14:49:27
== END 2017-09-14 21:53 | disposition home or self-care (01) ==
LOC: NEPE 18:52
DX: I50.9 Heart failure, unspecified (principal); J40 Bronchitis, not specified as acute or chronic; N28.9 Disorder of kidney and ureter, unspecified; I51.7 Cardiomegaly; R94.31 Abnormal electrocardiogram [ECG] [EKG]; I11.0 Hypertensive heart disease with heart failure; I25.10 Atherosclerotic heart disease of native coronary artery without angina pectoris; E03.9 Hypothyroidism, unspecified; J44.9 Chronic obstructive pulmonary disease, unspecified; F41.8 Other specified anxiety disorders; F03.90 Unspecified dementia, unspecified severity, without behavioral disturbance, psychotic disturbance, mood disturbance, and anxiety; E78.00 Pure hypercholesterolemia, unspecified; R09.81 Nasal congestion; Z95.810 Presence of automatic (implantable) cardiac defibrillator; Z88.0 Allergy status to penicillin
CPT/HCPCS: 71045; 80053; 83880; 85025; 87040; 87804; 93005; 94640; 94664; 96374; 96375; 99285; J1940; J2930

== ENCOUNTER 2017-09-28 08:27 | Observation (INO) | payer MEDICARE, OTHER ==
[2017-09-28] VITALS (12 sets, daily range): BP systolic 123–150; BP diastolic 72–92; PULSE 90–101; RESP 15–24; TEMP 97.5–98.3; O2SAT 96–99
[~2017-09-28] VITALS: Ht 147.3 cm; Wt 45.0 kg
[~2017-09-28 08:27] MED LIST changes: +BENZ100 PO; +PRED20 PO; +PROM6.256 PO
[2017-09-28] MEDS ORDERED: SODIUM CHLORIDE 0.9% FLUSH 10 ML FLUSH IV FLUSH PRN ×2 (08:45→12:00)
[2017-09-28] MEDS ORDERED: DOCU100C15 PO (09:12)
[2017-09-28] MEDS ORDERED: PLAV75TA29 PO (09:12)
[2017-09-28] MEDS ORDERED: VITA100021 SL (09:12)
[2017-09-28] MEDS ORDERED: REME15TA PO (09:12)
[2017-09-28] MEDS ORDERED: OMEP20TA93 PO (09:12)
[2017-09-28] MEDS ORDERED: LISI10TA3 PO (09:12)
[2017-09-28] MEDS ORDERED: RISP.25 PO (09:12)
[2017-09-28 09:14] LABS: AUTOMATED NEUTROPHIL # 3.7 TH/MM3 (1.8-7.7); BASOPHIL % 0.8 % (0.0-2.0); EOSINOPHIL # 0.2 TH/MM3 (0-0.4); EOSINOPHIL % 4.1 % (0.0-4.0); HEMOGLOBIN 11.9 GM/DL (11.6-15.3); LYMPH % 11.1 % (9.0-44.0); LYMPHOCYTE # 0.6 TH/MM3 (1.0-4.8); MEAN CELL VOLUME 94.9 FL (80.0-100.0); MEAN CORPUSCULAR HEMOGLOBIN 30.5 PG (27.0-34.0); MEAN CORPUSCULAR HGB CONC 32.2 % (32.0-36.0); MEAN PLATELET VOLUME 9.7 FL (7.0-11.0); MONO % 11.6 % (0.0-8.0); MONOCYTE # 0.6 TH/MM3 (0-0.9); NEUT % 72.4 % (16.0-70.0); PLATELET COUNT 173 TH/MM3 (150-450); RED CELL DISTRIBUTION WIDTH 15.9 % (11.6-17.2); WHITE BLOOD COUNT 5.1 TH/MM3 (4.0-11.0)
[2017-09-28 09:20] LABS: INTERNATIONAL NORMALIZED RATIO 1.1 RATIO; PROTHROMBIN TIME - PATIENT 10.8 SEC (9.8-11.6)
--- NOTE | 2017-09-28 09:25 | PD ---
HPI Chief Complaint: GI Complaint Time Seen by Provider: 08:47 Travel History International Travel<30 days: No Contact w/Intl Traveler<30days: No Traveled to known affect area: No History of Present Illness HPI Patient 87-year-old female on Plavix presents emergency department for evaluation of GI bleeding, patient recently admitted to the hospital for similar , had colonoscopy not showing a source of bleeding but very poor prep, she did have some internal hemorrhoids. She had to be transfused on his last admission less than a month ago. She denies any weakness nausea vomiting abdominal pain constipation or shortness of breath. She states that she has been passing some large volume blood supported by her . Which is been present since yesterday but she has been having some runny stools for the past few weeks. Symptoms moderate, duration associated signs and symptoms in context as above. She has not yet followed up with the casting house worker she saw while in the hospital. She does have a history of dementia somewhat limiting her history. PFSH Past Medical History Hx Anticoagulant Therapy: Yes (PLAVIX ) Anemia: Yes Arthritis: Yes (mild) Asthma: Yes Blood Disorders: Yes Anxiety: Yes Depression: Yes Heart Rhythm Problems: No Cancer: No Cardiac Catheterization: Yes Cardiovascular Problems: Yes (CHF) High Cholesterol: Yes Chest Pain: No Congestive Heart Failure: Yes COPD: No Cerebrovascular Accident: Yes (TIA (2011)) Dementia: Yes Diabetes: No Diminished Hearing: No Endocrine: Yes Gastrointestinal Disorders: Yes (RECTAL BLEEDING ) GERD: Yes Genitourinary: No Headaches: Yes Hiatal Hernia: Yes Hypertension: Yes Immune Disorder: No Implanted Vascular Access Dvce: Yes Medical other: Yes (BLOOD TRANSFUSION ) Musculoskeletal: Yes Neurologic: Yes (dementia) Psychiatric: Yes Reproductive: No Respiratory: Yes Migraines: No Myocardial Infarction: Yes Seizures: No Sleep Apnea: No Thyroid Disease: Yes (HYPO) Ulcer: No Tetanus Vaccination: Unknown Influenza Vaccination: Yes ?: Not Past Surgical History Abdominal Surgery: No AICD: Yes Arteriovenous Shunt: No Cardiac Surgery: Yes (AICD/danter, stent (2018)) Coronary Stent: Yes (2018) Ear Surgery: No Endocrine Surgery: No Eye Surgery: No Genitourinary Surgery: No Gynecologic Surgery: No Insulin Pump: No Joint Replacement: No Neurologic Surgery: No Oral Surgery: No Pacemaker: Yes Thoracic Surgery: No Other Surgery: Yes Social History Alcohol Use: No Tobacco Use: No Substance Use: No Allergies-Medications (Allergen,Severity, Reaction): Coded Allergies: Penicillins (Verified Allergy, Severe, Anaphylaxis, 09/28/17) Reported Meds & Prescriptions Reported Meds & Active Scripts Active Proair Hfa 8.5 GM Inh (Albuterol Sulfate) 90 Mcg/Act Aer 2 Puff INH Q4-6H PRN 108 mcg/actuation Aspirin EC (Aspirin) 81 Mg Tabdr 81 Mg PO DAILY 30 Days Montelukast (Montelukast Sodium) 4 Mg Chew 4 Mg CHEW HS Proair Hfa (Albuterol Sulfate) 90 Mcg Hfa.aer.ad 2 Puff INH Q6HR PRN Metoprolol Tartrate 25 Mg Tab 12.5 Mg PO BID Dok (Docusate Sodium) 100 Mg Cap 100 Mg PO DAILY Ferrous Sulfate 325 Mg (65 Mg Iron) Tablet 325 Mg PO BIDPC Pravastatin 40 Mg Tab 40 Mg PO HS Synthroid (Levothyroxine Sodium) 25 Mcg Tab 0.25 Mcg PO DAILY Reported Remeron (Mirtazapine) 15 Mg Tab 7.5 Mg PO HS Risperdal (Risperidone) 0.25 Mg Tab 0.25 Mg PO HS Docusate Sodium 100 Mg Cap 100 Mg PO EVERY OTHER NIGHT Omeprazole 20 Mg Tab 20 Mg PO DAILY Vitamin B-12 (Cyanocobalamin) 1,000 Mcg Subl 1,000 Mcg SL EVERY OTHER DAY Lisinopril 10 Mg Tab 10 Mg PO DAILY Plavix (Clopidogrel Bisulfate) 75 Mg Tab 75 Mg PO DAILY Review of Systems Except as stated in HPI: all other systems reviewed are Neg Physical Exam Narrative GENERAL: Well-developed well-nourished but thin and in no obvious distress SKIN: Focused skin assessment warm/dry. HEAD: Atraumatic. Normocephalic. EYES: Pupils equal and round. No scleral icterus. No injection or drainage. ENT: No nasal bleeding or discharge. Mucous membranes pink and moist. NECK: Trachea midline. No JVD. CARDIOVASCULAR: Regular rate and rhythm. No murmur appreciated. RESPIRATORY: No accessory muscle use. Clear to auscultation. Breath sounds equal bilaterally. GASTROINTESTINAL: Abdomen soft, non-tender, nondistended. Hepatic and splenic margins not palpable. MUSCULOSKELETAL: No obvious deformities. No clubbing. No cyanosis. No edema. NEUROLOGICAL: Awake and alert. No obvious cranial nerve deficits. Motor grossly within normal limits. Normal speech. PSYCHIATRIC: Appropriate mood and affect; insight and judgment normal. Data Data Last Documented VS Vital Signs Date Time Temp Pulse Resp B/P (MAP) Pulse Ox O2 Delivery O2 Flow Rate FiO2 09/28/17 11:00 94 18 126/82 (97) 98 Room Air 09/28/17 08:33 97.9 Orders Orders Complete Blood Count With Diff (09/28/17 08:35) Comprehensive Metabolic Panel (09/28/17 08:35) Prothrombin Time / Inr (Pt) (09/28/17 08:35) Act Partial Throm Time (Ptt) (09/28/17 08:35) Iv Access Insert/Monitor (09/28/17 08:35) Ecg Monitoring (09/28/17 08:35) Oximetry (09/28/17 08:35) Sodium Chloride 0.9% Flush (Ns Flush) (09/28/17 08:45) Type And Screen (09/28/17 09:25) Sodium Chlorid 0.9% 500 Ml Inj (Ns 500 M (09/28/17 10:15) Place In Observation (09/28/17 ) Vital Signs (Adult) BAM.QSHIFT (09/28/17 11:47) Intake + Output BAM.QSHIFT (09/28/17 11:47) Diet Npo (09/28/17 Lunch) Sodium Chloride 0.9% Flush (Ns Flush) (09/28/17 12:00) Sodium Chloride 0.9% Flush (Ns Flush) (09/28/17 21:00) Ondansetron Inj (Zofran Inj) (09/28/17 12:00) Pantoprazole Inj (Protonix Inj) (09/29/17 09:00) Hgb & Hct (09/28/17 15:00) Hgb & Hct (09/28/17 23:00) Hgb & Hct (09/29/17 07:00) Hgb & Hct (09/29/17 15:00) Complete Blood Count With Diff (09/29/17 06:00) Basic Metabolic Panel (Bmp) (09/29/17 06:00) Resp Oxygen Jay C Titrat 1-4 L (09/28/17 ) Consult Gastroenterology (09/28/17 ) Scd Bilateral/Knee High BAM.BID (09/28/17 11:47) Admit Order (Ed Use Only) (09/28/17 ) Activity Oob With Assistance (09/28/17 11:50) Acetaminophen (Tylenol) (09/28/17 12:00) Pt Request For Service (09/28/17 11:50) Acetaminophen (Tylenol) (09/28/17 12:00) Naloxone Inj (Narcan Inj) (09/28/17 12:00) Docusate Sodium-Senna (Charisse-Colace) (09/28/17 21:00) Sennosides (Senokot) (09/28/17 12:00) Bisacodyl Supp (Dulcolax Supp) (09/28/17 12:00) Lactulose Liq (Lactulose Liq) (09/28/17 12:00) Labs Laboratory Tests Test 09/28/17 08:45 White Blood Count 5.1 TH/MM3 Red Blood Count 3.90 MIL/MM3 Hemoglobin 11.9 GM/DL Hematocrit 37.0 % Mean Corpuscular Volume 94.9 FL Mean Corpuscular Hemoglobin 30.5 PG Mean Corpuscular Hemoglobin Concent 32.2 % Red Cell Distribution Width 15.9 % Platelet Count 173 TH/MM3 Mean Platelet Volume 9.7 FL Neutrophils (%) (Auto) 72.4 % Lymphocytes (%) (Auto) 11.1 % Monocytes (%) (Auto) 11.6 % Eosinophils (%) (Auto) 4.1 % Basophils (%) (Auto) 0.8 % Neutrophils # (Auto) 3.7 TH/MM3 Lymphocytes # (Auto) 0.6 TH/MM3 Monocytes # (Auto) 0.6 TH/MM3 Eosinophils # (Auto) 0.2 TH/MM3 Basophils # (Auto) 0.0 TH/MM3 CBC Comment DIFF FINAL Differential Comment Prothrombin Time 10.8 SEC Prothromb Time International Ratio 1.1 RATIO Activated Partial Thromboplast Time 26.6 SEC Blood Urea Nitrogen 30 MG/DL Creatinine 1.45 MG/DL Random Glucose 84 MG/DL Total Protein 5.9 GM/DL Albumin 2.6 GM/DL Calcium Level 8.1 MG/DL Alkaline Phosphatase 112 U/L Aspartate Amino Transf (AST/SGOT) 27 U/L Alanine Aminotransferase (ALT/SGPT) 24 U/L Total Bilirubin 0.6 MG/DL Sodium Level 139 MEQ/L Potassium Level 4.0 MEQ/L Chloride Level 108 MEQ/L Carbon Dioxide Level 19.9 MEQ/L Anion Gap 11 MEQ/L Estimat Glomerular Filtration Rate 34 ML/MIN MDM Medical Decision Making Medical Screen Exam Complete: Yes Emergency Medical Condition: Yes Differential Diagnosis GI bleeding, anemia, antiplatelet therapy, Narrative Course Patient 87-year-old female presents emergency department for evaluation of GI bleeding, recent admission for same has a history of internal hemorrhoids, on Plavix. Hemodynamically she has a mild tachycardia but blood pressure normal. Given normal saline by bolus. She states she had to go to the bathroom and when she stood from the stretcher she had a movement of about 250 cc of blood and clots which reproduced on the floor of the bedroom. This is not first movement she reports today. Hemoglobin hematocrit are actually within normal limits, coags within normal limits. Will be observed overnight by Dr. Hernandez. Discussed with him Diagnosis Primary Impression: GI bleed Admitting Information Admitting Physician Requests: Observation Condition: Stable Mina Wagner MD Sep 28, 2017 09:25
[2017-09-28 09:30] LABS: ALBUMIN 2.6 GM/DL (3.4-5.0); AST (GOT) 27 U/L (15-37); BICARBONATE 19.9 MEQ/L (21.0-32.0); BLOOD UREA NITROGEN 30 MG/DL (7-18); CALCIUM 8.1 MG/DL (8.5-10.1); CHLORIDE 108 MEQ/L (98-107); CREATININE 1.45 MG/DL (0.50-1.00); GLOMERULAR FILTRATION RATE 34 ML/MIN (>89); GLUCOSE,RANDOM 84 MG/DL (74-106); SODIUM (NA) 139 MEQ/L (136-145)
[2017-09-28 09:31] LABS: ALT (GPT) 24 U/L (10-53)
[2017-09-28 09:33] LABS: ALKALINE PHOSPHATASE 112 U/L (45-117); TOTAL BILIRUBIN ADULT 0.6 MG/DL (0.2-1.0); TOTAL PROTEIN 5.9 GM/DL (6.4-8.2)
[2017-09-28] MEDS ORDERED: SODIUM CHLORID 0.9% 500 ML INJ 500 ML IV ONE (10:15)
[2017-09-28] MEDS ORDERED: LACTULOSE SYRUP 20 GM/30 ML CUP PO PRN (12:00)
[2017-09-28] MEDS ORDERED: NALOXONE HCL 0.4 MG/ML AMP IV PUSH PRN (12:00)
[2017-09-28] MEDS ORDERED: SENNOSIDES 8.6 MG TAB PO PRN (12:00)
[2017-09-28] MEDS ORDERED: ALBUTEROL SULFATE 90 MCG/ACT HFA 8 GM INHALER INH PRN (12:00)
[2017-09-28] MEDS ORDERED: ONDANSETRON HCL 4 MG/2 ML VIAL IV PUSH PRN (12:00)
[2017-09-28] MEDS ORDERED: BISACODYL 10 MG SUPP RECTAL PRN (12:00)
[2017-09-28] MEDS ORDERED: ACETAMINOPHEN 325 MG TAB PO PRN ×2 (12:00)
--- NOTE | 2017-09-28 12:27 | HHI.HP ---
[facility] Unknown Admission Diagnosis Gi Bleed. Diagnoses: Chief Complaint: Rectal bleeding Travel History International Travel<30 Days: No Contact w/Intl Traveler <30 Da: No Traveled to Known Affected Are: No History of Present Illness This is a 87-year-old female who presented to the emergency room because of rectal bleeding. Patient states she was laying on her bed when she felt a gush in her rectal area and noted bright red blood amounting to about 250 cc. Denies rectal and abdominal pain, constipation, syncope, dizziness, nausea, chest pain and shortness of breath. No constipation and recent NSAID use. She takes aspirin and Plavix for history of CAD and TIA. Recently had rectal bleeding over 2 weeks ago underwent endoscopy showing gastritis, inflammation in the duodenal bulb and second portion as well as severe diverticulosis involving the sigmoid and internal hemorrhoids last September 04. Abdominal CT 09/03 with multifocal diverticuli sigmoid colon without diverticulitis, likely source of the bleeding. At this time she is hemodynamically stable with hemoglobin of 11. She was recommended further hospitalization by emergency room physician who noted that she had significant bleeding and anemia requiring blood transfusion during last admission. All other systems reviewed negative Review of Systems Except as stated in HPI: all other systems reviewed are Neg Past Family Social History Past Medical History As previously mentioned. Arthritis, asthma, COPD, anxiety and depression, acute versus chronic kidney disease stage III, recent C. difficile status post vancomycin and Flagyl, hyperlipidemia, coronary artery disease status post stent , systolic heart failure/cardiomyopathy status post AICD, TIA, dementia, GERD, hypertension and hypothyroidism Past Surgical History As previously mentioned. Stent in 2017 Reported Medications Active Proair Hfa 8.5 GM Inh (Albuterol Sulfate) 90 Mcg/Act Aer 2 Puff INH Q4-6H PRN 108 mcg/actuation Aspirin EC (Aspirin) 81 Mg Tabdr 81 Mg PO DAILY 30 Days Montelukast (Montelukast Sodium) 4 Mg Chew 4 Mg CHEW HS Proair Hfa (Albuterol Sulfate) 90 Mcg Hfa.aer.ad 2 Puff INH Q6HR PRN Metoprolol Tartrate 25 Mg Tab 12.5 Mg PO BID Dok (Docusate Sodium) 100 Mg Cap 100 Mg PO DAILY Ferrous Sulfate 325 Mg (65 Mg Iron) Tablet 325 Mg PO BIDPC Pravastatin 40 Mg Tab 40 Mg PO HS Synthroid (Levothyroxine Sodium) 25 Mcg Tab 0.25 Mcg PO DAILY Reported Remeron (Mirtazapine) 15 Mg Tab 7.5 Mg PO HS Risperdal (Risperidone) 0.25 Mg Tab 0.25 Mg PO HS Docusate Sodium 100 Mg Cap 100 Mg PO EVERY OTHER NIGHT Omeprazole 20 Mg Tab 20 Mg PO DAILY Vitamin B-12 (Cyanocobalamin) 1,000 Mcg Subl 1,000 Mcg SL EVERY OTHER DAY Lisinopril 10 Mg Tab 10 Mg PO DAILY Plavix (Clopidogrel Bisulfate) 75 Mg Tab 75 Mg PO DAILY Allergies: Coded Allergies: Penicillins (Verified Allergy, Severe, Anaphylaxis, 09/28/17) Family History Denies bleeding problems and cancer Social History Does not smoke or drink Physical Exam Vital Signs Vital Signs Date Time Temp Pulse Resp B/P (MAP) Pulse Ox O2 Delivery O2 Flow Rate FiO2 09/28/17 09:00 90 20 129/87 (101) 99 Room Air 09/28/17 08:33 97.9 101 24 150/92 (111) 97 Physical Exam GENERAL: This is a well-nourished, well-developed patient, in no apparent distress. SKIN: No rashes, ecchymoses or lesions. Cool and dry. HEAD: Atraumatic. Normocephalic. No temporal or scalp tenderness. EYES: Pupils equal round and reactive. Extraocular motions intact. No scleral icterus. No injection or drainage. ENT: Nose without bleeding, purulent drainage or septal hematoma. Throat without erythema, tonsillar hypertrophy or exudate. Uvula midline. Airway patent. NECK: Trachea midline. No JVD or lymphadenopathy. Supple, nontender, no meningeal signs. CARDIOVASCULAR: Regular rate and rhythm without murmurs, gallops, or rubs. RESPIRATORY: Clear to auscultation. Breath sounds equal bilaterally. No wheezes , rales, or rhonchi. GASTROINTESTINAL: Abdomen soft, non-tender, nondistended. No guarding. Dark blood noted in the diaper MUSCULOSKELETAL: Extremities without clubbing, cyanosis but with bilateral lower extremity pitting edema. No joint tenderness, effusion, or edema noted. No calf tenderness. Negative Homans sign bilaterally. NEUROLOGICAL: Awake and alert. Cranial nerves II through XII intact. Motor and sensory grossly within normal limits. Five out of 5 muscle strength in all muscle groups. Normal speech. Oriented to person and place Laboratory Laboratory Tests Test 09/28/17 08:45 White Blood Count 5.1 Red Blood Count 3.90 Hemoglobin 11.9 Hematocrit 37.0 Mean Corpuscular Volume 94.9 Mean Corpuscular Hemoglobin 30.5 Mean Corpuscular Hemoglobin Concent 32.2 Red Cell Distribution Width 15.9 Platelet Count 173 Mean Platelet Volume 9.7 Neutrophils (%) (Auto) 72.4 Lymphocytes (%) (Auto) 11.1 Monocytes (%) (Auto) 11.6 Eosinophils (%) (Auto) 4.1 Basophils (%) (Auto) 0.8 Neutrophils # (Auto) 3.7 Lymphocytes # (Auto) 0.6 Monocytes # (Auto) 0.6 Eosinophils # (Auto) 0.2 Basophils # (Auto) 0.0 CBC Comment DIFF FINAL Differential Comment Prothrombin Time 10.8 Prothromb Time International Ratio 1.1 Activated Partial Thromboplast Time 26.6 Blood Urea Nitrogen 30 Creatinine 1.45 Random Glucose 84 Total Protein 5.9 Albumin 2.6 Calcium Level 8.1 Alkaline Phosphatase 112 Aspartate Amino Transf (AST/SGOT) 27 Alanine Aminotransferase (ALT/SGPT) 24 Total Bilirubin 0.6 Sodium Level 139 Potassium Level 4.0 Chloride Level 108 Carbon Dioxide Level 19.9 Anion Gap 11 Estimat Glomerular Filtration Rate 34 Result Diagram: 09/28/1745 09/28/17 0845 Caprini VTE Risk Assessment Caprini VTE Risk Assessment: Mod/High Risk (score >= 2) Caprini Risk Assessment Model Point Value = 1 Point Value = 2 Point Value = 3 Point Value = 5 Age 41-60 Minor surgery BMI > 25 kg/m2 Swollen legs Varicose veins or History of unexplained or recurrent spontaneous Oral contraceptives or hormone replacement Sepsis (< 1 month) Serious lung disease, including pneumonia (< 1 month) Abnormal pulmonary function Acute myocardial infarction Congestive heart failure (< 1 month) History of inflammatory bowel disease Medical patient at bed rest Age 61-74 Arthroscopic surgery Major open surgery (> 45 min) Laparoscopic surgery (> 45 min) Malignancy Confined to bed (> 72 hours) Immobilizing plaster cast Central venous access Age >= 75 History of VTE Family history of VTE Factor V Leiden Prothrombin [id number] Lupus anticoagulant Anticardiolipin antibodies Elevated serum homocysteine Heparin-induced thrombocytopenia Other congenital or acquired thrombophilia Stroke (< 1 month) Elective arthroplasty Hip, pelvis, or leg fracture Acute spinal cord injury (< 1 month) Prophylaxis Regimen Total Risk Factor Score Risk Level Prophylaxis Regimen 0-1 Low Early ambulation 2 Moderate Order ONE of the following: *Sequential Compression Device (SCD) *Heparin 5000 units SQ BID 3-4 Higher Order ONE of the following medications: *Heparin 5000 units SQ TID *Enoxaparin/Lovenox 40 mg SQ daily (WT < 150 kg, CrCl > 30 mL/min) *Enoxaparin/Lovenox 30 mg SQ daily (WT < 150 kg, CrCl > 10-29 mL/min) *Enoxaparin/Lovenox 30 mg SQ BID (WT < 150 kg, CrCl > 30 mL/min) AND/OR *Sequential Compression Device (SCD) 5 or more Highest Order ONE of the following medications: *Heparin 5000 units SQ TID (Preferred with Epidurals) *Enoxaparin/Lovenox 40 mg SQ daily (WT < 150 kg, CrCl > 30 mL/min) *Enoxaparin/Lovenox 30 mg SQ daily (WT < 150 kg, CrCl > 10-29 mL/min) *Enoxaparin/Lovenox 30 mg SQ BID (WT < 150 kg, CrCl > 30 mL/min) AND *Sequential Compression Device (SCD) Assessment and Plan Assessment and Plan This is a 87-year-old female who presented to the emergency room because of rectal bleeding. Denies rectal and abdominal pain and constipation. She takes aspirin and Plavix for history of CAD and TIA. Recently had rectal bleeding over 2 weeks ago underwent endoscopy showing gastritis, inflammation in the duodenal bulb and second portion as well as severe diverticulosis involving the sigmoid and internal hemorrhoids last September 04. Abdominal CT 09/03 with multifocal diverticuli sigmoid colon without diverticulitis, likely source of the bleeding. Recurrent rectal bleeding. At this time she is hemodynamically stable with hemoglobin of 11. Patient will be hospitalized for further evaluation and treatment. N.p.o. for now if no recurrent bleeding will start clear liquid diet for dinner. Serial hemoglobin and hematocrit transfuse if hemoglobin less than 8 and alert GI if active bleed may need bleeding scan. We will consult GI and start PPI. Hold aspirin and Plavix Multiple medical conditions arthritis, asthma, COPD, anxiety and depression, acute versus chronic kidney disease stage III, recent C. difficile status post vancomycin and Flagyl, hyperlipidemia, coronary artery disease status post stent , systolic heart failure/cardiomyopathy status post AICD, TIA, dementia, GERD, hypertension and hypothyroidism. Continue outpatient medications as appropriate will hold antihypertensives for now. DVT prophylaxis with SCD and early ambulation. Pharmacological prophylaxis contraindicated secondary to GI bleed Code Status Full code Discussed Condition With Patient Joe Hernandez MD Sep 28, 2017 12:27
--- NOTE | 2017-09-28 14:53 | RADRPT ---
EXAM DATE: 09/28/2017 2:49 PM EDT AGE/SEX: 87 years / Female INDICATIONS: Cough CLINICAL DATA: This is the patient's initial encounter. Patient reports that signs and symptoms have been present for 2 days and indicates a pain score of 0/10. MEDICAL/SURGICAL HISTORY: . Hiatal hernia. Gastroesophageal reflux disease. Hypertension. Dive rticulosis, coronary artery disease, COPD, congestive heart failure . Defibrillator. Pacemaker. Ailyn nary artery stent. COMPARISON: [facility] [place], CHEST SINGLE AP, 09/14/2017. . FINDINGS: A single AP view of the chest demonstrates cardiomegaly with right basilar airspace disease. Left-ranjit ed defibrillator with intact leads.. The cardiomediastinal contours are unremarkable. Osseous struc tures are intact. CONCLUSION: 1. Right basilar infiltrate slightly more prominent. 2. Cardiomegaly and left-sided defibrillator. Electronically signed by: Chon Wilburn MD 09/28/2017 2:52 PM EDT
--- NOTE | 2017-09-28 15:10 | PD.CONS ---
HPI History of Present Illness This is a 87 year old female who presented to the emergency room on 09/28/2017 with symptoms of bright red rectal bleeding. Onset of symptoms was sometime within the past 24 hours and has continued through present time. He should also noted some weakness and fatigue, decreased appetite mild nausea and vomiting 1 when first awakening this morning. Patient also is noted to have thick coarse cough, and notes that the sputum is thick but unknown color at this time. Patient had recent colonoscopy performed on 09/04 for hematochezia and severe diverticulosis was found. Patient had poor prep so recommendation was to repeat colonoscopy in 1 month. Current labs show hemoglobin 11.9, INR 1.1, normal LFTs,. Currently does note some lower abdominal discomfort off and on for the past 5 days but worsening today with onset of her rectal bleeding. Patient has been on Plavix and took her last dose this a.m. according to the chest x-ray patient also has defibrillator in place. Currently patient is awake answering simple questions but a fair to poor historian. (Elza Rothman) PFSH Past Medical History Per the record arthritis, asthma, COPD, anxiety and depression, acute versus chronic kidney disease stage III, recent C. difficile status post vancomycin and Flagyl, hyperlipidemia, coronary artery disease status post stent, systolic heart failure/cardiomyopathy status post AICD, TIA, dementia, GERD, hypertension and hypothyroidism Past Surgical History As previously mentioned. Stent in 2017 (Elza Rothman) Coded Allergies: Penicillins (Verified Allergy, Severe, Anaphylaxis, 09/28/17) Family History Denies bleeding problems and cancer Social History Does not smoke or drink (Elza Rothamn) Review of Systems Gastrointestinal: COMPLAINS OF: Abdominal pain (Lower), Bloody stools (Bright red rectal bleeding), Nausea, Vomiting (1 9 since) (Elza Rothman) GI Exam Vitals I&O Vital Signs Date Time Temp Pulse Resp B/P (MAP) Pulse Ox O2 Delivery O2 Flow Rate FiO2 09/28/17 14:00 98 21 09/28/17 13:00 92 18 128/77 (94) 100 09/28/17 12:55 97.5 91 17 132/87 (102) 96 09/28/17 12:00 96 19 138/86 (103) 99 Room Air 09/28/17 11:00 94 18 126/82 (97) 98 Room Air 09/28/17 10:00 92 18 127/84 (98) 98 Room Air 09/28/17 09:00 90 20 129/87 (101) 99 Room Air 09/28/17 08:33 97.9 101 24 150/92 (111) 97 I/O 09/27/17 09/27/17 09/27/17 09/28/17 09/28/17 09/28/17 07:00 15:00 23:00 07:00 15:00 23:00 Intake Total 500 ml Balance 500 ml Intake IV Total 500 ml # Bowel Movements 2 Imaging Last Impressions Chest X-Ray 09/28/17 0000 Signed Impressions: CONCLUSION: 1. Right basilar infiltrate slightly more prominent. 2. Cardiomegaly and left-sided defibrillator. Laboratory Test 09/28/17 08:45 White Blood Count 5.1 TH/MM3 Red Blood Count 3.90 MIL/MM3 Hemoglobin 11.9 GM/DL Hematocrit 37.0 % Mean Corpuscular Volume 94.9 FL Mean Corpuscular Hemoglobin 30.5 PG Mean Corpuscular Hemoglobin Concent 32.2 % Red Cell Distribution Width 15.9 % Platelet Count 173 TH/MM3 Mean Platelet Volume 9.7 FL Neutrophils (%) (Auto) 72.4 % Lymphocytes (%) (Auto) 11.1 % Monocytes (%) (Auto) 11.6 % Eosinophils (%) (Auto) 4.1 % Basophils (%) (Auto) 0.8 % Neutrophils # (Auto) 3.7 TH/MM3 Lymphocytes # (Auto) 0.6 TH/MM3 Monocytes # (Auto) 0.6 TH/MM3 Eosinophils # (Auto) 0.2 TH/MM3 Basophils # (Auto) 0.0 TH/MM3 CBC Comment DIFF FINAL Differential Comment Prothrombin Time 10.8 SEC Prothromb Time International Ratio 1.1 RATIO Activated Partial Thromboplast Time 26.6 SEC Blood Urea Nitrogen 30 MG/DL Creatinine 1.45 MG/DL Random Glucose 84 MG/DL Total Protein 5.9 GM/DL Albumin 2.6 GM/DL Calcium Level 8.1 MG/DL Alkaline Phosphatase 112 U/L Aspartate Amino Transf (AST/SGOT) 27 U/L Alanine Aminotransferase (ALT/SGPT) 24 U/L Total Bilirubin 0.6 MG/DL Sodium Level 139 MEQ/L Potassium Level 4.0 MEQ/L Chloride Level 108 MEQ/L Carbon Dioxide Level 19.9 MEQ/L Anion Gap 11 MEQ/L Estimat Glomerular Filtration Rate 34 ML/MIN Physical Examination HEENT: normocephalic; atraumatic; no jaundice. NECK: Supple CHEST: Coarse rhonchi with cough, mild diminished breath sounds at bases CARDIAC: Regular rate , borderline tachycardic heart rate 101 ABDOMEN: Round, soft, nondistended, lower abdominal tenderness generalized, no hepatosplenomegaly; bowel sounds are present in all four quadrants. 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 Onset this a.m. with some lower abdominal discomfort worsening over the past 5 days Coarse rhonchi nausea and vomiting 1 this early a.m., but none since Decreased appetite has not eaten anything in the past 24 hours Current hemoglobin 11.9, PT/INR 1.1, normal LFTs Patient had recent colonoscopy for hematochezia, patient had severe diverticulosis, recommendation was to repeat colonoscopy in 1 month due to poor prep. Patient currently has been on Plavix which was restarted after her last hospital stay. Currently bleeding scan will be done today to evaluate diverticular bleed versus hemorrhoids versus other. Currently Plavix was taken this morning but now on hold. Plan Diet clear liquids for now Bleeding scan PPI Anti-emetics Monitor intake and output as well as rectal bleeding Consider colonoscopy in the a.m. after evaluation of bleeding scan Further recommendations to follow She was seen per myself and Dr. Carbone, this note was written on her behalf (Elza Rothman) Physician Comments seen, examined agree with above bleeding scan STAT cbc STAT serial hb/hct consider repeat colonoscopy based on bleeding scan results and clinical status (Summer Carbone MD) Elza Rothman Sep 28, 2017 15:10 Summer Carbone MD Sep 28, 2017 15:41
--- NOTE | 2017-09-28 17:23 | RADRPT ---
EXAM DATE: 09/28/2017 5:07 PM EDT AGE/SEX: 87 years / Female INDICATIONS: Blood in stool. CLINICAL DATA: This is the patient's initial encounter. Patient reports that signs and symptoms have been present for 1 day and indicates a pain score of 4/10. MEDICAL/SURGICAL HISTORY: Hypothyroidism. Stroke. Congestive heart failure. Coronary artery s tent. Pacemaker. COMPARISON: [facility] [place], CT ABDOMEN & PELVIS W/O CONTRAST, 09/03/2017. . TECHNIQUE: Following the modified in vitro labeling of autologous red cells, dynamic continuous image s were acquired for two hours. ?? DOSE: 20.1 mCi Tc 99m Ultratag Labeled Red Blood Cells IV IMAGING TIME: 1 hr FINDINGS: Biodistribution: There is a very good labeling of red cells without significant uptake in the gastri c wall. There is good delineation of the blood pool of the spleen and abdominal vessels. Bleeding: There is active gastrointestinal bleeding which begins in the left abdomen just above the l evel of the aortic bifurcation and extends centrally. Bleeding source is likely in the descending col on. CONCLUSION: 1. Active gastrointestinal bleeding on the left side of the abdomen likely in the left colon and pro gressing to the sigmoid colon. Electronically signed by: Narciso Campbell MD 09/28/2017 5:22 PM EDT
[2017-09-28 17:45] LABS: BACTERIA, URINE OCC /hpf; BILIRUBIN, URINE NEG (NEG); BLOOD, URINE LARGE (NEG); GLUCOSE,URINE NEG (NEG); KETONE, URINE NEG (NEG); NITRITE,URINE NEG (NEG); RENAL EPITHELIAL CELLS 9 /hpf; SQUAMOUS EPITHELIAL CELL URINE 3 /hpf (0-5); TRANSITIONAL EPI CELLS, URINE <1 /hpf; URINE COLOR YELLOW (YELLW/STRAW); URINE LEUKOCYTE ESTERASE LARGE (NEG); WHITE BLOOD CELL CLUMPS MOD
[2017-09-28] MEDS: FERROUS SULFATE 325 MG (65 MG ELEMENTAL IRON) TAB PO SCH (18:30)
[2017-09-28 20:37] LABS: HEMATOCRIT 31.1 % (35.0-46.0); HEMOGLOBIN 9.9 GM/DL (11.6-15.3)
[2017-09-28] MEDS ORDERED: PILL SPLITTER OTHER PRN (21:00)
[2017-09-28] MEDS: SODIUM CHLORIDE 0.9% FLUSH 10 ML FLUSH IV FLUSH SCH (21:30)
[2017-09-28] MEDS: MIRTAZAPINE 15 MG TAB PO SCH (21:31)
[2017-09-28] MEDS: MONTELUKAST SODIUM 4 MG CHEWABLE TAB CHEW SCH (21:32)
[2017-09-28] MEDS: DOCUSATE SODIUM 50 MG/SENNA 8.6 MG TAB PO SCH (21:32)
[2017-09-28] MEDS: PRAVASTATIN SOD 40 MG TAB PO SCH (21:32)
[2017-09-28] MEDS: risperiDONE 0.25 MG TAB PO SCH (21:32)
[2017-09-28 22:24] LABS: HEMATOCRIT 27.4 % (35.0-46.0); HEMOGLOBIN 8.8 GM/DL (11.6-15.3)
[2017-09-29] VITALS (12 sets, daily range): BP systolic 109–128; BP diastolic 64–88; PULSE 94–111; RESP 16–18; TEMP 97.4–98.4; O2SAT 96–100
[2017-09-29] MEDS: LEVOTHYROXINE SODIUM 25 MCG TAB PO SCH (05:36)
[2017-09-29] MEDS ORDERED: MAGNESIUM CITRATE SOLN 300 ML BTL PO ONE (06:00)
[2017-09-29] MEDS ORDERED: POVIDONE IODINE 5% (ANTISEPSIS KIT) 4 APPLICATIONS EACH NARE PRN (07:45)
[2017-09-29] MEDS ORDERED: SODIUM CHLORID 0.9% 500 ML IV PRN (07:45)
[2017-09-29] MEDS ORDERED: CHLORHEXIDINE GLUCONATE 2 % 1 PACK (2 CLOTHS) TOPICAL PRN (07:45)
[2017-09-29] MEDS ORDERED: METOPROLOL TARTRATE 25 MG TAB PO PRN (07:45)
[2017-09-29] MEDS ORDERED: LACTATED RINGER'S 1000 ML IV PRN (07:45)
--- NOTE | 2017-09-29 08:00 | HHI.PR ---
Subjective Remarks Pt seen and examined for f/u of bright red rectal bleeding. She continues to have copious amounts of rectal bleeding with clots. She was transfused a unit and started to develop some shortness of breath so she was ordered 20 mg IV Lasix. On evaluation she was resting comfortably in no respiratory distress with nasal cannula in place. She denied abdominal pain, nausea, vomiting, or chest pain. She complains of a cough. States she just wants to be able to go home. Objective Vital Signs Date Time Temp Pulse Resp B/P (MAP) Pulse Ox O2 Delivery O2 Flow Rate FiO2 09/29/17 07:27 99 21 09/29/17 07:11 97.4 102 16 123/81 99 09/29/17 06:38 97.5 95 16 112/70 98 09/29/17 06:23 97.4 94 16 113/75 99 09/29/17 05:02 97.9 96 16 123/69 (87) 96 09/29/17 02:59 97.8 94 16 123/76 99 09/29/17 02:28 97.8 98 16 116/69 98 09/28/17 23:32 97.9 93 16 123/72 (89) 96 09/28/17 20:00 98.3 95 16 123/73 (90) 98 09/28/17 19:53 97 09/28/17 14:00 98 21 09/28/17 13:00 92 18 128/77 (94) 100 09/28/17 12:55 97.5 91 17 132/87 (102) 96 09/28/17 12:00 96 19 138/86 (103) 99 Room Air 09/28/17 11:00 94 18 126/82 (97) 98 Room Air 09/28/17 10:00 92 18 127/84 (98) 98 Room Air 09/28/17 09:00 90 20 129/87 (101) 99 Room Air 09/28/17 08:33 97.9 101 24 150/92 (111) 97 I/O 09/28/17 09/28/17 09/28/17 09/29/17 09/29/17 09/29/17 07:00 15:00 23:00 07:00 15:00 23:00 Intake Total 500 ml 460 ml Balance 500 ml 460 ml Intake IV Total 500 ml Packed Cells 400 ml Blood Product IV Normal Saline Flush 60 ml # Bowel Movements 2 Result Diagram: 09/28/17 2210 09/28/17 0845 Imaging GI Bleed Scan Nuclear Medicine 09/28/17 0000 Signed Impressions: CONCLUSION: 1. Active gastrointestinal bleeding on the left side of the abdomen likely in the left colon and progressing to the sigmoid colon. Chest X-Ray 09/28/17 0000 Signed Impressions: CONCLUSION: 1. Right basilar infiltrate slightly more prominent. 2. Cardiomegaly and left-sided defibrillator. Objective Remarks GENERAL: WN, WD female resting in bed in NAD. SKIN: Warm and dry. HEENT: AT/NC. Pupils equal and round. MMM. NECK: Supple no tender LAD or JVD. HEART: Tachycardic with a regular rhythm. LUNGS: Diminished over R base with some bibasilar crackles otherwise clear. ABDOMEN: +BS, soft, NT, ND. EXTREMITIES: No LE edema. NEURO: Awake and alert. Nonfocal. PSYCH: Appropriate mood and affect. A/P Problem List: (1) GI bleed ICD Code: K92.2 - Gastrointestinal hemorrhage, unspecified Status: Acute (2) Pneumonia ICD Code: J18.9 - Pneumonia, unspecified organism Assessment and Plan 87 YOWF with history of CAD, CHF with AICD, TIA, HTN, hypothyroidism, CKD, COPD , depression, and recent C. diff infection admitted 09/28 for bright red rectal bleeding and DIONICIO. 1. GI bleed with acute anemia - Patient presenting with BRBPR - Underwent colonoscopy on 09/04 for hematochezia and severe diverticulosis was found but it was also noted patient had poor prep - Initial H&H 11.9/37.0 - Trending H&H which dropped to 8.8/27.4 over 12 hours - 2 units RBCs being transfused, monitor H&H closely - Lasix 20 mg IV x 1 in between units - Hold ASA, Plavix, and any chemical anticoagulation - Bleeding scan showed active GI bleeding on the left side of the abdomen likely in the left colon and progressing to the sigmoid colon - GI consulted; colonoscopy today - Continue PPI 2. Acute on chronic kidney disease - Labile baseline creatinine upon review of EMR but it has been as low as 0.89 back in June - Likely from acute bleeding, dehydration - Monitor closely - Avoid nephrotoxic agents 3. Pneumonia - CXR showing R basilar infiltrate and patient symptomatic with cough - Since hospitalized within the last month will treat for healthcare associated PNA - Allergic to PCN so will treat with Aztreonam and Levaquin - Continue to closely monitor clinically - DuoNeb PRN - Supplemental O2 PRN 4. CAD - Holding ASA and Plavix - Continue statin 5. CHF - Euvolemic on exam - Resume Lisinopril and metoprolol - Caution with fluids 6. HTN - Resume home Lisinopril and metoprolol 7. Hypothyroidism - Continue home Synthroid 8. Dementia, depression - Continue home Remeron and Risperdal DVT prophylaxis: SCDs, hold chemical anticoagulation in light of GI bleed Thi Roth MD Sep 29, 2017 08:00
[2017-09-29] MEDS ORDERED: FUROSEMIDE 20 MG/2 ML VIAL IV PUSH ONE (08:15)
[2017-09-29 08:17] LABS: AUTOMATED NEUTROPHIL # 3.3 TH/MM3 (1.8-7.7); BASOPHIL # 0.1 TH/MM3 (0-0.2); BASOPHIL % 2.3 % (0.0-2.0); EOSINOPHIL # 0.2 TH/MM3 (0-0.4); EOSINOPHIL % 4.7 % (0.0-4.0); HEMATOCRIT 29.5 % (35.0-46.0); HEMOGLOBIN 9.8 GM/DL (11.6-15.3); LYMPH % 11.5 % (9.0-44.0); LYMPHOCYTE # 0.5 TH/MM3 (1.0-4.8); MEAN CELL VOLUME 93.2 FL (80.0-100.0); MEAN CORPUSCULAR HEMOGLOBIN 30.9 PG (27.0-34.0); MEAN CORPUSCULAR HGB CONC 33.1 % (32.0-36.0); MEAN PLATELET VOLUME 9.8 FL (7.0-11.0); MONO % 10.3 % (0.0-8.0); MONOCYTE # 0.5 TH/MM3 (0-0.9); NEUT % 71.2 % (16.0-70.0); PLATELET COUNT 122 TH/MM3 (150-450); RED BLOOD COUNT 3.16 MIL/MM3 (4.00-5.30); RED CELL DISTRIBUTION WIDTH 16.9 % (11.6-17.2); WHITE BLOOD COUNT 4.7 TH/MM3 (4.0-11.0)
[2017-09-29 08:49] LABS: BICARBONATE 20.5 MEQ/L (21.0-32.0); CALCIUM 7.5 MG/DL (8.5-10.1); CREATININE 1.11 MG/DL (0.50-1.00)
[2017-09-29] MEDS: SODIUM CHLORIDE 0.9% FLUSH 10 ML FLUSH IV FLUSH SCH ×2 (09:00→20:10)
[2017-09-29] MEDS: DOCUSATE SODIUM 50 MG/SENNA 8.6 MG TAB PO SCH ×3 (09:00→20:11)
[2017-09-29] MEDS: FERROUS SULFATE 325 MG (65 MG ELEMENTAL IRON) TAB PO SCH ×2 (09:31→17:47)
[2017-09-29] MEDS: PANTOPRAZOLE SODIUM 40 MG VIAL IV PUSH SCH (09:32)
[2017-09-29] MEDS: LEVOFLOXACIN 750 MG PREMIX INJ 150 ML IV SCH (10:12)
[2017-09-29] MEDS: AZTREONAM INJ 2,000 MG in SODIUM CHLORIDE 0.9% INJ 100 ML IV SCH ×2 (10:12→17:23)
[2017-09-29] MEDS ORDERED: RESP: ALBUTEROL 2.5 MG/IPRATROPIUM 0.5 MG NEB (PRN) NEB (10:15)
[2017-09-29] MEDS ORDERED: PROPOFOL 200 MG/20 ML AMP IV ONE (12:00)
[2017-09-29] MEDS ORDERED: LIDOCAINE HCL 1% PF 5 ML SYRINGE OTHER ONE (12:00)
--- NOTE | 2017-09-29 14:07 | GIPROC ---
[facility] [address] [facility]. 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 PREP QUALITY: poor PREP TYPE:Other: ESTIMATED BLOOD LOSS: None CONSENT: The patient understands the risks and benefits of the procedure and understands that these risks include, but are not limited to: sedation, allergic reaction, infection, perforation and/or bleeding. Alternative means of evaluation and treatment include, among others: physical exam, x-rays, and/or surgical intervention. The patient elects to proceed with this endoscopic procedure. medical equipment was checked for proper function. Hand hygiene and appropriate measures for infection prevention was taken. After the risks, benefits and alternatives of the procedure were thoroughly explained, Informed consent was verified, confirmed and timeout was successfully executed by the treatment team. A digital exam revealed external hemorrhoids and revealed internal hemorrhoids The Pentax [id number] endoscope was introduced through the anus and advanced to the cecum, which was identified by both the appendix and ileocecal valve. The instrument was then slowly withdrawn as the colon was fully examined. COLON FINDINGS: Diverticulosis sigmoid,descending colitis right colon-biopsy. Retroflexed views revealed internal hemorrhoids and Retroflexed views revealed small internal hemorrhoids The scope was then completely withdrawn from the patient and the procedure terminated. PROCEDURE WITHDRAWAL TIME:6minutes ADVERSE EVENTS: There were no complications. IMPRESSIONS: 1. Diverticulosis sigmoid,descending colitis right colon-biopsy 2. Retroflexed views revealed internal hemorrhoids 3. Retroflexed views revealed small internal hemorrhoids 4. Revealed external hemorrhoids 5. Revealed internal hemorrhoids RECOMMENDATIONS: 1. Await biopsy results. Biopsy results will not be ready for 7-10 days. If you don't hear from us in two weeks, call our office for results. 2. Benefiber 2 tsp daily 3. Probiotics from any [facility] or health food store 4. Yearly rectal exams RECALL: Return 6 months Colonoscopy Summer Carbone MD eSigned: Summer Carbone MD 09/29/2017 2:06 PM cc:
[2017-09-29 15:26] LABS: HEMATOCRIT 32.9 % (35.0-46.0); HEMOGLOBIN 10.8 GM/DL (11.6-15.3)
[2017-09-29] MEDS: risperiDONE 0.25 MG TAB PO SCH (20:07)
[2017-09-29] MEDS: MIRTAZAPINE 15 MG TAB PO SCH (20:08)
[2017-09-29] MEDS: MONTELUKAST SODIUM 4 MG CHEWABLE TAB CHEW SCH (20:08)
[2017-09-29] MEDS: PRAVASTATIN SOD 40 MG TAB PO SCH (20:08)
[2017-09-29] MEDS: METOPROLOL TARTRATE 25 MG TAB PO SCH (21:00)
[2017-09-29] MEDS ORDERED: MORPHINE SULFATE 4 MG/ML INJ IV PUSH ONE (21:45)
--- NOTE | 2017-09-29 22:56 | RADRPT ---
EXAM DATE: 09/29/2017 10:07 PM EDT AGE/SEX: 87 years / Female INDICATIONS: Trauma; fall. CLINICAL DATA: This is the patient's initial encounter. Patient reports that signs and symptoms have been present for 1 day and indicates a pain score of 5/10. MEDICAL/SURGICAL HISTORY: Cardiovascular disease. Stroke. Pacemaker. RADIATION DOSE: 32.50 CTDI (mGy) COMPARISON: No prior exams available for comparison. TECHNIQUE: CT of the head without contrast. Using automated exposure control and adjustment of the mA and/or kV according to patient size, radiation dose was kept as low as reasonably achievable to ob tain optimal diagnostic quality images. DICOM format image data is available electronically for revi ew and comparison. FINDINGS: Cerebrum: There is mild generalized atrophy and ventricles are normal given the degree of atrophy. M ild periventricular white matter change is present. No midline shift, mass lesion, hemorrhage or acu te infarction. No extraaxial fluid collections are seen. Posterior Fossa: The cerebellum and brainstem demonstrate no acute abnormality. The 4th ventricle is midline. The cerebellopontine angle is within normal limits. Extracranial: The visualized sinuses are clear. Skull: The calvaria is intact. No skull fracture. CONCLUSION: 1. No acute intracranial abnormality is identified. 2. Chronic findings include mild generalized atrophy and mild periventricular white matter change. Electronically signed by: Ochoa Dickerson MD 09/29/2017 10:55 PM EDT
--- NOTE | 2017-09-29 22:57 | EKG ---
Date Performed: 09/29/2017 Time Performed: 05:00:04 PTAGE: 87 years EKG: Sinus rhythm INDETERMINATE AXIS MODERATE INTRAVENTRICULAR CONDUCTION DELAY MINIMAL ST DEPRESSION ABNORMAL ECG PREVIOUS TRACING : 09/14/2017 18.29 Since the previous tracing, no significant change noted DOCTOR: Kwame Villalba Interpretating Date/Time 09/29/2017 22:55:36
--- NOTE | 2017-09-29 23:05 | RADRPT ---
EXAM DATE: 09/29/2017 10:18 PM EDT AGE/SEX: 87 years / Female INDICATIONS: Pelvic pain after fall today. CLINICAL DATA: This is the patient's subsequent encounter. Patient reports that signs and symptoms h ave been present for 3 days and indicates a pain score of 10/10. MEDICAL/SURGICAL HISTORY: . Hiatal hernia. Gastroesophageal reflux disease. Hypertension. Diver ticulosis, coronary artery disease, COPD, congestive heart failure . . Defibrillator. Pacemaker. C oronary artery stent. COMPARISON: No prior exams available for comparison. FINDINGS: Single AP view of the pelvis demonstrates diffusely under mineralized bones. No fracture or dislocati on is identified. Sacroiliac joints demonstrate no definite abnormality. There is a calcification in the right inferior pelvis measuring approximately 15 mm. Serpiginous high density structures are pres ent in the left pelvis. No soft tissue abnormality is identified. There is severe atherosclerotic dis ease. CONCLUSION: 1. No fracture is identified on the single view of the pelvis. 2. Severe atherosclerotic disease. 3. 15 mm coarse calcification in the right pelvis could be associated with a calcified uterine fibro id or the right ovary. Electronically signed by: Ochoa Dickerson MD 09/29/2017 11:03 PM EDT
[2017-09-30] VITALS (9 sets, daily range): BP systolic 107–129; BP diastolic 65–75; PULSE 94–110; RESP 14–24; TEMP 97.7–98.3; O2SAT 93–98
[2017-09-30 01:19] LABS: HEMATOCRIT 33.1 % (35.0-46.0)
[2017-09-30] MEDS: AZTREONAM INJ 2,000 MG in SODIUM CHLORIDE 0.9% INJ 100 ML IV SCH ×3 (01:34→16:29)
[2017-09-30] MEDS: LEVOTHYROXINE SODIUM 25 MCG TAB PO SCH (06:04)
[2017-09-30 06:32] LABS: AUTOMATED NEUTROPHIL # 6.7 TH/MM3 (1.8-7.7); BASOPHIL % 0.4 % (0.0-2.0); EOSINOPHIL # 0.1 TH/MM3 (0-0.4); EOSINOPHIL % 0.7 % (0.0-4.0); HEMATOCRIT 31.7 % (35.0-46.0); HEMOGLOBIN 10.6 GM/DL (11.6-15.3); LYMPH % 6.7 % (9.0-44.0); LYMPHOCYTE # 0.5 TH/MM3 (1.0-4.8); MEAN CELL VOLUME 92.1 FL (80.0-100.0); MEAN CORPUSCULAR HEMOGLOBIN 30.6 PG (27.0-34.0); MEAN CORPUSCULAR HGB CONC 33.3 % (32.0-36.0); MEAN PLATELET VOLUME 9.4 FL (7.0-11.0); MONO % 5.7 % (0.0-8.0); MONOCYTE # 0.4 TH/MM3 (0-0.9); NEUT % 86.5 % (16.0-70.0); PLATELET COUNT 111 TH/MM3 (150-450); RED BLOOD COUNT 3.45 MIL/MM3 (4.00-5.30); RED CELL DISTRIBUTION WIDTH 16.8 % (11.6-17.2); WHITE BLOOD COUNT 7.8 TH/MM3 (4.0-11.0)
[2017-09-30 07:16] LABS: CALCIUM 7.5 MG/DL (8.5-10.1); CREATININE 0.91 MG/DL (0.50-1.00)
[2017-09-30] MEDS: METOPROLOL TARTRATE 25 MG TAB PO SCH ×2 (07:44→21:00)
[2017-09-30] MEDS: FERROUS SULFATE 325 MG (65 MG ELEMENTAL IRON) TAB PO SCH ×2 (07:44→16:28)
[2017-09-30] MEDS: LISINOPRIL 10 MG TAB PO SCH (07:44)
[2017-09-30] MEDS: DOCUSATE SODIUM 50 MG/SENNA 8.6 MG TAB PO SCH ×2 (07:44→21:00)
[2017-09-30] MEDS: PANTOPRAZOLE SODIUM 40 MG VIAL IV PUSH SCH (07:45)
[2017-09-30] MEDS: SODIUM CHLORIDE 0.9% FLUSH 10 ML FLUSH IV FLUSH SCH ×2 (07:45→23:21)
[2017-09-30] MEDS: LEVOFLOXACIN 750 MG PREMIX INJ 150 ML IV SCH (07:45)
--- NOTE | 2017-09-30 08:43 | HHI.PR ---
Subjective Remarks Follow up for rectal bleeding. The patient is sleeping upon my arrival, easily awakens. She denies any further rectal bleeding. Denies any abdominal pain, nausea, or vomiting. She is looking forward to hopefully going home today. Denies any lightheadedness or dizziness. She states she ate a little bit for dinner yesterday, has not yet had breakfast. Objective Vitals Vital Signs Date Time Temp Pulse Resp B/P (MAP) Pulse Ox O2 Delivery O2 Flow Rate FiO2 09/30/17 08:10 97.7 94 20 113/66 (82) 97 09/30/17 07:58 94 21 09/30/17 05:39 97.8 95 16 120/71 (87) 94 09/30/17 00:55 97.7 100 16 107/67 (80) 93 09/29/17 21:24 111 18 118/68 (85) 100 09/29/17 19:45 98.4 102 16 109/64 (79) 97 09/29/17 16:00 97.8 106 18 128/81 (97) 99 09/29/17 14:05 97.2 92 18 111/64 (80) 99 09/29/17 12:00 97.9 105 18 126/88 (101) 99 I/O 09/29/17 09/29/17 09/29/17 09/30/17 09/30/17 09/30/17 07:00 15:00 23:00 07:00 15:00 23:00 Intake Total 460 ml 500 ml Balance 460 ml 500 ml Packed Cells 400 ml 400 ml Blood Product IV Normal Saline Flush 60 ml Other 100 ml Result Diagram: 09/30/17 0515 09/30/17 0515 Imaging Last Impressions Pelvis X-Ray 09/29/17 0000 Signed Impressions: CONCLUSION: 1. No fracture is identified on the single view of the pelvis. 2. Severe atherosclerotic disease. 3. 15 mm coarse calcification in the right pelvis could be associated with a c alcified uterine fibroid or the right ovary. Head CT 09/29/17 0000 Signed Impressions: CONCLUSION: 1. No acute intracranial abnormality is identified. 2. Chronic findings include mild generalized atrophy and mild periventricular white matter change. GI Bleed Scan Nuclear Medicine 09/28/17 0000 Signed Impressions: CONCLUSION: 1. Active gastrointestinal bleeding on the left side of the abdomen likely in the left colon and progressing to the sigmoid colon. Chest X-Ray 09/28/17 0000 Signed Impressions: CONCLUSION: 1. Right basilar infiltrate slightly more prominent. 2. Cardiomegaly and left-sided defibrillator. Objective Remarks GENERAL: Well-nourished, well-developed pleasant elderly female patient in [facility]. SKIN: Warm and dry. No rash. HEENT: Normocephalic. Atraumatic. Pupils equal and round. Mucous membranes pink and moist. NECK: Supple. Trachea midline. CARDIOVASCULAR: Regular rate and rhythm. No murmur appreciated. RESPIRATORY: No accessory muscle use. Clear to auscultation. Breath sounds equal bilaterally. GASTROINTESTINAL: Abdomen soft, non-tender, nondistended. Normoactive bowel sounds x4. MUSCULOSKELETAL: No obvious deformities. Extremities without clubbing, cyanosis , or edema. NEUROLOGICAL: Awake and alert. No obvious cranial nerve deficits. Motor grossly within normal limits. Moving all extremities spontaneously. Normal speech. Procedures 09/29/17 -colonoscopy by Dr. Carbone showed diverticulosis, descending colitis right colon, internal and external hemorrhoids Medications and IVs Current Medications Medications (Trade) Dose Ordered Sig/Kristine Route Start Time Stop Time Status Last Admin (NS Flush) 2 ml UNSCH PRN IV FLUSH 09/28/17 12:00 (NS Flush) 2 ml BID IV FLUSH 09/28/17 21:00 09/30/17 07:45 (Zofran Inj) 4 mg Q6H PRN IV PUSH 09/28/17 12:00 (Protonix Inj) 40 mg DAILY IV PUSH 09/29/17 09:00 09/30/17 07:45 (Tylenol) 650 mg Q4H PRN PO 09/28/17 12:00 (Tylenol) 650 mg Q6H PRN PO 09/28/17 12:00 (Narcan Inj) 0.4 mg UNSCH PRN IV PUSH 09/28/17 12:00 (Charisse-Colace) 1 tab BID PO 09/28/17 21:00 09/30/17 07:44 (Senokot) 17.2 mg Q12H PRN PO 09/28/17 12:00 (Dulcolax Supp) 10 mg DAILY PRN RECTAL 09/28/17 12:00 (Lactulose Liq) 30 ml DAILY PRN PO 09/28/17 12:00 (Proair Hfa Inh) 2 puff Q6HR PRN INH 09/28/17 12:00 (Ferrous Sulfate) 325 mg BIDPC PO 09/28/17 18:00 09/30/17 07:44 (Synthroid) 25 mcg DAILY@0600 PO 09/29/17 06:00 09/30/17 06:04 (Remeron) 7.5 mg HS PO 09/28/17 21:00 09/29/17 20:08 (Singulair Chew) 4 mg HS CHEW 09/28/17 21:00 09/29/17 20:08 (Pravachol) 40 mg HS PO 09/28/17 21:00 09/29/17 20:08 (risperDAL) 0.25 mg HS PO 09/28/17 21:00 09/29/17 20:07 (Pill Splitter) 1 ea UNSCH PRN OTHER 09/28/17 21:00 Lactated Ringer's 1,000 ml @ 30 mls/hr Q24H PRN IV 09/29/17 07:45 10/02/17 07:44 Sodium Chloride 500 ml @ 30 mls/hr [id number] PRN IV 09/29/17 07:45 10/02/17 07:44 (Lopressor) 25 mg DAIRY WORKER PRN PO 09/29/17 07:45 10/02/17 07:44 (Betadine 5% Antisepsis Kit) 1 applic DAIRY WORKER PRN EACH NARE 09/29/17 07:45 10/02/17 07:44 (Chlorhexidine 2% Cloth) 3 pack DAIRY WORKER PRN TOPICAL 09/29/17 07:45 10/02/17 07:44 Aztreonam 2000 mg/ Sodium Chloride 100 ml @ 200 mls/hr Q8H IV 09/29/17 09:00 09/30/17 07:45 Levofloxacin/ Dextrose 150 ml @ 100 mls/hr Q24H IV 09/29/17 09:00 09/30/17 07:45 (Duoneb Neb) 1 ampule Q6HR NEB PRN NEB 09/29/17 10:15 (Prinivil) 10 mg DAILY PO 09/30/17 09:00 09/30/17 07:44 (Lopressor) 12.5 mg BID PO 09/29/17 21:00 09/30/17 07:44 A/P Assessment and Plan 87 YOWF with history of CAD, CHF with AICD, TIA, HTN, hypothyroidism, CKD, COPD , depression, and recent C. diff infection admitted 09/28 for bright red rectal bleeding and DIONICIO. GI bleed with acute anemia: Patient presented with BRBPR - Underwent colonoscopy on 09/04 for hematochezia and severe diverticulosis was found but it was also noted patient had poor prep - Initial H&H 11.9/37.0, Trending H&H which dropped to 8.8/27.4 over 12 hours - 2 units RBCs transfused, monitor H&H closely - Hold ASA, Plavix, and any chemical anticoagulation - Bleeding scan showed active GI bleeding on the left side of the abdomen likely in the left colon and progressing to the sigmoid colon - GI consulted; colonoscopy 09/29 showed diverticulosis, descending colitis right colon, internal and external hemorrhoids - Continue PPI - Tolerated clear liquids, will advance to soft diet - Will need clearance from GI and recommendations on restarting aspirin/ plavix Acute on chronic kidney disease:- Labile baseline creatinine upon review of EMR but it has been as low as 0.89 back in June - Likely from acute bleeding, dehydration - Monitor closely - Avoid nephrotoxic agents - Much improved, Cr 0.91 today Pneumonia - CXR showing R basilar infiltrate and patient symptomatic with cough - Since hospitalized within the last month will treat for healthcare associated PNA - Allergic to PCN so will treat with Aztreonam and Levaquin - Continue to closely monitor clinically - DuoNeb PRN - Supplemental O2 PRN - Stable on room air CAD: chronic - Holding ASA and Plavix - Continue statin CHF: Chronic, Euvolemic on exam - Resume Lisinopril and metoprolol - Caution with fluids HTN: Chronic, BP well controlled - Resume home Lisinopril and metoprolol Hypothyroidism: Chronic - Continue home Synthroid Dementia, depression: Chronic - Continue home Remeron and Risperdal DVT prophylaxis: SCDs, hold chemical anticoagulation in light of GI bleed Discharge Planning Await clearance from GI and recommendations on restarting aspirin/plavix. Marichuy Winslow PA-C Sep 30, 2017 8:43 am
--- NOTE | 2017-09-30 10:30 | HHI.FF ---
Face to Face Verification Diagnosis: (1) GI bleed (2) Pneumonia (3) Hypertension (4) Hypothyroidism (5) Hyperlipemia (6) Coronary artery disease (7) Mild dementia Physical Therapy Order: Evaluate and Treat, Improve ambulation Home Health Nursing Order: Medical education Signs/symptoms of disease process Nursing assessment with vital signs Label Operator Order: To Evaluate: Support services Order: To Provide: Long range planning, Community services I have seen patient Afia Wells on 09/30/17. My clinical findings support the need for the requested home health care services because: Deconditioned w/ increased weakness Med compliance is questionable Limited ability to care for self High risk of falls I certify that my clinical findings support that this patient is homebound because: Impaired cognitive ability/safety Unsteady gait/balance Unsafe to leave home unassisted Unable to use public transportation Marichuy Winslow PA-C Sep 30, 2017 10:30
--- NOTE | 2017-09-30 13:23 | HHI.DCPOC ---
Discharge Care Plan Diagnosis: (1) Internal and external hemorrhoids without complication (2) Diverticulosis (3) GI bleed (4) Hypertension (5) Hyperlipemia (6) Coronary artery disease (7) Pneumonia Goals to Promote Your Health * To prevent worsening of your condition and complications * To maintain your health at the optimal level Directions to Meet Your Goals Take your medications as prescribed Follow your dietary instruction Follow activity as directed Keep your appointments as scheduled Take your immunizations and boosters as scheduled If your symptoms worsen call your PCP, if no PCP go to Urgent Care Center or Emergency Room Smoking is Dangerous to Your Health. Avoid second hand smoke Call the 24-hour hour crisis hotline for domestic abuse at Marichuy Winslow PA-C Sep 30, 2017 1:23 pm
[2017-09-30] MEDS ORDERED: LEVO750T3 PO (13:28)
--- NOTE | 2017-09-30 13:38 | HHI.GIFU ---
Subjective Remarks Pt is resting in bed, no more bleeding, no other GI issues. (Adonis Key) Objective Vitals I&O Vital Signs Date Time Temp Pulse Resp B/P (MAP) Pulse Ox O2 Delivery O2 Flow Rate FiO2 09/30/17 11:26 98.1 97 14 110/65 (80) 97 09/30/17 08:10 97.7 94 20 113/66 (82) 97 09/30/17 07:58 94 21 09/30/17 05:39 97.8 95 16 120/71 (87) 94 09/30/17 00:55 97.7 100 16 107/67 (80) 93 09/29/17 21:24 111 18 118/68 (85) 100 09/29/17 19:45 98.4 102 16 109/64 (79) 97 09/29/17 16:00 97.8 106 18 128/81 (97) 99 09/29/17 14:05 97.2 92 18 111/64 (80) 99 I/O 09/29/17 09/29/17 09/29/17 09/30/17 09/30/17 09/30/17 07:00 15:00 23:00 07:00 15:00 23:00 Intake Total 460 ml 500 ml 250 ml Balance 460 ml 500 ml 250 ml Intake IV Total 250 ml Packed Cells 400 ml 400 ml Blood Product IV Normal Saline Flush 60 ml Other 100 ml Laboratory Laboratory Tests Test 09/29/17 14:43 09/30/17 01:11 09/30/17 05:15 Hemoglobin 10.8 11.0 10.6 Hematocrit 32.9 33.1 31.7 White Blood Count 7.8 Red Blood Count 3.45 Mean Corpuscular Volume 92.1 Mean Corpuscular Hemoglobin 30.6 Mean Corpuscular Hemoglobin Concent 33.3 Red Cell Distribution Width 16.8 Platelet Count 111 Mean Platelet Volume 9.4 Neutrophils (%) (Auto) 86.5 Lymphocytes (%) (Auto) 6.7 Monocytes (%) (Auto) 5.7 Eosinophils (%) (Auto) 0.7 Basophils (%) (Auto) 0.4 Neutrophils # (Auto) 6.7 Lymphocytes # (Auto) 0.5 Monocytes # (Auto) 0.4 Eosinophils # (Auto) 0.1 Basophils # (Auto) 0.0 CBC Comment DIFF FINAL Differential Comment Blood Urea Nitrogen 24 Creatinine 0.91 Random Glucose 90 Calcium Level 7.5 Sodium Level 140 Potassium Level 4.4 Chloride Level 113 Carbon Dioxide Level 18.0 Anion Gap 9 Estimat Glomerular Filtration Rate 58 Date/Time Source Procedure Growth Status 09/28/17 17:25 Urine Clean Catch Urine Culture - Final Klebsiella Pneumoniae Complete Imaging Last Impressions Pelvis X-Ray 09/29/17 Signed Impressions: CONCLUSION: 1. No fracture is identified on the single view of the pelvis. 2. Severe atherosclerotic disease. 3. 15 mm coarse calcification in the right pelvis could be associated with a c alcified uterine fibroid or the right ovary. Head CT 09/29/17 Signed Impressions: CONCLUSION: 1. No acute intracranial abnormality is identified. 2. Chronic findings include mild generalized atrophy and mild periventricular white matter change. GI Bleed Scan Nuclear Medicine 09/28/17 Signed Impressions: CONCLUSION: 1. Active gastrointestinal bleeding on the left side of the abdomen likely in the left colon and progressing to the sigmoid colon. Chest X-Ray 09/28/17 Signed Impressions: CONCLUSION: 1. Right basilar infiltrate slightly more prominent. 2. Cardiomegaly and left-sided defibrillator. Physical Exam HEENT: Pupils round and reactive to light; normocephalic; atraumatic; no jaundice. Throat is clear. CHEST: Chest is clear to auscultation and percussion. CARDIAC: Regular rate and rhythm with no murmur gallop or rubs. ABDOMEN: Soft, nondistended, nontender; no hepatosplenomegaly; bowel sounds are present in all four quadrants. EXTREMITIES: No clubbing, cyanosis, or edema. SKIN: Normal; no rash; no jaundice. INFANT LEAD TEACHER: No focal deficits; alert and oriented times three. (Adonis Key) Assessment and Plan Plan GI bleeding bright red rectal bleeding. Onset this a.m. with some lower abdominal discomfort worsening over the past 5 days Coarse rhonchi nausea and vomiting 1 this early a.m., but none since Decreased appetite has not eaten anything in the past 24 hours Current hemoglobin 11.9, PT/INR 1.1, normal LFTs Patient had recent colonoscopy for hematochezia, patient had severe diverticulosis, recommendation was to repeat colonoscopy in 1 month due to poor prep. Patient currently has been on Plavix which was restarted after her last hospital stay. Currently bleeding scan will be done today to evaluate diverticular bleed versus hemorrhoids versus other. Currently Plavix was taken this morning but now on hold. 09/30/17 Bleeding scan on 09/28 showed active gastrointestinal bleeding on the left side of the abd likely in the left colon . hh stable, pt denies any more bleeding S/p Colonoscopy on 09/29/17 1. Diverticulosis sigmoid,descending colitis right colon-biopsy 2. Retroflexed views revealed internal hemorrhoids 3. Retroflexed views revealed small internal hemorrhoids 4. Revealed external hemorrhoids 5. Revealed internal hemorrhoids Plan Colonoscopy in 6 months Await bx Monitor hh She was seen per myself and Dr. Carbone, this note was written on her behalf (Adonis Key) Physician Comments seen, examined agree with above gi will sign off if dc fu office (Summer Carbone MD) Adonis Key Sep 30, 2017 13:38 Summer Carbone MD Sep 30, 2017 21:38
[2017-09-30] MEDS: PRAVASTATIN SOD 40 MG TAB PO SCH (23:18)
[2017-09-30] MEDS: MIRTAZAPINE 15 MG TAB PO SCH (23:19)
[2017-09-30] MEDS: MONTELUKAST SODIUM 4 MG CHEWABLE TAB CHEW SCH (23:19)
[2017-09-30] MEDS: risperiDONE 0.25 MG TAB PO SCH (23:20)
[2017-10-01] MEDS: AZTREONAM INJ 2,000 MG in SODIUM CHLORIDE 0.9% INJ 100 ML IV SCH ×2 (02:02→07:36)
[2017-10-01 04:37] VITALS: BP 116/70; PULSE 96; RESP 17; TEMP 98.3; O2SAT 96
[2017-10-01] MEDS: LEVOTHYROXINE SODIUM 25 MCG TAB PO SCH (06:27)
[2017-10-01] MEDS: DOCUSATE SODIUM 50 MG/SENNA 8.6 MG TAB PO SCH (07:35)
[2017-10-01] MEDS: LISINOPRIL 10 MG TAB PO SCH (07:35)
[2017-10-01] MEDS: METOPROLOL TARTRATE 25 MG TAB PO SCH (07:36)
[2017-10-01] MEDS: SODIUM CHLORIDE 0.9% FLUSH 10 ML FLUSH IV FLUSH SCH (07:36)
[2017-10-01] MEDS: LEVOFLOXACIN 750 MG PREMIX INJ 150 ML IV SCH (07:36)
[2017-10-01] MEDS: FERROUS SULFATE 325 MG (65 MG ELEMENTAL IRON) TAB PO SCH (07:36)
[2017-10-01] MEDS: PANTOPRAZOLE SODIUM 40 MG VIAL IV PUSH SCH (07:36)
[2017-10-01 08:00] VITALS: BP 134/80; PULSE 102; RESP 22; TEMP 97.7; O2SAT 98
[2017-10-01 08:37] LABS: HEMATOCRIT 30.4 % (35.0-46.0)
[2017-10-01] MEDS ORDERED: LEVO750T3 PO (11:44)
[2017-10-01] MEDS ORDERED: PANT40TA3 PO (11:44)
--- NOTE | 2017-10-01 11:45 | HHI.DS ---
Discharge Summary Admission Date Sep 28, 2017 at 11:52 am Discharge Date: Oct 01, 2017 Admitting Diagnosis Gi Bleed. (1) GI bleeding ICD Code: K92.2 - Gastrointestinal hemorrhage, unspecified Diagnosis: Principal Status: Acute (2) Diverticulosis ICD Code: K57.90 - Diverticulosis of intestine, part unspecified, without perforation or abscess without bleeding Diagnosis: Secondary Status: Acute (3) Internal and external hemorrhoids without complication ICD Code: K64.4 - Residual hemorrhoidal skin tags; K64.8 - Other hemorrhoids Diagnosis: Secondary Status: Acute (4) Pneumonia ICD Code: J18.9 - Pneumonia, unspecified organism Diagnosis: Secondary Status: Acute Procedures 09/29/17 -colonoscopy by Dr. Carbone showed diverticulosis, descending colitis right colon, internal and external hemorrhoids Brief History - From Admission This is a 87-year-old female who presented to the emergency room because of rectal bleeding. Patient states she was laying on her bed when she felt a gush in her rectal area and noted bright red blood amounting to about 250 cc. Denies rectal and abdominal pain, constipation, syncope, dizziness, nausea, chest pain and shortness of breath. No constipation and recent NSAID use. She takes aspirin and Plavix for history of CAD and TIA. Recently had rectal bleeding over 2 weeks ago underwent endoscopy showing gastritis, inflammation in the duodenal bulb and second portion as well as severe diverticulosis involving the sigmoid and internal hemorrhoids last September 04. Abdominal CT 09/03 with multifocal diverticuli sigmoid colon without diverticulitis, likely source of the bleeding. At this time she is hemodynamically stable with hemoglobin of 11. She was recommended further hospitalization by emergency room physician who noted that she had significant bleeding and anemia requiring blood transfusion during last admission. All other systems reviewed negative CBC/BMP: 10/01/17 0708 09/30/17 0515 Significant Findings Laboratory Tests Test 09/28/17 17:25 09/28/17 19:08 09/28/17 22:10 09/29/17 06:44 Urine Turbidity CLOUDY (CLEAR) Urine Protein 100 mg/dL (NEG-TRACE) Urine Occult Blood LARGE (NEG) Urine Leukocyte Esterase LARGE (NEG) Urine RBC 20 /hpf (0-3) Urine WBC Clumps MOD (NONE) Urine Bacteria OCC /hpf (NONE) Hemoglobin 9.9 GM/DL (11.6-15.3) 8.8 GM/DL (11.6-15.3) 9.8 GM/DL (11.6-15.3) Hematocrit 31.1 % (35.0-46.0) 27.4 % (35.0-46.0) 29.5 % (35.0-46.0) Red Blood Count 3.16 MIL/MM3 (4.00-5.30) Platelet Count 122 TH/MM3 (150-450) Neutrophils (%) (Auto) 71.2 % (16.0-70.0) Monocytes (%) (Auto) 10.3 % (0.0-8.0) Eosinophils (%) (Auto) 4.7 % (0.0-4.0) Basophils (%) (Auto) 2.3 % (0.0-2.0) Lymphocytes # (Auto) 0.5 TH/MM3 (1.0-4.8) Blood Urea Nitrogen 28 MG/DL (7-18) Creatinine 1.11 MG/DL (0.50-1.00) Calcium Level 7.5 MG/DL (8.5-10.1) Chloride Level 112 MEQ/L (98-107) Carbon Dioxide Level 20.5 MEQ/L (21.0-32.0) Estimat Glomerular Filtration Rate 46 ML/MIN (>89) Test 09/29/17 14:43 09/30/17 01:11 09/30/17 05:15 10/01/17 07:08 Hemoglobin 10.8 GM/DL (11.6-15.3) 11.0 GM/DL (11.6-15.3) 10.6 GM/DL (11.6-15.3) 10.0 GM/DL (11.6-15.3) Hematocrit 32.9 % (35.0-46.0) 33.1 % (35.0-46.0) 31.7 % (35.0-46.0) 30.4 % (35.0-46.0) Red Blood Count 3.45 MIL/MM3 (4.00-5.30) Platelet Count 111 TH/MM3 (150-450) Neutrophils (%) (Auto) 86.5 % (16.0-70.0) Lymphocytes (%) (Auto) 6.7 % (9.0-44.0) Lymphocytes # (Auto) 0.5 TH/MM3 (1.0-4.8) Blood Urea Nitrogen 24 MG/DL (7-18) Calcium Level 7.5 MG/DL (8.5-10.1) Chloride Level 113 MEQ/L (98-107) Carbon Dioxide Level 18.0 MEQ/L (21.0-32.0) Estimat Glomerular Filtration Rate 58 ML/MIN (>89) Imaging Last Impressions Pelvis X-Ray 09/29/17 Signed Impressions: CONCLUSION: 1. No fracture is identified on the single view of the pelvis. 2. Severe atherosclerotic disease. 3. 15 mm coarse calcification in the right pelvis could be associated with a c alcified uterine fibroid or the right ovary. Head CT 09/29/17 Signed Impressions: CONCLUSION: 1. No acute intracranial abnormality is identified. 2. Chronic findings include mild generalized atrophy and mild periventricular white matter change. GI Bleed Scan Nuclear Medicine 09/28/17 Signed Impressions: CONCLUSION: 1. Active gastrointestinal bleeding on the left side of the abdomen likely in the left colon and progressing to the sigmoid colon. Chest X-Ray 09/28/17 Signed Impressions: CONCLUSION: 1. Right basilar infiltrate slightly more prominent. 2. Cardiomegaly and left-sided defibrillator. PE at Discharge GENERAL: Well-nourished, well-developed pleasant elderly female patient in [facility]. SKIN: Warm and dry. No rash. HEENT: Normocephalic. Atraumatic. Pupils equal and round. Mucous membranes pink and moist. NECK: Supple. Trachea midline. CARDIOVASCULAR: Regular rate and rhythm. No murmur appreciated. RESPIRATORY: No accessory muscle use. Clear to auscultation. Breath sounds equal bilaterally. GASTROINTESTINAL: Abdomen soft, non-tender, nondistended. Normoactive bowel sounds x4. MUSCULOSKELETAL: No obvious deformities. Extremities without clubbing, cyanosis , or edema. NEUROLOGICAL: Awake and alert. No obvious cranial nerve deficits. Motor grossly within normal limits. Moving all extremities spontaneously. Normal speech. Pt update on day of discharge Follow-up for GI bleeding, dehydration, pneumonia. Patient is seen with her daughter at bedside. The patient wants to go home. Patient denies any abdominal pain, nausea/vomiting, or any further rectal bleeding. She is tolerating oral intake. She reports her cough is improving. Her O2 sat stable on room air. Had long discussion with the patient's daughter regarding findings on EGD/colonoscopy. Encouraged patient to start on Ensure or any meal supplement shakes. Hospital Course 87-year-old female with history of CAD, CHF with AICD, TIA, HTN, hypothyroidism , CKD, COPD, depression, and recent C. diff infection admitted 09/28 for bright red rectal bleeding and DIONICIO. GI bleed with acute anemia: Patient presented with BRBPR. Underwent colonoscopy on 09/04 for hematochezia and severe diverticulosis was found but it was also noted patient had poor prep. Initial H&H 11.9/37.0, Trending H&H which dropped to 8.8/27.4 over 12 hours. 2 units RBCs transfused, Hgb improved to 11.0. Held ASA, Plavix, and any chemical anticoagulation. Bleeding scan showed active GI bleeding on the left side of the abdomen likely in the left colon and progressing to the sigmoid colon. GI consulted; colonoscopy 09/29 showed diverticulosis, descending colitis right colon, internal and external hemorrhoids. Continue PPI. Tolerated clear liquids, advance to soft diet, patient tolerated well. She was cleared for discharge by GI. Discussed with Adonis OLIVERA with GI, cleared for patient to restart back on aspirin and plavix. Discussed all findings and recommendations with the patient and her daughter at bedside. All questions answered. Acute on chronic kidney disease:- Labile baseline creatinine upon review of EMR but it has been as low as 0.89 back in June. Likely from acute bleeding, dehydration. Monitor closely. Avoid nephrotoxic agents. Much improved, Cr 0.91. Resolved. Pneumonia: CXR showing R basilar infiltrate and patient symptomatic with cough. Since hospitalized within the last month will treat for healthcare associated PNA. Allergic to PCN so will treat with Aztreonam and Levaquin. Continue to closely monitor clinically, improved. DuoNeb PRN. O2 sat stable on room air. Discharged on Levaquin po. CAD: chronic. Holding ASA and Plavix throughout admission. Continue statin. Cleared by GI to restart ASA/plavix upon discharge. CHF: Chronic, Euvolemic on exam. Resumed Lisinopril and metoprolol. Caution with fluids. HTN: Chronic, BP well controlled. Resumed home Lisinopril and metoprolol Hypothyroidism: Chronic. Continue home Synthroid Dementia, depression: Chronic. Continue home Remeron and Risperdal Pt Condition on Discharge: Stable Discharge Disposition: INTERMEDIATE with [facility] Discharge Time: > 30 minutes Discharge Instructions DIET: Follow Instructions for: Heart Healthy Diet Activities you can perform: Regular-No Restrictions Follow up Referrals: Gastroenterology - 1 Week with Summer Carbone MD PCP Follow-up - 1 Week New Medications: Levofloxacin (Levofloxacin) 750 Mg Tablet 750 MG PO DAILY for Infection for 4 Days, #4 TAB 0 Refills Pantoprazole (Pantoprazole) 40 Mg Tab 40 MG PO DAILY for Manage Heartburn for 30 Days, #30 TAB Continued Medications: Albuterol Sulfate (Proair Hfa) 90 Mcg Hfa.aer.ad 2 PUFF INH Q6HR PRN for SHORTNESS OF BREATH, #[address] (Aspirin EC) 81 Mg Tabdr 81 MG PO DAILY for CLOT PREVENTION for 30 Days, #30 TAB 11 Refills Clopidogrel (Plavix) 75 Mg Tab 75 MG PO DAILY for Blood Clot Prevention, #30 TAB 0 Refills Cyanocobalamin (Vitamin B-12) 1,000 Mcg Subl 1000 MCG SL EVERY OTHER DAY for Nutritional Supplement, TAB.SL 0 Refills Docusate Sodium (Docusate Sodium) 100 Mg Cap 100 MG PO every other night for Prevent Constipation, #60 CAP 0 Refills Ferrous Sulfate (Ferrous Sulfate) 325 Mg (65 Mg Iron) Tablet 325 MG PO BIDPC for Nutritional Supplement, #60 TAB 0 Refills Levothyroxine (Synthroid) 25 Mcg Tab 0.25 MCG PO DAILY for Thyroid, #30 TAB 0 Refills Lisinopril (Lisinopril) 10 Mg Tab 10 MG PO DAILY, #30 TAB 0 Refills Metoprolol Tartrate (Metoprolol Tartrate) 25 Mg Tab 12.5 MG PO BID for Blood Pressure Management, #60 TAB 3 Refills Mirtazapine (Remeron) 15 Mg Tab 7.5 MG PO HS for Depression Control, #15 TAB 0 Refills Montelukast (Montelukast) 4 Mg Chew 4 MG CHEW HS for Allergies, #30 TAB 0 Refills Omeprazole (Omeprazole) 20 Mg Tab 20 MG PO DAILY, #30 TAB 0 Refills Pravastatin (Pravastatin) 40 Mg Tab 40 MG PO HS for Cholesterol Management, #30 TAB 0 Refills Risperidone (Risperdal) 0.25 Mg Tab 0.25 MG PO HS, #30 TAB 0 Refills Discontinued Medications: Albuterol 8.5 GM Inh (Proair Hfa 8.5 GM Inh) 90 Mcg/Act Aer 2 PUFF INH Q4-6H PRN for SHORTNESS OF BREATH, #1 INHALER 0 Refills 108 mcg/actuation Docusate Sodium (Dok) 100 Mg Cap 100 MG PO daily for Constipation, #14 CAP Marichuy Winslow PA-C Oct 01, 2017 11:45
[2017-10-02] MEDS ORDERED: PANTOPRAZOLE SOD 40 MG DELAYED RELEASE TAB PO SCH (09:00)
== END 2017-10-01 12:36 | disposition home or self-care (01) ==
LOC: NEPC 08:27 → NEDA 11:52 → NEPGCP 12:50
PROVIDERS: ADMIT Hospitalist; ATTEND Hospitalist
DX: K52.9 Noninfective gastroenteritis and colitis, unspecified (principal); Z79.01 Long term (current) use of anticoagulants; K64.8 Other hemorrhoids; F03.90 Unspecified dementia, unspecified severity, without behavioral disturbance, psychotic disturbance, mood disturbance, and anxiety; M19.90 Unspecified osteoarthritis, unspecified site; F41.9 Anxiety disorder, unspecified; F32.9 Major depressive disorder, single episode, unspecified; E78.00 Pure hypercholesterolemia, unspecified; Z86.73 Personal history of transient ischemic attack (TIA), and cerebral infarction without residual deficits; I50.22 Chronic systolic (congestive) heart failure; N18.9 Chronic kidney disease, unspecified; I13.0 Hypertensive heart and chronic kidney disease with heart failure and stage 1 through stage 4 chronic kidney disease, or unspecified chronic kidney disease; K21.9 Gastro-esophageal reflux disease without esophagitis; R51 Headache; K44.9 Diaphragmatic hernia without obstruction or gangrene; I25.2 Old myocardial infarction; Z95.810 Presence of automatic (implantable) cardiac defibrillator; E03.9 Hypothyroidism, unspecified; Z95.1 Presence of aortocoronary bypass graft; Z79.899 Other long term (current) drug therapy; R00.0 Tachycardia, unspecified; I12.9 Hypertensive chronic kidney disease with stage 1 through stage 4 chronic kidney disease, or unspecified chronic kidney disease; K57.30 Diverticulosis of large intestine without perforation or abscess without bleeding; K29.70 Gastritis, unspecified, without bleeding; R11.2 Nausea with vomiting, unspecified; R53.1 Weakness; R53.83 Other fatigue; E78.5 Hyperlipidemia, unspecified; I25.10 Atherosclerotic heart disease of native coronary artery without angina pectoris; J18.9 Pneumonia, unspecified organism; K64.4 Residual hemorrhoidal skin tags; D25.9 Leiomyoma of uterus, unspecified; D62 Acute posthemorrhagic anemia; B96.1 Klebsiella pneumoniae [K. pneumoniae] as the cause of diseases classified elsewhere
CPT/HCPCS: 00811; 36430; 45380; 70450; 71045; 72170; 78278; 80048; 80053; 81001; 85014; 85018; 85025; 85610; 85730; 86850; 86900; 86901; 86920; 87077; 87086; 87186; 88305; 93005; 96361; 96365; 96366; 96367; 96368; 96375; 96376; 97110; 97116; 97161; 99285; A9560; C9113; G0378; G8987; G8988; J1940; J1956; J2270; J7040; P9016

== ENCOUNTER 2017-10-07 19:26 | Inpatient (IN) ==
[2017-10-10 16:29] VITALS: BP 118/73; PULSE 96; RESP 16; TEMP 98; O2SAT 99
== END 2017-10-10 18:32 | disposition home health service (06) ==
LOC: NEPC 19:26 → NEDA 23:42 → N05 10-08 01:07
PROVIDERS: ADMIT Hospitalist; ATTEND Hospitalist

== ENCOUNTER 2017-10-17 13:28 | Inpatient (IN) ==
--- NOTE | 2017-10-17 14:06 | ED ---
HPI General Chief complaint: Extremity Problem,Nontraumatic Stated complaint: Edema Time Seen by Provider: 10/17/17 13:54 History of Present Illness HPI narrative: Patient presents to the emergency department secondary to bilateral lower extremity edema. She was brought from [facility] and did land by [facility]. She apparently was here in [place] with similar symptoms on October 08. Edema reportedly secondary to kidney disease. She advises that she has had the lower extremity edema for approximately 1 week. She denies chest pain, shortness of breath, fever, abdominal pain, urinary symptoms, cough. Echo on October 09 shows a EF of 30-35% with left ventricular systolic function severely reduced. Related Data Home Medications Medication Instructions Recorded Confirmed multivitamin with iron DAILY 10/08/17 vitamin B complex 1,000 mcg PO EVERY OTHER DAY 10/08/17 10/17/17 acetaminophen 650 mg PO BID PRN 10/17/17 10/17/17 albuterol sulfate [ProAir HFA] 2 puff INHALATION Q6H PRN 10/17/17 10/17/17 aspirin 81 mg PO DAILY 10/17/17 10/17/17 docusate sodium 100 mg PO EVERY OTHER DAY 10/17/17 10/17/17 levothyroxine 25 mcg PO DAILY 10/17/17 10/17/17 montelukast 4 mg PO QPM 10/17/17 10/17/17 pantoprazole 40 mg PO DAILY 10/17/17 10/17/17 Previous Rx's Medication Instructions Recorded atorvastatin 20 mg PO HS #30 tab 10/10/17 clopidogrel [Plavix] 75 mg PO DAILY #30 tab 10/10/17 lisinopril 10 mg PO DAILY #30 tab 10/10/17 metoprolol tartrate 12.5 mg PO BID #60 tab 10/10/17 mirtazapine 7.5 mg PO HS #30 tab 10/10/17 risperidone 0.25 mg PO HS #30 tab 10/10/17 Allergies Allergy/AdvReac Type Severity Reaction Status Date / Time Penicillins Allergy Severe Anaphylaxis Verified 10/17/17 14:00 Review of Systems ROS Unobtainable All other systems reviewed negative except as stated in HPI [facility] Medical History Medical History Chronic systolic CHF (congestive heart failure) (Acute) Pacemaker (Acute) Pulmonary hypertension (Acute) Anemia (Acute) Asthma (Acute) C. difficile colitis (Acute) CAD (coronary artery disease) (Acute) COPD (chronic obstructive pulmonary disease) (Acute) Dementia (Acute) Depression (Acute) Diverticulosis (Acute) GERD (gastroesophageal reflux disease) (Acute) HTN (hypertension) (Acute) Hypothyroid (Acute) Surgical History Surgical History Stented coronary artery (Acute) Family History Family History Mother CHF (congestive heart failure) Social History Social History Substance History: No History of Abuse Second Hand Smoke Exposure: No Smoking Status: Never smoker How Often Do You Have a Drink Containing Alcohol: Never Recent Travel in [facility] within the Last 8 Weeks: No Recent Out of Country Travel within the Last 8 Weeks: No Immunization History Tetanus Immunization: Unsure Hx Influenza Vaccine This Season: Unable to Assess Exam Narrative Exam Narrative: GENERAL: No acute distress. SKIN: Focused skin assessment warm/dry. HEAD: Atraumatic. Normocephalic. EYES: Pupils equal and round. No scleral icterus. No injection or drainage. ENT: No nasal bleeding or discharge. Mucous membranes pink and moist. NECK: Trachea midline. No JVD. CARDIOVASCULAR: Regular rate and rhythm. + murmur appreciated. RESPIRATORY: No accessory muscle use. Clear to auscultation. Breath sounds equal bilaterally. GASTROINTESTINAL: Abdomen soft, non-tender, nondistended. Hepatic and splenic margins not palpable. MUSCULOSKELETAL: No obvious deformities. No clubbing. No cyanosis. Pitting bilateral lower extremity edema. NEUROLOGICAL: Awake and alert. No obvious cranial nerve deficits. Motor grossly within normal limits. Normal speech. PSYCHIATRIC: Appropriate mood and affect; insight and judgment normal. Course Initial Documented Vital Signs Pulse Rate 93 H 10/17/17 13:47 Respiratory Rate 23 10/17/17 13:47 Blood Pressure 120/90 10/17/17 13:47 Pulse Oximetry 99 10/17/17 13:47 Last Documented Vital Signs Pulse Rate 87 10/17/17 15:58 Respiratory Rate 24 10/17/17 15:58 Blood Pressure 133/91 H 10/17/17 15:58 Pulse Oximetry 99 10/17/17 15:58 Medical Decision Making MDM Narrative Medical decision making narrative: Patient presents to the emergency department with bilateral lower extremity edema. Patient placed on the security monitor, continuous pulse ox, and IV access obtained. Labs, chest x-ray, EKG ordered. CBC within normal limits. X-ray shows moderate right pleural effusion and enlarged heart. Chemistry shows increased troponin, BUN, creatinine, and alk phos. Patient has a history of elevated troponins and creatinine. Creatinine on October 10 was 1.33, today she is 1.5. Troponin on October 09 was 0.28, today she is 0.34. BNP greater than 5000. Patient given 40 mg IV Lasix. Will be admitted for observation. Differential Diagnosis Differential Diagnosis: Liver disease, kidney disease, CHF, pulmonary edema Lab Data Result diagrams: 10/17/17 14:08 10/17/17 14:08 Lab Results 10/17/17 10/17/17 10/17/17 Range/Units 14:08 14:08 14:08 WBC 5.3 (4.0-11.0) th/mm3 RBC 4.06 (4.00-5.30) mil/mm3 Hgb 12.1 (11.6-15.3) gm/dL Hct 37.8 (35.0-46.0) % MCV 93.0 (80.0-100.0) fL MCH 29.7 (27.0-34.0) pg MCHC 31.9 L (32.0-36.0) % RDW 17.1 (11.6-17.2) % Plt Count 243 (150-450) th/mm3 MPV 8.6 (7.0-11.0) fL Neut % (Auto) 60.0 (16.0-70.0) % Lymph % (Auto) 21.0 (9.0-44.0) % Bledsoe % (Auto) 15.1 H (0.0-8.0) % Eos % (Auto) 1.9 (0.0-4.0) % Baso % (Auto) 2.0 (0.0-2.0) % Neut # (Auto) 3.2 (1.8-7.7) th/mm3 Lymph # (Auto) 1.1 (1.0-4.8) th/mm3 Bledsoe # (Auto) 0.8 (0.0-0.9) th/mm3 Eos # (Auto) 0.1 (0.0-0.4) th/mm3 Baso # (Auto) 0.1 (0.0-0.2) th/mm3 WBC Differential . Differential Comment Auto diff final PT (9.8-11.6) sec INR Ratio APTT (24.3-30.1) sec Sodium 138 (136-145) meq/L Potassium 4.4 (3.5-5.1) meq/L Chloride 107 (98-107) meq/L Carbon Dioxide 17.5 L (21.0-32.0) meq/L Anion Gap 14 (5-15) meq/L BUN 29 H (7-18) mg/dL Creatinine 1.50 H (0.50-1.00) mg/dL Estimated GFR 33 L (>89) mL/min Random Glucose 101 (74-106) mg/dL Calcium 8.1 L (8.5-10.1) mg/dL Magnesium 2.4 (1.5-2.5) mg/dL Total Bilirubin 0.5 (0.2-1.0) mg/dL AST 26 (15-37) U/L ALT 22 (10-53) U/L Alkaline Phosphatase 218 H (45-117) U/L Troponin I 0.34 H (0.02-0.05) ng/mL B-Natriuretic Peptide Greater than 5000 H (0-100) pg/mL Total Protein 6.0 L (6.4-8.2) g/dL Albumin 2.6 L (3.4-5.0) g/dL 10/17/17 10/17/17 Range/Units 14:08 16:18 WBC (4.0-11.0) th/mm3 RBC (4.00-5.30) mil/mm3 Hgb (11.6-15.3) gm/dL Hct (35.0-46.0) % MCV (80.0-100.0) fL MCH (27.0-34.0) pg MCHC (32.0-36.0) % RDW (11.6-17.2) % Plt Count (150-450) th/mm3 MPV (7.0-11.0) fL Neut % (Auto) (16.0-70.0) % Lymph % (Auto) (9.0-44.0) % Bledsoe % (Auto) (0.0-8.0) % Eos % (Auto) (0.0-4.0) % Baso % (Auto) (0.0-2.0) % Neut # (Auto) (1.8-7.7) th/mm3 Lymph # (Auto) (1.0-4.8) th/mm3 Bledsoe # (Auto) (0.0-0.9) th/mm3 Eos # (Auto) (0.0-0.4) th/mm3 Baso # (Auto) (0.0-0.2) th/mm3 WBC Differential Differential Comment PT 12.2 H (9.8-11.6) sec INR 1.2 Ratio APTT 24.7 (24.3-30.1) sec Sodium (136-145) meq/L Potassium (3.5-5.1) meq/L Chloride (98-107) meq/L Carbon Dioxide (21.0-32.0) meq/L Anion Gap (5-15) meq/L BUN (7-18) mg/dL Creatinine (0.50-1.00) mg/dL Estimated GFR (>89) mL/min Random Glucose (74-106) mg/dL Calcium (8.5-10.1) mg/dL Magnesium (1.5-2.5) mg/dL Total Bilirubin (0.2-1.0) mg/dL AST (15-37) U/L ALT (10-53) U/L Alkaline Phosphatase (45-117) U/L Troponin I Cancelled (0.02-0.05) ng/mL B-Natriuretic Peptide (0-100) pg/mL Total Protein (6.4-8.2) g/dL Albumin (3.4-5.0) g/dL Imaging Data Radiologist's impression: Chest X-Ray 10/17/17 14:01 CONCLUSION: 1. Moderate right pleural effusion which has increased in size since 10/07. 2. Otherwise stable chest. ECG Data EKG Prior to Arrival: No Attestation: I personally reviewed and interpreted this ECG as follows: (Sinus rhythm, immature complexes, rate 91, left axis deviation, intraventricular conduction delay) Discharge Plan Discharge Disposition Patient Disposition: 30 Still Patient Discharge Condition Condition: Stable Discharge Details Diagnosis: Acute exacerbation of CHF (congestive heart failure) Physicians Team ED Provider: Mills,Janel D Primary Care Provider: UNKNOWN, Attending Provider: Jocy Alonso Discharge Interventions Interventions: ED Discharge Assessment Last Done: 10/17/17 17:40 Vital Signs Last Done: 10/17/17 13:53 Status ED Status: Admitted Observation Patient
[2017-10-17 14:22] LABS: Baso # (Auto) 0.1 th/mm3 (0.0-0.2); Eos # (Auto) 0.1 th/mm3 (0.0-0.4); Eos % (Auto) 1.9 % (0.0-4.0); Hematocrit 37.8 % (35.0-46.0); Hemoglobin 12.1 gm/dL (11.6-15.3); Lymph # (Auto) 1.1 th/mm3 (1.0-4.8); Mean Corpuscular HGB Conc 31.9 % (32.0-36.0); Mean Corpuscular Hemoglobin 29.7 pg (27.0-34.0); Mean Platelet Volume 8.6 fL (7.0-11.0); Mono # (Auto) 0.8 th/mm3 (0.0-0.9); Mono % (Auto) 15.1 % (0.0-8.0); Neut # (Auto) 3.2 th/mm3 (1.8-7.7); Platelet Count 243 th/mm3 (150-450); Red Blood Count 4.06 mil/mm3 (4.00-5.30); Red Cell Distribution Width 17.1 % (11.6-17.2); White Blood Count 5.3 th/mm3 (4.0-11.0)
--- NOTE | 2017-10-17 14:32 | XR ---
EXAM DATE: 10/17/2017 2:15 PM EDT AGE/SEX: 87 years / Female INDICATIONS: Shortness of breath and chest discomfort. CLINICAL DATA: This is the patient's initial encounter. Patient reports that signs and symptoms have been present for 1 day and indicates a pain score of 0/10. MEDICAL/SURGICAL HISTORY: . Hiatal hernia. Gastroesophageal reflux disease. Hypertension. Diver ticulosis, coronary artery disease, COPD, congestive heart failure. . Defibrillator. Pacemaker. Ailyn nary artery stent. COMPARISON: [facility] [place], CHEST 1V SINGLE AP, 10/07/2017. . FINDINGS: Significant increase in fluid is identified in the right lung base. There is a moderate pleural effus ion noted at this time. Left lung is clear. Heart is mildly to moderately enlarged. ICD device is in stable position. CONCLUSION: 1. Moderate right pleural effusion which has increased in size since 10/07. 2. Otherwise stable chest. Electronically signed by: Kartik Travis MD 10/17/2017 2:31 PM EDT
[2017-10-17 14:35] LABS: Alanine Aminotransferase 22 U/L (10-53); Albumin 2.6 g/dL (3.4-5.0); Anion Gap 14 meq/L (5-15); Aspartate Aminotransferase 26 U/L (15-37); Blood Urea Nitrogen 29 mg/dL (7-18); Calcium 8.1 mg/dL (8.5-10.1); Carbon Dioxide 17.5 meq/L (21.0-32.0); Chloride 107 meq/L (98-107); Glomerular Filtration Rate 33 mL/min (>89); Glucose,Random 101 mg/dL (74-106); Magnesium 2.4 mg/dL (1.5-2.5); Potassium 4.4 meq/L (3.5-5.1); Sodium 138 meq/L (136-145)
[2017-10-17 14:39] LABS: Alkaline Phosphatase 218 U/L (45-117); Troponin I 0.34 ng/mL (0.02-0.05)
--- NOTE | 2017-10-17 16:25 | P.HPIM ---
History of Present Illness Primary Care Physician: UNKNOWN Chief Complaint: right arm swelling History of Present Illness: 87-year-old white female with a history of chronic systolic congestive heart failure with recent EF of 30-35% with a recent admission for acute exacerbation of chronic systolic congestive heart failure back in October 08 represented to the emergency room via [facility] after her assisted-living facility called for left upper arm swelling and concerns to the daughter that her pacemakers was "making abnormal sounds". Quality Assurance Monitor report also noted concerns of her lower extremity swelling however daughter at bedside states that the swelling has not worsened over the past week. Due to patient's dementia, we were unable to get much further history. She does denies any symptoms of shortness of breath , palpitations, nor chest pain at this time. Apparently, patient has not been receiving furosemide in the assisted-living facility and may have been a confusion with her discharge medication from the hospital per her daughter. Inpatient Certification: I certify that the inpatient services were ordered in accordance with Medicare regulations governing the order. This includes certification that hospital inpatient services are reasonable and necessary and in the case of services not specified as inpatient-only under 42 CFR 419.22(n), that they are appropriately provided as inpatient services in accordance to with the 2-midnight benchmark under 43 CFR 412.3(e) Review of Systems unobtainable due to mental condition PMFSH - History History Provided By: Medical Record, Quality Assurance Monitor / EMT - Medical History Medical History: Medical History (Last Updated 10/17/17 @ 16:24 by Jocy Alonso MD) Chronic systolic CHF (congestive heart failure) Pacemaker Pulmonary hypertension Anemia Asthma C. difficile colitis CAD (coronary artery disease) COPD (chronic obstructive pulmonary disease) Dementia Depression Diverticulosis GERD (gastroesophageal reflux disease) HTN (hypertension) Hypothyroid - Surgical History Surgical History: Surgical History (Last Reviewed 10/17/17 @ 16:17 by Jocy Alonso MD) Stented coronary artery - Family History Family History: Family History (Last Updated 10/17/17 @ 16:18 by Jocy Alonso MD) Mother CHF (congestive heart failure) - Tobacco History Second Hand Smoke Exposure: No Smoking Status: Never smoker - Alcohol History How Often Do You Have a Drink Containing Alcohol: Never - Substance Use History Substance History: No History of Abuse - Travel History Recent Travel in the [place] Within the Last 8 Weeks: No Recent Travel Out of the Country Within the Last 8 Weeks: No - Immunization History Tetanus Immunization: Unsure Hx Influenza Vaccine This Season: Unable to Assess Medications and Allergies Active Medications: Active Medications Aspirin (Aspirin Chew) 81 mg PO DAILY YOLANDA Furosemide (Lasix Inj) 40 mg IV.PUSH BID@0900,1800 YOLANDA Heparin Sodium (Porcine) (Heparin Inj) 5,000 units SQ Q12H YOLANDA Potassium Chloride (Kcl) 10 meq PO BID YOLANDA Sodium Chloride (Ns Flush) 2 ml IV.FLUSH BID YOLANDA Sodium Chloride (Ns Flush) 2 ml IV.FLUSH UNSCH PRN PRN Reason: FLUSH AFTER USING IV ACCESS Allergies Allergy/AdvReac Type Severity Reaction Status Date / Time Penicillins Allergy Severe Anaphylaxis Verified 10/17/17 14:00 Home Medications Medication Instructions Recorded Confirmed Type multivitamin with iron DAILY 10/08/17 History vitamin B complex 1,000 mcg PO EVERY OTHER DAY 10/08/17 10/17/17 History acetaminophen 650 mg PO BID PRN 10/17/17 10/17/17 History albuterol sulfate [ProAir HFA] 2 puff INHALATION Q6H PRN 10/17/17 10/17/17 History aspirin 81 mg PO DAILY 10/17/17 10/17/17 History docusate sodium 100 mg PO EVERY OTHER DAY 10/17/17 10/17/17 History levothyroxine 25 mcg PO DAILY 10/17/17 10/17/17 History montelukast 4 mg PO QPM 10/17/17 10/17/17 History pantoprazole 40 mg PO DAILY 10/17/17 10/17/17 History Exam Vital signs: Vital Signs 10/17/17 13:47 10/17/17 13:53 10/17/17 15:58 Pulse Rate 93 H 93 H 87 Respiratory Rate 23 22 24 Blood Pressure 120/90 120/90 133/91 H Pulse Oximetry 99 99 99 Intake & Output 10/16/17 10/17/17 10/17/17 18:59 06:59 18:59 Weight 46.266 kg Narrative: GENERAL: Well-nourished well-developed pleasant female in no acute distress sitting on bed SKIN: Warm and dry. HEAD: Atraumatic. Normocephalic. EYES: Pupils equal and round. No scleral icterus. No injection or drainage. ENT: No nasal bleeding or discharge. Mucous membranes pink and moist. NECK: Trachea midline. No JVD. CARDIOVASCULAR: Regular rate and rhythm. RESPIRATORY: No accessory muscle use. Clear to auscultation. Breath sounds equal bilaterally. GASTROINTESTINAL: Abdomen soft, non-tender, nondistended. Hepatic and splenic margins not palpable. MUSCULOSKELETAL: Extremities without clubbing, cyanosis, bilateral lower extremity swelling with 1+ edema bilaterally, left upper extremity with swelling over the left upper arm with no tenderness on palpation. No redness or induration. NEUROLOGICAL: Awake and alert to person and place. No obvious cranial nerve deficits. Motor grossly within normal limits. Five out of 5 muscle strength in the arms and legs. Normal speech. PSYCHIATRIC: Appropriate mood and affect; Results - Labs CBC & Chem 7: 10/17/17 14:08 10/18/17 07:13 Labs: Short CBC 10/17/17 Range/Units 14:08 WBC 5.3 (4.0-11.0) th/mm3 Hgb 12.1 (11.6-15.3) gm/dL Hct 37.8 (35.0-46.0) % Plt Count 243 (150-450) th/mm3 BMP 10/17/17 14:08 Sodium 138 Potassium 4.4 Chloride 107 Carbon Dioxide 17.5 L BUN 29 H Creatinine 1.50 H Calcium 8.1 L Cardiac Enzymes 10/17/17 10/17/17 Range/Units 14:08 14:08 Troponin I 0.34 H Cancelled (0.02-0.05) ng/mL Liver Function 10/17/17 Range/Units 14:08 Total Bilirubin 0.5 (0.2-1.0) mg/dL AST 26 (15-37) U/L ALT 22 (10-53) U/L Alkaline Phosphatase 218 H (45-117) U/L Albumin 2.6 L (3.4-5.0) g/dL - Imaging Impressions Chest X-Ray 10/17/17 14:01 CONCLUSION: 1. Moderate right pleural effusion which has increased in size since 10/07. 2. Otherwise stable chest. - ECG Attestation: I personally reviewed and interpreted this ECG as follows: Prior ECG tracings: available for review Interpretation: Sinus rhythm with PVCs Caprini VTE Risk Assessment Caprini VTE Risk Assessment: Moderate/High Risk (score >= 2) Caprini Risk Assessment Model: Point Value = 1 Point Value = 2 Point Value = 3 Point Value = 5 Age 41-60 Minor surgery BMI > 25 kg/m2 Swollen legs Varicose veins or History of unexplained or recurrent spontaneous Oral contraceptives or hormone replacement Sepsis (< 1 month) Serious lung disease, including pneumonia (< 1 month) Abnormal pulmonary function Acute myocardial infarction Congestive heart failure (< 1 month) History of inflammatory bowel disease Medical patient at bed rest Age 61-74 Arthroscopic surgery Major open surgery (> 45 min) Laparoscopic surgery (> 45 min) Malignancy Confined to bed (> 72 hours) Immobilizing plaster cast Central venous access Age >= 75 History of VTE Family history of VTE Factor V Leiden Prothrombin [id number] Lupus anticoagulant Anticardiolipin antibodies Elevated serum homocysteine Heparin-induced thrombocytopenia Other congenital or acquired thrombophilia Stroke (< 1 month) Elective arthroplasty Hip, pelvis, or leg fracture Acute spinal cord injury (< 1 month) Prophylaxis Regimen: Total Risk Factor Score Risk Level Prophylaxis Regimen 0-1 Low Early ambulation 2 Moderate Order ONE of the following: *Sequential Compression Device (SCD) *Heparin 5000 units SQ BID 3-4 Higher Order ONE of the following medications: *Heparin 5000 units SQ TID *Enoxaparin/Lovenox 40 mg SQ daily (WT < 150 kg, CrCl > 30 mL/min) *Enoxaparin/Lovenox 30 mg SQ daily (WT < 150 kg, CrCl > 10-29 mL/min) *Enoxaparin/Lovenox 30 mg SQ BID (WT < 150 kg, CrCl > 30 mL/min) AND/OR *Sequential Compression Device (SCD) 5 or more Highest Order ONE of the following medications: *Heparin 5000 units SQ TID (Preferred with Epidurals) *Enoxaparin/Lovenox 40 mg SQ daily (WT < 150 kg, CrCl > 30 mL/min) *Enoxaparin/Lovenox 30 mg SQ daily (WT < 150 kg, CrCl > 10-29 mL/min) *Enoxaparin/Lovenox 30 mg SQ BID (WT < 150 kg, CrCl > 30 mL/min) AND *Sequential Compression Device (SCD) Assessment and Plan - Plan 1. Left upper extremity swellingrule out underlying venous thrombosis with Doppler ultrasound. Elevate extremity. Rule out underlying thrombophlebitis from recent hospitalization. 2. Chronic systolic congestive heart failure with recent EF of 30%restart IV Lasix and ensure patient transitions to oral Lasix upon discharge back to [facility]. 3. Chronic kidney disease stage IIImonitor on diuretics and avoid nephrotoxins 4. History of dementiachronic and at baseline 5. Hypertension, chronic essentialresume lisinopril 6. Hyperlipidemia, resume home statin 7. DVT prophylaxisheparin subcu Placed on observation, case management assist with discharge planning with home health care to transition to reduce readmission Discussed Condition With: Daughter at bedside
[2017-10-17] MEDS: Heparin - SQ 10,000 UNITS/ML Vial SQ SCH (16:40)
[2017-10-17 16:50] LABS: Activated Partial Thrombo Time 24.7 sec (24.3-30.1); INR 1.2 Ratio; Prothrombin Time 12.2 sec (9.8-11.6)
--- NOTE | 2017-10-17 19:24 | US ---
EXAM DATE: 10/17/2017 6:59 PM EDT AGE/SEX: 87 years / Female INDICATIONS: Left arm swelling. CLINICAL DATA: This is the patient's initial encounter. Patient reports that signs and symptoms have been present for 2 days and indicates a pain score of 4/10. MEDICAL/SURGICAL HISTORY: Asthma. Anemia. Cardiovascular disease. CHF. Dementia. Diverticu losis. GERD. Hypertension. Hypothyroidism. Pulmonary Hypertension. Pacemaker. Coronary artery stent. COMPARISON: No prior exams available for comparison. FINDINGS: The vessels are compressible and augmentation response is documented. No filling defects a re seen. The flow is phasic with respiration. Pacer leads are seen within the left subclavian vein. Other: None. CONCLUSION: No left upper extremity DVT. Electronically signed by: Ochoa Ferris MD 10/17/2017 7:22 PM EDT
[2017-10-17] MEDS: Potassium Chloride 10 MEQ ER Capsule PO SCH (20:45)
[2017-10-18] MEDS: Heparin - SQ 10,000 UNITS/ML Vial SQ SCH ×2 (03:24→16:00)
--- NOTE | 2017-10-18 08:25 | ECG ---
Date Performed: 10/17/2017 Time Performed: 14:33:29 PTAGE: 87 years EKG: Sinus rhythm WITH OCCASIONAL ECTOPIC PREMATURE COMPLEXES INDETERMINATE AXIS INTRAVENTRICULAR CONDUCTION DELAY POS SIBLE ANTERIOR MYOCARDIAL INFARCTION ABNORMAL ECG NO PREVIOUS TRACING DOCTOR: Maddy Maloney Interpretating Date/Time 10/18/2017 08:21:09
[2017-10-18 08:42] LABS: Calcium 8.6 mg/dL (8.5-10.1); Carbon Dioxide 15.7 meq/L (21.0-32.0); Potassium 4.7 meq/L (3.5-5.1)
[2017-10-18] MEDS: Potassium Chloride 10 MEQ ER Capsule PO SCH ×2 (09:08→20:51)
--- NOTE | 2017-10-18 15:09 | P.PN ---
Subjective Interval history: Follow up for CHF exacerbation, pleural effusion. The patient reports continue shortness of breath, orthopnea, and dyspnea upon minimal exertion. She states she feels very weak and fatigued. She also reports continued lower extremity edema, minimally improved overnight. She does report good urine output. Denies any chest pain. She reports compliance with lasix, low salt diet, and fluid restrictions. Discussed checking daily weights and keeping log, she states a nurse who checks on her at [facility] weighs her periodically. She has no other medical complaints at this time. Physical Exam Vital signs: Vital Signs 10/17/17 15:58 10/17/17 18:19 10/17/17 19:47 Temperature 98.2 F 97.8 F Pulse Rate 87 68 93 H Respiratory Rate 24 20 16 Blood Pressure 133/91 H 132/85 125/85 Pulse Oximetry 99 96 97 10/17/17 23:00 10/18/17 03:36 10/18/17 13:06 Temperature 97.4 F L 97.7 F 98.2 F Pulse Rate 94 H 92 H 68 Respiratory Rate 16 16 20 Blood Pressure 118/82 117/84 128/62 Pulse Oximetry 98 98 98 Intake & Output 10/17/17 10/18/17 10/18/17 18:59 06:59 18:59 Weight 46.266 kg Other: # Voids 1 Narrative: GENERAL: Well-nourished, well-developed pleasant elderly female patient in [facility]. SKIN: Warm and dry. No rash. HEENT: Normocephalic. Atraumatic. Pupils equal and round. Mucous membranes pink and moist. CARDIOVASCULAR: Regular rate and rhythm. No murmur appreciated. RESPIRATORY: No accessory muscle use. Dyspneic with conversation. Crackles at left base, breath sounds diminished at right base. GASTROINTESTINAL: Abdomen soft, non-tender, nondistended. Normoactive bowel sounds x4. MUSCULOSKELETAL: No obvious deformities. 2+ bilateral lower extremity pitting edema. LUE with mild edema of the upper arm, improving, nontender. NEUROLOGICAL: Awake and alert. No obvious cranial nerve deficits. Motor grossly within normal limits. Moving all extremities spontaneously. Normal speech. Results - Labs CBC & Chem 7: 10/17/17 14:08 10/18/17 07:13 Laboratory Results - last 24 hr 10/17/17 10/17/17 10/17/17 14:08 14:08 16:18 PT 12.2 H INR 1.2 APTT 24.7 Sodium Potassium Chloride Carbon Dioxide Anion Gap BUN Creatinine Estimated GFR Random Glucose Calcium Total Bilirubin 0.5 Alkaline Phosphatase 218 H Troponin I 0.34 H B-Natriuretic Peptide Greater than 5000 H Total Protein 6.0 L 10/18/17 07:13 PT INR APTT Sodium 138 Potassium 4.7 Chloride 106 Carbon Dioxide 15.7 L Anion Gap 16 H BUN 31 H Creatinine 1.58 H Estimated GFR 31 L Random Glucose 108 H Calcium 8.6 Total Bilirubin Alkaline Phosphatase Troponin I B-Natriuretic Peptide Total Protein - Imaging Impressions Venous Doppler Study 10/17/17 00:00 CONCLUSION: No left upper extremity DVT. Assessment and Plan - Plan 87-year-old white female with a history of chronic systolic CHF with recent EF of 30-35% and recent admission for acute exacerbation of chronic systolic CHF on October 08 presented to the ED via [facility] from her assisted-living facility for shortness of breath and LUE swelling. Left upper extremity swelling: unclear etiology, rule out DVT vs thrombophlebitis, patient with recent hospitalization -Doppler U/S negative for DVT -Elevate LUE -Swelling improving Acute Exacerbation of Chronic systolic CHF: with recent EF of 30-35% on 10/09/17. Reports of not receiving lasix at [facility]. -BNP > 5000 -CXR reviewed, shows moderate right pleural effusion, significantly increased in size since 10/07; otherwise stable -restart IV Lasix 40mg bid and ensure patient transitions to oral Lasix upon discharge back to [facility]. -continue patient's lisinopril, metoprolol, aspirin, statin -monitor strict Is&Os and daily weights -fluid/salt restrictions Right Pleural Effusion: seen on CXR as above, increased in size since 10/07 -discussed with radiology, patient unable to have thoracentesis secondary to being on plavix (would need to be held x5days) -continue diuresis as above HTN, HLD, CAD s/p stent: chronic -continue patient's GENEVIEVE, BB, aspirin, plavix, statin -no complaints of chest pain Chronic kidney disease stage III: chronic -continue to monitor on diuretics and avoid nephrotoxins History of dementia: chronic and at baseline -resume home meds DVT prophylaxisheparin subcu Discharge Planning: Discharge pending further clinical improvement. Likely require additional 2-3 days of IV diuresis.
[2017-10-18] MEDS: Mirtazapine 15 MG Tablet PO SCH (20:47)
[2017-10-18] MEDS: Metoprolol Tartrate 25 MG Tablet PO SCH (20:49)
[2017-10-19] MEDS: Heparin - SQ 10,000 UNITS/ML Vial SQ SCH ×2 (06:36→17:02)
[2017-10-19 08:05] LABS: Carbon Dioxide 13.6 meq/L (21.0-32.0); Magnesium 2.3 mg/dL (1.5-2.5); Potassium 5.3 meq/L (3.5-5.1)
[2017-10-19] MEDS: Lisinopril 10 MG Tablet PO SCH (09:35)
[2017-10-19] MEDS: Potassium Chloride 10 MEQ ER Capsule PO SCH ×2 (09:35→21:11)
[2017-10-19] MEDS: Metoprolol Tartrate 25 MG Tablet PO SCH ×2 (09:35→21:08)
--- NOTE | 2017-10-19 15:03 | P.PN ---
Subjective Interval history: Follow up for CHF exacerbation, pleural effusion. The patient reports mild improvement today. She still has shortness of breath, worse with exertion. Also reports orthopnea. Lower extremity swelling slowly improving. O2 sat currently 98% on room air. Denies any chest pains. Denies any other medical complaints at this time. She does not feel ready for discharge. Physical Exam Vital signs: Vital Signs 10/18/17 17:06 10/18/17 20:00 10/18/17 23:47 Temperature 98.2 F 97.5 F L 98.7 F Pulse Rate 68 102 H 86 Respiratory Rate 18 16 18 Blood Pressure 120/62 121/85 123/79 Pulse Oximetry 96 100 100 10/19/17 03:37 10/19/17 08:00 10/19/17 12:00 Temperature 97.1 F L 98.2 F 98.1 F Pulse Rate 84 92 H 90 Respiratory Rate 16 14 14 Blood Pressure 112/80 137/85 128/80 Pulse Oximetry 98 98 99 Narrative: GENERAL: Well-nourished, well-developed pleasant elderly female patient in [facility]. SKIN: Warm and dry. No rash. HEENT: Normocephalic. Atraumatic. Pupils equal and round. Mucous membranes pink and moist. CARDIOVASCULAR: Regular rate and rhythm. No murmur appreciated. RESPIRATORY: No accessory muscle use. Dyspneic with conversation. Crackles at left base, breath sounds diminished at right base, minimally improved. GASTROINTESTINAL: Abdomen soft, non-tender, nondistended. Normoactive bowel sounds x4. MUSCULOSKELETAL: No obvious deformities. 1+ bilateral lower extremity pitting edema, mildly improved. LUE with mild edema of the upper arm, improving, nontender. NEUROLOGICAL: Awake and alert. No obvious cranial nerve deficits. Motor grossly within normal limits. Moving all extremities spontaneously. Normal speech. Results - Labs CBC & Chem 7: 10/17/17 14:08 10/19/17 07:20 Laboratory Results - last 24 hr 10/19/17 07:20 Sodium 137 Potassium 5.3 H Chloride 106 Carbon Dioxide 13.6 L Anion Gap 17 H BUN 35 H Creatinine 1.83 H Estimated GFR 26 L Random Glucose 95 Calcium 8.0 L Magnesium 2.3 Assessment and Plan - Plan 87-year-old white female with a history of chronic systolic CHF with recent EF of 30-35% and recent admission for acute exacerbation of chronic systolic CHF on October 08 presented to the ED via EVAC from her assisted-living facility for shortness of breath and LUE swelling. Left upper extremity swelling: unclear etiology, rule out DVT vs thrombophlebitis, patient with recent hospitalization -Doppler U/S negative for DVT -Elevate LUE -Swelling much improved, no pain Acute Exacerbation of Chronic systolic CHF: with recent EF of 30-35% on 10/09/17. Reports of not receiving lasix at [facility]. -BNP > 5000 -CXR reviewed, shows moderate right pleural effusion, significantly increased in size since 10/07; otherwise stable -restart IV Lasix 40mg bid and ensure patient transitions to oral Lasix upon discharge back to [facility]. -continue patient's lisinopril, metoprolol, aspirin, statin -monitor strict Is&Os and daily weights -fluid/salt restrictions Right Pleural Effusion: seen on CXR as above, increased in size since 10/07 -discussed with radiology, patient unable to have thoracentesis secondary to being on plavix (would need to be held x5days) -continue diuresis as above HTN, HLD, CAD s/p stent: chronic -continue patient's GENEVIEVE, BB, aspirin, plavix, statin -no complaints of chest pain Chronic kidney disease stage III: chronic -continue to monitor on diuretics and avoid nephrotoxins -Cr increased to 1.83 today, continue to monitor closely History of dementia: chronic and at baseline -resume home meds DVT prophylaxisheparin subcu Discharge Planning: Discharge pending further clinical improvement. Likely require additional 2-3 days of IV diuresis.
[2017-10-19] MEDS: Mirtazapine 15 MG Tablet PO SCH (21:10)
[2017-10-20] MEDS: Heparin - SQ 10,000 UNITS/ML Vial SQ SCH ×2 (06:46→17:26)
[2017-10-20] MEDS: Potassium Chloride 10 MEQ ER Capsule PO SCH ×2 (09:08→22:49)
[2017-10-20] MEDS: Lisinopril 10 MG Tablet PO SCH (09:08)
[2017-10-20] MEDS: Metoprolol Tartrate 25 MG Tablet PO SCH ×2 (09:09→22:53)
[2017-10-20 09:47] LABS: Bilirubin,Urine Negative (Negative); Clarity,Urine Clear (Clear); Color,Urine Yellow (Yellw/Straw); Glucose,Urine (UA) Negative (Negative); Hyaline Casts,Urine 16 /lpf (0-3); Leukocyte Esterase,Urine Negative (Negative); Mucus,Urine Few /lpf (Occasional); Nitrite,Urine Negative (Negative); Specific Gravity,Urine 1.006 (1.002-1.035); Squamous Epithelial Cell,Urine 1 /hpf (0-5)
[2017-10-20 10:16] LABS: Calcium 8.3 mg/dL (8.5-10.1); Carbon Dioxide 16.4 meq/L (21.0-32.0); Potassium 4.7 meq/L (3.5-5.1)
--- NOTE | 2017-10-20 12:09 | P.PN ---
Subjective Interval history: Follow up for CHF exacerbation. The patient reports mild improvement, however still dyspneic with exertion. Denies chest pain. Still with lower extremity edema, although improving. Denies any other medical complaints at this time. Physical Exam Vital signs: Vital Signs 10/19/17 16:00 10/19/17 20:00 10/20/17 00:00 Temperature 97.9 F 97.9 F 97.8 F Pulse Rate 97 H 98 H 96 H Respiratory Rate 14 16 15 Blood Pressure 127/85 109/78 120/79 Pulse Oximetry 97 98 98 10/20/17 04:00 10/20/17 08:00 Temperature 98.2 F 97.7 F Pulse Rate 92 H 97 H Respiratory Rate 15 16 Blood Pressure 134/65 130/84 Pulse Oximetry 98 99 Intake & Output 10/19/17 10/20/17 10/20/17 18:59 06:59 18:59 Intake Total 150 / 150 Output Total 500 / 500 Balance -350 / -350 Weight 49.2 kg Intake: Oral 150 / 150 Output: Urine 500 / 500 Narrative: GENERAL: Well-nourished, well-developed pleasant elderly female patient in [facility]. SKIN: Warm and dry. No rash. HEENT: Normocephalic. Atraumatic. Pupils equal and round. Mucous membranes pink and moist. CARDIOVASCULAR: Regular rate and rhythm. No murmur appreciated. RESPIRATORY: No accessory muscle use. Dyspneic with minimal exertion in bed. Left lung with faint crackles at left base, breath sounds diminished at right base, improving. GASTROINTESTINAL: Abdomen soft, non-tender, nondistended. Normoactive bowel sounds x4. MUSCULOSKELETAL: No obvious deformities. 1+ bilateral lower extremity pitting edema, mildly improved. LUE with mild edema of the upper arm mostly resolved, nontender. NEUROLOGICAL: Awake and alert. No obvious cranial nerve deficits. Motor grossly within normal limits. Moving all extremities spontaneously. Normal speech. Results - Labs CBC & Chem 7: 10/17/17 14:08 10/20/17 09:15 Laboratory Results - last 24 hr 10/20/17 10/20/17 09:15 09:21 Sodium 139 Potassium 4.7 Chloride 107 Carbon Dioxide 16.4 L Anion Gap 16 H BUN 39 H Creatinine 1.85 H Estimated GFR 26 L Random Glucose 73 L Calcium 8.3 L Urine Color Yellow Urine Clarity Clear Urine pH 5.0 Ur Specific [place] 1.006 Urine Protein Negative Urine Glucose (UA) Negative Urine Ketones Negative Urine Occult Blood Small H Urine Nitrate Negative Urine Bilirubin Negative Urine Urobilinogen Less than 2 Ur Leukocyte Esterase Negative Urine RBC 1 Urine WBC 1 Ur Squamous Epith Cells 1 Hyaline Casts 16 Urine Mucus Few H Micro UA Comment Culture not ind Urine Culture Comments Culture not ind Assessment and Plan - Plan 87-year-old white female with a history of chronic systolic CHF with recent EF of 30-35% and recent admission for acute exacerbation of chronic systolic CHF on October 08 presented to the ED via EVAC from her assisted-living facility for shortness of breath and LUE swelling. Left upper extremity swelling: unclear etiology, rule out DVT vs thrombophlebitis, patient with recent hospitalization -Doppler U/S negative for DVT -Elevate LUE -Swelling much improved, no pain Acute Exacerbation of Chronic systolic CHF: with recent EF of 30-35% on 10/09/17. Reports of not receiving lasix at [facility]. -BNP > 5000 -CXR reviewed, shows moderate right pleural effusion, significantly increased in size since 10/07; otherwise stable -restart IV Lasix 40mg bid and ensure patient transitions to oral Lasix upon discharge back to [facility]. -continue patient's lisinopril, metoprolol, aspirin, statin -monitor strict Is&Os and daily weights -fluid/salt restrictions -symptoms slowly improving Right Pleural Effusion: seen on CXR as above, increased in size since 10/07 -discussed with radiology, patient unable to have thoracentesis secondary to being on plavix (would need to be held x5days) -continue diuresis as above HTN, HLD, CAD s/p stent: chronic -continue patient's GENEVIEVE, BB, aspirin, plavix, statin -no complaints of chest pain Chronic kidney disease stage III: chronic -continue to monitor on diuretics and avoid nephrotoxins -Cr increased to 1.85 today, continue to monitor closely History of dementia: chronic and at baseline -resume home meds DVT prophylaxisheparin subcu Discharge Planning: Discharge pending further clinical improvement. Likely require additional 1-2 days of IV diuresis. Discussed with case management, will change to inpatient as patient still not ready for discharge, requiring further IV diuresis.
[2017-10-20] MEDS: Mirtazapine 15 MG Tablet PO SCH (22:49)
[2017-10-21] MEDS: Heparin - SQ 10,000 UNITS/ML Vial SQ SCH (04:52)
--- NOTE | 2017-10-21 10:03 | P.PN ---
Subjective Interval history: Follow-up visit chronic systolic CHF with exacerbation, HTN, HLD, CKD 3. Patient seen and examined today. Reports she is doing well. Confused but able to answer and respond to questions and commands. Patient is on room air appears comfortable and not short of breath. States that she lives at home and that her lives in [place]. States that she wants to go home in the care of her house. Further investigation patient lives in [place] with . Denies pain and discomfort. Denies SOB/ dyspnea. Denies chest pain, palpitations, headaches, dizziness. Denies fevers, chills, n/v/d. Denies dysuria. Physical Exam Vital signs: Vital Signs 10/20/17 12:00 10/20/17 16:00 10/20/17 20:00 Temperature 97.5 F L 97.7 F 97.9 F Pulse Rate 93 H 95 H 98 H Respiratory Rate 16 16 16 Blood Pressure 116/75 113/81 136/73 Pulse Oximetry 100 98 95 10/20/17 23:34 10/21/17 01:10 10/21/17 04:00 Temperature 97.7 F 98.2 F Pulse Rate 88 75 86 Respiratory Rate 16 16 Blood Pressure 106/73 130/82 Pulse Oximetry 98 98 10/21/17 07:53 10/21/17 08:00 Temperature 97.5 F L Pulse Rate 83 84 Respiratory Rate 16 Blood Pressure 117/79 Pulse Oximetry 98 Intake & Output 10/20/17 10/21/17 10/21/17 18:59 06:59 18:59 Weight 49.2 kg 55.14 kg Other: # Voids 4 2 Date of Last Bowel Movement 10/20/17 10/20/17 Narrative: GENERAL: This is a well-nourished, well-developed patient, in no apparent distress. SKIN: Warm and dry. HEENT: Normocephalic. Pupils equal round and reactive. Nose without bleeding. Airway patent. NECK: Trachea midline. CARDIOVASCULAR: Regular rate and rhythm without murmurs, gallops, or rubs. RESPIRATORY: Diminished right base, otherwise CTA. No wheezes, rales, or rhonchi. GASTROINTESTINAL: Abdomen soft, non-tender, nondistended. Bowel Sounds normoactive x4. MUSCULOSKELETAL: Extremities without clubbing, cyanosis. LUE +1 edema , BLE edema +1, L>R NEUROLOGICAL: Awake and alert. Oriented to person. Moves all extremities. Normal speech. Results - Labs CBC & Chem 7: 10/17/17 14:08 10/20/17 09:15 Laboratory Results - last 24 hr 10/20/17 09:15 Sodium 139 Potassium 4.7 Chloride 107 Carbon Dioxide 16.4 L Anion Gap 16 H BUN 39 H Creatinine 1.85 H Estimated GFR 26 L Random Glucose 73 L Calcium 8.3 L - Procedures None Assessment and Plan - Plan 87-year-old white female with a history of chronic systolic CHF with recent EF of 30-35% and recent admission for acute exacerbation of chronic systolic CHF on October 08 presented to the ED via EVAC from her assisted-living facility for shortness of breath and LUE swelling. Left upper extremity swelling: unclear etiology, rule out DVT vs thrombophlebitis, patient with recent hospitalization -Doppler U/S negative for DVT -Elevate LUE -Swelling much improved, no pain Acute Exacerbation of Chronic systolic CHF: with recent EF of 30-35% on 10/09/17. Reports of not receiving lasix at [facility]. -BNP > 5000 -CXR reviewed, shows moderate right pleural effusion, significantly increased in size since 10/07; otherwise stable -restart IV Lasix 40mg bid and ensure patient transitions to oral Lasix upon discharge back to [facility]. -continue patient's lisinopril, metoprolol, aspirin, statin -monitor strict Is&Os and daily weights -fluid/salt restrictions -symptoms improved Right Pleural Effusion: seen on CXR as above, increased in size since 10/07 -discussed with radiology, patient unable to have thoracentesis secondary to being on plavix (would need to be held x5days) -continue diuresis as above HTN, HLD, CAD s/p stent: chronic -continue patient's GENEVIEVE, BB, aspirin, plavix, statin -no complaints of chest pain Chronic kidney disease stage III: chronic -continue to monitor on diuretics and avoid nephrotoxins -Cr increased to 1.85 continue to monitor closely in the outpatient History of dementia: chronic and at baseline -resume home meds DVT prophylaxisheparin subcu Code Status: Full Code Discussed Condition With: Patient, nursing Discharge Planning: [place] home today with [facility]
--- NOTE | 2017-10-21 10:05 | P.DCO ---
- Physical Therapy Order: Evaluate and treat - Home Health Nursing Order: Medical education, Signs/symptoms of disease process, CHF education, Medication education-adverse effect, Nursing assessment with vital signs - Certification I have seen patient Afia Wells on 10/21/17. My clinical findings support the need for the requested home health care services because: Patient has SOB, Medication compliance is questionable I certify that my clinical findings support that this patient is homebound because: Poor cardiac reserve
--- NOTE | 2017-10-21 10:20 | P.DS ---
Date of admission: 10/20/17 13:50 Primary care physician: UNKNOWN Attending physician on discharge: Shaun Andrade Anticipated date of discharge: 10/21/17 Brief History from admission: 87-year-old white female with a history of chronic systolic congestive heart failure with recent EF of 30-35% with a recent admission for acute exacerbation of chronic systolic congestive heart failure back in October 08 represented to the emergency room via EVAC after her assisted-living facility called for left upper arm swelling and concerns to the daughter that her pacemakers was "making abnormal sounds". Patient Support Representative report also noted concerns of her lower extremity swelling however daughter at bedside states that the swelling has not worsened over the past week. Due to patient's dementia, we were unable to get much further history. She does denies any symptoms of shortness of breath , palpitations, nor chest pain at this time. Apparently, patient has not been receiving furosemide in the assisted-living facility and may have been a confusion with her discharge medication from the hospital per her daughter. DS: Diagnosis - Discharge Diagnosis (1) Acute exacerbation of CHF (congestive heart failure) Status: Acute DS: Medications - Discharge Medications Prescriptions: furosemide [Lasix] 40 mg PO DAILY #20 tab potassium chloride [K-Tab] 10 meq PO DAILY #20 tab DS: Summary Hospital Course: 87-year-old white female with a history of chronic systolic CHF with recent EF of 30-35% and recent admission for acute exacerbation of chronic systolic CHF on October 08 presented to the ED via EVAC from her assisted-living facility for shortness of breath and LUE swelling. CXR reviewed, shows moderate right pleural effusion, significantly increased in size since 10/07; otherwise stable. Patient has been found to be on acute exacerbation of chronic systolic CHF. BNP greater than 5000, recent EF 30-35% 10/09/17. She has not been receiving any Lasix at the [facility]. Patient was restarted on IV Lasix 40 twice daily. She has been transitioned to oral Lasix on discharge. Left upper extremity swelling, unclear etiology, Doppler ultrasound negative for DVT. Improved swelling. Patient advised to continue with fluid restrictions at home including low- sodium diet. He has a right pleural effusion seen on x-ray however patient is on Plavix and unable to held for 5 days. She was continued to diurese and not needing any oxygen now. Not short of breath. Significantly improved bilateral lower extremity and upper extremity edema. She will continue her home medications and will add Lasix on discharge. Patient has chronic kidney disease stage III. Her BMP needs to be monitored and outpatient. She is to follow-up with her PCP. Patient has a history of dementia restarted her home medication. Patient has met maximal benefits of hospitalization. Clinically stable for discharge. - Time Spent with Patient Total time spent providing and/or coordinating discharge services: Greater than 30 minutes - Quality: VTE Deep Vein Thrombosis/Pulmonary Embolism Present on Admission: No Exam Vital signs: Vital Signs 10/20/17 12:00 10/20/17 16:00 10/20/17 20:00 Temperature 97.5 F L 97.7 F 97.9 F Pulse Rate 93 H 95 H 98 H Respiratory Rate 16 16 16 Blood Pressure 116/75 113/81 136/73 Pulse Oximetry 100 98 95 10/20/17 23:34 10/21/17 01:10 10/21/17 04:00 Temperature 97.7 F 98.2 F Pulse Rate 88 75 86 Respiratory Rate 16 16 Blood Pressure 106/73 130/82 Pulse Oximetry 98 98 10/21/17 07:53 10/21/17 08:00 Temperature 97.5 F L Pulse Rate 83 84 Respiratory Rate 16 Blood Pressure 117/79 Pulse Oximetry 98 Intake & Output 10/20/17 10/21/17 10/21/17 18:59 06:59 18:59 Weight 49.2 kg 55.14 kg Other: # Voids 4 2 Date of Last Bowel Movement 10/20/17 10/20/17 Narrative: GENERAL: This is a well-nourished, well-developed patient, in no apparent distress. SKIN: Warm and dry. HEENT: Normocephalic. Pupils equal round and reactive. Nose without bleeding. Airway patent. NECK: Trachea midline. CARDIOVASCULAR: Regular rate and rhythm without murmurs, gallops, or rubs. RESPIRATORY: Diminished right base, otherwise CTA. No wheezes, rales, or rhonchi. GASTROINTESTINAL: Abdomen soft, non-tender, nondistended. Bowel Sounds normoactive x4. MUSCULOSKELETAL: Extremities without clubbing, cyanosis. LUE +1 edema , BLE edema +1, L>R NEUROLOGICAL: Awake and alert. Oriented to person. Moves all extremities. Normal speech. Results Procedures completed during hospitalization: None - Impressions ITS Impressions Venous Doppler Study 10/17/17 00:00 CONCLUSION: No left upper extremity DVT. Chest X-Ray 10/17/17 14:01 CONCLUSION: 1. Moderate right pleural effusion which has increased in size since 10/07. 2. Otherwise stable chest. Discharge Plan - Discharge Disposition Patient Disposition: 01 Discharge Home - Discharge Condition Condition: Stable - Discharge Order Discharge Orders: Discharge Order (Routine); Ordered 10/21/17 Ordered By: Bijan Shelton - Discharge Details Discharge Comment: DC when LABORER DRIVER arranged - Physicians Team Primary Care Provider: UNKNOWN, Attending Provider: Shaun Andrade
[2017-10-21] MEDS: Potassium Chloride 10 MEQ ER Capsule PO SCH (10:26)
[2017-10-21] MEDS: Metoprolol Tartrate 25 MG Tablet PO SCH (10:27)
[2017-10-21] MEDS: Lisinopril 10 MG Tablet PO SCH (10:27)
== END 2017-10-21 15:15 ==
LOC: NEPE 13:28 → NEDA 13:28 → NEPGCP 17:46
PROVIDERS: ADMIT Internal Medicine; ATTEND Internal Medicine
DX: Z79.02 Long term (current) use of antithrombotics/antiplatelets; I13.0 Hypertensive heart and chronic kidney disease with heart failure and stage 1 through stage 4 chronic kidney disease, or unspecified chronic kidney disease; J44.9 Chronic obstructive pulmonary disease, unspecified; N18.3 Chronic kidney disease, stage 3 (moderate); I50.23 Acute on chronic systolic (congestive) heart failure; M79.89 Other specified soft tissue disorders; E78.5 Hyperlipidemia, unspecified; Z95.5 Presence of coronary angioplasty implant and graft; E03.9 Hypothyroidism, unspecified; I25.10 Atherosclerotic heart disease of native coronary artery without angina pectoris; F03.90 Unspecified dementia, unspecified severity, without behavioral disturbance, psychotic disturbance, mood disturbance, and anxiety